=== PATIENT | male | born 1955 | race Caucasian/White ===

== ENCOUNTER 2024-03-21 18:15 | Inpatient (IN) | payer MEDICARE, OTHER, SELFPAY ==
[2024-03-20 17:02] VITALS: BP 118/82
[2024-03-20 17:03] VITALS: BMI 24.3
[2024-03-20 17:27] LABS: % Basophils 0.7 % (0-2); % Eosinophils 4.5 % (0-6); % Immature Granulocytes 0.4 % (0-0.5); % Lymphocytes 16.7 % (20.5-51.1); % Monocytes 7.1 % (1.7-9.3); % Neutrophils 70.6 % (42.2-75.2); Absolute Basophils 0.1 10^3/uL (0-0.2); Absolute Eosinophils 0.4 10^3/uL (0-0.7); Absolute Lymphocytes 1.5 10^3/uL (1.2-3.4); Absolute Monocytes 0.6 10^3/uL (0.1-0.6); Absolute Neutrophils 6.3 10^3/uL (1.4-6.5); Hematocrit 41.5 % (39.0-52.0); Mean Corp Hgb Conc. 33.7 g/dL (33.0-37.0); Mean Corpuscular Hgb 31.9 pg (27.0-31.0); Mean Corpuscular Volume 94.5 fL (80.0-94.0); Nucleated Red Blood Cells % 0 % (-); Platelet Count 365 10^3/uL (130-400); Red Blood Cell Count 4.39 10^6/uL (4.70-6.10); Red Cell Dist. Width 14.1 % (11.5-14.5); White Blood Cell Count 8.9 10^3/uL (4.8-10.8)
[2024-03-20 17:38] LABS: ALT (SGPT) 66 U/L (0-50); AST (SGOT) 73 U/L (17-59); Albumin 4.7 g/dl (3.5-5.0); Alkaline Phosphatase 320 U/L (38-126); Blood Urea Nitrogen 19 mg/dl (9-20); Calcium 10.1 mg/dl (8.4-10.2); Carbon Dioxide 28 mmol/L (22-30); Chloride 98 mmol/L (98-107); Estimated Creatinine Clearance 84 ml/min; Glucose 128 mg/dl (70-99); Potassium 4.3 mmol/L (3.5-5.1); Sodium 139 mmol/L (135-145); Total Bilirubin 0.5 mg/dl (0.2-1.3); Total Protein 9.3 g/dl (6.3-8.2); eGFR > 60.00
[2024-03-20 17:48] LABS: Troponin I < 0.012 ng/ml
[2024-03-20 17:57] LABS: Dilantin 54.1 ug/ml (10-20)
[2024-03-20 18:13] VITALS: BP 126/81
--- NOTE | 2024-03-20 19:15 | ED.GENMED ---
History of Present Illness
General
Chief Complaint: Abnormal Lab Value
Source: patient and records
Exam Limitations: clinical condition
Time Seen by Provider: 03/20/24 17:18
History of Present Illness
History of Present Illness:
68-year-old male with a history of intellectual disability, seizures who presents with abnormal labs that were drawn as an outpatient. Reportedly patient was little more lethargic than usual and was found to have an elevated Dilantin level. The
patient is unable to contribute to his own history. No reported vomiting or fevers.
Past History
Past History
ED Past Medical History: Seizures and Other (Intellectual disability)
Phy Exam
Physical Exam
Physical Exam:
CONSTITUTIONAL Patient alert . Well-appearing. Vital signs reviewed.
EYES eyelids normal to inspection, Extraocular muscles intact, Conjunctiva normal, Sclera normal.
NECK normal range of motion, Trachea midline, no jugular venous distention.
RESPIRATORY CHEST No respiratory distress noted, Chest expansion equal, Bilateral breath sounds clear.
CARDIOVASCULAR regular rate and rhythm, Heart sounds normal.
ABDOMEN abdomen nontender, Bowel sounds normal. No distention.
UPPER EXTREMITY no cyanosis, no edema.
LOWER EXTREMITY no cyanosis, no edema.
NEURO unable to understand speech. Awake.
SKIN skin warm, dry, and normal in color.
Course
Orders/Labs/Results
Orders:
Orders
03/20/24 Dinner
Regular
At Your Request: Non-Participating
Does patient need a safe tray?: No
03/20/24 17:03
Electrocardiogram (*1) Urgent
Reason for Study: Other
Other Reason for Exam: abnormal lab
EKG- Treatment ONCE
03/20/24 17:13
Complete Blood Count/With Diff Urgent
Comprehensive Metabolic Panel Urgent
Dilantin Urgent
Phenobarbital [S] Urgent
Comment: ADD ON
Troponin I Urgent
03/20/24 17:38
Add On- LAB Urgent
Tests Added?: Phenobarbital level
03/20/24 20:10
Admit/Transfer Patient As Directed
Co-Sign Provider:
Level of Care: Observation services
Assign to:: Telemetry
Physician / Group: maninder
Diagnosis: phenytoin toxicity
Reason for Telemetry: Arrhythmia
Date to Stop Telemetry: 03/23/24
Time to Stop Telemetry: 11:00
Code Status As Directed
Resuscitation Status: Full Code
03/20/24 20:12
Keppra (Levetiracetam) [S] Urgent
03/20/24 21:48
Acetaminophen [Tylenol] 650 mg PO Q6HPRN PRN
Bisacodyl [Dulcolax] 10 mg RECTAL DAILY PRN
Magnesium Hydroxide [Milk of Magnesia] 30 ml PO HS PRN
Phosphate Enema [Fleet Phosphate Enema-Adult] 118 ml RECTAL DAILY PRN
diazepam [Diastat AcuDial] See Dose Instructions RECTAL Q8H PRN
03/20/24 21:48
Activity As Directed
Activity Level: As Tolerated
Vital Signs As Directed
Frequency: Per unit guidelines
DX Deep Vein Thrombosis Video Routine
03/20/24 22:40
Urinalysis Reflex To Culture Urgent
Date Specimen was Collected: 03/20/24
Time Specimen was Collected: 22:38
03/21/24 06:00
Complete Blood Count/With Diff IN AM
Comprehensive Metabolic Panel IN AM
03/21/24 08:00
Heparin 5,000 units SC Q12
Levetiracetam [Keppra] 500 mg PO BID
Phenobarbital [Luminal] 16.2 mg PO BID
03/23/24 11:00
DC Protocol for Telemetry ONCE
03/24/24 08:00
Ergocalciferol [Drisdol (Vitamin D2)] 50,000 units PO MO
Abnormal Lab Results
03/20/24
17:13
RBC 4.39 L 10^6/uL
(4.70-6.10)
MCV 94.5 H fL
(80.0-94.0)
MCH 31.9 H pg
(27.0-31.0)
Lymphocytes % 16.7 L %
(20.5-51.1)
Glucose 128 H mg/dl
(70-99)
AST 73 H U/L
(17-59)
ALT 66 H U/L
(0-50)
Alkaline Phosphatase 320 H U/L
(38-126)
Total Protein 9.3 H g/dl
(6.3-8.2)
Phenytoin 54.1 H* ug/ml
(10-20)
03/20/24 17:13
03/20/24 17:13
Vital Signs
Initial and Last Documented VS:
Initial Vital Signs
Temp Pulse Resp BP Pulse Ox
97.7 F 64 18 118/82 98
03/20/24 17:02 03/20/24 17:02 03/20/24 17:02 03/20/24 17:02 03/20/24 17:02
Last Documented Vital Signs
Temp Pulse Resp BP Pulse Ox
97.9 F 67 14 146/86 98
03/20/24 21:58 03/20/24 21:58 03/20/24 21:58 03/20/24 21:58 03/20/24 21:58
MDM/Problems Addressed
MDM/Problems Addressed:
Supratherapeutic Dilantin
*Pulse Oximetry
Patient hypoxic: no
*EKG
Interpreted by ED Provider?: Yes
Interpretation: normal
Rate: normal
Rhythm: sinus
[place]: normal axis
Interval: normal interval
QRS Pattern: normal QRS
Ischemia: no ischemia
*Quoter Interpretation
Rate: normal
Interpretation: normal
Rhythm: sinus
*Critical Care Note
Total Time (30-74mins, 75-104mins- exclusive of procedures): Not Applicable
Data Reviewed
Source: records
Patient Management
Discussion with other providers: Hospitalist
Escalation/DeEscalation of care consider admission/obs:
Six 8-year-old male with a supratherapeutic Dilantin level. Admit for close monitoring. Obviously hold Dilantin and check phenobarbital level
ED Attending Note
-
Portions of this chart may have been created with voice recognition software.� Occasional wrong word or��sound alike� substitutions may have occurred due to the inherent limitations of voice recognition software.
Discharge Plan
Departure
Patient Disposition: Admit
Date of Disposition: 03/20/24
Time of Disposition: 19:15
Admit to: Telemetry
Presentation/result/management discussed w/ accepting MD/DO: Hospitalist
Discharge Problem:
SUPRATHERAPEUTIC Dilantin
Interventions
Interventions:
*Risk Screen - Suicide Last Done: 03/20/24 17:10
*General Assessment Last Done: 03/20/24 17:10
*Neglect/Abuse Screening Last Done: 03/20/24 17:10
ED- Fall Risk Assessment Last Done: 03/20/24 17:12
*ED COVID-19 Vaccine History Last Done: 03/20/24 17:10
*Nursing Disposition Last Done: 03/20/24 21:38
Discharge Date and Time
Discharge Date/Time: 03/20/24 21:39
[2024-03-20 20:00] VITALS: BP 111/81
--- NOTE | 2024-03-20 20:13 | HPS.HSE ---
Addendum entered and electronically signed by Coleman Cardenas MD 03/20/24 20:16:
Check urinalysis.
Original Note:
Family Physician
-
Family Physician: Dipesh Moser
Chief Complaint
-
lethargy
History of Present Illness
68-year-old male past medical history of intellectual disability, seizures, hyperlipidemia sent in from [facility] due to lethargy. Phenytoin level was checked and was found to be elevated at 54 and patient was sent to the emergency room.
Patient denies any symptoms but he is a poor historian. Does not know where he is. No further history can be obtained.
Medical History
Past Medical History
Past Medical History: Reports Other ( intellectual disability, seizures, hyperlipidemia)
Past Surgical History: Reports None
Social History
Tobacco: Non-smoker
Alcohol: None
Drug: None
Family History
Family History: Not pertinent
Allergies / Home Medications
Allergies reflects when Allergies were last updated in [facility].
Home Medications with original date entered in [facility]
Allergy/Medication List:
Allergies
Allergy/AdvReac Type Severity Reaction Status Date / Time
No Known Allergies Allergy Unverified 03/20/24 17:10
Home Medications
acetaminophen 325 mg tablet 650 mg PO Q6H PRN mild pain 03/20/24
atorvastatin 10 mg tablet 10 mg PO DAILY 03/20/24
bisacodyl 10 mg rectal suppository (Dulcolax (bisacodyl)) 10 mg GA DAILY PRN if no results from MOM 03/20/24
diazepam 5 mg-7.5 mg-10 mg rectal kit (Diastat AcuDial) 10 mg GA Q8H PRN seizures 03/20/24
ergocalciferol (vitamin D2) 1,250 mcg (50,000 unit) capsule 1,250 mcg PO MO 03/20/24
levetiracetam 500 mg tablet (Keppra) 500 mg PO BID 03/20/24
magnesium hydroxide 400 mg/5 mL oral suspension (Milk of Magnesia) 30 ml PO HS PRN if no bm x 3 days 03/20/24
phenobarbital 16.2 mg tablet 16.2 mg PO BID 03/20/24
phenytoin 50 mg chewable tablet 250 mg PO BID 03/20/24
sodium phosphates 19 gram-7 gram/118 mL enema (Fleet Enema) 118 ml GA DAILY PRN if no results from dulcolax 03/20/24
Review of Systems
-
History Source: Patient
A 12 point ROS was completed and negative except as noted: Yes
Constitutional: Reports No Symptoms
EENT: Reports No Symptoms
Respiratory: Reports No Symptoms
Cardiac: Reports No Symptoms
Abdomen/GI: Reports No Symptoms
: Reports No Symptoms
Musculoskeletal: Reports No Symptoms
Skin: Reports No Symptoms
Neurological: Reports See HPI
Endocrine: Reports No Symptoms
Hematologic/Lymphatic: Reports No Symptoms
Psych: Reports No Symptoms
Physical Exam
Vital Signs
Vital Signs
Temp Pulse Resp BP Pulse Ox
97.7 F 64 20 126/81 98
03/20/24 17:02 03/20/24 18:15 03/20/24 18:15 03/20/24 18:13 03/20/24 18:15
Physical Exam
General: Well Developed, Well Nourished and No Apparent Distress
HEENT: NormoCephalic, Moist mucous membranes and Atraumatic
Respiratory: Clear
Cardiac: S1/S2 and Regular Rhythm; No Murmur or Rub
GI: Soft, Non Tender, Non Distended and Normal Bowel Sounds; No Organomegaly
Rectal: Deferred by Provider
Musculoskeletal: No Clubbing, No Cyanosis and No Edema
Skin: No Rash
Neuro: Nonfocal/grossly intact
Laboratory Results
-
03/20/24 17:13
03/20/24 17:13
Laboratory Results
Total Bilirubin 0.5 mg/dl (0.2-1.3) 03/20/24 17:13
AST 73 U/L (17-59) H 03/20/24 17:13
ALT 66 U/L (0-50) H 03/20/24 17:13
Alkaline Phosphatase 320 U/L (38-126) H 03/20/24 17:13
Troponin I < 0.012 ng/ml 03/20/24 17:13
Data Reviewed
-
Lab Data: Labs Reviewed by me
Old Records: Reviewed
Impression/Plan
-
IMPRESSION:
PLAN:
# Metabolic encephalopathy secondary to phenytoin toxicity
# History of seizures
-Unclear baseline mental status
-Hold phenytoin
-Phenobarbital level pending
-Check Keppra level
-Continue phenobarbital, Keppra
-Continue as needed diazepam
-Neurology consulted
# Transaminitis secondary to phenytoin toxicity
-Continue to monitor
History of intellectual disability
Hyperlipidemia
-Hold statin
Full code
DVT prophylaxis�heparin
Regular diet
[2024-03-20 21:00] VITALS: BP 122/78
[2024-03-20 21:58] VITALS: BP 146/86
--- NOTE | 2024-03-20 22:00 | PTCARENOTE ---
Pt arrived to unit from ED and was a pullover assist from stretcher to bed. Pt is AAOx1 to self only. BP on admission 146/86, HR 67 in left upper arm. Pt oriented to room with call nichols in reach but he is forgetful. Bed alarm and seizure pads in
place under pt. Pt is ordered a urinalysis and he is incontinent; MEDICAL GENETICIST Chiqui Garcia notified and order placed for straight cath one time now. Urine sample sent to lab by this RN.
[2024-03-20 22:36] VITALS: BMI 28.8
[2024-03-20 22:48] LABS: Urine Albumin Trace (Neg - Trace); Urine Bilirubin 1+ (Negative); Urine Character Clear (Clear); Urine Color Yellow; Urine Glucose Negative (Negative); Urine Ketone Trace (Negative); Urine Leukocyte Trace (Negative); Urine Nitrite Negative (Negative); Urine Occult Blood Negative (Negative); Urine Specific Gravity 1.025 (<1.030); Urine Urobilinogen Negative (Neg - 1+)
[2024-03-20 23:01] LABS: Urine Calcium Oxalate Crystals Present; Urine Squamous Cell 0-2 /LPF (Few)
[2024-03-20 23:02] LABS: Urine Bacteria Few (Negative); Urine Red Blood Cell 0-2 /HPF (0-2)
[2024-03-20 23:10] VITALS: BP 112/72
[2024-03-21 03:05] VITALS: BP 125/77
[2024-03-21 05:07] LABS: % Basophils 0.6 % (0-2); % Eosinophils 6.3 % (0-6); % Immature Granulocytes 0.4 % (0-0.5); % Lymphocytes 16.4 % (20.5-51.1); % Monocytes 12.6 % (1.7-9.3); % Neutrophils 63.7 % (42.2-75.2); Absolute Basophils 0.1 10^3/uL (0-0.2); Absolute Eosinophils 0.6 10^3/uL (0-0.7); Absolute Lymphocytes 1.6 10^3/uL (1.2-3.4); Absolute Monocytes 1.2 10^3/uL (0.1-0.6); Absolute Neutrophils 6.1 10^3/uL (1.4-6.5); Hematocrit 39.5 % (39.0-52.0); Mean Corp Hgb Conc. 35.4 g/dL (33.0-37.0); Mean Corpuscular Hgb 31.6 pg (27.0-31.0); Mean Corpuscular Volume 89.2 fL (80.0-94.0); Nucleated Red Blood Cells % 0 % (-); Platelet Count 241 10^3/uL (130-400); Red Blood Cell Count 4.43 10^6/uL (4.70-6.10); Red Cell Dist. Width 13.9 % (11.5-14.5); White Blood Cell Count 9.5 10^3/uL (4.8-10.8)
[2024-03-21 06:16] LABS: ALT (SGPT) 58 U/L (0-50); AST (SGOT) 60 U/L (17-59); Albumin 4.2 g/dl (3.5-5.0); Alkaline Phosphatase 296 U/L (38-126); Blood Urea Nitrogen 17 mg/dl (9-20); Calcium 9.5 mg/dl (8.4-10.2); Carbon Dioxide 24 mmol/L (22-30); Chloride 102 mmol/L (98-107); Estimated Creatinine Clearance 82 ml/min; Glucose 82 mg/dl (70-99); Potassium 4.1 mmol/L (3.5-5.1); Sodium 139 mmol/L (135-145); Total Bilirubin 0.6 mg/dl (0.2-1.3); Total Protein 8.4 g/dl (6.3-8.2); eGFR > 60.00
[2024-03-21 07:00] VITALS: BP 114/72
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
[2024-03-21] MEDS: LUMINAL 16.1999999999999993 MG PO ×2 (08:54→20:01)
[2024-03-21] MEDS: HEPARIN 5000 UNITS SC ×2 (08:54→19:53)
[2024-03-21] MEDS: KEPPRA 500 MG PO ×2 (08:54→19:54)
[2024-03-21 09:57] LABS: Dilantin 36.7 ug/ml (10-20)
[2024-03-21 11:00] VITALS: BP 109/73
--- NOTE | 2024-03-21 13:51 | EEG.RPT ---
Electroencephalogram Report
Recording
Date of EE03/21/24
Type of EEG: Routine
Length of EEG recordin mins
Done with Video Recording: Yes
Patient Status: Inpatient
Recording Conditions: Awake
Hyperventilation Performed: No
Photic Stimulation Performed: Yes
Report
METHODS
A 21 channel digitized electroencephalogram was performed at [facility]. The 10/20 international system of electrode placement was used. In addition to EEG, the patient was monitored for EKG. The duration of the recording was 28 minutes.
BACKGROUND
During the awake state, with the eyes closed, the background was diffusely slow, 6-7Hz on average; slightly higher amplitude was seen over the right frontal region throughout the recording.
HYPERVENTILATION
Hyperventilation was not performed.
PHOTIC STIMULATION
Photic stimulation using a step-hernandez increase in photic frequency varying from 1-31 Hertz resulted in no driving responses but no appearance of abnormal activity.
CLINICAL EVENTS
None
INTERPRETATION AND CLINICAL CORRELATION
This EEG is abnormal due to the presence of diffuse slowing, 6-7Hz on average; slightly higher amplitude was seen over the right frontal region throughout the recording which can be seen at times due to focal structural abnormality. The study was
otherwise consistent with mild diffuse cerebral dysfunction, nonspecific in etiology. No clear seizure activity was noted.
--- NOTE | 2024-03-21 14:29 | W.PN.HOSP.TC ---
Today's Communication/Plan
-
Monitor liver enzyme
Assessment / Plan
Assessment / Plan
IMPRESSION:
68-year-old male past medical history of intellectual disability, seizures, hyperlipidemia sent in from [place] [facility] due to lethargy. Phenytoin level was checked and was found to be elevated at 54 and patient was sent to the emergency room.
PLAN:
Acute Metabolic encephalopathy secondary to phenytoin toxicity
History of seizures
-Unclear baseline mental status
-Holding phenytoin
-Phenobarbital level pending
-Check Keppra level
-Continue phenobarbital, Keppra
-Continue as needed diazepam
-Neurology consulted--> recommends to discontinue Dilantin
Transaminitis secondary to phenytoin toxicity
-Liver enzymes are still elevated.
- Continue to monitor
History of intellectual disability
Hyperlipidemia
-Hold statin
Full code
DVT prophylaxis�heparin
Regular diet
Anticipated Discharge: 24 - 48 hours
Subjective/Interval History
-
Date of Service: March 21, 2024
Patient seen and examined at bedside, limited history, patient is a poor historian, repeat Dilantin level today came at 36.7
Discussed with neurology recommends to discontinue Dilantin
Objective Data
-
Labs:
Laboratory Results
03/21/24
04:49
WBC 9.5
Hgb 14.0
Hct 39.5
Plt Count 241 D
Sodium 139
Potassium 4.1
Chloride 102
Carbon Dioxide 24
BUN 17
Creatinine 0.7
Glucose 82
Calcium 9.5
Total Bilirubin 0.6
AST 60 H
ALT 58 H
Alkaline Phosphatase 296 H
Vital Signs:
Vital Signs
Temp Pulse Resp BP Pulse Ox
98.7 F 67 18 109/73 98
03/21/24 11:00 03/21/24 11:00 03/21/24 11:00 03/21/24 11:00 03/21/24 11:00
I&O
03/20/24 03/21/24 03/22/24
06:59 06:59 06:59
Intake Total 120 / 120
Output Total 50 / 50
Balance 70 / 70
Physical Exam
-
General: Comfortable and Appears Chronically Ill
HEENT: Normocephalic, Atraumatic and Moist Mucous Membranes
Respiratory: Clear to Auscultation
Cardiac: Regular Rhythm and S1/S2; Negative Murmur, Rub or Gallop
GI: Soft, Nontender, Nondistended and Normal Bowel Sounds; Negative Organomegaly
Rectal: Deferred by Provider
Musculoskeletal: No Clubbing, No Cyanosis and No Edema
Skin: Negative Rash
Neuro: Nonfocal/Grossly Intact
Psych: Confused
[2024-03-21 15:00] VITALS: BP 112/68
--- NOTE | 2024-03-21 16:16 | CM ---
care manager reviewed patient's chart and met with patient and patient was admitted under OBS, REED letter explained to patient's POAGucci. Patient lives at [facility] where patient has lived for about 3 months, per POA patient is
nonambulatory. case advocate left a message for admissions to [facility] to check on any ambulation.
Plan; Patient to return to [facility] when stable.
[2024-03-21 19:35] VITALS: BP 132/83
[2024-03-21 23:15] VITALS: BP 136/85
[2024-03-22 03:22] VITALS: BP 123/76
[2024-03-22 07:00] VITALS: BP 112/73
[2024-03-22 07:08] LABS: ALT (SGPT) 45 U/L (0-50); AST (SGOT) 45 U/L (17-59); Albumin 3.8 g/dl (3.5-5.0); Alkaline Phosphatase 275 U/L (38-126); Direct Bilirubin 0.3 mg/dl (0.0-0.4); Total Bilirubin 0.4 mg/dl (0.2-1.3); Total Protein 7.7 g/dl (6.3-8.2)
--- NOTE | 2024-03-22 08:22 | W.PN.NEURO.1 ---
Today's Communication / Plan
-
-Moving forward will remain off phenytoin for the long-term as I do not see that he would need to have 3 seizure medications in total given it does not seem that he has had seizures in at least years
-We will consider a small increase in levetiracetam as his phenytoin levels come down
-Continue the home dose of phenobarbital
-Check phenytoin level tomorrow morning
-Will need neurology follow-up and following for the future discussed this with the patient's family friend
Neuro Assessment/Plan
Assessment
68-year-old man with a past medical history of intellectual disability and epilepsy presented to hospital due to lethargy and balance problems was found to have significantly elevated phenytoin levels in the 50s on outpatient lab testing.
Further history from patient's family friend who had known the patient's mother and the patient for most of his life related that he had been seen by [place]'s neurologist but had not seen them in some time and had been maintained on antiseizure
medications apparently without any seizures for at least the past several years to the best of his friend's knowledge.
Phenytoin toxicity can lead to balance difficulty drowsiness and nystagmus.
Levels are reassuringly decreasing.
EEG did not show any overt seizure activity and clinically has not had seizures
Subjective/Objective
Subjective Data
Date of Service: March 22, 2024
No acute events, no seizures seen, patient speaks a little bit
Objective Data
Vital Signs
Temp Pulse Resp BP Pulse Ox
97.9 F 70 12 112/73 96
03/22/24 07:00 03/22/24 07:00 03/22/24 07:00 03/22/24 07:00 03/22/24 07:00
Lab Results
03/21/24 04:49
03/21/24 04:49
Sodium 139 mmol/L (135-145) 03/21/24 04:49
Potassium 4.1 mmol/L (3.5-5.1) 03/21/24 04:49
BUN 17 mg/dl (9-20) 03/21/24 04:49
Glucose 82 mg/dl (70-99) 03/21/24 04:49
Calcium 9.5 mg/dl (8.4-10.2) 03/21/24 04:49
Patient Allergies
No Known Allergies Allergy (Unverified 03/20/24 17:10)
Review of Systems
-
Unable to obtain full review of systems at this time due to: Patient Non-verbal
Physical Exam
-
General: No Apparent Distress and Appears Chronically Ill
HEENT: Atraumatic
Respiratory: No Dyspnea
Cardiac: No Murmur
Extremities: No Cyanosis and No Edema
Psych: Confused; Negative Agitated or Intact Judgement/Insight
Extended Neurological Exam
Attention Span & Concentration: Other (Awake, interacts, says a few simple words, obeys simple commands)
Memory: Unable to Assess
Speech: Dysarthric
Cranial Nerve II: Left Eye: Pupillary Reactivity Unremarkable and Pupillary Size Unremarkable
Cranial Nerve II: Right Eye: Pupillary Reactivity Unremarkable and Pupillary Size Unremarkable
Cranial Nerves III, IV, : Extraocular Movement: Extraocular Movement Full in all Directions
[2024-03-22] MEDS: KEPPRA 500 MG PO ×2 (09:17→20:34)
[2024-03-22] MEDS: LUMINAL 16.1999999999999993 MG PO ×2 (09:17→20:34)
[2024-03-22] MEDS: HEPARIN 5000 UNITS SC ×2 (09:17→20:35)
--- NOTE | 2024-03-22 09:26 | W.PN.HOSP.TC ---
Today's Communication/Plan
-
Recheck Dilantin level tomorrow
Assessment / Plan
Assessment / Plan
Physical exam:
General: Well Developed, Well Nourished and No Apparent Distress
HEENT: Normocephalic, Atraumatic and Moist Mucous Membranes
Respiratory: Clear to Auscultation; Negative Wheezes, Rales or Rhonchi
Cardiac: Regular Rhythm and S1/S2
GI: Soft, Nontender and Nondistended
Musculoskeletal: No Clubbing, No Cyanosis and No Edema
Neuro: Awake, Alert, says a few words, obeys commands, no gross neurological deficit
Psych: Calm
A/P:
PLAN:
Acute Metabolic encephalopathy secondary to phenytoin toxicity
History of seizures
-Unclear baseline mental status but suspected approaching baseline
-Holding phenytoin level 54---> 36.7. Will repeat levels tomorrow
-Phenobarbital
-Check Keppra level
-Continue phenobarbital, Keppra
-Continue as needed diazepam
-Neurology consulted--> recommends to discontinue Dilantin
Transaminitis secondary to phenytoin toxicity
-Liver enzymes are still elevated.
- Continue to monitor
History of intellectual disability
Hyperlipidemia
-Hold statin
Full code
DVT prophylaxis�heparin
Regular diet
Anticipated Discharge: 24 - 48 hours
Subjective/Interval History
-
Date of Service: March 22, 2024
Patient seen and examined.
Objective Data
-
Labs:
Laboratory Results
03/22/24
05:54
Total Bilirubin 0.4
AST 45
ALT 45
Alkaline Phosphatase 275 H
Vital Signs:
Vital Signs
Temp Pulse Resp BP Pulse Ox
97.9 F 70 12 112/73 96
03/22/24 07:00 03/22/24 07:00 03/22/24 07:00 03/22/24 07:00 03/22/24 07:00
I&O
03/21/24 03/22/24 03/23/24
06:59 06:59 06:59
Intake Total 120 / 120 840 / 840
Output Total 50 / 50
Balance 70 / 70 840 / 840
[2024-03-22 11:00] VITALS: BP 118/71
[2024-03-22 15:00] VITALS: BP 113/70
[2024-03-22 16:24] LABS: Keppra (Levetiracetam) 9 ug/mL (10-40)
[2024-03-22 19:43] VITALS: BP 119/75
[2024-03-22] MEDS: TYLENOL 650 MG PO (20:42)
[2024-03-22 23:08] VITALS: BP 106/75
[2024-03-23] VITALS (7 sets, daily range): BP systolic 105–127; BP diastolic 65–78; PULSE 72; O2SAT 94
[2024-03-23 07:40] LABS: % Basophils 0.4 % (0-2); % Eosinophils 6.2 % (0-6); % Immature Granulocytes 0.4 % (0-0.5); % Lymphocytes 21.6 % (20.5-51.1); % Monocytes 9.3 % (1.7-9.3); % Neutrophils 62.1 % (42.2-75.2); Absolute Eosinophils 0.6 10^3/uL (0-0.7); Absolute Lymphocytes 1.9 10^3/uL (1.2-3.4); Absolute Monocytes 0.8 10^3/uL (0.1-0.6); Absolute Neutrophils 5.6 10^3/uL (1.4-6.5); Hematocrit 35.2 % (39.0-52.0); Hemoglobin 12.3 g/dL (13.0-18.0); Mean Corp Hgb Conc. 34.9 g/dL (33.0-37.0); Mean Corpuscular Hgb 31.7 pg (27.0-31.0); Mean Corpuscular Volume 90.7 fL (80.0-94.0); Mean Platelet Volume 9.9 fL (7.4-10.4); Nucleated Red Blood Cells % 0 % (-); Platelet Count 302 10^3/uL (130-400); Red Blood Cell Count 3.88 10^6/uL (4.70-6.10); Red Cell Dist. Width 14.4 % (11.5-14.5)
[2024-03-23 07:48] LABS: Dilantin 28.2 ug/ml (10-20)
[2024-03-23 08:12] LABS: ALT (SGPT) 38 U/L (0-50); AST (SGOT) 41 U/L (17-59); Albumin 3.8 g/dl (3.5-5.0); Alkaline Phosphatase 258 U/L (38-126); Blood Urea Nitrogen 23 mg/dl (9-20); Calcium 9.2 mg/dl (8.4-10.2); Carbon Dioxide 25 mmol/L (22-30); Chloride 103 mmol/L (98-107); Estimated Creatinine Clearance 64 ml/min; Glucose 88 mg/dl (70-99); Sodium 140 mmol/L (135-145); Total Bilirubin 0.4 mg/dl (0.2-1.3); Total Protein 7.7 g/dl (6.3-8.2); eGFR > 60.00
--- NOTE | 2024-03-23 08:34 | W.PN.HOSP.TC ---
Today's Communication/Plan
-
Recheck Dilantin level tomorrow.
Assessment / Plan
Assessment / Plan
Physical exam:
General: Acute on chronically ill
HEENT: Normocephalic, Atraumatic and Moist Mucous Membranes
Respiratory: Clear to Auscultation; Negative Wheezes, Rales or Rhonchi
Cardiac: Regular Rhythm and S1/S2
GI: Soft, Nontender and Nondistended
Musculoskeletal: No Clubbing, No Cyanosis and No Edema
Neuro: Awake, Alert, says a few words, obeys commands, no gross neurological deficit
Psych: Calm
A/P:
PLAN:
Acute Metabolic encephalopathy secondary to phenytoin toxicity
History of seizures
-Unclear baseline mental status but suspected approaching baseline
-Holding phenytoin level 54---> 36.7-->28.2. Will repeat levels tomorrow
-Phenobarbital
-Check Keppra level
-Continue phenobarbital, Keppra
-Continue as needed diazepam
-Neurology consulted--> recommends to discontinue Dilantin.
-PT OT
-Discharge planning once cleared by neurology.
Transaminitis secondary to phenytoin toxicity
-Liver enzymes are still elevated.
- Continue to monitor
History of intellectual disability
Hyperlipidemia
-Hold statin
Full code
DVT prophylaxis�heparin
Anticipated Discharge: 24 - 48 hours
Subjective/Interval History
-
Date of Service: March 23, 2024
Patient does not voice any new complaints. Afebrile
Objective Data
-
Labs:
Laboratory Results
03/23/24
05:44
WBC 9.0
Hgb 12.3 L
Hct 35.2 L
Plt Count 302 D
Sodium 140
Potassium 4.0
Chloride 103
Carbon Dioxide 25
BUN 23 H
Creatinine 0.9
Glucose 88
Calcium 9.2
Total Bilirubin 0.4
AST 41
ALT 38
Alkaline Phosphatase 258 H
Vital Signs:
Vital Signs
Temp Pulse Resp BP Pulse Ox
98.3 F 70 17 112/70 95
03/23/24 07:23 03/23/24 07:23 03/23/24 07:23 03/23/24 07:23 03/23/24 07:23
I&O
03/22/24 03/23/24 03/24/24
06:59 06:59 06:59
Intake Total 840 / 840 480 / 480
Balance 840 / 840 480 / 480
[2024-03-23] MEDS: LUMINAL 16.1999999999999993 MG PO ×2 (09:03→19:41)
[2024-03-23] MEDS: KEPPRA 500 MG PO ×2 (09:05→19:41)
[2024-03-23] MEDS: HEPARIN 5000 UNITS SC ×2 (09:05→19:41)
[2024-03-23] MEDS: KEPPRA PO (09:15)
--- NOTE | 2024-03-23 13:50 | W.PN.NEURO.1 ---
Today's Communication / Plan
-
-Remain off phenytoin indefinitely
-Continue his home dose of phenobarbital
-Small increase in levetiracetam to 750 mg twice daily
-Will need outpatient neurology follow-up
-Phenytoin levels moving downwards, not seeing reasons to check further unless there are clinical changes
Will follow as needed call with questions and concerns
Neuro Assessment/Plan
Assessment
68-year-old man with a past medical history of intellectual disability and epilepsy presented to hospital due to lethargy and balance problems was found to have significantly elevated phenytoin levels in the 50s on outpatient lab testing.
Further history from patient's family friend who had known the patient's mother and the patient for most of his life related that he had been seen by [facility] neurologist but had not seen them in some time and had been maintained on antiseizure
medications apparently without any seizures for at least the past several years to the best of his friend's knowledge.
Phenytoin toxicity can lead to balance difficulty drowsiness and nystagmus.
Levels are reassuringly decreasing.
EEG did not show any overt seizure activity and clinically has not had seizures
Subjective/Objective
Subjective Data
Date of Service: March 23, 2024
No acute events, no seizures seen, patient awakens, answers simple questions
Objective Data
Vital Signs
Temp Pulse Resp BP Pulse Ox
98.0 F 73 17 108/65 97
03/23/24 11:34 03/23/24 11:34 03/23/24 11:34 03/23/24 11:34 03/23/24 11:34
Lab Results
03/23/24 05:44
03/23/24 05:44
Sodium 140 mmol/L (135-145) 03/23/24 05:44
Potassium 4.0 mmol/L (3.5-5.1) 03/23/24 05:44
BUN 23 mg/dl (9-20) H 03/23/24 05:44
Glucose 88 mg/dl (70-99) 03/23/24 05:44
Calcium 9.2 mg/dl (8.4-10.2) 03/23/24 05:44
Patient Allergies
No Known Allergies Allergy (Unverified 03/20/24 17:10)
Review of Systems
-
Unable to obtain full review of systems at this time due to: Other (Intellectual disability)
Physical Exam
-
General: Comfortable and Appears Chronically Ill
Respiratory: No Dyspnea
Cardiac: No Murmur
GI: Soft and Non-tender
Skin: Warm, Dry and Rash
Psych: Negative Agitated or Intact Judgement/Insight
Extended Neurological Exam
Attention Span & Concentration: Other (Awakens, interacts, obey simple commands answers simple yes no questions)
Memory: Unable to Assess
Tremor: Hand Tremor Absent
Involuntary Movement: None
Speech: Dysarthric; Negative Receptive Aphasia
Cranial Nerve II: Left Eye: Pupillary Reactivity Unremarkable and Pupillary Size Unremarkable
Cranial Nerve II: Right Eye: Pupillary Reactivity Unremarkable and Pupillary Size Unremarkable
Cranial Nerves III, IV, : Extraocular Movement: Extraocular Movement Full in all Directions
Cranial Nerve VII: Facial Symmetry: Normal Facial Symmetry
[2024-03-23] MEDS: TYLENOL 650 MG PO (19:41)
[2024-03-23] MEDS: KEPPRA 250 MG PO (19:45)
[2024-03-24 03:16] VITALS: BP 122/88
[2024-03-24 07:17] LABS: Dilantin 28.2 ug/ml (10-20)
[2024-03-24 07:25] VITALS: BP 126/84
[2024-03-24 07:40] LABS: ALT (SGPT) 44 U/L (0-50); AST (SGOT) 49 U/L (17-59); Albumin 3.7 g/dl (3.5-5.0); Alkaline Phosphatase 254 U/L (38-126); Blood Urea Nitrogen 20 mg/dl (9-20); Calcium 9.3 mg/dl (8.4-10.2); Carbon Dioxide 26 mmol/L (22-30); Chloride 104 mmol/L (98-107); Estimated Creatinine Clearance 82 ml/min; Glucose 90 mg/dl (70-99); Potassium 3.9 mmol/L (3.5-5.1); Sodium 140 mmol/L (135-145); Total Bilirubin 0.6 mg/dl (0.2-1.3); Total Protein 7.6 g/dl (6.3-8.2); eGFR > 60.00
[2024-03-24] MEDS: DRISDOL (VITAMIN D2) 50000 UNITS PO (09:27)
[2024-03-24] MEDS: LUMINAL 16.1999999999999993 MG PO ×2 (09:27→19:29)
[2024-03-24] MEDS: KEPPRA 500 MG PO ×2 (09:27→19:29)
[2024-03-24] MEDS: KEPPRA 250 MG PO ×2 (09:27→19:29)
[2024-03-24] MEDS: HEPARIN 5000 UNITS SC ×2 (09:27→19:29)
--- NOTE | 2024-03-24 10:31 | W.PN.HOSP.TC ---
Today's Communication/Plan
-
dc planning
Assessment / Plan
Assessment / Plan
Physical exam:
General: Not in respiratory distress, chronically ill
HEENT: Normocephalic, Atraumatic and Moist Mucous Membranes
Respiratory: Clear to Auscultation; Negative Wheezes, Rales or Rhonchi
Cardiac: Regular Rhythm and S1/S2
GI: Soft, Nontender and Nondistended
Musculoskeletal: No Clubbing, No Cyanosis and No Edema
Neuro: Awake, Alert, says a few words, obeys commands, no gross neurological deficit
Psych: Calm
A/P:
PLAN:
#Acute Metabolic encephalopathy secondary to phenytoin toxicity
History of seizures
-Unclear baseline mental status but suspected approaching baseline
-Holding phenytoin level 54---> 36.7-->28.2. No need to trend since we are stopping it.
-Continue phenobarbital, Keppra ( increased now)
-Continue as needed diazepam
-Neurology consulted--> recommends to discontinue Dilantin.
-PT OT
# Mild dilutional anemia
#Transaminitis secondary to phenytoin toxicity
-Liver enzymes are coming down
Pt denies pain or nausea
#History of intellectual disability
#Hyperlipidemia
-Hold statin, resume upon discharge
Full code
DVT prophylaxis�heparin
Total time spent to see the patient on the floor, examine the patient, review data and lab results, discuss treatment plan with patient, nursing staff around 55 minutes
Anticipated Discharge: Within 24 hours
Subjective/Interval History
-
Date of Service: March 24, 2024
No chest pain
No abd pain
Objective Data
-
Labs:
Laboratory Results
03/24/24
06:43
Sodium 140
Potassium 3.9
Chloride 104
Carbon Dioxide 26
BUN 20
Creatinine 0.7
Glucose 90
Calcium 9.3
Total Bilirubin 0.6
AST 49
ALT 44
Alkaline Phosphatase 254 H
Vital Signs:
Vital Signs
Temp Pulse Resp BP Pulse Ox
97.6 F 72 18 126/84 97
03/24/24 07:25 03/24/24 07:25 03/24/24 07:25 03/24/24 07:25 03/24/24 07:25
I&O
03/23/24 03/24/24 03/25/24
06:59 06:59 06:59
Intake Total 480 / 480 360 / 360
Balance 480 / 480 360 / 360
[2024-03-24 10:45] VITALS: BP 120/81
--- NOTE | 2024-03-24 12:08 | CM ---
CM reviewed pt with Dr Blackewll- MILAN tomorrow
Update to [facility] admissions
Noted pt in process of applying for LTC transfer to [facility]
Discussion with Dorothea-[facility] closed to admissions currently but did confirm eventual plan for LTC transfer
Update provided to TANYA/Gucci over the phone
Pt is now inpatient status- IMM verbally reveiwed
He declined copy- Requetsing IMM to be reviewed with pt
Bedside update to pt- IMM verbally reviewed
Copy provided
Not please he is not being dc today
Medical necessity and transport on chart
Return SNF referral sent to [facility]
Discharge Disposition- return [facility] via BLS
[2024-03-24 15:00] VITALS: BP 119/82
[2024-03-24 19:00] VITALS: BP 124/80
[2024-03-24 23:00] VITALS: BP 155/85
[2024-03-25 03:00] VITALS: BP 151/76
[2024-03-25 07:05] VITALS: BP 115/80
[2024-03-25] MEDS: LUMINAL 16.1999999999999993 MG PO (08:28)
[2024-03-25] MEDS: HEPARIN 5000 UNITS SC (08:28)
[2024-03-25] MEDS: KEPPRA 250 MG PO (08:28)
[2024-03-25] MEDS: KEPPRA 500 MG PO (08:28)
--- NOTE | 2024-03-25 09:02 | W.DCSUMMARY ---
Discharge Summary
Discharge Data
Date of Admission: 03/21/24
Date of Discharge: 03/25/24
-
Pending Results: No
Hospital Course
68 years old male was sent from [facility] due to lethargy. Patient did not have fever or hypotension. Patient was evaluated by neurologist. Phenytoin level was found to be elevated. Neurologist recommended to stop phenytoin. Neurologist
recommended to consider small increase in Keppra dose and to maintain same dose of phenobarbital. Phenytoin level started to decrease. Electroencephalogram did not show any overt seizure activity. Patient did not have signs of active infection.
Mentation improved. Patient was noted to have elevated liver enzymes but they started to come down. He did not have abdominal pain or nausea. He tolerated diet well. Neurologist recommended outpatient follow-up. Patient remained hemodynamic
stable and was discharged back to [facility] in a stable condition.
Physical exam:
General: Not in respiratory distress, chronically ill looking.
HEENT: Normocephalic, Atraumatic and Moist Mucous Membranes
Respiratory: Clear to Auscultation; Negative Wheezes, Rales or Rhonchi
Cardiac: Regular Rhythm and S1/S2
GI: Soft, Nontender and Nondistended
Musculoskeletal: No Clubbing, No Cyanosis and No Edema
Neuro: Awake, Alert, slow to answer at times. Followed commands.
Psych: Calm
Total discharge time spent to see the patient on the floor, examine the patient, review data and lab results, discuss discharge plan with patient, nursing staff around 65 minutes
Discharge Plan
-
Patient Disposition: [facility]SNF
Discharge Diagnosis/Procedures: Phenytoin induced toxic encephalopathy.
You were evaluated by neurologist. We stopped phenytoin. We increased dose of Keppra. Continue same dose of phenobarbital.
You will need follow-up with neurology doctor in 1 month.
Diet: As tolerated
Referrals:
Dipesh Moser MD [Family Provider] -
Ting Lala, [Active] - in one month
Prescriptions:
New
levetiracetam 500 mg Tablet
500 mg PO BID Qty: 60 0RF
levetiracetam 250 mg Tablet
250 mg PO BID Qty: 60 0RF
Continued
phenobarbital 16.2 mg Tablet
16.2 mg PO BID
acetaminophen 325 mg Tablet
650 mg PO Q6H PRN (Reason: mild pain)
atorvastatin 10 mg Tablet
10 mg PO DAILY
magnesium hydroxide [Milk of Magnesia] 400 mg/5 mL Suspension
30 ml PO HS PRN (Reason: if no bm x 3 days)
bisacodyl [Dulcolax (bisacodyl)] 10 mg Suppository
10 mg AK DAILY PRN (Reason: if no results from [facility]OM)
Fleet Enema 19-7 gram/118 mL Enema
118 ml AK DAILY PRN (Reason: if no results from dulcolax)
ergocalciferol (vitamin D2) 1,250 mcg (50,000 unit) Capsule
1,250 mcg PO MO
diazepam [Diastat AcuDial] 5-7.5-10 mg Kit
10 mg AK Q8H PRN (Reason: seizures)
Discontinued
levetiracetam [Keppra] 500 mg Tablet
500 mg PO BID
phenytoin 50 mg Tablet,Chewable
250 mg PO BID
Discharge Orders:
Discharge Patient (As Directed); Ordered 03/25/24
Ordered By: Damir Blackwell
Discharge Date and Time
Print Language: KISWAHILI
--- NOTE | 2024-03-25 10:38 | CM ---
grain operations manager reviewed patient's chart and patient is to return to [facility] today. Patient has a 2pm case picker by ambulance. grain operations manager reached out to patient's Gucci MARTÍNEZ and he is aware of discharge time.
Plan; Patient to return to [facility] today 2pm.
Report [phone]
[2024-03-25 11:10] VITALS: BP 119/77
== END 2024-03-25 14:20 | DRG 72 ==
LOC: 4 WEST ACU 18:15
PROVIDERS: General Practice; Hospitalist; ADMITTING PHYSICIAN Hospitalist; ATTENDING PHYSICIAN Internal Medicine; CONSULT PHYSICIAN Psychiatry & Neurology Neurology; EMERGENCY PHYSICIAN Emergency Medicine; FAMILY PHYSICIAN Internal Medicine; OTHER PHYSICIAN Student in an Organized Health Care Education/Training Program
DX: G93.41 Metabolic encephalopathy (principal); E78.5 Hyperlipidemia, unspecified; T42.0X1A Poisoning by hydantoin derivatives, accidental (unintentional), initial encounter
CPT/HCPCS: 80053; 80076; 80177; 80184; 80185; 81003; 81015; 84484; 85025; 87070; 93005; 95816; 97163; 99285

== ENCOUNTER 2024-04-01 13:59 | Emergency (ER) | payer MEDICARE, OTHER, SELFPAY ==
[2024-04-01] VITALS (7 sets, daily range): BP systolic 116–128; BP diastolic 83–96
--- NOTE | 2024-04-01 14:24 | ED.GENMED ---
History of Present Illness
<Obinna Martinez MD - Last Filed: 04/02/24 13:22>
General
Chief Complaint: Seizure
Source: patient
Exam Limitations: none
Time Seen by Provider: 04/01/24 14:17
Nursing documentation reviewed up to this point in time: agreed with
History of Present Illness
History of Present Illness:
Patient with history of seizure disorder on Keppra and phenobarbital, presents to ED from snf secondary to multiple episodes seizure today, as well as last night. Patient was given rectal Valium transferred to ED. Upon arrival, patient is
alert and awake, and is without any complaints. Denies headache. Denies nausea sensation. Patient has no recollection of any seizure activities. However, patient does have history of 'intellectual disability', along with extremity weakness. In
addition, patient was admitted to the hospital and discharged 1 week ago, when he was admitted for lethargy, attributed to Dilantin toxicity. Since then Dilantin has been discontinued with increasing phenobarbital and Keppra.
Past History
<Obinna Martinez MD - Last Filed: 04/02/24 13:22>
Past History
ED Past Medical History: Seizures and Other (Intellectual disability)
Review of Systems
<Obinna Martinez MD - Last Filed: 04/02/24 13:22>
Review of Systems
Allergies reviewed?: Yes
All Other Systems: ROS reviewed and negative except as documented in HPI and ROS
Constitutional: Reports no symptoms
EENT: Reports no symptoms
Respiratory: Reports no symptoms
Cardiac: Reports no symptoms
ABD/GI: Reports no symptoms
Musculoskeletal: Reports no symptoms
Skin: Reports no symptoms
Neurological: Reports other (seizure)
Phy Exam
<Obinna Martinez MD - Last Filed: 04/02/24 13:22>
Physical Exam
Physical Exam:
Physical Exam
General: no apparent distress, not acutely ill. afebrile
Head: nc/at. eomi
Neck: supple. no meningeal signs.
Heart: s1/s2 regular rate and rhythm, no murmur. equal radial pulses.
Lungs: no acute respiratory distress. clear bilaterally
Abdomen: normal bowel sounds. not tender.
Neuro: alert and awake. UE/LE weakness, appears to be chronic
Skin: no rash
Psychiatric: well kept. interactive and cooperative
Extremities: LE b/l edema. no calf tenderness.
Course
<Obinna Martinez MD - Last Filed: 04/02/24 13:22>
Orders/Labs/Results
Orders:
Orders
04/01/24 14:16
Complete Blood Count/With Diff Urgent
04/01/24 14:27
Levetiracetam Injectable [Keppra] 1,000 mg IV NOW STA
04/01/24 15:03
Comprehensive Metabolic Panel Urgent
Keppra (Levetiracetam) [S] Urgent
Phenobarbital [S] Urgent
Abnormal Lab Results
04/01/24 04/01/24
14:16 15:03
WBC 14.0 H 10^3/uL
(4.8-10.8)
RBC 4.39 L 10^6/uL
(4.70-6.10)
MCV 94.5 H fL
(80.0-94.0)
MCH 31.9 H pg
(27.0-31.0)
Plt Count 407 H 10^3/uL
(130-400)
Abs Immat Gran (auto) 0.1 H 10^3/uL
(0-0.05)
Absolute Neuts (auto) 11.3 H 10^3/uL
(1.4-6.5)
Absolute Monos (auto) 1.0 H 10^3/uL
(0.1-0.6)
Neutrophils % 80.6 H %
(42.2-75.2)
Lymphocytes % 8.2 L %
(20.5-51.1)
BUN 21 H mg/dl
(9-20)
AST 71 H U/L
(17-59)
ALT 64 H U/L
(0-50)
Alkaline Phosphatase 291 H U/L
(38-126)
04/01/24 14:16
04/01/24 15:03
Vital Signs
Initial and Last Documented VS:
Initial Vital Signs
Pulse Resp BP Pulse Ox
106 39 128/95 100
04/01/24 14:05 04/01/24 14:05 04/01/24 14:05 04/01/24 14:05
Last Documented Vital Signs
Temp Pulse Resp BP Pulse Ox
98.3 F 86 17 128/83 98
04/01/24 14:08 04/01/24 19:00 04/01/24 19:00 04/01/24 19:00 04/01/24 19:00
<Timothy Garza MD - Last Filed: 04/01/24 22:13>
Orders/Labs/Results
Orders:
Orders
04/01/24 14:16
Complete Blood Count/With Diff Urgent
04/01/24 14:27
Levetiracetam Injectable [Keppra] 1,000 mg IV NOW STA
04/01/24 15:03
Comprehensive Metabolic Panel Urgent
Keppra (Levetiracetam) [S] Urgent
Phenobarbital [S] Urgent
Abnormal Lab Results
04/01/24 04/01/24
14:16 15:03
WBC 14.0 H 10^3/uL
(4.8-10.8)
RBC 4.39 L 10^6/uL
(4.70-6.10)
MCV 94.5 H fL
(80.0-94.0)
MCH 31.9 H pg
(27.0-31.0)
Plt Count 407 H 10^3/uL
(130-400)
Abs Immat Gran (auto) 0.1 H 10^3/uL
(0-0.05)
Absolute Neuts (auto) 11.3 H 10^3/uL
(1.4-6.5)
Absolute Monos (auto) 1.0 H 10^3/uL
(0.1-0.6)
Neutrophils % 80.6 H %
(42.2-75.2)
Lymphocytes % 8.2 L %
(20.5-51.1)
BUN 21 H mg/dl
(9-20)
AST 71 H U/L
(17-59)
ALT 64 H U/L
(0-50)
Alkaline Phosphatase 291 H U/L
(38-126)
04/01/24 14:16
04/01/24 15:03
Vital Signs
Initial and Last Documented VS:
Initial Vital Signs
Pulse Resp BP Pulse Ox
106 39 128/95 100
04/01/24 14:05 04/01/24 14:05 04/01/24 14:05 04/01/24 14:05
Last Documented Vital Signs
Temp Pulse Resp BP Pulse Ox
98.3 F 86 17 128/83 98
04/01/24 14:08 04/01/24 19:00 04/01/24 19:00 04/01/24 19:00 04/01/24 19:00
<Obinna Martinez MD - Last Filed: 04/02/24 13:22>
MDM/Problems Addressed
MDM/Problems Addressed:
Discussd with (neurology) - recommends increasing Keppra to 1500 mg BID. If remains seizure free, patient will be able to be discharged back to [facility].
<Timothy Garza MD - Last Filed: 04/01/24 22:13>
*Critical Care Note
Total Time (30-74mins, 75-104mins- exclusive of procedures): Not Applicable
ED Attending Note
<Obinna Martinez MD - Last Filed: 04/02/24 13:22>
ED Attending Note
ED Attending Note:
Patient signed out to me from Dr. Martinez. Patient with recurrent seizures in the setting of recent medication adjustment. Seizures have lasted for seconds. He has had no seizures since being in the emergency department. Previous doctor has
discussed this case with on-call neurologist Dr. Munroe. He recommended increasing Keppra from 750 mg twice daily to 1500 mg twice daily as he may be underdosed. Plan is to monitor patient in the emergency department to rule out any further seizure
activity. patient was loaded with Keppra IV.
-
Portions of this chart may have been created with voice recognition software.� Occasional wrong word or��sound alike� substitutions may have occurred due to the inherent limitations of voice recognition software.
<Timothy Garza MD - Last Filed: 04/01/24 22:13>
ED Attending Note
ED Attending Note:
Patient signed out to me from Dr. Duran. Patient with recurrent seizures in the setting of recent medication adjustment. Seizures have lasted for seconds. He has had no seizures since being in the emergency department. Previous doctor has discussed
this case with on-call neurologist Dr. Anton. He recommended increasing Keppra from 750 mg twice daily to 1500 mg twice daily as he may be underdosed. Plan is to monitor patient in the emergency department to rule out any further seizure activity.
patient was loaded with Keppra IV.
Discharge Plan
Departure
Patient Disposition: Home (Routine Discharge)
Date of Disposition: 04/01/24
Time of Disposition: 17:26
Patient with high blood pressure during this ER visit?: No
Discharge Problem:
Seizure
Instructions: Epilepsy in adults
Prescriptions:
No Action
phenobarbital 16.2 mg Tablet
16.2 mg PO BID
acetaminophen 325 mg Tablet
650 mg PO Q6HPRN MDD 3000 mg PRN (Reason: mild pain)
atorvastatin 10 mg Tablet
10 mg PO DAILY
magnesium hydroxide [Milk of Magnesia] 400 mg/5 mL Suspension
30 ml PO HSPRN PRN (Reason: if no BM x 3 days)
bisacodyl [Dulcolax (bisacodyl)] 10 mg Suppository
10 mg WA DAILY PRN (Reason: if no results from [facility])
Fleet Enema 19-7 gram/118 mL Enema
118 ml WA DAILY PRN (Reason: if no results from Dulcolax supp on 4th day)
ergocalciferol (vitamin D2) 1,250 mcg (50,000 unit) Capsule
1,250 mcg PO MO
Patient Comments:
04/02/2024, start date 12/31/2023 x 8 weeks and then start 4,000 units of D po daily per [facility] paperwork.
diazepam [Diastat AcuDial] 5-7.5-10 mg Kit
10 mg WA Q8HPRN PRN (Reason: seizures)
levetiracetam 1,000 mg Tablet
1,500 mg PO BID
lacosamide 50 mg tablet
50 mg PO BID Qty: 60 0RF
Referrals:
Dipesh Moser MD [Family Provider] -
Activity Restrictions/Additional Instructions:
PLEASE INCREASE KEPPRA (LEVATIRACETAM) FROM 750MG TWICE DAILY TO 1500MG TWICE DAILY
FOLLOW UP WITH YOUR NEUROLOGIST IN THE NEXT 1-2 WEEKS
RETURN TO ER WITH WORSENING SYMPTOMS
Interventions
Interventions:
*Risk Screen - Suicide Last Done: 04/01/24 14:11
*General Assessment Last Done: 04/01/24 14:11
*Neglect/Abuse Screening Last Done: 04/01/24 14:11
ED- Fall Risk Assessment Last Done: 04/01/24 19:57
*ED COVID-19 Vaccine History Last Done: 04/01/24 14:11
*Nursing Disposition Last Done: 04/01/24 19:57
ED- Cardiac Assessment Last Done: 04/01/24 19:56
ED- Neurological Assessment Last Done: 04/01/24 14:12
ED- Pulmonary Assessment Last Done: 04/01/24 19:56
Discharge Date and Time
Discharge Date/Time: 04/01/24 19:59
Print Language: URDU
[2024-04-01 14:32] LABS: % Basophils 0.4 % (0-2); % Eosinophils 2.9 % (0-6); % Immature Granulocytes 0.5 % (0-0.5); % Lymphocytes 8.2 % (20.5-51.1); % Monocytes 7.4 % (1.7-9.3); % Neutrophils 80.6 % (42.2-75.2); Absolute Basophils 0.1 10^3/uL (0-0.2); Absolute Eosinophils 0.4 10^3/uL (0-0.7); Absolute Immature Granulocytes 0.1 10^3/uL (0-0.05); Absolute Lymphocytes 1.2 10^3/uL (1.2-3.4); Absolute Neutrophils 11.3 10^3/uL (1.4-6.5); Hematocrit 41.5 % (39.0-52.0); Mean Corp Hgb Conc. 33.7 g/dL (33.0-37.0); Mean Corpuscular Hgb 31.9 pg (27.0-31.0); Mean Corpuscular Volume 94.5 fL (80.0-94.0); Mean Platelet Volume 8.9 fL (7.4-10.4); Nucleated Red Blood Cells % 0 % (-); Platelet Count 407 10^3/uL (130-400); Red Blood Cell Count 4.39 10^6/uL (4.70-6.10); Red Cell Dist. Width 14.3 % (11.5-14.5)
[2024-04-01] MEDS: KEPPRA 1000 MG IV (14:43)
--- NOTE | 2024-04-01 14:47 | EDRN ---
call placed to pt's family member and updated her
[2024-04-01 15:53] LABS: ALT (SGPT) 64 U/L (0-50); AST (SGOT) 71 U/L (17-59); Albumin 4.2 g/dl (3.5-5.0); Alkaline Phosphatase 291 U/L (38-126); Blood Urea Nitrogen 21 mg/dl (9-20); Calcium 9.9 mg/dl (8.4-10.2); Carbon Dioxide 24 mmol/L (22-30); Chloride 99 mmol/L (98-107); Glucose 90 mg/dl (70-99); Potassium 3.8 mmol/L (3.5-5.1); Sodium 136 mmol/L (135-145); Total Bilirubin 0.6 mg/dl (0.2-1.3); Total Protein 8.2 g/dl (6.3-8.2); eGFR > 60.00
[2024-04-04 06:48] LABS: Keppra (Levetiracetam) 54 ug/mL (10-40)
== END 2024-04-01 19:59 | disposition home or self-care (01) ==
LOC: EMR 13:59
PROVIDERS: Emergency Medicine; EMERGENCY PHYSICIAN Emergency Medicine; FAMILY PHYSICIAN Internal Medicine
DX: G40.909 Epilepsy, unspecified, not intractable, without status epilepticus (principal); R53.1 Weakness; F79 Unspecified intellectual disabilities; G81.91 Hemiplegia, unspecified affecting right dominant side; J84.10 Pulmonary fibrosis, unspecified; E55.9 Vitamin D deficiency, unspecified; R13.10 Dysphagia, unspecified; R47.02 Dysphasia; Z79.899 Other long term (current) drug therapy
CPT/HCPCS: 99284; 96374; 80053; 80177; 80184; 85025

== ENCOUNTER 2024-04-02 07:57 | Emergency (ER) | payer MEDICARE, OTHER, SELFPAY ==
[2024-04-02 08:01] VITALS: BP 129/97
[2024-04-02 08:07] VITALS: BMI 24.9
--- NOTE | 2024-04-02 08:49 | ED.GENMED ---
History of Present Illness
General
Chief Complaint: Seizure
Source: records, ambulance crew and alf
Time Seen by Provider: 04/02/24 08:12
History of Present Illness
History of Present Illness:
68-year-old male with past medical history of intellectual disability, seizure disorder presenting back to the emergency department for evaluation after he had 2 reported seizures earlier this morning at [facility]. Patient was seen
in the emergency department yesterday for same and had his Keppra increased to 1500 mg twice daily. Patient had also been admitted a week or so prior with what appeared to be Dilantin toxicity so has been undergoing seizure medication changes in
relation to this. Patient states he feels fine and his usual state of health presently. EMS reports there were no reported fevers or infectious symptoms. Patient is denying any headaches, focal weakness or numbness or any other concerns.
Past History
Past History
ED Past Medical History: Seizures and Other (Intellectual disability)
ED Past Surgical History: None
Social History
Tobacco: Non-smoker
Alcohol: None
Drug: None
Personal: Single
Living: alf
Employment: Disabled
Review of Systems
Review of Systems
All Other Systems: ROS reviewed and negative except as documented in HPI and ROS
Phy Exam
Physical Exam
Physical Exam:
GENERAL: Alert , in no apparent distress
EYE: conjunctiva clear
NECK: Supple
ENT: o/p clr, mmm.
CARDIAC: Regular rate and rhythm
LUNGS: Clear breath sounds bilaterally, no acute respiratory distress, no wheezes/rales/rhonchi
NEUROLOGICAL: Alert and oriented
SKIN: Warm and dry, skin intact.
MUSCULOSKELETAL: well perfused.
PSYCH: Normal and appropriate interaction.
Scores
Heart Failure Risk
Heart Failure Risk Score: Not Applicable
Heart Score for Chest Pain Patients
STEMI patient?: Not applicable
Withdrawal Assessment of Alcohol
Withdrawal Assessment Completed?: Not applicable
Course
Orders/Labs/Results
Orders:
04/02/24 08:12
04/02/24 08:12
Vital Signs
Initial and Last Documented VS:
Initial Vital Signs
Temp Pulse Resp BP Pulse Ox
98.1 F 82 16 129/97 96
04/02/24 08:01 04/02/24 08:01 04/02/24 08:01 04/02/24 08:01 04/02/24 08:01
Last Documented Vital Signs
Temp Pulse Resp BP Pulse Ox
98.1 F 87 22 125/82 96
04/02/24 08:01 04/02/24 11:30 04/02/24 11:30 04/02/24 11:00 04/02/24 08:01
MDM/Problems Addressed
Differential Diagnosis Includes:
Breakthrough seizure, medication interaction, I do not have concern for electrolyte abnormality given normal labs yesterday
MDM/Problems Addressed:
68-year-old male present emergency department for evaluation after he had 2 reported breakthrough seizures again this morning. Patient does not appear postictal and is otherwise in his usual state of health. Patient had his Keppra increased to
1500 mg twice daily yesterday. Appears well at this time. Will discuss with neurology to help determine disposition planning.
*Pulse Oximetry
Patient hypoxic: no
*Personal Care Assistant Interpretation
Rate: normal
Rhythm: sinus
*Critical Care Note
Total Time (30-74mins, 75-104mins- exclusive of procedures): Not Applicable
Data Reviewed
Review of Other/Old Records Reveals: Labs and Records
Source: records and alf
Patient Management
Discussion with other providers: [employer] Deputy Sheriff and [facility] staff
Escalation/DeEscalation of care consider admission/obs:
I spoke to patient's nurse, Cordelia, at [facility] who states that patient had 2 seizures last night and then 2 more this morning which is why they sent the patient back to the ER. They note that patient's usual seizure starts with some right-sided
tremors which gradually to the left side and that patient just stares into space for about 40 to 60 seconds. Patient is not responsive during this time. They did not note a postictal state this morning and note that there was no incontinence or
tongue biting.
Case was discussed with neurologist, Dr. Munroe, who recommends adding lacosamide 50 mg p.o. twice daily to patient's regimen and that patient does not emitted for further evaluation. [place] notified and patient will be going back to nursing
home.
ED Attending Note
-
Portions of this chart may have been created with voice recognition software.� Occasional wrong word or��sound alike� substitutions may have occurred due to the inherent limitations of voice recognition software.
Discharge Plan
Departure
Patient Disposition: Usp/SNF
Date of Disposition: 04/02/24
Time of Disposition: 08:49
Patient with high blood pressure during this ER visit?: Yes
Discharge Problem:
Seizure
Instructions: Seizures, Adult (DC)
Prescriptions:
New
lacosamide 50 mg tablet
50 mg PO BID Qty: 60 0RF
No Action
phenobarbital 16.2 mg Tablet
16.2 mg PO BID
acetaminophen 325 mg Tablet
650 mg PO Q6HPRN MDD 3000 mg PRN (Reason: mild pain)
atorvastatin 10 mg Tablet
10 mg PO DAILY
magnesium hydroxide [Milk of Magnesia] 400 mg/5 mL Suspension
30 ml PO HSPRN PRN (Reason: if no BM x 3 days)
bisacodyl [Dulcolax (bisacodyl)] 10 mg Suppository
10 mg TX DAILY PRN (Reason: if no results from MOM)
Fleet Enema 19-7 gram/118 mL Enema
118 ml TX DAILY PRN (Reason: if no results from Dulcolax supp on 4th day)
ergocalciferol (vitamin D2) 1,250 mcg (50,000 unit) Capsule
1,250 mcg PO MO
Patient Comments:
04/02/2024, start date 12/31/2023 x 8 weeks and then start 4,000 units of D po daily per NH paperwork.
diazepam [Diastat AcuDial] 5-7.5-10 mg Kit
10 mg TX Q8HPRN PRN (Reason: seizures)
levetiracetam 1,000 mg Tablet
1,500 mg PO BID
Referrals:
Dipesh Moser MD [Family Provider] -
Interventions
Interventions:
*Risk Screen - Suicide Last Done: 04/02/24 08:10
*General Assessment Last Done: 04/02/24 08:10
*Neglect/Abuse Screening Last Done: 04/02/24 08:10
ED- Fall Risk Assessment Last Done: 04/02/24 11:46
*ED COVID-19 Vaccine History Last Done: 04/02/24 08:10
*Nursing Disposition Last Done: 04/02/24 11:46
ED- Cardiac Assessment Last Done: 04/02/24 08:10
ED- Neurological Assessment Last Done: 04/02/24 08:10
ED- Pulmonary Assessment Last Done: 04/02/24 08:10
Discharge Date and Time
Discharge Date/Time: 04/02/24 11:47
Print Language: FAROESE
[2024-04-02 09:00] VITALS: BP 126/84
[2024-04-02 10:08] VITALS: BP 122/84
[2024-04-02 11:00] VITALS: BP 125/82
== END 2024-04-02 11:47 ==
LOC: EMR 07:57
PROVIDERS: EMERGENCY PHYSICIAN Emergency Medicine; FAMILY PHYSICIAN Internal Medicine
DX: G40.909 Epilepsy, unspecified, not intractable, without status epilepticus (principal); F79 Unspecified intellectual disabilities; Z79.899 Other long term (current) drug therapy
CPT/HCPCS: 99282

== ENCOUNTER 2024-06-18 11:13 | Inpatient (IN) | payer MEDICARE, OTHER, SELFPAY ==
[2024-06-18] VITALS (51 sets, daily range): BP systolic 68–127; BP diastolic 51–104; BMI 22.9
--- NOTE | 2024-06-18 08:02 | ED.GENMED ---
History of Present Illness
General
Chief Complaint: Change in Mental Status
Time Seen by Provider: 06/18/24 08:02
History of Present Illness
History of Present Illness:
HPI: I spoke to EMS upon arrival. He comes in from [facility] as he was found earlier this morning in an unresponsive state. The patient cannot provide any meaningful history. EMS also states that he is 'DNR'. I spoke to family friend, Gucci
Luann, , (identifies himself as legal POA and has no other family other than mother with advanced dementia), who indicates that, at baseline, he is 'with it enough to have a normal conversation'.
EXAM:
GENERAL: The patient appears critically ill and is unresponsive
HEAD: Palpable VITAMIN MANAGER shunt should tubing on the left side
HEENT: Extremely dry oral mucosa
CARDIOVASCULAR: Regular rhythm but slightly tachycardic, scant inspiratory wheeze, meningitis
PULMONARY: Minimal respiratory distress, slightly increased work of breathing, slightly coarse breath sounds
ABDOMEN: Soft and nontender with no peritoneal signs, large rectal fecal impaction which I have manually disimpacted.
NEUROLOGIC: Eyes are open but he is nonverbal, he does not have any response to sternal rub however he does seem to attempt to respond to voice
EXTREMITIES: The patient has some movement to the left upper and left lower extremities however the right side is flaccid
PYSCHIATRIC: Nonverbal
TIME OF INITIAL ENCOUNTER: 8 AM
NUMBER AND COMPLEXITY OF PROBLEMS ADDRESSED AT THE ENCOUNTER
� Chronic conditions affecting care: Seizure disorder, 'unspecified intellectual disabilities', leukocytosis, right-sided hemiplegia, hypomagnesemia, has had aspiration pneumonitis, pulmonary fibrosis
� Acute Exacerbation and/or Progression of Chronic Illness: This is an acute problem
� Differential Diagnosis includes: Sepsis, bacteremia, aspiration, CVA, seizure, medication toxicity, UTI
AMOUNT AND/OR COMPLEXITY OF DATA TO BE REVIEWED AND ANALYZED
� I performed an independent evaluation of and my interpretation is:
EKG:
CT: CT head shows no acute abnormality, CT abdomen pelvis does suggest the possibility of stercoral colitis
X-rays: I personally reviewed chest x-ray which appears to show minimal interstitial edema
Laboratory Studies: White count 19.9, hemoglobin 12.8, platelets 551, VBG shows a pH of 7.46 and bicarb of 35, lactic 1.7, phenytoin 7.1, phenobarbital pending
Other:
� Review of other/old records: I reviewed records, the patient was here in March with seizure but apparently was verbal at that time
� Clinical information was obtained by an independent historian: As summarized above
� Prescriptions/Medications Considered but not given:
� Further testing considered but not performed:
RISK OF COMPLICATIONS AND/OR MORBIDITY OR MORTALITY OF PATIENT MANAGEMENT
� Social determinants of health affecting care: Resides at [facility]
� Discussion with other providers: Hospitalist, Dr. Valadez for admission
� Escalation of care including admission/observation vs risk of discharge considered: The patient arrived critically ill. He is found to be febrile. He was given rectal Tylenol and IV fluids have been ordered and we are
currently awaiting for IV team to place IV. He is slightly hypotensive. Currently considering intubation as of 8:20 AM to protect his airway. Although patient is confirmed to be DNR if he were to code, his POA agrees with intubation if he has a
potential for meaningful recovery. LP was performed without difficulty as there is reported major change in mental status and he was febrile without other clear etiology of fever. CT head shows no acute abnormality, CT of the abdomen pelvis was
performed because he did have microscopic hematuria and could not provide a meaningful history�no evidence of ureteral stones. Based on CT of the abdomen pelvis, I did personally manually disimpact the patient at 11:15 AM.
Past History
Past History
ED Past Medical History: Seizures and Other (Intellectual disability)
ED Past Surgical History: None
Social History
Tobacco: Non-smoker
Alcohol: None
Drug: None
Personal: Single
Living: residential
Employment: Disabled
Phy Exam
Physical Exam
Physical Exam:
See HPI
Course
Orders/Labs/Results
Orders:
Orders
06/18/24 08:04
Straight cath- Treatment ONCE
0.9% Sodium Chloride 1000 ml [Nss] 1,000 ml IV BOLUS
CR Chest Portable - 1 View Urgent
Comment:
Reason For Exam: alt ms
Reason Study Needs to be Portable: Patient Unstable
06/18/24 08:11
Complete Blood Count/With Diff Urgent
Lactic Acid Q4H
Comment: CANCEL 2nd LACTIC ACID IF 1st LACTIC ACID IS LESS THAN 2
Blood Culture Routine
PEPE Source: Blood/Venous
Specimen Description:
Blood Culture Urgent
PEPE Source: Blood/Venous
Specimen Description:
Influenza A+B Rapid Molecular Urgent
PEPE Source: Nasal Swab
Specimen Description:
06/18/24 08:14
Dilantin Urgent
Phenobarbital [S] Urgent
06/18/24 08:18
Acetaminophen [Tylenol/Feverall] 650 mg .ROUTE .STK-MED ONE
06/18/24 08:19
Acetaminophen [Tylenol/Feverall] 650 mg RECTAL NOW STA
06/18/24 08:22
Venous Blood Gas Urgent
%Oxygen/Room Air: 2lpm
06/18/24 08:44
Comprehensive Metabolic Panel Urgent
Magnesium Urgent
Urinalysis Reflex To Culture Urgent
Date Specimen was Collected: 06/18/24
Time Specimen was Collected: 08:42
Urine Microscopic Reflex Cult Urgent
Urine Culture Urgent
PEPE Source: U
Specimen Description:
Date Specimen was Collected: 06/18/24
Time Specimen was Collected: 08:42
06/18/24 08:57
CT Head W/o Iv Contrast Urgent
Comment:
Reason For Exam: alt ms
06/18/24 08:58
0.9% Sodium Chloride 1000 ml [Nss] 1,000 ml IV BOLUS
06/18/24 09:01
CT Abd/pel Without Iv Or Oral Urgent
Comment:
Reason For Exam: sepsis, microscopic hematuria
06/18/24 09:45
Cefepime HCl [Maxipime] 1,000 mg IV NOW STA
06/18/24 09:54
Etomidate [Amidate 20 mg] 20 mg IV NOW STA
Succinylcholine Chloride [Anectine] 100 mg IV NOW STA
06/18/24 09:55
Fentanyl Citrate/Pf [Sublimaze] 50 mcg IV [id number] PRN
Fentanyl Citrate/Pf [Sublimaze] 50 mcg IV [id number] PRN
Fentanyl Citrate/Pf [Sublimaze] 65 mcg IV NOW STA
06/18/24 10:00
0.45% Sodium Chloride 1000 ml [0.45%NaCl] 1,000 ml IV 250 mls/hr
FentaNYL 1,000 MCG/100 ML [Sublimaze] 1,000 mcg in 100 ml IV PER PROTOCOL
Indication:: Deep Sedation
Begin Infusion:: Now
Goal:: RASS </= -3, BIS 40-60, ventilator synchrony
Maximum dose in mcg/hr:: 300
Continue currently infusing dose and titrate:: Yes
Titration Instructions:: Titrate Q30 min until ventilator synchrony, RASS or BIS goal is met.
Titration Instructions:: If RASS >/= -2 or BIS > 60 or ventilator dyssynchrony:
Titration Instructions:: administer bolus dose and increase infusion by 25 mcg/hr.
Titration Instructions:: Administer analgesia bolus dose(s) & titrate analgesia prior to
Titration Instructions:: adjusting sedation.
Over-sedation Instructions:: if BIS < 40 and pt is synchronous with ventilator, decrease infusion by
Over-sedation Instructions:: 25 mcg/hr every 2 hours until BIS = 40-60.
Over-sedation Instructions:: Do not wean infusion to off if patient is receiving a continuous NMBA or
Over-sedation Instructions:: has received a bolus dose of NMBA within the past 3 hours.
Notify provider:: immediately if pt exhibits signs/symptoms of chest wall rigidity,
Notify provider:: hemodynamic instability, or agitation/pain despite maximum dosing.
Additional Instructions:: Patient MUST be mechanically ventilated.
FentaNYL 1,000 MCG/100 ML [Sublimaze] 1,000 mcg in 100 ml IV PER PROTOCOL
Indication:: Deep Sedation
Begin Infusion:: Now
Goal:: RASS </= -3, BIS 40-60, ventilator synchrony
Maximum dose in mcg/hr:: 300
Continue currently infusing dose and titrate:: Yes
Titration Instructions:: Titrate Q30 min until ventilator synchrony, RASS or BIS goal is met.
Titration Instructions:: If RASS >/= -2 or BIS > 60 or ventilator dyssynchrony:
Titration Instructions:: administer bolus dose and increase infusion by 25 mcg/hr.
Titration Instructions:: Administer analgesia bolus dose(s) & titrate analgesia prior to
Titration Instructions:: adjusting sedation.
Over-sedation Instructions:: if BIS < 40 and pt is synchronous with ventilator, decrease infusion by
Over-sedation Instructions:: 25 mcg/hr every 2 hours until BIS = 40-60.
Over-sedation Instructions:: Do not wean infusion to off if patient is receiving a continuous NMBA or
Over-sedation Instructions:: has received a bolus dose of NMBA within the past 3 hours.
Notify provider:: immediately if pt exhibits signs/symptoms of chest wall rigidity,
Notify provider:: hemodynamic instability, or agitation/pain despite maximum dosing.
Additional Instructions:: Patient MUST be mechanically ventilated.
Propofol 1,000,000 Mcg/100 ml [Diprivan] 1,000,000 mcg in 100 ml IV PER PROTOCOL
Indication:: Deep Sedation
Begin Infusion:: Now
Goal:: RASS -3 to -5 or BIS < 60 or ventilator synchrony
Maximum dose in mcg/kg/min:: 50
Continue currently infusion dose and titrate:: Yes
Titration Instructions:: Titrate by 5-10 mcg/kg/min every 5 minutes until RASS -3 to -5 or
Titration Instructions:: BIS < 60 or ventilator synchrony is met.
Titration Instructions:: Administer analgesia bolus dose(s) & titrate analgesia prior to
Titration Instructions:: adjusting sedation.
Taper Instructions:: If RASS is at or below goal for 4 consecutive hours decrease infusion by
Taper Instructions:: 5-10 mcg/kg/min every 2 hours. Do not wean infusion to off if patient is
Taper Instructions:: receiving a continuous NMBA or has received bolus NMBA with the past 3 hrs
Over-sedation Instructions:: If BIS < 40 and synchronous with ventilator decrease infusion by
Over-sedation Instructions:: 5-10 mcg/kg/min every 2 hour until BIS = 40-60.
Notify provider:: immediately if patient exhibits signs/symptoms of propofol-related
Notify provider:: infusion syndrome.
Additional Instructions:: Patient MUST be mechanically ventilated and MUST receive analgesia.
VANCOMYCIN Pharmacy to Dose [VANCOCIN Pharmacy to Dose] 1 each Pharmacy To Prepare [Call Pharmacy To Prepare] 0 ml IV PER PROTOCOL
06/18/24 10:05
CSF Cell Count Urgent
Date Specimen was Collected: 06/18/24
Time Specimen was Collected: 10:03
CSF Tube Number: 1
Comment: Tube #1
CSF VDRL Reflex To Titer [S] Urgent
Date Specimen was Collected: 06/18/24
Time Specimen was Collected: 10:03
Cryptococcal Antigen, CSF [S] Urgent
Date Specimen was Collected: 06/18/24
Time Specimen was Collected: 10:03
Spinal Fluid Glucose Urgent
Date Specimen was Collected: 06/18/24
Time Specimen was Collected: 10:03
Spinal Fluid Protein Urgent
Date Specimen was Collected: 06/18/24
Time Specimen was Collected: 10:04
Triglycerides Routine
Comment: baseline levels with propofol infusion
CSF Culture with Gram Stain Urgent
PEPE Source: Csf
Specimen Description:
Date Specimen was Collected: 06/18/24
Time Specimen was Collected: 10:03
06/18/24 10:14
Chest X-ray Portable [CR Chest Portable - 1 View] Stat
Comment:
Reason For Exam: Post intubation
Reason Study Needs to be Portable: Patient Unstable
06/18/24 10:52
Admit/Transfer Patient As Directed
Co-Sign Provider:
Level of Care: Inpatient admission
Assign to:: ICU
Physician / Group: Mirsky/Hospitalist
Diagnosis: Hypernatremia
Reason for Hospitalization: Hypernatremia
VDRF
Expected length of stay greater than two midnights?: Yes
ELOS- Estimated Length of Stay in days: 6
I certify the patient meets the requirements for IP care: Yes
06/18/24 10:53
PRN Pain Medication Management As Directed
May give lesser potent ordered pain med per pt: Yes
preference::
Protocol:: Medication orders for pain may be administered in a
manner that supports deferring to patient preference
when the pt is:
- Requesting an ordered lesser potent pain medication.
Least to most potent pain medications are defined
as: acetaminophen < NSAID < tramadol < opioids
(morphine, oxycodone, hydromorphone).
- Requesting a lesser dose of the same medication IF
ORDERED.
- Requesting a less intrusive route of administration
if both routes are prescribed by the provider (PO <
IV).
06/18/24 10:57
Code Status As Directed
Resuscitation Status: Full Code
06/18/24 12:15
Lactic Acid Q4H
Comment: CANCEL 2nd LACTIC ACID IF 1st LACTIC ACID IS LESS THAN 2
06/19/24 08:00
Polyethylene Glycol Powder [Miralax] 17 grams TUBE DAILY
06/21/24 06:00
Triglycerides Q3D
Comment: every 72 hours while patient is on propofol
06/24/24 06:00
Triglycerides Q3D
Comment: every 72 hours while patient is on propofol
06/27/24 06:00
Triglycerides Q3D
Comment: every 72 hours while patient is on propofol
Abnormal Lab Results
06/18/24 06/18/24 06/18/24
08:11 08:14 08:22
WBC 19.9 H 10^3/uL
(4.8-10.8)
RBC 4.16 L 10^6/uL
(4.70-6.10)
Hgb 12.8 L g/dL
(13.0-18.0)
MCV 95.9 H fL
(80.0-94.0)
MCHC 32.1 L g/dL
(33.0-37.0)
RDW 14.6 H %
(11.5-14.5)
Plt Count 551 H 10^3/uL
(130-400)
MPV 10.8 H fL
(7.4-10.4)
Abs Immat Gran (auto) 0.1 H 10^3/uL
(0-0.05)
Absolute Neuts (auto) 16.0 H 10^3/uL
(1.4-6.5)
Absolute Monos (auto) 1.0 H 10^3/uL
(0.1-0.6)
Immature Gran % 0.7 H %
(0-0.5)
Neutrophils % 80.1 H %
(42.2-75.2)
Lymphocytes % 12.1 L %
(20.5-51.1)
VBG pH 7.46 H
(7.32-7.43)
VBG pO2 138 H mmHg
(30-50)
Sodium
Chloride
BUN
Creatinine
Glucose
Alkaline Phosphatase
Albumin
Ur Occult Blood Reflex
Urine Bilirubin
Urine Urobilinogen
Leukocyte Esterase Rfl
Urine RBC
Urine WBC (Reflex)
Urine Bacteria (Reflex)
Urine Albumin (Reflex)
Phenytoin 7.1 L ug/ml
(10-20)
06/18/24
08:44
WBC
RBC
Hgb
MCV
MCHC
RDW
Plt Count
MPV
Abs Immat Gran (auto)
Absolute Neuts (auto)
Absolute Monos (auto)
Immature Gran %
Neutrophils %
Lymphocytes %
VBG pH
VBG pO2
Sodium 171 H* mmol/L
(135-145)
Chloride 131 H mmol/L
(98-107)
BUN 50 H mg/dl
(9-20)
Creatinine 1.7 H mg/dL
(0.7-1.3)
Glucose 136 H mg/dl
(70-99)
Alkaline Phosphatase 286 H U/L
(38-126)
Albumin 3.4 L g/dl
(3.5-5.0)
Ur Occult Blood Reflex 4+ A
(Negative)
Urine Bilirubin 1+ A
(Negative)
Urine Urobilinogen 2+ A
(Neg - 1+)
Leukocyte Esterase Rfl 1+ A
(Negative)
Urine RBC 50-60 A /HPF
(0-2)
Urine WBC (Reflex) 11-15 A /HPF
(0-5)
Urine Bacteria (Reflex) Few A
(Negative)
Urine Albumin (Reflex) 1+ A
(Neg - Trace)
Phenytoin
06/18/24 08:11
06/18/24 08:44
Vital Signs
Initial and Last Documented VS:
Initial Vital Signs
BP
99/75
06/18/24 08:04
Last Documented Vital Signs
Temp Pulse Resp BP Pulse Ox
100.8 F H 81 13 104/81 100
06/18/24 09:55 06/18/24 11:01 06/18/24 11:01 06/18/24 10:00 06/18/24 11:01
Procedures
Moderate Sedation
ASA Risk Score: Class III
Chart and allergies reviewed: Yes
Consent for anesthesia obtained: Yes
Time out completed (validating right patient & procedure): Yes
History of difficult intubation: Not applicable
Airway free of obstruction: Yes
Patient has a gag reflex: Yes
Patient is able to open mouth: Yes
Patient has no dentures: Yes
Patient has no loose teeth: Yes
Medication administered by Provider during Moderate Sedation: Other (Etomidate 20 mg, succinylcholine at 100 mg)
Comment: See nurses notes for times
Lumbar Puncture
Consent form signed: No
If no, reason: Emergency procedure (Verbal consent obtained by legal POA over the phone)
Anesthesia/sedation: 1% Lidocaine
Preparation: cleaned with Hibiclens
Position: decubitis
Needle Size: 22 gauge
Needle Type: Lumbar Needle
Number of attempts: 2
Dressing applied to puncture site: bandaid
Complications: none
Intubations
Procedure completed by: , Dr. Johnson
Method of Intubation: glidescope
Tube size (cm): 8.0
Placement confirmed by: auscutation, CXR and capnography
Breath sounds after intubation: equal
Intubation complications: no complications
*Critical Care Note
Total Time (30-74mins, 75-104mins- exclusive of procedures): 70min
comment:
The patient was seen immediately upon arrival. He is critically ill in appearance. His GCS was markedly decreased upon arrival. There has been some improvement regarding his neurologic/mental status however he still required intubation
(documented separately). He was given aggressive fluids and was given broad-spectrum antibiotics for the possibility of sepsis/bacteremia. LP was also performed.
ED Attending Note
-
Portions of this chart may have been created with voice recognition software.� Occasional wrong word or��sound alike� substitutions may have occurred due to the inherent limitations of voice recognition software.
Discharge Plan
Departure
Patient Disposition: Admit
Date of Disposition: 06/18/24
Time of Disposition: 09:50
Presentation/result/management discussed w/ accepting MD/DO: Hospitalist
Discharge Problem:
Acute hypernatremia
Interventions
Interventions:
*Risk Screen - Suicide Last Done: 06/18/24 08:30
*General Assessment Last Done: 06/18/24 08:28
*Neglect/Abuse Screening Last Done: 06/18/24 08:28
*ED COVID-19 Vaccine History Last Done: 06/18/24 08:28
ED- Neurological Assessment Last Done: 06/18/24 10:59
ED Swallowing Screen Last Done: 06/18/24 10:59
[2024-06-18 08:24] LABS: % Basophils 0.3 % (0-2); % Eosinophils 1.7 % (0-6); % Immature Granulocytes 0.7 % (0-0.5); % Lymphocytes 12.1 % (20.5-51.1); % Monocytes 5.1 % (1.7-9.3); % Neutrophils 80.1 % (42.2-75.2); Absolute Basophils 0.1 10^3/uL (0-0.2); Absolute Eosinophils 0.3 10^3/uL (0-0.7); Absolute Immature Granulocytes 0.1 10^3/uL (0-0.05); Absolute Lymphocytes 2.4 10^3/uL (1.2-3.4); Hematocrit 39.9 % (39.0-52.0); Hemoglobin 12.8 g/dL (13.0-18.0); Mean Corp Hgb Conc. 32.1 g/dL (33.0-37.0); Mean Corpuscular Hgb 30.8 pg (27.0-31.0); Mean Corpuscular Volume 95.9 fL (80.0-94.0); Mean Platelet Volume 10.8 fL (7.4-10.4); Nucleated Red Blood Cells % 0 % (-); Platelet Count 551 10^3/uL (130-400); Red Blood Cell Count 4.16 10^6/uL (4.70-6.10); Red Cell Dist. Width 14.6 % (11.5-14.5); White Blood Cell Count 19.9 10^3/uL (4.8-10.8)
[2024-06-18] MEDS: TYLENOL/FEVERALL 650 MG RECTAL (08:24)
[2024-06-18] MEDS: NSS 1000 IV ×2 (08:27→09:25)
[2024-06-18 08:35] LABS: Venous Blood Gas B.E. 1.4 mmol/L (-4 to +4); Venous Blood Gas HCO3 24.9 mmol/L (22-27); Venous Blood Gas pCO2 35 mmHg (35-48); Venous Blood Gas pH 7.46 (7.32-7.43); Venous Blood Gas pO2 138 mmHg (30-50)
[2024-06-18 08:36] LABS: Lactic Acid 1.7 mmol/L (0.7-2.0)
[2024-06-18 08:52] LABS: Dilantin 7.1 ug/ml (10-20)
[2024-06-18 08:58] LABS: Urine Albumin 1+ (Neg - Trace); Urine Bilirubin 1+ (Negative); Urine Character Very Cloudy (Clear); Urine Color Yellow; Urine Glucose Negative (Negative); Urine Ketone Negative (Negative); Urine Leukocyte 1+ (Negative); Urine Nitrite Negative (Negative); Urine Occult Blood 4+ (Negative); Urine Urobilinogen 2+ (Neg - 1+)
[2024-06-18 09:05] LABS: Urine Squamous Cell 0-2 /LPF (Few)
[2024-06-18 09:06] LABS: Urine Bacteria Few (Negative)
[2024-06-18 09:07] LABS: Urine Red Blood Cell 50-60 /HPF (0-2)
[2024-06-18 09:28] LABS: ALT (SGPT) 47 U/L (0-50); AST (SGOT) 54 U/L (17-59); Albumin 3.4 g/dl (3.5-5.0); Alkaline Phosphatase 286 U/L (38-126); Blood Urea Nitrogen 50 mg/dl (9-20); Calcium 9.5 mg/dl (8.4-10.2); Carbon Dioxide 23 mmol/L (22-30); Chloride 131 mmol/L (98-107); Glucose 136 mg/dl (70-99); Magnesium 2.3 mg/dl (1.6-2.3); Potassium 4.5 mmol/L (3.5-5.1); Sodium 171 mmol/L (135-145); Total Bilirubin 0.7 mg/dl (0.2-1.3); Total Protein 7.4 g/dl (6.3-8.2); eGFR 43.64
[2024-06-18] MEDS: MAXIPIME 1000 MG IV ×3 (09:54→23:13)
[2024-06-18] MEDS: AMIDATE 20 MG IV (10:10)
[2024-06-18] MEDS: ANECTINE 100 MG IV (10:10)
--- NOTE | 2024-06-18 10:18 | PTCARENOTE ---
1009am IV team, respiratory, ER provider, charge nurse and unit nurse at bedside preparing for intubation. second IV started, NR oxygen on, code cart present.
1010am 20mg of Amidate and 100mg of Anectine administered
1013 Intubation tube placed at 8024 at lip, vent settings AC 14/500/peep 5
1014 Propofol 10mcq, Fentanyl 50mcq started
1015 Portable x-ray at bedside for tube placement verification
[2024-06-18] MEDS: DIPRIVAN 100 IV (10:28)
[2024-06-18] MEDS: SUBLIMAZE 100 IV (10:28)
[2024-06-18] MEDS: SUBLIMAZE 50 MCG IV ×4 (10:29→19:45)
[2024-06-18] MEDS: 0.45%NACL 1000 IV ×3 (10:34→22:30)
[2024-06-18 10:46] LABS: CSF Clarity Clear; CSF Color Colorless; CSF Tube # 1
[2024-06-18 10:47] LABS: Red Cell Count/CSF 74 mm^3; White Cell Count/CSF 2 mm^3 (0-5)
[2024-06-18] MEDS: 0.45%NACL IV (11:00)
[2024-06-18] MEDS: SUBLIMAZE 65 MCG IV (11:10)
--- NOTE | 2024-06-18 11:36 | CON.NEURO4 ---
Consultation - Neurology 4
-
CONSULTING PHYSICIAN: Justin James MD
REFERRING PHYSICIAN: Hospitalist
DICTATED BY: Justin James MD
DATE/TIME OF REQUEST: June 18, 2024
DATE/TIME OF CONSULTATION: June 18, 2024
Reason for Consultation: Altered mental status
History of Present Illness:
This is a 68 year old right handed (male who was admitted to the hospital with (chief complaint) of unresponsiveness. There is an unfortunate patient with history of intellectual disability, epilepsy, hyperlipidemia who presents from [place]
[facility] unresponsive and hypotensive. He was intubated. He was transferred to ICU-typewriter repairer consulted for ventilator/critical care management 06/18/2024.
As per previous medical records he was independent and lived in an apartment till his mother's . He then moved into a assisted living facility and was able to manage his own medications. He was seen previously by neurology for Dilantin
toxicity earlier this year in March2024. And Dilantin dose was decreased
He had a subsequent ER visit in March 2024 with breakthrough seizure and Keppra dose was increased from 750mg twice a day to 1500 mg twice a day and was prescribed Vimpat 50 mg twice a day
This morning he was found unresponsive and difficult to arouse and febrile by staff. No witnessed seizures.
He had been constipated and a large amount of fecal material was disimpacted
He underwent a spinal tap. CSF revealed 2 WBCs 74 RBCs with a glucose of 78 and a protein of 128
Past Medical History: As above
Surgical History: Noncontributory
Family History: Noncontributory
Social History: Lives alone at assisted living facility
Allergies: None
Home Medications: See addendum
Review of Symptoms:
Per the HPI. I am unable to obtain a complete review of systems�because of patient's inability to provide history.'
Vital Signs:
The patient has a Temp 38.2 C H Pulse80 Resp 15 BP 104/81 Pulse Ox 99
Physical Exam:
The patient is FEBRILE , heart sounds S1 and S2 are (regular , and chest is clear to auscultation bilaterally.
Neurologic Examination:
The patient is comatose sedated intubated on ventilator support . (He is unable to follow commands. Speech cannot be tested.
On cranial nerve assessment, pupils are 3 mm bilateral, round and reactive to light and accommodation. Visual goodrich are full. Extraocular movements are intact. Facial sensations are intact and bilaterally symmetrical, there is no facial asymmetry.
Hearing is intact bilaterally to normal conversation volume. Tongue palate and uvula are midline. Sternocleidomastoid strengths are full bilaterally.
Motor withdraws to painful stimuli in all 4 extremities Deep tendon reflexes are + bilateral upper and lower extremities and Babinski is absent bilaterally.
Sensations of pain, touch, are intact and withdraws bilaterally.
Lab Results: Addendum
Neuro Imaging: Atrophy small vessel disease mild ventricular expansion
Impression:
(Mr. SHAI HUITRON is a 68 year old M who has presented to the hospital with (symptoms/chief complaint) of unresponsiveness
Differentials for the patient's presentation include:
1. Status epilepticus
2. Sepsis
3. Toxic encephalopathy
4. Hypernatremia
Recommendations:
1. IV propofol
2. IV Keppra 1250 twice daily
3. IV phenobarb is currently held till doses are verified
4. IV Dilantin fosphenytoin 200 twice daily
5. IV Vimpat 150 twice daily
6. IV antibiotics
7. Correct sodium gradually
8. EEG
9. Serial CT head
Overall prognosis is guarded.
Discussed patient care with: Hospitalist and intensive care
Allergies
-
Allergies
Allergy/AdvReac Type Severity Reaction Status Date / Time
No Known Allergies Allergy Unverified 04/02/24 08:06
Vital Signs and Labs
-
Vital Signs and Labs:
Vital Signs
Temp Pulse Resp BP Pulse Ox
38.2 C H 80 15 104/81 99
06/18/24 09:55 06/18/24 11:15 06/18/24 11:15 06/18/24 10:00 06/18/24 11:15
Lab Results
06/18/24 08:11
06/18/24 08:44
Sodium 171 mmol/L (135-145) H* 06/18/24 08:44
Potassium 4.5 mmol/L (3.5-5.1) 06/18/24 08:44
BUN 50 mg/dl (9-20) H 06/18/24 08:44
Glucose 136 mg/dl (70-99) H 06/18/24 08:44
Calcium 9.5 mg/dl (8.4-10.2) 06/18/24 08:44
Medications
-
Active Medications
Generic Name Dose Route Start Last Admin
Trade Name Freq PRN Reason Stop Dose Admin
Fentanyl Citrate 50 mcg 06/18/24 09:55
Fentanyl (50 Mcg/Ml) 100 Mcg/2 Ml Ampul IV 07/02/24 09:54
[id number] PRN
see protocol
Protocol
Fentanyl Citrate 50 mcg 06/18/24 09:55 06/18/24 10:29
Fentanyl (50 Mcg/Ml) 100 Mcg/2 Ml Ampul IV 07/02/24 09:54 50 mcg
[id number] PRN Administration
see protocol
Protocol
Sodium Chloride 1,000 mls @ 250 mls/hr 06/18/24 10:00 06/18/24 10:34
0.45%Nacl IV 1,000 mls
.Q4H HARVEY Administration
Vancomycin HCl 1 each/ Device 0 mls @ 0 mls/hr 06/18/24 10:00
IV
PER PROTOCOL HARVEY
As Directed
Fentanyl Citrate 1,000 mcg in 100 mls @ 0 mls/hr 06/18/24 10:00 06/18/24 10:28
Sublimaze IV 100 mls
PER PROTOCOL HARVEY Administration
Protocol
Per Protocol
Fentanyl Citrate 1,000 mcg in 100 mls @ 0 mls/hr 06/18/24 10:00
Sublimaze IV
PER PROTOCOL HARVEY
Protocol
Per Protocol
Propofol 1,000,000 mcg in 100 mls @ 0 mls/hr 06/18/24 10:00 06/18/24 10:28
Diprivan IV 100 mls
PER PROTOCOL HARVEY Administration
Protocol
Per Protocol
Polyethylene Glycol 17 grams 06/19/24 08:00
Polyethylene Glycol Powder 17 Grams Packet TUBE 07/17/24 07:59
DAILY HARVEY
Home Medications
�Medication �Instructions �Recorded
acetaminophen 325 mg tablet 650 mg PO Q6HPRN PRN mild pain 03/20/24
atorvastatin 10 mg tablet 10 mg PO HS High Cholesterol 03/20/24
phenobarbital 16.2 mg tablet 64.8 mg PO BID Seizures 03/20/24
levetiracetam 1,000 mg tablet 1,250 mg PO BID 04/02/24
Diazepam Rectal Gel 10 mg [place] DAILYPRN PRN seizure 06/18/24
cholecalciferol (vitamin D3) 1,250 1,250 mcg PO MO 06/18/24
mcg (50,000 unit) tablet
cyanocobalamin (vitamin B-12) 1,000 mcg PO DAILY 06/18/24
1,000 mcg tablet
folic acid 1 mg tablet 1 mg PO DAILY 06/18/24
lacosamide 10 mg/mL oral solution 150 mg PO BID 06/18/24
(Vimpat)
phenytoin 50 mg chewable tablet 150 mg PO HS 06/18/24
(Dilantin Infatabs)
phenytoin 50 mg chewable tablet 200 mg PO DAILY 06/18/24
(Dilantin Infatabs)
[2024-06-18 11:40] LABS: Spinal Fluid Glucose 78 mg/dl (40-70); Spinal Fluid Protein 128 mg/dl (12-60)
[2024-06-18 11:43] LABS: Triglycerides 140 mg/dl (10-149)
--- NOTE | 2024-06-18 12:48 | CON.INTV ---
Consultation
Consultation Request
Date/Time Consultation Requested: 06/18/2024-12 45 PM
Date/Time Consultation Performed: 06/18/2024 PM
Requesting Provider: Hospitalist
Performing Provider: Dr. Sol
Reason for Consultation: Respiratory failure/ventilator/critical care management
Medical History
-
Chief Complaint: Mental status changes, shortness of breath
History of Present Illness:
68-year-old male with a history of significant intellectual disability, epilepsy, hyperlipidemia who presents from [place] [facility] unresponsive and dommhrvddrt-arsrmxrfn-tekvovtzooe consulted for ventilator/critical care management 06/18/2024. Patient
is intubated and lethargic review of systems was unobtainable.
Past Medical History
Past Medical History: None (Intellectual disability. Hyperlipidemia. Epilepsy.)
Social History
Tobacco: Non-smoker
Alcohol: None
Drug: None
Personal: Single
Living: Longterm
Occupational Exposures: Unknown tuberculosis exposure
Environmental Exposures: Unknown asbestos exposure
Family History
Family History: Other (Mother with dementia)
Allergies / Home Medications
Allergies
Allergy/AdvReac Type Severity Reaction Status Date / Time
No Known Allergies Allergy Unverified 04/02/24 08:06
Home Medications
�Medication �Instructions �Recorded �Confirmed �Last Taken �Type
acetaminophen 325 mg tablet 650 mg PO Q6HPRN PRN mild pain 03/20/24 06/18/24 Unknown History
atorvastatin 10 mg tablet 10 mg PO HS High Cholesterol 03/20/24 06/18/24 Unknown History
phenobarbital 16.2 mg tablet 64.8 mg PO BID Seizures 03/20/24 06/18/24 Unknown History
levetiracetam 1,000 mg tablet 1,250 mg PO BID 04/02/24 06/18/24 Unknown History
Diazepam Rectal Gel 10 mg [place] DAILYPRN PRN seizure 06/18/24 06/18/24 Unknown History
cholecalciferol (vitamin D3) 1,250 1,250 mcg PO MO 06/18/24 06/18/24 Unknown History
mcg (50,000 unit) tablet
cyanocobalamin (vitamin B-12) 1,000 mcg PO DAILY 06/18/24 06/18/24 Unknown History
1,000 mcg tablet
folic acid 1 mg tablet 1 mg PO DAILY 06/18/24 06/18/24 Unknown History
lacosamide 10 mg/mL oral solution 150 mg PO BID 06/18/24 06/18/24 Unknown History
(Vimpat)
phenytoin 50 mg chewable tablet 150 mg PO HS 06/18/24 06/18/24 Unknown History
(Dilantin Infatabs)
phenytoin 50 mg chewable tablet 200 mg PO DAILY 06/18/24 06/18/24 Unknown History
(Dilantin Infatabs)
Review of Systems
-
Unable to Obtain full review of systems at this time due to: Patient Intubation
Vitals / Labs / Diagnostic Testing
Vital Signs
Temp Pulse Resp BP Pulse Ox
100.8 F H 84 16 79/63 98
06/18/24 09:55 06/18/24 12:15 06/18/24 12:15 06/18/24 12:00 06/18/24 12:15
Lab Data
06/18/24 08:11
Microbiology
06/18/24 10:05 Csf Gram Stain - Preliminary
06/18/24 08:11 Nasal Swab Influenza Types A & B (FLAVIO) - Final
Negative for Influenza A & B, NAAT
Negative results must be combined with clinical observations
and patient history.
Nucleic Acid Amplification test (NAAT)performed on the
[employer] platform.
Diagnostic Testing:
Physical Exam
-
Exam:
Well-nourished and well-developed in no apparent distress
HEENT-atraumatic, normocephalic, oral tracheal intubation
Neck-supple, no JVD, no bruit
Heart-regular rate and rhythm-no murmurs, rubs or gallops
Chest-clear to auscultation, no wheezes, crackles
Abdomen-soft, nontender, nondistended, no hepatosplenomegaly
Extremities-no cyanosis, clubbing, edema and good peripheral pulses
Integument-intact, no rashes, lesions or ecchymosis
Neurologically not alert, not oriented not moving extremities
Assessment
-
68-year-old male with a history of significant intellectual disability, epilepsy, hyperlipidemia who presents from [place] [facility] unresponsive and paswsnckjsj-datqeponk-fpgocxifkkj consulted for ventilator/critical care management 06/18/2024.
Unresponsive
Severe hypernatremia-serum sodium 171
MILY
Respiratory failure
Intubated 06/18/2024
Extubated
Sepsis with shock unresponsive to fluids requiring pressors
Leukocytosis
Mjgokw-ppgfyfknjy-prvzqzkhng 12.8
Hyperglycemia
Conditions present prior to admission:
Intellectual disability.
Hyperlipidemia.
Epilepsy.
DNR in the past
Plan
Patient admitted to medical intensive care unit
Patient intubated mechanically ventilated
Ventilator settings reviewed
Monitor airway pressures
Wean FiO2
Follow ABG
Adjust ventilator accordingly
VAP prevention protocol
Nebulizers if needed-currently not bronchospastic
Check cultures
Influenza negative
Blood cultures pending
MRSA screen 03/21/2024-negative
Urine culture pending
CSF culture-pending
CSF fluid 06/18/2024-clear, colorless, WBC-2, glucose 78, total protein 128
Follow lactate
Pressors as needed-norepinephrine first and then vasopressin
Hypotonic fluid
Consider nephrology evaluation
Follow serum sodium levels closely
Goal correction 8 mEq/L in the first 24 hours
Monitor neurologic status closely-rapid correction can rarely lead to osmotic demyelinating syndrome
Monitor hemoglobin
Transfuse as needed
Monitor blood sugar
Insulin supplementation as needed
DVT prophylaxis renal-Heparin with dysfunction
Nutrition when mental status improves-nasogastric feedings if not extubated in the first 24 hours
Bedside range of motion
Goals of care-DNR in the past
Critical care statement: A total of 55 minutes of critical care time was provided for this patient today. This includes management of unstable vital signs, evaluation of the patient at bedside, reviewing the patient's pertinent medical records
including radiographs, pressor and ventilator management, microbiology, laboratory evaluations, and discussion with primary team, consultants, pharmacy, nutrition, physical therapy, case management, charge nurse, critical care nursing, and
respiratory therapy.
Diagnostic data:
Chest x-ray 06/18/2024-NAD, ET tube 2.[address] abdomen and pelvis 06/18/2024-large amount of stool, chronic and incidental findings not acute
CT head 06/18/2024-no acute intracranial abnormalities
Data Reviewed
-
EKG: Report reviewed by me
Radiology: Report reviewed by me
CT Scan: Report reviewed by me
Medical Tests (Nuc Med, Echo etc): Report reviewed by me
Labs: Labs reviewed by me
Old Records: Reviewed
Critical Care Time (in minutes): 55
[2024-06-18] MEDS: LEVOPHED 250 IV (12:54)
[2024-06-18] MEDS: KEPPRA 1500 MG IV (13:10)
[2024-06-18] MEDS: PHENOBARBITAL 65 MG IV (13:13)
[2024-06-18] MEDS: VIMPAT 150 MG IV ×2 (13:28→23:13)
[2024-06-18] MEDS: CEREBYX 54 MG IV ×2 (13:32→20:19)
--- NOTE | 2024-06-18 13:57 | W.PN.HOSP.TC ---
Today's Communication/Plan
-
admit ICU
pressors
IVF
Assessment / Plan
Assessment / Plan
Unresponsive, intubated
Severe hypernatremia
with start hypotonic IVF and recheck in several hours
Constipated
post disimpaction by Dr. Johnson
VDRF
Septic Shock
IVF, started on pressors as per CCM
Hx of Seizures on multiple AED
neurology consult with Dr. James, situation reviewed with him
Pt was previously a DNR. On arrival Dr. Johnson contacted the POA, who apparently stated he wanted everything done to see if situation is reversible
see dictated note
Anticipated Discharge: > 48 hours
Subjective/Interval History
-
Date of Service: June 18, 2024
Unable to provide any history, pt intubated
Objective Data
-
Labs:
Laboratory Results
06/18/24 06/18/24 06/18/24
08:11 08:44 13:29
WBC 19.9 H
Hgb 12.8 L
Hct 39.9
Plt Count 551 H
HCO3 Pending
Sodium Cancelled 171 H*
Potassium Cancelled 4.5
Chloride Cancelled 131 H
Carbon Dioxide Cancelled 23
BUN Cancelled 50 H
Creatinine Cancelled 1.7 H
Glucose Cancelled 136 H
Calcium Cancelled 9.5
Total Bilirubin Cancelled 0.7
AST Cancelled 54
ALT Cancelled 47
Alkaline Phosphatase Cancelled 286 H
06/18/24
16:57
WBC
Hgb
Hct
Plt Count
HCO3
Sodium Pending
Potassium Pending
Chloride Pending
Carbon Dioxide Pending
BUN Pending
Creatinine Pending
Glucose Pending
Calcium Pending
Total Bilirubin
AST
ALT
Alkaline Phosphatase
Vital Signs:
Vital Signs
Temp Pulse Resp BP Pulse Ox
100.8 F H 66 11 82/66 100
06/18/24 09:55 06/18/24 13:30 06/18/24 13:30 06/18/24 13:30 06/18/24 13:00
Review of Systems
-
History Source: Physician (reviewed with ER, neuro and CCM)
Constitutional: Reports Fever (101.2)
Respiratory: Reports Trouble Breathing (VDRF)
Physical Exam
-
General: Well Developed, Well Nourished, Intubated and Appears Chronically Ill
Respiratory: Clear to Auscultation; Negative Wheezes, Rales or Rhonchi
Cardiac: Regular Rhythm and S1/S2
GI: Soft, Nontender and Nondistended
Musculoskeletal: No Clubbing, No Cyanosis and No Edema
Neuro: Negative Awake or Alert
--- NOTE | 2024-06-18 14:18 | PTCARENOTE ---
Pt admitted to ICU bed 3371 from ED at 1245. All sedation stopped d/t pt unresponsive to stimuli and hypotensive. Now +cough and bites down with mouth care.
Levophed gtt started for BP 77/51.
Vent settings A/C 14/500/40%/5. Rhonchi bilaterally with thick noble secretions. Will send sputum.
Abdomen soft. +BS. New order to place DHT.
No urine output since pt arrived on unit. Condom cath in place.
Respiratory at bedside at this time for ABG.
Vascular access team just arrived to place PICC.
POA updated via phone.
[2024-06-18 14:47] LABS: B.E. -3.2 mmol/L; HCO3 20.3 mmol/L (21-28); PCO2 32 mmHg (35-48); PO2 168 mmHg (83-108); pH 7.41 (7.35-7.45)
--- NOTE | 2024-06-18 15:05 | W.CON.NEPH ---
Consultation
-
Date/Time Consultation Requested: 06/18/24 1359
Date/Time Consultation Performed: 06/18/24 1530
Requesting Provider: Joaquin Vázquez
Performing Provider: Abbi Ferrari
Reason for Consultation: Hypernatremia
Medical History
-
Chief Complaint: AMS unresponsive
History of Present Illness:
68 year old M with history of intellectual disability, epilepsy on Keppra, phenobarbital, VImpat, Dilantin, hyperlipidemia on low dose statin who presents from [facility] unresponsive and hypotensive today and needed to be intubated. He had
admit for Dilantin toxicity earlier this year in March2024. And Dilantin dose was decreased, Vimpat added when he SZ in March ER visit. Reportedly this morning he was found unresponsive and difficult to arouse and febrile by staff at [facility]. No
witnessed seizures. Reportedly he had been constipated and a large amount of fecal material was disimpacted in ER. Labs noted cr 1.7, sodium 171 hence nephrology consulted. History is limited due pt MS, most of history obtained through chart and
nursing.
He underwent a spinal tap too shows high protein of 128. s/p 2lit NS bolus in ER and had 1lit of 1/2NS so far.
POA changed him to full code.
Past Medical History
Intellectual disability. Hyperlipidemia. Epilepsy
Past Surgical History: Other (left shoulder and left ankle surgery )
Social History
Tobacco: Non-Smoker
Alcohol: None
Drug: None
Personal: Single
Living: Fpc
Family History
Mother dementia
Family History: Not Pertinent
Allergies / Home Medications
Allergy/AdvReac Type Severity Reaction Status Date / Time
No Known Allergies Allergy Unverified 04/02/24 08:06
�Medication �Instructions �Recorded �Confirmed �Type
acetaminophen 325 mg tablet 650 mg PO Q6HPRN PRN mild pain 03/20/24 06/18/24 History
atorvastatin 10 mg tablet 10 mg PO HS High Cholesterol 03/20/24 06/18/24 History
phenobarbital 16.2 mg tablet 64.8 mg PO BID Seizures 03/20/24 06/18/24 History
levetiracetam 1,000 mg tablet 1,250 mg PO BID 04/02/24 06/18/24 History
Diazepam Rectal Gel 10 mg [place] DAILYPRN PRN seizure 06/18/24 06/18/24 History
cholecalciferol (vitamin D3) 1,250 1,250 mcg PO MO 06/18/24 06/18/24 History
mcg (50,000 unit) tablet
cyanocobalamin (vitamin B-12) 1,000 mcg PO DAILY 06/18/24 06/18/24 History
1,000 mcg tablet
folic acid 1 mg tablet 1 mg PO DAILY 06/18/24 06/18/24 History
lacosamide 10 mg/mL oral solution 150 mg PO BID 06/18/24 06/18/24 History
(Vimpat)
phenytoin 50 mg chewable tablet 150 mg PO HS 06/18/24 06/18/24 History
(Dilantin Infatabs)
phenytoin 50 mg chewable tablet 200 mg PO DAILY 06/18/24 06/18/24 History
(Dilantin Infatabs)
Review of Systems
-
unable to obtain
Unable to obtain full review of systems at this time due to: Patient Intubation
Physical Exam
Vital Signs
Vital Signs
Temp Pulse Resp BP Pulse Ox
100.8 F H 66 11 82/66 100
06/18/24 09:55 06/18/24 13:30 06/18/24 13:30 06/18/24 13:30 06/18/24 13:00
Lab Results
WBC 19.9 10^3/uL (4.8-10.8) H 06/18/24 08:11
RBC 4.16 10^6/uL (4.70-6.10) L 09/18/24 08:11
Hgb 12.8 g/dL (13.0-18.0) L 06/18/24 08:11
Hct 39.9 % (39.0-52.0) 06/18/24 08:11
Plt Count 551 10^3/uL (130-400) H 06/18/24 08:11
eGFR 43.64 06/18/24 08:44
Albumin 3.4 g/dl (3.5-5.0) L 06/18/24 08:44
Laboratory Results - last 24 hr
06/18/24 06/18/24 06/18/24
08:11 08:14 08:22
WBC 19.9 H
RBC 4.16 L
Hgb 12.8 L
Hct 39.9
MCV 95.9 H
MCH 30.8
MCHC 32.1 L
RDW 14.6 H
Plt Count 551 H
MPV 10.8 H
Abs Immat Gran (auto) 0.1 H
Absolute Neuts (auto) 16.0 H
Absolute Lymphs (auto) 2.4
Absolute Monos (auto) 1.0 H
Absolute Eos (auto) 0.3
Absolute Basos (auto) 0.1
Immature Gran % 0.7 H
Neutrophils % 80.1 H
Lymphocytes % 12.1 L
Monocytes % 5.1
Eosinophils % 1.7
Basophils % 0.3
Nucleated RBC % 0
pH
pCO2
pO2
HCO3
Base Excess
ABG O2 Sat (Measured)
VBG pH 7.46 H
VBG pCO2 35
VBG pO2 138 H
VBG HCO3 24.9
VBG O2 Sat (Alexander) 100.0
VBG Base Excess 1.4
VBG O2 Therapy
O2 Delivery Level
Sodium Cancelled
Potassium Cancelled
Chloride Cancelled
Carbon Dioxide Cancelled
BUN Cancelled
Creatinine Cancelled
Estimated Creat Clear Cancelled
eGFR Cancelled
Glucose Cancelled
Lactic Acid 1.7
Calcium Cancelled
Magnesium Cancelled
Total Bilirubin Cancelled
AST Cancelled
ALT Cancelled
Alkaline Phosphatase Cancelled
Total Protein Cancelled
Albumin Cancelled
Triglycerides
Urine Color
Urine Clarity
Urine pH
Ur Specific [place]
Urine Ketones
Ur Occult Blood Reflex
Urine Nitrite (Reflex)
Urine Bilirubin
Urine Urobilinogen
Leukocyte Esterase Rfl
Urine RBC
Urine WBC (Reflex)
Ur Squamous Epith Cells
Urine Bacteria (Reflex)
Urine Glucose
Urine Albumin (Reflex)
CSF Appearance
CSF Color
CSF WBC
CSF RBC
CSF Cell Count Tube #
CSF Glucose
CSF Total Protein
Phenytoin 7.1 L
06/18/24 06/18/24 06/18/24
08:44 10:05 14:30
WBC
RBC
Hgb
Hct
MCV
MCH
MCHC
RDW
Plt Count
MPV
Abs Immat Gran (auto)
Absolute Neuts (auto)
Absolute Lymphs (auto)
Absolute Monos (auto)
Absolute Eos (auto)
Absolute Basos (auto)
Immature Gran %
Neutrophils %
Lymphocytes %
Monocytes %
Eosinophils %
Basophils %
Nucleated RBC %
pH 7.41
pCO2 32 L
pO2 168 H
HCO3 20.3 L
Base Excess -3.2
ABG O2 Sat (Measured) 100.0 H
VBG pH
VBG pCO2
VBG pO2
VBG HCO3
VBG O2 Sat (Alexander)
VBG Base Excess
VBG O2 Therapy
O2 Delivery Level
Sodium 171 H*
Potassium 4.5
Chloride 131 H
Carbon Dioxide 23
BUN 50 H
Creatinine 1.7 H
Estimated Creat Clear
eGFR 43.64
Glucose 136 H
Lactic Acid
Calcium 9.5
Magnesium 2.3
Total Bilirubin 0.7
AST 54
ALT 47
Alkaline Phosphatase 286 H
Total Protein 7.4
Albumin 3.4 L
Triglycerides 140
Urine Color Yellow
Urine Clarity Very cloudy
Urine pH 5.0
Ur Specific [place] 1.020
Urine Ketones Negative
Ur Occult Blood Reflex 4+ A
Urine Nitrite (Reflex) Negative
Urine Bilirubin 1+ A
Urine Urobilinogen 2+ A
Leukocyte Esterase Rfl 1+ A
Urine RBC 50-60 A
Urine WBC (Reflex) 11-15 A
Ur Squamous Epith Cells 0-2
Urine Bacteria (Reflex) Few A
Urine Glucose Negative
Urine Albumin (Reflex) 1+ A
CSF Appearance Clear
CSF Color Colorless
CSF WBC 2
CSF RBC 74
CSF Cell Count Tube # 1
CSF Glucose 78 H
CSF Total Protein [address] abd/pelvis with out contrast:
FINDINGS:
LOWER CHEST: The heart is enlarged. No pericardial effusion. Bibasilar atelectasis.
Evaluation of the abdominopelvic viscera is limited secondary to the absence of intravenous contrast.
LIVER: Within normal limits.
GALLBLADDER: Within normal limits.
BILE DUCTS: Within normal limits.
PANCREAS: Within normal limits.
SPLEEN: Within normal limits.
ADRENALS: Within normal limits.
KIDNEYS/URETERS: No nephrolithiasis or hydronephrosis. Left renal cyst is noted with minimal rim calcification. Ureters are normal in caliber.
BOWEL: No obstruction or wall thickening. Large amount of stool in the rectum with rectal wall thickening and perirectal inflammation compatible with fecal impaction and stercoral colitis. Appendix is not visualized.
PERITONEUM: No ascites or free air. Shunt catheter is present in the anterior peritoneal cavity of the left upper quadrant. No focal fluid collection.
REPRODUCTIVE: Within normal limits.
BLADDER: Decompressed and suboptimally evaluated.
VESSELS: Atherosclerotic, nonaneurysmal aorta.
RETROPERITONEUM: No retroperitoneal or pelvic lymphadenopathy.
ABDOMINAL WALL: No hernia or focal fluid collection.
BONES: No suspicious lesions.
IMPRESSION:
Large amount of stool in the rectum with rectal wall thickening and perirectal inflammation compatible with fecal impaction and stercoral colitis.
Chronic/incidental findings as detailed in the body of the report.
CT head:
FINDINGS:
Left parietal approach ventricular shunt in place with tip in the left lateral ventricle anteriorly. There is mild dilatation of the left lateral ventricle and occipital horn relative to the right side which is likely within normal limits given the
asymmetric volume loss of the left cerebral cortex relative to the right. Periventricular and subcortical white matter hypoattenuation is present which is nonspecific, however likely related to cerebral small vessel disease. No focal regions of
hypoattenuation. There is no mass effect. There are no findings of acute transcortical infarction. No intra or extra-axial hemorrhage. There is global parenchymal volume loss commensurate with the patient's age.
Postsurgical changes from prior craniotomy. Bifrontal myriam holes are noted. The orbits are unremarkable. The paranasal sinuses and mastoid air cells are clear.
IMPRESSION:
No acute intracranial abnormality.
Chronic findings as above.
CXR:
IMPRESSION:
Status post intubation with endotracheal tube terminating approximately 2.4 cm above the toro.
No active pulmonary process.
Physical Exam
General: Other (intubated, not responsive, on minimal sedation )
HEENT: Dentition Intact and Neck Supple
Respiratory: Clear
Cardiac: S1/S2 and Regular Rate/Rhythm
Breast: Deferred by me
Abdomen: Soft, Nontender and Nondistended
Musculoskeletal: No Cyanosis and No Edema
Skin: No Rash
Neuro: Other (unable to asess)
Psych: Other (unable to asess)
Data Reviewed
-
Radiology: Report Reviewed by me
Labs: Labs Reviewed by me and Discussed with Nurse
Assessment/Plan
-
IMP:
Unresponsive
Severe hypernatremia
VDRF
Septic Shock
Constipated- post disimpaction in ER
Hx of Seizures on multiple AED
intellectual disability
hyperlipidemia
Plan:
A/w unresponsive from [facility]
severe hypernatremia-free water deficit is 8.2lit
will start D5w at 150cc/hr and follow sodium q6h
hypotensive suspect from sepsis, titrate pressors to keep MAP>65
MILY-likely prerenal, UA microhematuria and pyuria, pending cx
monitor UOP, no hydro noted on CT abd
check CK with concern of SZ
AED per neuro, adjust based on renal function
abx per primary , wait cxs
over all poor prognosis
d/w nursing
CC time spent 35min
[2024-06-18] MEDS: D5W 1000 IV (16:21)
[2024-06-18 16:53] LABS: Osmolality Urine 545 mOsm/kg (300-900)
[2024-06-18] MEDS: HEPARIN 5000 UNITS SC ×2 (16:54→23:11)
[2024-06-18] MEDS: STERILE WATER FOR INJECTION 10 ML IV ×2 (16:54→23:13)
--- NOTE | 2024-06-18 17:31 | EEG.RPT ---
Electroencephalogram Report
Recording
Date of EE06/18/24
Type of EEG: Routine
Length of EEG recordin minutes
Done with Video Recording: Yes
Patient Status: Inpatient
Recording Conditions: Other (intubated and sedated)
Hyperventilation Performed: No
Photic Stimulation Performed: Yes
Report
METHODS
A 21 channel digitized electroencephalogram was performed at [facility]. The 10/20 international system of electrode placement was used. In addition to EEG, the patient was monitored for EKG. The duration of the recording was 28 minutes.
BACKGROUND
During the awake state, with the eyes closed, the background was diffusely slow to 7-8Hz frequencies with occasional generalized epileptiform abnormalities, 1Hz in frequency, centered in the left frontal region.
PHOTIC STIMULATION
Photic stimulation using a step-hernandez increase in photic frequency varying from 1-31 Hertz resulted in no driving responses but no appearance of abnormal activity.
CLINICAL EVENTS
Multiple episodes of 'upper body tremor' were captured which were nonepileptic in etiology. The previously established background was seen throughout. The study was obscured at times by muscle artifact, particularly during these events, limiting
the extent of the study.
INTERPRETATION AND CLINICAL CORRELATION
Multiple episodes of 'upper body tremor' were captured which were nonepileptic in etiology. The previously established background was seen throughout. The study was obscured at times by muscle artifact, particularly during these events, limiting
the sensitivity of the study.
The study is consistent with mild diffuse cerebral dysfunction, nonspecific in etiology, with superimposed generalized cortical irritability centered in the left frontal region, increasing the patient's risk of seizure. However, no clear
electrographic seizures were captured.
[2024-06-18 18:06] LABS: Urine Sodium 103 mmol/L (30-90)
[2024-06-18 18:29] LABS: Blood Urea Nitrogen 47 mg/dl (9-20); Calcium 8.8 mg/dl (8.4-10.2); Carbon Dioxide 17 mmol/L (22-30); Chloride 129 mmol/L (98-107); Estimated Creatinine Clearance 37 ml/min; Glucose 118 mg/dl (70-99); Potassium 3.8 mmol/L (3.5-5.1); Sodium 166 mmol/L (135-145); eGFR 43.64
[2024-06-18 18:42] LABS: Creatine Phosphokinase 266 U/L (55-170)
--- NOTE | 2024-06-18 18:45 | PTCARENOTE ---
Pt on Fentanyl gtt at 50 mcg/hr. Titrated up for vent dyssynchrony d/t frequent coughing and biting ETT.
Pt opens eyes, no eye contact. Does not follow commands. No gag. Productive cough with thick yellow secretions. thick noble oral secretions.
EEG completed.
Sinus rhythm. Remains on Levophed gtt via right DL PICC placed by IV team.
Right DHT placed. Confirmed with xray.
UO 40ml over 3hr. Bladder scan 80mls. notified and michele placed.
Critical Na immediately reported to LEAD PERSON and IVF rate changed per order.
--- NOTE | 2024-06-18 19:56 | PTCARENOTE ---
Received care of pt. approx 1900.
Intubated settings as follows
AC: 14/500/5/30%.
Upon assessment pt. attempting to self extubate, biting tube, agitated. Orders for restraints and Diprivan added, Fentanyl bolus administered, bite block added and End tidal added to vent circuit.
Sedation as follows:
Diprivan: 10 mcg
Fentanyl: 50 mcg
Agitated/ awake but does not follow simple commands, Pupils are 2mm sluggish.
NSR w/o ectopy noted, Normotensive on 2 norepi, will attempt titrating off. Febrile temp 102.1 (source thermister michele).
decreased urine output, cont. to follow.
[2024-06-18] MEDS: TYLENOL ORAL SOLUTION 650 MG TUBE (20:59)
[2024-06-18] MEDS: SUBLIMAZE IV (21:00)
[2024-06-18 21:55] LABS: Lactic Acid 1.5 mmol/L (0.7-2.0)
[2024-06-18 22:08] LABS: Blood Urea Nitrogen 45 mg/dl (9-20); Calcium 8.6 mg/dl (8.4-10.2); Carbon Dioxide 17 mmol/L (22-30); Chloride 126 mmol/L (98-107); Estimated Creatinine Clearance 42 ml/min; Glucose 120 mg/dl (70-99); Potassium 3.5 mmol/L (3.5-5.1); Sodium 158 mmol/L (135-145); Triglycerides 167 mg/dl (10-149); eGFR 50.71
[2024-06-18] MEDS: KEPPRA 750 MG IV (22:31)
--- NOTE | 2024-06-18 22:56 | PTCARENOTE ---
Fluids changed to 0.45 100 ml/hr due to 2200 bmp.
MAPs continuing to trend lower, w/ low systolics of 70s and narrowing pulse pressure, Art line to be placed bedside.
[2024-06-18] MEDS: KCL 100 IV (23:10)
--- NOTE | 2024-06-18 23:38 | W.PN.UPDATE ---
Update Note
Progress Note Update
Procedure Note: Arterial Line�
� Left Wrist Arrow 20 (12/02)�
Diagnosis:��Sepsis shock
IV Line Comments: Uneventful Procedure�
Nima's test completed pre-procedure: Yes�
A-Line Comments: Sterile technique as per standard protocol, Ultrasound guided insertion�
Functioning A-line in situ: Yes�
A-line Insertion Start Time:��2300
A-line in at:��2320
[2024-06-19 00:03] LABS: B.E. -3.6 mmol/L; HCO3 19.2 mmol/L (21-28); Ionized Calcium 1.16 mMOL/L (1.15-1.33); PCO2 27 mmHg (35-48); PO2 142 mmHg (83-108); Potassium 3.7 mMOL/L (3.5-5.1); Sodium 152 mMOL/L (136-145); pH 7.46 (7.35-7.45)
--- NOTE | 2024-06-19 00:03 | PTCARENOTE ---
Increase in Vasopressor demands, monitoring off of Art line.
Switched Norepi to double concentrated due to higher amount of axillary fluids from gtts.
ABG sent.
--- NOTE | 2024-06-19 00:22 | PTCARENOTE ---
Maps cont. to trend down, Vasopressin added.
[2024-06-19 03:35] LABS: Hematocrit 30.6 % (39.0-52.0); Mean Corp Hgb Conc. 32.7 g/dL (33.0-37.0); Mean Corpuscular Hgb 30.8 pg (27.0-31.0); Mean Corpuscular Volume 94.2 fL (80.0-94.0); Mean Platelet Volume 10.5 fL (7.4-10.4); Platelet Count 419 10^3/uL (130-400); Red Blood Cell Count 3.25 10^6/uL (4.70-6.10); Red Cell Dist. Width 14.3 % (11.5-14.5); White Blood Cell Count 18.6 10^3/uL (4.8-10.8)
[2024-06-19] MEDS: TYLENOL ORAL SOLUTION 650 MG TUBE ×4 (03:54→23:18)
[2024-06-19 04:01] LABS: Blood Urea Nitrogen 41 mg/dl (9-20); Calcium 8.3 mg/dl (8.4-10.2); Carbon Dioxide 12 mmol/L (22-30); Chloride 127 mmol/L (98-107); Estimated Creatinine Clearance 48 ml/min; Glucose 181 mg/dl (70-99); Potassium 4.3 mmol/L (3.5-5.1); Sodium 157 mmol/L (135-145); eGFR > 60.00
[2024-06-19] MEDS: SODIUM BICARBONATE 50 MEQ IV ×2 (04:07→23:23)
--- NOTE | 2024-06-19 04:09 | PTCARENOTE ---
Pt. BMP results back, No change in IV fluids for hypernatremia management, HC03 low, 1 amp bicarb ordered.
[2024-06-19 06:00] VITALS: BMI 24.6
[2024-06-19] MEDS: SUBLIMAZE 100 IV (06:13)
[2024-06-19] MEDS: PITRESSIN 100 IV ×2 (06:14→20:11)
[2024-06-19] MEDS: DIPRIVAN 100 IV ×2 (06:15→17:29)
--- NOTE | 2024-06-19 07:36 | W.PN.INTV ---
Today's Communication / Plan
Recommendations
Antibiotics
Wean pressors
Hypotonic fluid
Monitor serum sodium closely
Monitor renal function
Spontaneous breathing trial once hemodynamically and neurologically improved
Prognosis guarded
Assessment
-
68-year-old male with a history of significant intellectual disability, epilepsy, hyperlipidemia who presents from [facility] unresponsive and oriqjiuythu-acweuxpsw-lkoppwhnpov consulted for ventilator/critical care management 06/18/2024.
Unresponsive
Severe hypernatremia-serum sodium 171-total body water deficit 8.1 L
MILY
Respiratory failure
Intubated 06/18/2024
Extubated
Sepsis with shock unresponsive to fluids requiring pressors
Leukocytosis
Crzlvg-lzekegnifo-jpswupqmle 12.8
Hyperglycemia
Conditions present prior to admission:
Intellectual disability.
Hyperlipidemia.
Epilepsy.
DNR in the past
Plan
Remains critically ill on a ventilator and pressors
Ventilator settings reviewed
Arterial blood gases reviewed
Monitor airway pressures-somewhat elevated due to mucous plugging
Mucolytic's added
Mucomyst 10% nebulizers added
Follow ABG
VAP prevention protocol
Nebulizers if needed-currently not bronchospastic
Follow chest x-ray
Spontaneous breathing trial once neurologically and hemodynamically improved
Cultures reviewed
MRSA screen-pending
Sputum culture 06/18/2024-many WBCs, many gram-negative rods
Influenza negative
Blood cultures / positive for gram-positive cocci in clusters-suspect contaminant
MRSA screen 03/21/2024-negative
Urine culture 06/18/20248011-luob-hcwlhwcx bacilli
CSF culture-negative
CSF fluid 06/18/2024-clear, colorless, WBC-2, glucose 78, total protein 128
Trend lactate
Pressors as needed-norepinephrine first and then vasopressin-reviewed with critical care nursing
Hypotonic fluid
Nephrology evaluation ongoing-correspondence reviewed
Water deficit estimated 8.2 L
Follow serum sodium levels closely
Goal correction 8 mEq/L in the first 24 hours
Monitor neurologic status closely-rapid correction can rarely lead to osmotic demyelinating syndrome
Monitor hemoglobin
Transfuse as needed
Monitor blood sugar
Insulin supplementation as needed
DVT prophylaxis renal-Heparin with dysfunction
Nutrition when mental status improves-nasogastric feedings if not extubated in the first 24 hours
Bedside range of motion
Goals of care-DNR in the past
Prognosis guarded
Critical care statement: A total of 55 minutes of critical care time was provided for this patient today. This includes management of unstable vital signs, evaluation of the patient at bedside, reviewing the patient's pertinent medical records
including radiographs, pressor and ventilator management, microbiology, laboratory evaluations, and discussion with primary team, consultants, pharmacy, nutrition, physical therapy, case management, charge nurse, critical care nursing, and
respiratory therapy.
Diagnostic data:
Chest x-ray 06/18/2024-NAD, ET tube 2.[address] abdomen and pelvis 06/18/2024-large amount of stool, chronic and incidental findings not acute
CT head 06/18/2024-no acute intracranial abnormalities
Subjective Dataa
Subjective Data
Date of Service:
Date of Service: June 19, 2024
Chief Complaint: Modeling Instructor Follow Up, Pulmonary Follow Up and Vent Management Follow Up
Subjective:
More alert, moving left side, review of systems unobtainable, moderate thick secretions and increased peak airway pressures, tolerating tube feeds
Review of Systems
General: Unobtainable - Pat Unresp
Objective Data
Data Reviewed
Vital Signs / I&O / Oxygen:
Vital Signs
Temp Pulse Resp BP Pulse Ox
100 F 50 14 83/59 100
06/19/24 05:30 06/19/24 05:30 06/19/24 05:30 06/18/24 23:30 06/19/24 04:00
Intake and Output
06/18/24 06/19/24 06/20/24
06:59 06:59 06:59
Intake Total 3856.5 / 3856.5
Output Total 885 / 885
Balance 2971.5 / 2971.5
SaO2 [A/C] 100
SaO2 100
Nasal Cannula flow liters per 4
minute
Physical Exam
General: Respiratory Distress (n) and Comfortable
HEENT: Normocephalic, Anicteric and Moist Mucous Membranes
Cardiovascular: Regular Rhythm
Respiratory: Wheeze (n), Crackles (Basilar), Rhonchi (Expiratory), Non-Labored Respirations, Accessory Resp Muscle Use (n) and Stridor (n)
GI: Soft, Non Distended and Non Tender
Neurology: Awake, Alert and No Motor Deficits
Skin: Warm, Good Color, Cyanosis (n), Jaundice (n) and Rash (n)
Labs/Micro/Reports
Lab Data
06/19/24 03:01
Laboratory Results
06/18/24 06/18/24 06/19/24
14:30 23:55 06:00
pH 7.41 7.46 H Cancelled
pCO2 32 L 27 L Cancelled
pO2 168 H 142 H Cancelled
HCO3 20.3 L 19.2 L Cancelled
O2 Delivery Level Cancelled
Microbiology
06/18/24 15:28 Tracheal Aspirate Gram Stain - Preliminary
06/18/24 10:05 Csf Gram Stain - Preliminary
06/18/24 08:11 Nasal Swab Influenza Types A & B (FLAVIO) - Final
Negative for Influenza A & B, NAAT
Negative results must be combined with clinical observations
and patient history.
Nucleic Acid Amplification test (NAAT)performed on the
[employer] platform.
--- NOTE | 2024-06-19 08:00 | PTCARENOTE ---
recd pt handoff in room, pumps, vent settings, alarm limits reviewed. pt eyes open, does not respond to name, does not follow commands. restraints maintained. Moves L arm > R arm, R wrist contracted. foot drop bilat. ETT to vent tolerating
current settings. pressors noted, art line positional but congruent with cuff. becomes hypotensive with care/turning. recovers. see titration. TANYA Duckworth updated. tolerating tube feeds. skin intact. urine with sediment.
[2024-06-19] MEDS: MIRALAX 17 GRAMS TUBE (08:27)
[2024-06-19] MEDS: HEPARIN 5000 UNITS SC (08:27)
[2024-06-19] MEDS: MAXIPIME 1000 MG IV ×3 (08:28→20:11)
[2024-06-19] MEDS: STERILE WATER FOR INJECTION 10 ML IV ×3 (08:28→20:11)
[2024-06-19] MEDS: 0.45%NACL 1000 IV (08:40)
[2024-06-19] MEDS: CEREBYX 54 MG IV ×2 (08:56→20:11)
[2024-06-19 09:26] VITALS: BP 87/48
[2024-06-19 09:26] LABS: INR 1.69
[2024-06-19] MEDS: VANCOCIN 540 MG IV (09:28)
[2024-06-19 09:31] LABS: Blood Urea Nitrogen 37 mg/dl (9-20); Calcium 8.1 mg/dl (8.4-10.2); Carbon Dioxide 15 mmol/L (22-30); Chloride 123 mmol/L (98-107); Estimated Creatinine Clearance 52 ml/min; Glucose 168 mg/dl (70-99); Potassium 4.2 mmol/L (3.5-5.1); Sodium 153 mmol/L (135-145); eGFR > 60.00
--- NOTE | 2024-06-19 09:42 | PHA.VAN.IN ---
Assessment
- Assessment
Renal Function: Appears elevated from baseline (SCR 1.2 vs ~0.7-0.9 but trending down from admission value of 1.7)
Plan
- Plan
Initial / Loading Dose: 2000mg - 06/19 09:28
Maintenance Regimen: dosing by level
Monitoring: random 06/20 0600
MRSA Screen: Ordered per protocol
Pharmacokinetics Vancomycin I
- -
Patient Age: 68
Patient Sex: Male
Vancomycin Day #: 1
Indication: Other
Requesting Provider: Dr. Valadez
Pertinent Antimicrobial Allergies:
NKDA
Height / Weight:
Height 5 ft 5 in
Actual Weight 67 kg
- Vital Signs / Lab Results
Temp Pulse Resp BP Pulse Ox
101.1 F H 50 14 83/59 99
06/19/24 08:00 06/19/24 05:30 06/19/24 05:30 06/18/24 23:30 06/19/24 08:00
Lab Results - Hematology
06/18/24 06/19/24
08:11 03:01
WBC 19.9 H 18.6 H
Lab Results - Chemistry
06/18/24 06/18/24 06/18/24
08:11 08:44 16:01
BUN Cancelled 50 H Cancelled
Creatinine Cancelled 1.7 H Cancelled
Estimated Creat Clear Cancelled Cancelled
Albumin Cancelled 3.4 L
06/18/24 06/18/24 06/19/24
16:06 21:32 03:01
BUN 47 H 45 H 41 H
Creatinine 1.7 H 1.5 H 1.3
Estimated Creat Clear 37 42 48
Albumin
06/19/24
09:02
BUN 37 H
Creatinine 1.2
Estimated Creat Clear 52
Albumin
06/18/24 06/18/24 06/18/24
08:11 16:06 21:33
Lactic Acid 1.7 3.0 H 1.5
Lab Results - Urine
06/18/24
08:44
Urine Nitrite (Reflex) Negative
Leukocyte Esterase Rfl 1+ A
Urine WBC (Reflex) 11-15 A
Ur Squamous Epith Cells 0-2
Urine Bacteria (Reflex) Few A
Microbiology Results
06/18/24 08:11 Blood Culture - Preliminary
Blood/Venous Positive culture in progress
Gram Stain - Preliminary
06/18/24 08:11 Blood Culture - Preliminary
Blood/Venous No Growth in 24 hours- Final report to follow
06/18/24 15:28 Gram Stain - Preliminary
Tracheal Aspirate
06/18/24 10:05 Gram Stain - Preliminary
Csf
06/18/24 08:11 Influenza Types A & B (FLAVIO) - Final
Nasal Swab Negative for Influenza A & B, NAAT
Negative results must be combined with clinical observations
and patient history.
Nucleic Acid Amplification test (NAAT)performed on the
[employer] platform.
[2024-06-19 09:53] VITALS: BMI 24.6
[2024-06-19] MEDS: LEVOPHED 258 MG IV ×3 (10:05→22:22)
--- NOTE | 2024-06-19 10:43 | W.PN.HOSP.TC ---
Today's Communication/Plan
-
continue pressor support, VDRF, IV abx, IV AED
Assessment / Plan
Assessment / Plan
Unresponsive, intubated, febrile
remains on Levophed
Dobhoff feeds started at 20 cc/hr with 25 cc H20, to be increased to 30 cc/hr tube feed and increase H2O fluid to 35 cc/hr
Hx of mental and physical disability onset in childhood
limited movement on Rt side
Severe hypernatremia
Nephro consulted
Na 171-->166-->158-->157-->153
Dehydration better
BUN/Creat 50/1.7-->47/1.7-->45/1.5-->41/1.3-->37/1.2
Constipated
post disimpaction by Dr. Johnson
CT abd demonstrated perirectal inflammation consistent with stercoral colitis
VDRF
Septic Shock
IVF, started and remains on pressors as per CCM
Ur cx Gm neg bacilli. Blood Cx Pos, identification pending
consider ID consult
WBC 19.9-->18.6
Hx of Seizures on multiple AED
neurology consult with Dr. James, situation reviewed with him. AED changed to IV
Dilantin level 7.1
Keppra 54 (10-40)
Phenobarb 15 (15-40)
Pt was previously a DNR. On arrival Dr. Johnson contacted the POA, who apparently stated he wanted everything done to see if situation is reversible
Discussed with POA, Gucci Kong, who confirmed pt is a Full Code. Confirmed pt's mother is in a memory care facility with advanced dementia
Total Critical Care Time 55 minutes. I was immediately available to the patient and staff. I personally examined, reviewed labs, diagnostic images/reports, interpretations, treatment plans, discussed patient care with other providers and family
or caregivers (if patient is unable to make decisions), entered orders as appropriate and documented the medical record.
Anticipated Discharge: > 48 hours
Subjective/Interval History
-
Date of Service: June 19, 2024
Remains unresponsive
Objective Data
-
Labs:
Laboratory Results
06/18/24 06/19/24 06/19/24
23:55 03:01 06:00
WBC 18.6 H
Hgb 10.0 L D
Hct 30.6 L
Plt Count 419 H D
PT
INR
APTT
HCO3 19.2 L Cancelled
Sodium 157 H
Potassium 4.3
Chloride 127 H
Carbon Dioxide 12 L*
BUN 41 H
Creatinine 1.3
Glucose 181 H
Calcium 8.3 L
06/19/24 06/19/24
09:02 18:00
WBC
Hgb
Hct
Plt Count
PT 20.0 H
INR 1.69
APTT 39.0 H
HCO3
Sodium 153 H Pending
Potassium 4.2 Pending
Chloride 123 H Pending
Carbon Dioxide 15 L Pending
BUN 37 H Pending
Creatinine 1.2 Pending
Glucose 168 H Pending
Calcium 8.1 L Pending
Vital Signs:
Vital Signs
Temp Pulse Resp BP Pulse Ox
101.1 F H 82 14 87/48 99
06/19/24 08:00 06/19/24 10:00 06/19/24 10:00 06/19/24 09:26 06/19/24 08:00
I&O
06/18/24 06/19/24 06/20/24
06:59 06:59 06:59
Intake Total 3856.5 / 4048.5 626.0 / 626.0
Output Total 885 / 985 400 / 400
Balance 2971.5 / 3063.5 226.0 / 226.0
Review of Systems
-
Unable to obtain full review of systems at this time due to: Dementia and Patient Intubation
History Source: Coordinated Provider
Constitutional: Reports Fever (101.1)
Respiratory: Reports Other (intubated)
Abdomen/GI: Reports Other (Dobhoff in place)
Genitourinary: Reports Other (michele in place)
Physical Exam
-
General: Well Developed, Well Nourished and Intubated
HEENT: Normocephalic, Atraumatic and Moist Mucous Membranes
Respiratory: Rhonchi (scattered upper airway rhonchi); Negative Wheezes or Rales
Cardiac: Regular Rhythm and S1/S2
GI: Soft, Nontender, Nondistended and Normal Bowel Sounds
Genito-urinary: Michele
Musculoskeletal: No Clubbing, No Cyanosis and No Edema
Neuro: Negative Awake or Alert
[2024-06-19] MEDS: PROTONIX IV 40 MG IV (11:02)
[2024-06-19] MEDS: KEPPRA IV ×2 (11:04→11:11)
[2024-06-19] MEDS: NSS (PRESERVATIVE FREE) 10 ML IV (11:04)
--- NOTE | 2024-06-19 11:11 | CM ---
Initial assessment completed via phone with primary contact/Power of Help Desk Coordinator, Gucci Kong # [phone]
Pharmacy Verified; chart updated: [facility]
Primary contact reported that patient resides at [facility] for last 6 moths; patient is bedridden and requires total care
Patient will require transport via Ambulance
Primary Contact reported that patient was alert and oriented last time he saw him a couple of weeks ago; and per a friend who was visiting was alert on Sunday
Plan: patient will return to [facility] when medically stable via ambulance
Report # [phone]
[2024-06-19] MEDS: KEPPRA 1250 MG IV ×2 (11:13→20:12)
--- NOTE | 2024-06-19 11:44 | W.PN.NEPH.PH ---
Today's Communication / Plan
-
d/c IVF
increase FWF 50cc/hr
Assessment/Plan
-
IMP:
Unresponsive
Severe hypernatremia
VDRF
Septic Shock
UTI
GN bacteremia
Constipated- post disimpaction in ER
Hx of Seizures on multiple AED
intellectual disability
hyperlipidemia
Plan:
A/w unresponsive from [facility] 06/18
severe hypernatremia-improving
will increase FWF 50cc/hr in TF and d/c IVF
check labs later today
MILY-improving cr 1.2, non oliguric with michele
Primary resp alkalosis on ABG, vent adjustment per primary
hyperchloremic met acidosis
monitor serum bicarb-could add po bicarb if needed
titrate pressors to keep MAP>65
abx per primary ofr UTI and bacteremia
AED per neuro, adjust based on renal function
over all poor prognosis
d/w nursing
CC time spent 31min
-
-
Date of Service: June 19, 2024
CC / HPI / ROS
-
Chief Complaint:
MILY, hypernatremia
History of Present Illness:
cr better at 1.2, non oliguric with michele
febrile
remains intubated
sodium better at 153 on 10/02 NS , D5W stopped last night
Ph 7.46, Pco2 27, serum bicarb 15
wbc improving 18.6
hb low 10
Review of Systems:
intubated
Labs
-
Labs:
WBC 18.6 10^3/uL (4.8-10.8) H 06/19/24 03:01
RBC 3.25 10^6/uL (4.70-6.10) L 06/19/24 03:01
Hgb 10.0 g/dL (13.0-18.0) L D 06/19/24 03:01
Hct 30.6 % (39.0-52.0) L 06/19/24 03:01
Plt Count 419 10^3/uL (130-400) H D 06/19/24 03:01
eGFR > 60.00 06/19/24 09:02
Albumin 3.4 g/dl (3.5-5.0) L 06/18/24 08:44
Physical Exam
-
Vital Signs:
Vital Signs
Temp Pulse Resp BP Pulse Ox
101.1 F H 82 14 87/48 99
06/19/24 08:00 06/19/24 10:00 06/19/24 10:00 06/19/24 09:26 06/19/24 08:00
Cardiovascular:: Regular rate and rhythm
Respiratory:: Bilateral: CTA
Lung Excursion:: Abnormal
Abdomen:: Nontender and Soft
Extremity Edema:: None: Bilateral:
Michele Catheter: Yes
[2024-06-19 11:48] VITALS: BMI 24.6
--- NOTE | 2024-06-19 11:58 | W.PN.NEURO.1 ---
Today's Communication / Plan
-
Patient will remain on ventilator support with IV propofol sedation continue to receive multiple antiepileptic medications achieved seizure freedom.
Check Dilantin and phenobarb levels
Neuro Assessment/Plan
Assessment
68-year-old male with history of cerebral palsy refractory epilepsy who was found unresponsive secondary to sepsis, stool impaction and possible pneumonia with hypernatremia
Plan
Continue IV fluids as per nephrology
IV antibiotics
IV Keppra 1250 bid
IV Dilantin 200 q12
IV phenobarb 32 daily
IV Vimpat 150 q12
Subjective/Objective
Subjective Data
Date of Service: June 19, 2024
Patient remains intubated and sedated on propofol. He is receiving half-normal saline. He is on multiple antiepileptic medications intravenously
Objective Data
Vital Signs
Temp Pulse Resp BP Pulse Ox
38.0 C H 82 14 87/48 97
06/19/24 11:54 06/19/24 10:00 06/19/24 10:00 06/19/24 09:26 06/19/24 11:44
Lab Results
06/19/24 03:01
PT 20.0 Sec (11.4-14.6) H 06/19/24 09:02
INR 1.69 06/19/24 09:02
APTT 39.0 Sec (23.4-35.0) H 06/19/24 09:02
Sodium 153 mmol/L (135-145) H 06/19/24 09:02
Potassium 4.2 mmol/L (3.5-5.1) 06/19/24 09:02
BUN 37 mg/dl (9-20) H 06/19/24 09:02
Glucose 168 mg/dl (70-99) H 06/19/24 09:02
Calcium 8.1 mg/dl (8.4-10.2) L 06/19/24 09:02
Patient Allergies
No Known Allergies Allergy (Unverified 04/02/24 08:06)
Physical Exam
-
General: Appears Chronically Ill
Eyes: Able to visualize OU
HEENT: Normocephalic
Extended Neurological Exam
Mood & Affect: Unable to Assess
Attention Span & Concentration: Other (Sedated)
Memory: Unable to Assess
Tremor: Hand Tremor Absent and Head Tremor Absent
Involuntary Movement: None
Speech: Other (Intubated on ventilator)
Cranial Nerve II: Left Eye: Unable to Assess Visual Lux and Other (Pupils 3 to 4 mm sluggish reactivity)
Cranial Nerve II: Right Eye: Other (Pupils are 3 to 4 mm sluggish reactivity)
Cranial Nerves III, IV, : Extraocular Movement: Other (Extraocular movements impaired secondary to sedation)
Cranial Nerve V: Facial Sensation: Unable to Assess
Cranial Nerve VII: Facial Symmetry: Unable to Assess
Cranial Nerve VIII: Hearing: Unable to Assess
Cranial Nerves IX, X: Palate Movement: Unable to Assess
Cranial Nerve XI: Shoulder Shrug: Unable to Assess
Cranial Nerve XII: Tongue Protusion: Unable to Assess
Muscle Strength, Overall: Other (Moves left side preferentially when sedation is decreased)
Muscle Bulk & Tone: Other (Increased tone on the right with spasticity)
Pronator Drift: Unable to Assess
Deep Tendon Reflexes: Trace Throughout
Cold Sensation: Unable to Assess
Vibration Sensation: Unable to Assess
Touch Sensation: Withdrawal to Pain
Coordination: Unable to Assess
Babinski Sign: Present on Right
Gait & Station: Unable to Assess
[2024-06-19 11:59] LABS: Glucose - Point of Care 147 mg/dl (70-99)
--- NOTE | 2024-06-19 12:00 | PTCARENOTE ---
periods hypotension. vasopressin dcd per order Dr. Sol, titrating levophed as noted, occas with positional art line, difficult to transduce accurate or verifiable BP. arm board placed, better readings. placed on continuous lateral rotation
mattress, tolerated, percussion in use. rotation settings noted. Dr. Pastor in, orders noted, IV fluids capped, TF free water flush increased. 0900 labs resulted. seen also by Dr. Anderson, Dr. Valadez. vent change by resp therapy. tylenol with
good effect.
[2024-06-19] MEDS: NOVOLOG FLEXPEN-LOW RESISTANCE SC (12:13)
[2024-06-19] MEDS: ROBITUSSIN 200 MG TUBE ×3 (12:20→22:15)
[2024-06-19] MEDS: VIMPAT 150 MG IV ×2 (12:20→23:06)
[2024-06-19] MEDS: PHENOBARBITAL 32.5 MG IV (12:21)
[2024-06-19 12:28] VITALS: BP 72/52
[2024-06-19] MEDS: REFRESH CELLUVISC GEL 1 DROPS OPHTH ×3 (13:24→22:15)
[2024-06-19] MEDS: MUCOMYST 10% 2 ML INH ×2 (13:27→19:55)
[2024-06-19] MEDS: DUONEB 3 ML INH ×2 (13:27→19:55)
[2024-06-19 13:45] VITALS: BP_SYST 57
[2024-06-19 14:00] VITALS: BP_SYST 56
[2024-06-19 14:14] LABS: B.E. -4.3 mmol/L; PCO2 33 mmHg (35-48); PO2 109 mmHg (83-108); pH 7.39 (7.35-7.45)
--- NOTE | 2024-06-19 15:05 | PTCARENOTE ---
vaso restarted, new order obtained, art line with armboard now non-positional, no other change. ABG results to Dr. Sol, no new orders required. lateral rotation mattress in use. TF continue.
[2024-06-19] MEDS: LOVENOX 40 MG SC (17:29)
[2024-06-19 17:37] LABS: Glucose - Point of Care 151 mg/dl (70-99)
[2024-06-19] MEDS: NOVOLOG FLEXPEN-LOW RESISTANCE 1 UNITS SC ×2 (18:02→23:40)
[2024-06-19 18:12] LABS: Blood Urea Nitrogen 30 mg/dl (9-20); Calcium 7.9 mg/dl (8.4-10.2); Carbon Dioxide 15 mmol/L (22-30); Chloride 118 mmol/L (98-107); Estimated Creatinine Clearance 62 ml/min; Glucose 168 mg/dl (70-99); Potassium 3.5 mmol/L (3.5-5.1); Sodium 150 mmol/L (135-145); eGFR > 60.00
--- NOTE | 2024-06-19 18:26 | PTCARENOTE ---
[address] Pastor, med with tylenol for elevated temp. positioned for comfort. remains on vaso plus levophed as documented. I/O collected.
[2024-06-19 20:01] VITALS: BP 116/47
--- NOTE | 2024-06-19 21:14 | PTCARENOTE ---
report received, assessments per work list. patient with open eyes, not following commands or making eye contact. sedation management per work list. monitor nsr, periods of hypotension, lacking visible p waves. self limited. ekg completed.
wine blender line fixer at bedside. no new orders. adjustment Levophed to keep MAP >65ett to vent, copious ett secretions suctioned. percussion and rotation per orders. Dobbhoff in place, tube feeds per orders. when patient turned for assessments, he was
incontinent of very large soft light brown orange formed stool. Villareal draining cloudy urine. right picc with good blood returns. left radial arterial line in place, good waveform. blood return. remains febrile. pressors and adjustments per work list
[2024-06-19 21:26] VITALS: BP 108/61
[2024-06-19] MEDS: NSS 1000 IV (21:30)
[2024-06-19 22:18] LABS: Hematocrit 27.6 % (39.0-52.0); Hemoglobin 9.2 g/dL (13.0-18.0)
[2024-06-19] MEDS: SUBLIMAZE 50 MCG IV (22:33)
[2024-06-19 22:40] LABS: Blood Urea Nitrogen 14 mg/dl (9-20); Calcium 3.7 mg/dl (8.4-10.2); Carbon Dioxide < 5 mmol/L (22-30); Chloride 131 mmol/L (98-107); Estimated Creatinine Clearance 104 ml/min; Glucose 101 mg/dl (70-99); Potassium 1.7 mmol/L (3.5-5.1); Sodium 147 mmol/L (135-145); eGFR > 60.00
--- NOTE | 2024-06-19 22:51 | PTCARENOTE ---
critical labs reviewed with oncology social worker SHOT HOLE DRILLER. labs repeated as stat per SHOT HOLE DRILLER. results pending
[2024-06-19 23:20] LABS: Blood Urea Nitrogen 26 mg/dl (9-20); Calcium 7.6 mg/dl (8.4-10.2); Carbon Dioxide 14 mmol/L (22-30); Chloride 118 mmol/L (98-107); Estimated Creatinine Clearance 62 ml/min; Glucose 186 mg/dl (70-99); Magnesium 1.5 mg/dl (1.6-2.3); Potassium 3.1 mmol/L (3.5-5.1); Sodium 147 mmol/L (135-145); eGFR > 60.00
[2024-06-19] MEDS: SODIUM BICARBONATE 1150 MEQ IV (23:23)
[2024-06-19] MEDS: KCL ELIXIR 40 MEQ TUBE (23:23)
[2024-06-19] MEDS: KCL 270 MEQ IV (23:24)
[2024-06-19] MEDS: CALCIUM GLUCONATE 130 MG IV (23:37)
[2024-06-19] MEDS: MAGNESIUM SULFATE 50 IV (23:45)
--- NOTE | 2024-06-19 23:51 | W.PN.UPDATE ---
Update Note
Progress Note Update
2129 Dr. Pastor, dinkey operator slag called for update on patient. Patient was acutely hypotensive, adjustments made on vasopressors, increased levophed gtt. EKG obtained, ?dropped P waves on monitor, but noted p waves on EKG sinus rhythm.
Recommendations from Dr. Pastor: give 1 L NSS bolus, repeat labs at 2200, if bicarb low consider initiating bicarb gtt and replace electrolytes. Note very abnormal 2210 labs, labs were redrawn, questionable error in labs. Replacement ordered
based on repeat labs from 2248 for hypokalemia K 3.1, hypomagnesia 1.5, bicarb gtt for CO2 on 14.
--- NOTE | 2024-06-20 00:16 | PTCARENOTE ---
labs resulted, electrolyte replacment per orders. patient reassessed. diuresing clear yellow urine post fluid bolus. prn fentnayl administered for comfort. will make eye contact, but not following commands. wrist retraints maintained for patient
safety.
[2024-06-20] MEDS: MUCOMYST 10% 2 ML INH ×4 (01:05→19:56)
[2024-06-20] MEDS: DUONEB 3 ML INH ×4 (01:05→19:57)
[2024-06-20] MEDS: SUBLIMAZE 50 MCG IV ×5 (01:26→12:11)
[2024-06-20] MEDS: STERILE WATER FOR INJECTION 10 ML IV ×4 (01:56→21:59)
[2024-06-20] MEDS: MAXIPIME 1000 MG IV ×2 (01:56→07:43)
[2024-06-20] MEDS: SUBLIMAZE 100 IV ×2 (02:08→21:25)
--- NOTE | 2024-06-20 02:26 | PTCARENOTE ---
prn bolus fentanyl effective, patient continues to have short periods of heart rate 70-80's with dropped p waves and resultant hypotension. self limited. real estate associate tube coverer updated. complete care given.
--- NOTE | 2024-06-20 04:16 | PTCARENOTE ---
reassessed, no changes. continues to have very short self limited periods of heart rate 70-90 with dropped p waves with resultant hypotension. monitor otherwise sinus bradycardia
[2024-06-20 04:44] LABS: B.E. -0.9 mmol/L; HCO3 23.5 mmol/L (21-28); O2 Saturation % 99.5 % (94-98); PCO2 37 mmHg (35-48); PO2 128 mmHg (83-108); pH 7.41 (7.35-7.45)
[2024-06-20 05:04] VITALS: BMI 24.7
[2024-06-20 05:15] LABS: Hematocrit 29.6 % (39.0-52.0); Hemoglobin 9.8 g/dL (13.0-18.0); Mean Corp Hgb Conc. 33.1 g/dL (33.0-37.0); Mean Corpuscular Hgb 31.8 pg (27.0-31.0); Mean Corpuscular Volume 96.1 fL (80.0-94.0); Platelet Count 324 10^3/uL (130-400); Red Blood Cell Count 3.08 10^6/uL (4.70-6.10); Red Cell Dist. Width 14.1 % (11.5-14.5); White Blood Cell Count 22.5 10^3/uL (4.8-10.8)
[2024-06-20 05:20] LABS: Blood Urea Nitrogen 21 mg/dl (9-20); Calcium 8.3 mg/dl (8.4-10.2); Carbon Dioxide 20 mmol/L (22-30); Chloride 111 mmol/L (98-107); Estimated Creatinine Clearance 69 ml/min; Glucose 228 mg/dl (70-99); Magnesium 2.1 mg/dl (1.6-2.3); Potassium 3.6 mmol/L (3.5-5.1); Sodium 146 mmol/L (135-145); eGFR > 60.00
[2024-06-20 05:22] LABS: Glucose - Point of Care 207 mg/dl (70-99)
[2024-06-20] MEDS: NOVOLOG FLEXPEN-LOW RESISTANCE 2 UNITS SC (05:41)
[2024-06-20] MEDS: KCL ELIXIR 20 MEQ TUBE (06:03)
[2024-06-20] MEDS: PITRESSIN 100 IV ×2 (06:39→14:22)
--- NOTE | 2024-06-20 07:39 | W.PN.INTV ---
Today's Communication / Plan
Recommendations
Adjust ventilator
Pressors as needed
Follow cultures
Broad-spectrum antibiotics-adjust according to cultures
Antiepileptics
Neurochecks
Replace electrolytes
Correcting hyponatremia
Assessment
-
68-year-old male with a history of significant intellectual disability, epilepsy, hyperlipidemia who presents from [facility] unresponsive and ueyubfxyvpk-egzfvhvgf-[id number] consulted for ventilator/critical care management 06/18/2024.
Unresponsive
Severe hypernatremia-serum sodium 171-total body water deficit 8.1 L
MILY
Respiratory failure
Intubated 06/18/2024
Extubated
Sepsis with shock unresponsive to fluids requiring pressors
Leukocytosis
Heaxkp-lyxwirniqm-aeqtdaglie 12.8
Hyperglycemia
Conditions present prior to admission:
Intellectual disability.
Hyperlipidemia.
Epilepsy.
DNR in the past
Plan
Continues to be critically ill l on a ventilator and pressors
Ventilator settings reviewed
Arterial blood gases reviewed
Adjust ventilator
Monitor airway pressures-somewhat elevated due to mucous plugging
Mucolytic's added
Mucomyst 10% nebulizers added as well
Follow ABG
VAP prevention protocol
Nebulizers if needed-currently not bronchospastic
Chest x-ray 06/20/2024-ET tube in good position, no increased infiltrates, left basilar airspace disease noted
Spontaneous breathing trial once neurologically and hemodynamically improved
Cultures reviewed
MRSA screen-negative
Sputum culture 06/18/2024-many WBCs, many gram-negative rods
Influenza negative
Blood cultures 10/04 positive for gram-positive cocci in clusters-suspect contaminant
MRSA screen 03/21/2024-negative
Urine culture 06/18/[id number] bacilli-Klebsiella
CSF culture-negative
CSF fluid 06/18/2024-clear, colorless, WBC-2, glucose 78, total protein 128
Trend lactate
Pressors as needed-norepinephrine first and then vasopressin-reviewed with critical care nursing
Monitor leukocytosis-still elevated at 22.5
Continue hypotonic fluid
Bicarb also added
Nephrology evaluation ongoing-correspondence reviewed
Replacing electrolytes including potassium and magnesium
Note: Water deficit estimated 8.2 L
Follow serum sodium levels closely-currently 146
Goal correction 8 mEq/L in the first 24 hours
Monitor neurologic status closely-rapid correction can rarely lead to osmotic demyelinating syndrome
Monitor hemoglobin-currently 9.8
Transfuse as needed
Monitor blood sugar
Insulin supplementation as needed
DVT prophylaxis--Heparin with renal dysfunction
GI prophylaxis while hypotensive on the ventilator-on PPI
Nasogastric feeding
Bedside range of motion
Goals of care-DNR in the past
Prognosis guarded
Critical care statement: A total of 40 minutes of critical care time was provided for this patient today. This includes management of unstable vital signs, evaluation of the patient at bedside, reviewing the patient's pertinent medical records
including radiographs, pressor and ventilator management, microbiology, laboratory evaluations, and discussion with primary team, consultants, pharmacy, nutrition, physical therapy, case management, charge nurse, critical care nursing, and
respiratory therapy.
Diagnostic data:
Chest x-ray 06/18/2024-NAD, ET tube 2.[address] abdomen and pelvis 06/18/2024-large amount of stool, chronic and incidental findings not acute
CT head 06/18/2024-no acute intracranial abnormalities
Subjective Dataa
Subjective Data
Date of Service:
Date of Service: June 20, 2024
Chief Complaint: Automotive Internet Sales Manager Follow Up, Pulmonary Follow Up and Vent Management Follow Up
Subjective:
Still on pressors, serum sodium improving, mental status still significantly declined but improving, review systems unobtainable
Review of Systems
General: Unobtainable - Sedation
Objective Data
Data Reviewed
Vital Signs / I&O / Oxygen:
Vital Signs
Temp Pulse Resp BP Pulse Ox
98.5 F 62 14 108/61 99
06/20/24 05:54 06/20/24 07:33 06/20/24 07:33 06/19/24 21:26 06/20/24 07:33
Intake and Output
06/19/24 06/20/24 06/21/24
06:59 06:59 06:59
Intake Total 3856.5 / 4048.5 6672.7 / 6672.7
Output Total 885 / 985 3795 / 3795
Balance 2971.5 / 3063.5 2877.7 / 2877.7
SaO2 [A/C] 99
SaO2 99
Nasal Cannula flow liters per 4
minute
Physical Exam
General: Respiratory Distress (n) and Comfortable
HEENT: Normocephalic, Anicteric and Moist Mucous Membranes
Cardiovascular: Regular Rhythm
Respiratory: Wheeze (n), Crackles (Basilar), Rhonchi (Expiratory), Non-Labored Respirations, Accessory Resp Muscle Use (n) and Stridor (n)
GI: Soft, Non Distended and Non Tender
Neurology: Awake, Alert and No Motor Deficits
Skin: Warm, Good Color, Cyanosis (n), Jaundice (n) and Rash (n)
Labs/Micro/Reports
Lab Data
06/20/24 04:29
06/20/24 04:29
Laboratory Results
06/19/24 06/19/24 06/20/24
09:02 13:59 04:29
PT 20.0 H
INR 1.69
APTT 39.0 H
pH 7.39 7.41
pCO2 33 L 37
pO2 109 H 128 H
HCO3 20.0 L 23.5
O2 Delivery Level
Microbiology
06/18/24 08:11 Blood/Venous Blood Culture - Preliminary
Positive culture in progress
06/18/24 08:11 Blood/Venous Gram Stain - Final
06/18/24 15:28 Tracheal Aspirate Respiratory Culture - Preliminary
06/18/24 15:28 Tracheal Aspirate Gram Stain - Preliminary
06/19/24 09:02 Nose Nasal Screen MRSA (PCR) - Final
MRSA not detected - performed by PCR methodology.
06/18/24 10:05 Csf CSF Culture - Preliminary
No Growth After 18-24 Hours
06/18/24 10:05 Csf Gram Stain - Preliminary
06/18/24 08:44 Urine Urine Culture - Preliminary
Gram negative bacilli
06/18/24 08:11 Blood/Venous Blood Culture - Preliminary
No Growth in 24 hours- Final report to follow
06/18/24 08:11 Nasal Swab Influenza Types A & B (FLAVIO) - Final
Negative for Influenza A & B, NAAT
Negative results must be combined with clinical observations
and patient history.
Nucleic Acid Amplification test (NAAT)performed on the
[employer] platform.
[2024-06-20] MEDS: LEVOPHED 258 MG IV ×2 (07:42→17:38)
[2024-06-20] MEDS: REFRESH CELLUVISC GEL 1 DROPS OPHTH ×4 (07:42→22:00)
[2024-06-20] MEDS: ROBITUSSIN 200 MG TUBE ×4 (07:43→21:58)
[2024-06-20] MEDS: PROTONIX IV 40 MG IV (07:43)
[2024-06-20] MEDS: KEPPRA 1250 MG IV ×2 (07:43→20:03)
[2024-06-20] MEDS: NSS (PRESERVATIVE FREE) 10 ML IV (07:43)
[2024-06-20] MEDS: PHENOBARBITAL 32.5 MG IV (07:47)
[2024-06-20] MEDS: MIRALAX TUBE (07:52)
[2024-06-20] MEDS: CEREBYX 54 MG IV ×2 (08:31→20:05)
--- NOTE | 2024-06-20 08:59 | W.PN.NEPH.PH ---
Today's Communication / Plan
-
continue IVF
Assessment/Plan
-
IMP:
Unresponsive
Severe hypernatremia
VDRF
Septic Shock probable
UTI GNR
Constipated- post disimpaction in ER
Hx of Seizures on multiple AED
intellectual disability
hyperlipidemia
Plan:
presumed sepsis, source unknown. no definitive Bcx (likely contaminant 06/18)
continue broad spectrum abx
continue FWF at 50
continue IVF with bicarb today
I would not be aggressive with weaning pressors today to allow for a longer stretch of stability
follow BMP
critical care time 31 minutes
-
-
Date of Service: June 20, 2024
CC / HPI / ROS
-
Chief Complaint:
MILY, hypernatremia
History of Present Illness:
cr better at 0.9, non oliguric with michele
afebrile today
remains intubated sedated
critically ill in ICU
on pressors for hypotension
sodium better at 146 on FWF50
on bicarb gtt for acidosis, improving
Review of Systems:
intubated sedated
Labs
-
Labs:
WBC 22.5 10^3/uL (4.8-10.8) H 06/20/24 04:29
RBC 3.08 10^6/uL (4.70-6.10) L 06/20/24 04:29
Hgb 9.8 g/dL (13.0-18.0) L 06/20/24 04:29
Hct 29.6 % (39.0-52.0) L 06/20/24 04:29
Plt Count 324 10^3/uL (130-400) D 06/20/24 04:29
Sodium 146 mmol/L (135-145) H 06/20/24 04:29
Potassium 3.6 mmol/L (3.5-5.1) 06/20/24 04:29
Chloride 111 mmol/L (98-107) H 06/20/24 04:29
Carbon Dioxide 20 mmol/L (22-30) L 06/20/24 04:29
BUN 21 mg/dl (9-20) H 06/20/24 04:29
Creatinine 0.9 mg/dL (0.7-1.3) 06/20/24 04:29
eGFR > 60.00 06/20/24 04:29
Glucose 228 mg/dl (70-99) H 06/20/24 04:29
Calcium 8.3 mg/dl (8.4-10.2) L 06/20/24 04:29
Albumin 3.4 g/dl (3.5-5.0) L 06/18/24 08:44
Physical Exam
-
Vital Signs:
Vital Signs
Temp Pulse Resp BP Pulse Ox
98.9 F 66 14 108/61 99
06/20/24 07:58 06/20/24 08:30 06/20/24 08:30 06/19/24 21:26 06/20/24 08:30
Cardiovascular:: Regular rate and rhythm
Respiratory:: Bilateral: Coarse
Lung Excursion:: Normal
Abdomen:: Nontender and Soft
Bowel Sounds:: Normal
Extremity Edema:: None: Bilateral:
--- NOTE | 2024-06-20 09:00 | PTCARENOTE ---
Rec'd care of patient at 0700. Patient intubated. Propofol turned off overnight. Fentanyl gtt weaned to 50 mcgs. Patient alert but not following commands. Does not track or make eye contact. Pupils equal and reactive. +Corneal and gag reflexes. SB
with prolonged QT on tele monitor. Trace anasarca. #8 ett @ 24 cm. A/C 12/500/5/30%. Pulse ox 99%. Lung sounds coarse/rhonchi throughout. Thick, noble secretions suctioned from ett. +BS (hypo). Right nare DHT in place with TFs at goal rate. Loose
stools overnight. Miralax held. Villareal in place for critical I/O. Fent/Levo/Vaso/Bicarb drips infusing through dual lumen PICC. Titrating Levophed for MAP >65. Left radial lyn in place. Leveled and zeroed. See worklist for full assessment and care.
--- NOTE | 2024-06-20 09:53 | CM ---
CM reviewed medical records. Patient remains acutely ill at this time. Plan to return to [facility].
[2024-06-20] MEDS: ATIVAN 1 MG IV (10:55)
--- NOTE | 2024-06-20 10:57 | W.PN.NEURO.1 ---
Today's Communication / Plan
-
Obtain serum Dilantin and phenobarb levels
Ativan 1 mg as needed
EEG
Neuro Assessment/Plan
Assessment
68-year-old male with history of cerebral palsy refractory epilepsy who was found unresponsive secondary to sepsis, stool impaction and possible pneumonia with hypernatremia
Plan
Continue IV fluids as per nephrology
IV antibiotics
IV Keppra 1250 bid
IV Dilantin 200 q12
IV phenobarb 32 daily
IV Vimpat 150 q12
Subjective/Objective
Subjective Data
Date of Service: June 20, 2024
Pat off propofol. Opens eyes with head/eye deviation, with Left arm posturing.
Objective Data
Vital Signs
Temp Pulse Resp BP Pulse Ox
37.2 C 64 14 108/61 98
06/20/24 07:58 06/20/24 10:15 06/20/24 10:15 06/19/24 21:26 06/20/24 10:15
Lab Results
06/20/24 04:29
06/20/24 04:29
PT 20.0 Sec (11.4-14.6) H 06/19/24 09:02
INR 1.69 06/19/24 09:02
APTT 39.0 Sec (23.4-35.0) H 06/19/24 09:02
Sodium 146 mmol/L (135-145) H 06/20/24 04:29
Potassium 3.6 mmol/L (3.5-5.1) 06/20/24 04:29
BUN 21 mg/dl (9-20) H 06/20/24 04:29
Glucose 228 mg/dl (70-99) H 06/20/24 04:29
Calcium 8.3 mg/dl (8.4-10.2) L 06/20/24 04:29
Patient Allergies
No Known Allergies Allergy (Unverified 04/02/24 08:06)
Physical Exam
Extended Neurological Exam
Mood & Affect: Unable to Assess
Babinski Sign: Unable to Test
Gait & Station: Unable to Assess
[2024-06-20] MEDS: SODIUM BICARBONATE IV (11:01)
--- NOTE | 2024-06-20 11:15 | PTCARENOTE ---
Neurologist at bedside. Notified RN that patient is having a seizure. Eyes deviated up. Pupils +2mm. 1mg Ativan ordered and administered. Vitals unchanged. S/p Ativan eyes no longer deviated up. Patient continuing to stare off into space. Not
following commands or tracking with eyes. Moving b/l UE. B/L LE withdrawing to painful stimuli. NSR on tele monitor. No other changes in assessment.
[2024-06-20] MEDS: SODIUM BICARBONATE 1150 MEQ IV ×2 (11:16→22:30)
[2024-06-20] MEDS: TYLENOL ORAL SOLUTION 650 MG TUBE ×2 (11:16→17:57)
--- NOTE | 2024-06-20 11:37 | W.PN.HOSP.TC ---
Today's Communication/Plan
-
consult Inf Disease
cautious increase in Tube feed Rate
Assessment / Plan
Assessment / Plan
Unresponsive, intubated, febrile
remains on Levophed
Dobhoff feeds started at 20 cc/hr with 25 cc H20, was increased to 30 cc/hr tube feed, as he is tolerating, will cautiously increase to 40 cc/hr, continuously and increased H2O fluid to 50 cc/hr
Hx of mental and physical disability onset in childhood
limited movement on Rt side
Severe hypernatremia
Nephro consulted
Na 171-->166-->158-->157-->153-->146
Dehydration better
BUN/Creat 50/1.7-->47/1.7-->45/1.5-->41/1.3-->37/1.2-->21/0.9
Constipated
post disimpaction by Dr. Johnson
CT abd demonstrated perirectal inflammation consistent with stercoral colitis
VDRF
Septic Shock
IVF, started and remains on pressors as per CCM
Ur cx Gm neg bacilli. Blood Cx most likely
consider ID consult
WBC 19.9-->18.6-->22.5
Persistent fever, Leukocytosis - will consult ID
Hx of Seizures on multiple AED
neurology consult with Dr. James, situation reviewed with him. AED changed to IV
Dilantin level 7.1
Keppra 54 (10-40)
Phenobarb 15 (15-40)
Pt was previously a DNR. On arrival Dr. Johnson contacted the POA, who apparently stated he wanted everything done to see if situation is reversible
Discussed with POA, Gucci Kong, who confirmed pt is a Full Code. Extensive review of clinical course. Confirmed pt's mother is in a memory care facility with advanced dementia.
Total Critical Care Time 55 minutes. I was immediately available to the patient and staff. I personally examined, reviewed labs, diagnostic images/reports, interpretations, treatment plans, discussed patient care with other providers and family
or caregivers (if patient is unable to make decisions), entered orders as appropriate and documented the medical record.
Anticipated Discharge: > 48 hours
Subjective/Interval History
-
Date of Service: June 20, 2024
Neuro requesting ID input
Objective Data
-
Labs:
Laboratory Results
06/20/24
04:29
WBC 22.5 H
Hgb 9.8 L
Hct 29.6 L
Plt Count 324 D
HCO3 23.5
Sodium 146 H
Potassium 3.6
Chloride 111 H
Carbon Dioxide 20 L
BUN 21 H
Creatinine 0.9
Glucose 228 H
Calcium 8.3 L
Vital Signs:
Vital Signs
Temp Pulse Resp BP Pulse Ox
100.5 F H 65 17 108/61 100
06/20/24 11:24 06/20/24 11:00 06/20/24 11:00 06/19/24 21:26 06/20/24 11:00
I&O
06/19/24 06/20/24 06/21/24
06:59 06:59 06:59
Intake Total 3856.5 / 4048.5 6672.7 / 6815.5 760.5 / 760.5
Output Total 885 / 985 3795 / 3925 735 / 735
Balance 2971.5 / 3063.5 2877.7 / 2890.5 25.5 / 25.5
Review of Systems
-
Unable to obtain full review of systems at this time due to: Dementia and Patient Intubation
History Source: Coordinated Provider
Constitutional: Reports Fever (101.1-->100.5)
Respiratory: Reports Other (intubated)
Abdomen/GI: Reports Other (Dobhoff in place, as per nursing, he is tolerating)
Genitourinary: Reports Other (michele in place)
Physical Exam
-
General: Well Developed, Well Nourished and Intubated
HEENT: Normocephalic, Atraumatic, Moist Mucous Membranes and Other (pupils are pinpoint, but symmetrical)
Respiratory: Rhonchi (scattered upper airway rhonchi); Negative Wheezes or Rales
Cardiac: Regular Rhythm and S1/S2
GI: Soft, Nontender, Nondistended and Normal Bowel Sounds
Genito-urinary: Michele
Musculoskeletal: No Clubbing, No Cyanosis and No Edema
Neuro: Negative Awake or Alert
[2024-06-20 11:41] LABS: Glucose - Point of Care 190 mg/dl (70-99)
[2024-06-20] MEDS: NOVOLOG FLEXPEN-MODERATE RESISTANCE 1 UNITS SC (11:54)
[2024-06-20] MEDS: VIMPAT 150 MG IV (12:11)
[2024-06-20 12:45] LABS: Dilantin 6.5 ug/ml (10-20)
--- NOTE | 2024-06-20 12:57 | PTCARENOTE ---
EEG in progress.
[2024-06-20 13:00] LABS: C.neoformans Antigen Negative (Negative)
--- NOTE | 2024-06-20 13:28 | CON.ID ---
Consultation
-
Date/Time Consultation Requested: June 20, 2024 1205
Date/Time Consultation Performed: June 20, 2024 1330
Requesting Provider: Dr. Froilan Valadez
Performing Provider: Dr. Candice Jose
Reason for Consultation: septic shock
Chief Complaint / Past History
Chief Complaint
Unresponsiveness
History of Present Illness
68 year old male with intellectual disability, SAW OFFBEARER shunt, seizure disorder on multiple anti-seizure meds who presented to ED 06/18 from [facility] with fever and unresponsiveness. He was T=101.2, white count 20, severely hypernatremic 171,
MILY. He was hypotensive not responding to IV fluids requiring pressors. Chest x-ray negative. Head CT no acute pathology. CT abd/pelvis showed severe constipation and he was disimpacted in the ED. Urine culture grew Klebsiella. CSF with 2 white
blood cells. He was started on cefepime in the ED. He received 1 dose of vancomycin yesterday. EEG no seizure. Admission sputum culture positive for Staph aureus with negative chest x-ray. Repeat chest x-ray today shows worsening bilateral
parenchymal opacities.
Past History
Additional Past Medical History:
Intellectual disability
Epilepsy on phenytoin, Keppra, Vimpat
Dyslipidemia
SAW OFFBEARER shunt
Additional Past Surgical History:
Left shoulder surgery
Left ankle surgery
Allergy History:
No Known Allergies Allergy (Unverified 04/02/24 08:06)
Medications Reviewed: Yes
Current Antibiotics:
Cefepime d3
Social History
Tobacco: Non-Smoker
Alcohol: None
Drug: None
Living: Intermediate ([facility])
Family History
Family History: Not Pertinent
Review of Systems
Review of Systems
Unable to obtain
Vital Signs
Temp Pulse Resp BP Pulse Ox
100.5 F H 56 12 108/61 99
06/20/24 11:24 06/20/24 13:00 06/20/24 13:00 06/19/24 21:26 06/20/24 13:00
Selected Entries
06/19/24
21:00
Temp max 102.3 F H
Physical Exam
Physical Exam
Constitutional: Acutely Ill
Eyes: Sclera Anicteric
Cardiovascular: Regular Rate and S1/S2
Pulmonary: Coarse (bases)
Gastrointestinal: Soft, Non Tender and Non Distended
Genito-Urinary: Villareal and Clear Urine
Extremities: Negative Edema
Neurological: Other (sedated)
Lines: PICC
Lab / Diagnostic Study Results
06/20/24 04:29
06/20/24 04:29
Abs Immat Gran (auto) 0.1 10^3/uL (0-0.05) H 06/18/24 08:11
Absolute Neuts (auto) 16.0 10^3/uL (1.4-6.5) H 06/18/24 08:11
Absolute Lymphs (auto) 2.4 10^3/uL (1.2-3.4) 06/18/24 08:11
Absolute Monos (auto) 1.0 10^3/uL (0.1-0.6) H 06/18/24 08:11
Absolute Basos (auto) 0.1 10^3/uL (0-0.2) 06/18/24 08:11
Immature Gran % 0.7 % (0-0.5) H 06/18/24 08:11
Neutrophils % 80.1 % (42.2-75.2) H 06/18/24 08:11
Lymphocytes % 12.1 % (20.5-51.1) L 06/18/24 08:11
Monocytes % 5.1 % (1.7-9.3) 06/18/24 08:11
Eosinophils % 1.7 % (0-6) 06/18/24 08:11
Basophils % 0.3 % (0-2) 06/18/24 08:11
PT 20.0 Sec (11.4-14.6) H 06/19/24 09:02
INR 1.69 06/19/24 09:02
Lactic Acid 1.5 mmol/L (0.7-2.0) 06/18/24 21:33
Ur Squamous Epith Cells 0-2 /LPF (Few) 06/18/24 08:44
Microbiology Results
Micro:
06/18/24 10:05 CSF Culture - Preliminary
Csf No Growth After 48 Hours
Gram Stain - Preliminary
06/18/24 15:28 Respiratory Culture - Preliminary
Tracheal Aspirate Staphylococcus aureus
Keisha albicans
Gram Stain - Preliminary
06/18/24 08:11 Blood Culture - Preliminary
Blood/Venous Coagulase neg. staphylococcus
Gram Stain - Final
06/18/24 08:44 Urine Culture - Final
Urine Klebsiella pneumoniae
06/18/24 08:11 Blood Culture - Preliminary
Blood/Venous No Growth in 48 hours- Final report to follow
06/19/24 09:02 Nasal Screen MRSA (PCR) - Final
Nose MRSA not detected - performed by PCR methodology.
06/18/24 08:11 Influenza Types A & B (FLAVIO) - Final
Nasal Swab Negative for Influenza A & B, NAAT
Negative results must be combined with clinical observations
and patient history.
Nucleic Acid Amplification test (NAAT)performed on the
[employer] platform.
06/18/24 CT a/p: Large amount of stool in the rectum with rectal wall thickening and perirectal inflammation compatible with fecal impaction and stercoral colitis.
06/20/24 CXR: Bilateral parenchymal opacities, increasing, most likely pneumonia. No evidence for associated pleural effusion.
Assessment / Plan
# Fever, leukocytosis (worse), shock - present on admission, unclear source.
-Lactic acid normal on admission.
-Unlikely from Klebsiella UTI without bacteremia.
- Vent support, pressor support
- Trend vitals, wbc.
# Pneumonia
-Admission cxr neg; now with bilateral opacities.
- Check sputum cx from ET.
- Broaden abx to meropenem.
-DC cefepime (d3)
# Klebsiella UTI
- on day 3 abx
# CoNS bacteremia (1 of 2 sets)= contaminant
# Unresponsiveness
# Seizure disorder on phenytoin, Keppra, Vimpat
- EEG: no seizure
- Meropenem may lower seizure threshold. Monitor closely.
# Severe hypernatremia
- Nephrology managing
# Conditions prior to admission
Intellectual disability
Epilepsy on phenytoin, Keppra, Vimpat
Dyslipidemia
SAW OFFBEARER shunt
[facility] resident (Meaghan De La Paz)
--- NOTE | 2024-06-20 13:42 | EEG.RPT ---
Electroencephalogram Report
Recording
Date of EE06/20/24
Type of EEG: Routine
Length of EEG recordin minutes
Done with Video Recording: Yes
Patient Status: Inpatient
Recording Conditions: Awake and Drowsy
Hyperventilation Performed: No
Photic Stimulation Performed: Yes
Report
LESS THAN 1 HOUR REPORT
LESS THAN 1 HOUR EEG INTERPRETATION:
Mildly abnormal EEG for age due to mild diffuse bihemispheric slowing
CLINICAL CORRELATION:
This study was suggestive of mild diffuse cortical dysfunction without focal abnormality. No seizures were recorded.
Clinical correlation is advised.
METHODS:
A 21 channel digitized electroencephalogram (EEG) was performed at the bedside in the ED. The 10/20 international system of electrode placement was used with ECG and lateral/vertical eye movements recorded. Persyst quantitative EEG review was
performed.
QUALITY OF STUDY:
Good
ELECTROENCEPHALOGRAPHER IMPRESSION(S):
Background
Medium amplitude poorly organized anterior-posterior voltage gradient of theta activity, non-variable, bursts of generalized non-rhythmic delta activity noted
There were no significant asymmetries of background activity noted.
Sleep
Not delineated
Photic Stimulation
Failed to activate the record
ECG
Normal sinus rhythm
Abnormal EEG Activity
None
[2024-06-20] MEDS: MAXIPIME IV (14:13)
[2024-06-20] MEDS: STERILE WATER FOR INJECTION IV (14:13)
--- NOTE | 2024-06-20 14:51 | PTCARENOTE ---
Patient's core temp 101. Tylenol administered at 1115 through DHT for core temp of 100.5. Temperature not responsive to Tylenol. Ice packs applied. Infectious disease Dr. Jose notified. Order for blood cultures obtained in addition to sputum
culture. IV ABX changed to Merrem.
--- NOTE | 2024-06-20 15:12 | WOUNDNOTE ---
WON RN NOTE: L Upper lip with documented DTI from ETT. Nurse Jennifer assisted in assessment, appears to be a stage 3 PI. Applied water soluble gel to area, tube is now placed on R side. Nurse confirmed there are no other skin issues, heels and
sacrum intact.
[2024-06-20] MEDS: MERREM 500 MG IV ×2 (15:34→21:59)
--- NOTE | 2024-06-20 17:00 | PTCARENOTE ---
Assessment unchanged. Patient incontinent of a large loose BM. Jyotsna care performed and repositioned for comfort.
--- NOTE | 2024-06-20 17:31 | PTCARENOTE ---
BP labile throughout the day. Levophed gtt titrated accordingly for MAP>65 (see worklist). Vasopressin infusing at set rate. Left radial arterial line leveled and zeroed.
[2024-06-20] MEDS: NOVOLOG FLEXPEN-MODERATE RESISTANCE SC (17:34)
[2024-06-20 17:47] LABS: Glucose - Point of Care 129 mg/dl (70-99)
[2024-06-20] MEDS: LOVENOX 40 MG SC (17:54)
[2024-06-20 19:08] LABS: CSF VDRL (T. pallidum) Non Reactive (Non Reactive)
--- NOTE | 2024-06-20 22:17 | PTCARENOTE ---
Handoff report received from off going RN. Dual RN gtt reconciliation completed. Pt received on mechanical ventilation on double concentrated Levophed at 13 mcg/min (24.4 m/hr), Vasopressin at 0.03 units/min (9ml/hr), Fentanyl gtt at 50 mcg/hr (5
ml/hr), and Bicarb in sterile water at 100 ml/hr. Patient assessed. Blinks spontaneously. Pupils are +2 and reactive. Pt does not follow commands nor track. + gag. Pt's sinus rhythm on the monitor. Temp 101. Room temp decreased from 70 to 55
degrees. New ice packs placed. Left radial arterial line leveled and zeroed. Coarse/rhonchi breath sounds throughout. SpO2 at 100% on mech. ventilation settings AC 12/5/500/30%. #8 ETT and 24 at center of lips. Patient suctioned for small amount of
thick & noble sputum. Hypoactive BS. Rt nare dobhoff tube assessed via auscultation. Jevity 1.5 at 40 ml/hr with 50 ml water flush. Pt's tolerating well. The pt's incontinent for large amount of loose and pasty stool. Temp sensing michele catheter is
draining yellow urine. Mouth and michele care completed. Patient cleansed and Calazime lotion applied. Linens changed. NETWORK ARCHITECT made aware of the patient's temperature. Cooling blanket ordered. Full assessment as noted on the worklist.
[2024-06-21] VITALS (15 sets, daily range): BP systolic 84–123; BP diastolic 59–70; BMI 24.8
[2024-06-21] MEDS: NOVOLOG FLEXPEN-MODERATE RESISTANCE SC ×3 (00:12→17:19)
[2024-06-21 00:22] LABS: Glucose - Point of Care 148 mg/dl (70-99)
--- NOTE | 2024-06-21 00:43 | PTCARENOTE ---
Patient reassessed. Remains unable to track or follow commands. Temp 100.7. LEvophed titrated per protocol. UOP adequate via michele catheter. Mouth care provided. PT suctioned for moderate amount of thick/noble sputum. Q2 hrs turns and repositioning
continued.
[2024-06-21] MEDS: DUONEB 3 ML INH ×4 (01:03→20:36)
[2024-06-21] MEDS: MUCOMYST 10% 2 ML INH ×4 (01:03→20:36)
[2024-06-21] MEDS: PITRESSIN 100 IV ×3 (01:19→18:14)
[2024-06-21 03:34] LABS: Hematocrit 26.5 % (39.0-52.0); Hemoglobin 9.1 g/dL (13.0-18.0); Mean Corp Hgb Conc. 34.3 g/dL (33.0-37.0); Mean Corpuscular Hgb 30.7 pg (27.0-31.0); Mean Corpuscular Volume 89.5 fL (80.0-94.0); Mean Platelet Volume 10.9 fL (7.4-10.4); Platelet Count 289 10^3/uL (130-400); Red Blood Cell Count 2.96 10^6/uL (4.70-6.10); Red Cell Dist. Width 13.9 % (11.5-14.5); White Blood Cell Count 27.5 10^3/uL (4.8-10.8)
[2024-06-21] MEDS: TYLENOL ORAL SOLUTION 650 MG TUBE ×3 (03:57→20:24)
[2024-06-21] MEDS: MERREM 500 MG IV ×4 (04:05→21:55)
[2024-06-21] MEDS: STERILE WATER FOR INJECTION 10 ML IV ×4 (04:06→21:55)
[2024-06-21 04:07] LABS: Blood Urea Nitrogen 15 mg/dl (9-20); Calcium 7.2 mg/dl (8.4-10.2); Carbon Dioxide 30 mmol/L (22-30); Chloride 94 mmol/L (98-107); Estimated Creatinine Clearance 104 ml/min; Glucose 175 mg/dl (70-99); Potassium 3.4 mmol/L (3.5-5.1); Sodium 134 mmol/L (135-145); Triglycerides 129 mg/dl (10-149); eGFR > 60.00
[2024-06-21] MEDS: SUBLIMAZE 50 MCG IV ×2 (04:30→13:23)
--- NOTE | 2024-06-21 04:37 | PTCARENOTE ---
Patient reassessed. sinus rhythm on the monitor. Pt's biting on ETT. Coughing. Patient suctioned for moderate amount of noble sputum. temp back to 101.3. Tylenol administer. Fentanyl administered. Pt's labs resulted. ART CONSERVATOR made aware. Calcium gluconate
2 grams, KCL elixir 40 meq, and normal saline at 100 ml/hr ordered.
[2024-06-21] MEDS: LEVOPHED 258 MG IV ×2 (04:52→16:22)
[2024-06-21] MEDS: KCL ELIXIR 40 MEQ TUBE ×2 (05:00→12:16)
[2024-06-21] MEDS: CALCIUM GLUCONATE 100 IV (05:06)
[2024-06-21] MEDS: NSS 1000 IV (05:08)
[2024-06-21 05:56] LABS: Glucose - Point of Care 123 mg/dl (70-99)
--- NOTE | 2024-06-21 07:02 | W.PN.INTV ---
Today's Communication / Plan
Recommendations
Antibiotics
Wean pressors
Decrease IV fluids
Not a weaning candidate from the ventilator at this point
Assessment
-
68-year-old male with a history of significant intellectual disability, epilepsy, hyperlipidemia who presents from [place] [facility] unresponsive and [id number] consulted for ventilator/critical care management 06/18/2024.
Unresponsive
Severe hypernatremia-serum sodium 171-total body water deficit 8.1 L
MILY
Respiratory failure
Intubated 06/18/2024
Extubated
Sepsis with shock unresponsive to fluids requiring pressors
Leukocytosis
Ejgjsa-qbvpewmptq-zktaumosxv 12.8
Hyperglycemia
Conditions present prior to admission:
Intellectual disability.
CANE PUSHER shunt
Hyperlipidemia.
Epilepsy.
DNR in the past
Plan
He remains critically ill l on a ventilator and pressors
Ventilator settings reviewed
Arterial blood gases reviewed-adequate oxygenation and ventilation with normal pH
Ventilator adjusted
Monitor airway pressures-somewhat elevated due to mucous plugging
Mucolytic's added
Mucomyst 10% nebulizers continues
Follow ABG
VAP prevention protocol
Nebulizers if needed-currently not bronchospastic
Chest x-ray 06/20/2024-ET tube in good position, no increased infiltrates, left basilar airspace disease noted
Spontaneous breathing trial once neurologically and hemodynamically improved-not ready yet
Cultures reviewed
MRSA screen-negative
Sputum culture 06/18/2024-many WBCs, many gram-negative rods
Influenza negative
Blood cultures / positive for gram-positive cocci in clusters-suspect contaminant
MRSA screen 03/21/2024-negative
Urine culture 06/18/[id number] bacilli-Klebsiella
CSF culture-negative
CSF fluid 06/18/2024-clear, colorless, WBC-2, glucose 78, total protein 128
Trend lactate
Infectious disease consultation noted-correspondence reviewed-antibiotics broadened to meropenem with UTI pneumonia suspected
Pressors as needed-norepinephrine first and then vasopressin-reviewed with critical care nursing-weaning norepinephrine to 6 and then will trial off vasopressin
Monitor leukocytosis-still elevated at 22.5
Hypotonic fluid and bicarb per nephrology
Nephrology evaluation ongoing-correspondence reviewed
Mild fluid overload now-gentle diuresis
Replacing electrolytes including potassium and magnesium
Note: Water deficit estimated 8.2 L
Follow serum sodium levels closely-currently 134
Monitor neurologic status closely-rapid correction can rarely lead to osmotic demyelinating syndrome
Neurology following-correspondence reviewed
EEG 06/20/2024-mild diffuse cortical dysfunction without focal abnormalities, no seizures
Monitor hemoglobin-currently 9.1
Transfuse as needed
Follow blood sugar
Insulin supplementation as needed
DVT prophylaxis--Heparin with renal dysfunction
GI prophylaxis while hypotensive on the ventilator-on PPI
Nasogastric feeding
Bedside range of motion
Goals of care-DNR in the past
Prognosis guarded
Critical care statement: A total of 42 minutes of critical care time was provided for this patient today. This includes management of unstable vital signs, evaluation of the patient at bedside, reviewing the patient's pertinent medical records
including radiographs, pressor and ventilator management, microbiology, laboratory evaluations, and discussion with primary team, consultants, pharmacy, nutrition, physical therapy, case management, charge nurse, critical care nursing, and
respiratory therapy.
Diagnostic data:
Chest x-ray 06/18/2024-NAD, ET tube 2.[address] abdomen and pelvis 06/18/2024-large amount of stool, chronic and incidental findings not acute
CT head 06/18/2024-no acute intracranial abnormalities
Subjective Dataa
Subjective Data
Date of Service:
Date of Service: June 21, 2024
Chief Complaint: Clinical Program Director Follow Up, Pulmonary Follow Up and Vent Management Follow Up
Subjective:
Opens eyes, does not follow commands, no increase secretions, still on 2 pressors, spiked temperature, review of systems unobtainable
Review of Systems
General: Unobtainable - Pat Unresp
Objective Data
Data Reviewed
Vital Signs / I&O / Oxygen:
Vital Signs
Temp Pulse Resp BP Pulse Ox
98.9 F 80 16 108/61 100
06/21/24 06:00 06/21/24 01:00 06/21/24 01:00 06/19/24 21:26 06/21/24 04:00
Intake and Output
06/20/24 06/21/24 06/22/24
06:59 06:59 06:59
Intake Total 6672.7 / 6815.5 5251.9 / 5251.9
Output Total 3795 / 3925 2815 / 2815
Balance 2877.7 / 2890.5 2436.9 / 2436.9
SaO2 [A/C] 100
SaO2 98
Nasal Cannula flow liters per 4
minute
Physical Exam
General: Respiratory Distress (n) and Comfortable
HEENT: Normocephalic, Anicteric and Moist Mucous Membranes
Cardiovascular: Regular Rhythm
Respiratory: Wheeze (n), Crackles (Basilar), Rhonchi (Expiratory), Non-Labored Respirations, Accessory Resp Muscle Use (n) and Stridor (n)
GI: Soft, Non Distended and Non Tender
Neurology: Lethargic and Other (Opens eyes, does not follow commands, is not tracking, does blink for eye protection)
Skin: Warm, Good Color, Cyanosis (n), Jaundice (n) and Rash (n)
Labs/Micro/Reports
Lab Data
06/21/24 03:22
06/21/24 03:22
Microbiology
06/18/24 15:28 Tracheal Aspirate Respiratory Culture - Preliminary
Staphylococcus aureus
Keisha albicans
06/18/24 15:28 Tracheal Aspirate Gram Stain - Preliminary
06/20/24 16:18 Endotracheal Gram Stain - Preliminary
06/18/24 10:05 Csf CSF Culture - Preliminary
No Growth After 48 Hours
06/18/24 10:05 Csf Gram Stain - Preliminary
06/18/24 08:11 Blood/Venous Blood Culture - Preliminary
Coagulase neg. staphylococcus
06/18/24 08:11 Blood/Venous Gram Stain - Final
06/18/24 08:44 Urine Urine Culture - Final
Klebsiella pneumoniae
06/18/24 08:11 Blood/Venous Blood Culture - Preliminary
No Growth in 48 hours- Final report to follow
06/19/24 09:02 Nose Nasal Screen MRSA (PCR) - Final
MRSA not detected - performed by PCR methodology.
06/18/24 08:11 Nasal Swab Influenza Types A & B (FLAVIO) - Final
Negative for Influenza A & B, NAAT
Negative results must be combined with clinical observations
and patient history.
Nucleic Acid Amplification test (NAAT)performed on the
[employer] platform.
[2024-06-21] MEDS: MIRALAX TUBE (07:14)
--- NOTE | 2024-06-21 07:38 | W.PN.NEPH.PH ---
Today's Communication / Plan
-
lasix
Assessment/Plan
-
IMP:
Unresponsive
Severe hypernatremia
VDRF
Septic Shock probable
UTI GNR
Constipated- post disimpaction in ER
Hx of Seizures on multiple AED
intellectual disability
hyperlipidemia
Plan:
presumed sepsis, source unknown. no definitive Bcx (likely contaminant 06/18)
continue broad spectrum abx
reduce FWF to 25
cap IVF
weaning pressors as allowed
lasix 40mg IV today
follow BMP
critical care time 31 minutes
-
-
Date of Service: June 21, 2024
CC / HPI / ROS
-
Chief Complaint:
MILY, hypernatremia
History of Present Illness:
cr better at 0.6, non oliguric with michele
remains intubated sedated
critically ill in ICU
on pressors for hypotension
sodium low 134
K low 3.4
acidosis resolved
Review of Systems:
intubated sedated
Labs
-
Labs:
WBC 27.5 10^3/uL (4.8-10.8) H 06/21/24 03:22
RBC 2.96 10^6/uL (4.70-6.10) L 06/21/24 03:22
Hgb 9.1 g/dL (13.0-18.0) L 06/21/24 03:22
Hct 26.5 % (39.0-52.0) L 06/21/24 03:22
Plt Count 289 10^3/uL (130-400) 06/21/24 03:22
Sodium 134 mmol/L (135-145) L D 06/21/24 03:22
Potassium 3.4 mmol/L (3.5-5.1) L 06/21/24 03:22
Chloride 94 mmol/L (98-107) L 06/21/24 03:22
Carbon Dioxide 30 mmol/L (22-30) 06/21/24 03:22
BUN 15 mg/dl (9-20) 06/21/24 03:22
Creatinine 0.6 mg/dL (0.7-1.3) L 06/21/24 03:22
eGFR > 60.00 06/21/24 03:22
Glucose 175 mg/dl (70-99) H 06/21/24 03:22
Calcium 7.2 mg/dl (8.4-10.2) L 06/21/24 03:22
Albumin 3.4 g/dl (3.5-5.0) L 06/18/24 08:44
Physical Exam
-
Vital Signs:
Vital Signs
Temp Pulse Resp BP Pulse Ox
98.8 F 79 20 108/61 100
06/21/24 07:03 06/21/24 07:00 06/21/24 07:00 06/19/24 21:26 06/21/24 07:14
Cardiovascular:: Regular rate and rhythm
Respiratory:: Bilateral: Coarse and Bilateral: Rales
Lung Excursion:: Normal
Abdomen:: Nontender and Soft
Bowel Sounds:: Normal
Extremity Edema:: +3: Bilateral:
--- NOTE | 2024-06-21 07:39 | PTCARENOTE ---
Claim Trainee at bedside. Plan of care discussed. IVFs stopped. TF flush decreased to 25 cc/hr. +2 anasarca present. 1x dose of 40mg IV Lasix ordered.
[2024-06-21] MEDS: LASIX 40 MG IV (08:38)
[2024-06-21] MEDS: ROBITUSSIN 200 MG TUBE ×4 (08:39→21:55)
[2024-06-21] MEDS: PROTONIX IV 40 MG IV (08:39)
[2024-06-21] MEDS: REFRESH CELLUVISC GEL 1 DROPS OPHTH ×4 (08:39→21:55)
[2024-06-21] MEDS: PHENOBARBITAL 32.5 MG IV (08:39)
[2024-06-21] MEDS: NSS (PRESERVATIVE FREE) 10 ML IV (08:39)
[2024-06-21] MEDS: CEREBYX 54 MG IV ×2 (08:39→19:52)
[2024-06-21] MEDS: KEPPRA 1250 MG IV ×2 (08:41→19:49)
[2024-06-21] MEDS: SUBLIMAZE 100 IV ×2 (08:42→20:49)
[2024-06-21 10:01] LABS: Glycohemoglobin (HgbA1c) 5.5 % (4.0-5.6)
--- NOTE | 2024-06-21 11:08 | W.PN.ID1 ---
Date of Service
Date of Service: June 21, 2024
Today's Communication
Overall poor prognosis.
Assessment / Plan
# Fever, leukocytosis (worse), shock - present on admission, unclear source.
-Lactic acid normal on admission.
-Unlikely from Klebsiella UTI without bacteremia.
- Vent support, pressor support
- Fever persists
-Leukocytosis trending up. No diarrhea
- Blood cx, sputum cx pending.
-Continue empiric meropenem (d2)
- follow temps/wbc/vitals and clinically.
# Pneumonia
-Admission cxr neg; now with bilateral opacities.
- sputum cx from ET pending
- Continue empiric meropenem (d2) for now
# Klebsiella UTI
- on day 4 appropriate abx
# CoNS bacteremia (1 of 2 sets)= contaminant
# Unresponsiveness
# Seizure disorder on phenytoin, Keppra, Vimpat, phenobarbital
- EEG: no seizure
- Meropenem may lower seizure threshold. Monitor closely.
# s/p Severe hypernatremia
- Nephrology managing
Overall poor prognosis.
# Conditions prior to admission
Intellectual disability
Epilepsy on phenytoin, Keppra, Vimpat
Dyslipidemia
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
[facility] resident ([facility])
Chief Complaint
-: Fever and Leukocytosis
Subjective / Review of Systems
Eyes open. Does not follow commands.
Vital Signs / Physical Exam
Vital Signs
Vital Signs
Temp Pulse Resp BP Pulse Ox
98.8 F 69 12 121/52 99
06/21/24 07:03 06/21/24 11:00 06/21/24 11:00 06/21/24 08:38 06/21/24 11:00
Physical Exam
Constitutional: Acutely Ill
Eyes: No Conjunctival Hemorrhage and Sclera Anicteric
Cardiovascular: Regular Rate and S1/S2
Pulmonary: Coarse (bilaterally)
Gastrointestinal: Soft, Non Tender and Non Distended
Genito-Urinary: Villareal and Clear Urine
Extremities: Edema
Neurological: Other (unresponsive, not follow commands)
Objective Data
Lab Data
Lab Results
06/21/24 03:22
06/21/24 03:22
PT 20.0 Sec (11.4-14.6) H 06/19/24 09:02
INR 1.69 06/19/24 09:02
APTT 39.0 Sec (23.4-35.0) H 06/19/24 09:02
Estimated Creat Clear 104 ml/min 06/21/24 03:22
Lactic Acid 1.5 mmol/L (0.7-2.0) 06/18/24 21:33
Total Bilirubin 0.7 mg/dl (0.2-1.3) 06/18/24 08:44
AST 54 U/L (17-59) 06/18/24 08:44
ALT 47 U/L (0-50) 06/18/24 08:44
Alkaline Phosphatase 286 U/L (38-126) H 06/18/24 08:44
Most recent labs reviewed.
Micro Results:
06/18/24 08:11 Blood Culture - Preliminary
Blood/Venous Coagulase neg. staphylococcus
Gram Stain - Final
06/18/24 10:05 CSF Culture - Preliminary
Csf No Growth After 72 Hours
Gram Stain - Preliminary
06/18/24 08:11 Blood Culture - Preliminary
Blood/Venous No Growth in 72 hours- Final report to follow
06/18/24 15:28 Respiratory Culture - Preliminary
Tracheal Aspirate S aureus-Methicillin Sensitive
Keisha albicans
Gram Stain - Preliminary
06/20/24 16:18 Respiratory Culture - Pending
Endotracheal Gram Stain - Preliminary
06/20/24 16:18 Blood Culture - Pending
Blood/Venous
06/18/24 08:44 Urine Culture - Final
Urine Klebsiella pneumoniae
06/19/24 09:02 Nasal Screen MRSA (PCR) - Final
Nose MRSA not detected - performed by PCR methodology.
06/18/24 08:11 Influenza Types A & B (FLAVIO) - Final
Nasal Swab Negative for Influenza A & B, NAAT
Negative results must be combined with clinical observations
and patient history.
Nucleic Acid Amplification test (NAAT)performed on the
[employer] platform.
06/18/24 CT a/p: Large amount of stool in the rectum with rectal wall thickening and perirectal inflammation compatible with fecal impaction and stercoral colitis.
06/20/24 CXR: Bilateral parenchymal opacities, increasing, most likely pneumonia. No evidence for associated pleural effusion.
Care Review
Plan reviewed with: Nurse
[2024-06-21] MEDS: NOVOLOG FLEXPEN-MODERATE RESISTANCE 1 UNITS SC ×2 (12:08→23:47)
[2024-06-21] MEDS: VIMPAT 150 MG IV ×2 (12:16)
[2024-06-21 12:20] LABS: Glucose - Point of Care 150 mg/dl (70-99)
--- NOTE | 2024-06-21 13:05 | PTCARENOTE ---
Total urine output over past 4 hours 1305 cc's. Vitals stable. Levophed weaned to 9 mcg/min. No other changes.
--- NOTE | 2024-06-21 14:01 | PTCARENOTE ---
Core temp 100.7. Tylenol administered. Patient tense and pulling on restraints. Fentanyl bolus administered and Fentanyl gtt increased to 100.
--- NOTE | 2024-06-21 15:13 | PTCARENOTE ---
Patient placed on cooling blanket for core temp of 101.
--- NOTE | 2024-06-21 15:33 | W.PN.HOSP.TC ---
Today's Communication/Plan
-
continue NG feeds
wean off pressors as tolerates
continue ventilator support
Assessment / Plan
Assessment / Plan
Unresponsive, intubated, febrile
remains on Levophed, Vasopressin
Dobhoff feeds started at 20 cc/hr with 25 cc H20, was increased to 30 cc/hr tube feed, as he is tolerating, cautiously increased to 40 cc/hr
Hx of mental and physical disability onset in childhood
limited movement on Rt side
Severe hypernatremia
Nephro consulted
Na 171-->166-->158-->157-->153-->146-->134
resolved
Dehydration better
BUN/Creat 50/1.7-->47/1.7-->45/1.5-->41/1.3-->37/1.2-->21/0.9
Constipated
post disimpaction by Dr. Johnson
CT abd demonstrated perirectal inflammation consistent with stercoral colitis
VDRF
Septic Shock
IVF, started and remains on pressors as per CCM
Ur cx Gm neg bacilli. Blood Cx most likely
consider ID consult
WBC 19.9-->18.6-->22.5-->27.5
Persistent fever, Leukocytosis - appreciate consult ID
Klebsiella in urine, blood cx felt to be a contaminant
CSF neg Cx
Hx of Seizures on multiple AED
neurology consult with Dr. James, situation reviewed with him. AED changed to IV
Dilantin level 7.1
Keppra 54 (10-40)
Phenobarb 15 (15-40)
Pt was previously a DNR. On arrival Dr. Johnson contacted the POA, who apparently stated he wanted everything done to see if situation is reversible
Discussed with Gucci MARTÍNEZ, who confirmed pt is a Full Code. Extensive review of clinical course. Confirmed pt's mother is in a memory care facility with advanced dementia.
.
Anticipated Discharge: > 48 hours
Subjective/Interval History
-
Date of Service: June 21, 2024
Appears more awake
Objective Data
-
Labs:
Laboratory Results
06/21/24
03:22
WBC 27.5 H
Hgb 9.1 L
Hct 26.5 L
Plt Count 289
Sodium 134 L D
Potassium 3.4 L
Chloride 94 L
Carbon Dioxide 30
BUN 15
Creatinine 0.6 L
Glucose 175 H
Calcium 7.2 L
Vital Signs:
Vital Signs
Temp Pulse Resp BP Pulse Ox
101 F H 78 14 84/59 100
06/21/24 15:00 06/21/24 14:45 06/21/24 14:45 06/21/24 14:30 06/21/24 14:45
I&O
06/20/24 06/21/24 06/22/24
06:59 06:59 06:59
Intake Total 6672.7 / 6815.5 5431.9 / 5662.8 1001.7 / 1001.7
Output Total 3795 / 3925 2815 / 2915 1700 / 1700
Balance 2877.7 / 2890.5 2616.9 / 2747.8 -698.3 / -698.3
Review of Systems
-
Unable to obtain full review of systems at this time due to: Dementia and Patient Intubation
History Source: Coordinated Provider
Constitutional: Reports Fever (101.1-->100.5-->101)
Respiratory: Reports Other (intubated)
Abdomen/GI: Reports Other (Dobhoff in place, as per nursing, he is tolerating)
Genitourinary: Reports Other (michele in place)
Physical Exam
-
General: Well Developed, Well Nourished and Intubated
HEENT: Normocephalic, Atraumatic, Moist Mucous Membranes and Other (pupils are pinpoint, but symmetrical)
Respiratory: Rhonchi (scattered upper airway rhonchi); Negative Wheezes or Rales
Cardiac: Regular Rhythm and S1/S2
GI: Soft, Nontender, Nondistended, Normal Bowel Sounds and Other (tolerating NG feeds)
Genito-urinary: Michele
Musculoskeletal: No Clubbing, No Cyanosis and No Edema
Neuro: Negative Awake or Alert
--- NOTE | 2024-06-21 16:58 | PTCARENOTE ---
Assessment unchanged. Vitals stable. Levophed weaned to 8 mcg/min. NSR on tele monitor. Core temp 101.5. Cooling blanket maintained.
[2024-06-21] MEDS: LOVENOX 40 MG SC (17:15)
[2024-06-21 17:35] LABS: Glucose - Point of Care 96 mg/dl (70-99)
--- NOTE | 2024-06-21 20:26 | PTCARENOTE ---
Handoff report received from off going RN. Dual RN gtt reconciliation completed. Patient received on double concentrated Levophed at 6 mcg/hr (11.3 ml/hr), Vaso at 0.03 units/min (9 ml), and Fentanyl gtt at 100 mcg/hr (10ml). Patient is awake but
doesn't follow commands nor track movement. Blinks spontaneously. +2 pupils and reactive. Sinus rhythm on the monitor. MAP >65. Right dual lumen PIC is PIV. Temp 101 F and increasing. Tylenol administered. Cooling blanket restarted to keep temp
100.4 or less as per the order. +2 edema to bilateral hands and lower extremities. +1 generalized anasarca. Coarse breath sounds. Pt's on mech. ventilation with #8 ETT & 24 at the center of the lips. SpO2 at 100 % on vent setting A/C 12/5/500/30%.
Peak pressure 23. Patient suctioned for moderate amount of thick and noble sputum. weak gag. Hypoactive BS. Rt nare DHT assessed via auscultation. Jevity 1.5 at 40 ml/hr with 25 ml H2O flush. Rectal trumpet is intact and draining brown stool. Temp
sensing michele catheter is intact with yellow uop. Michele care completed. Mouth care provided. Full assessment as documented on the flowsheet.
[2024-06-21 23:57] LABS: Glucose - Point of Care 160 mg/dl (70-99)
[2024-06-22] VITALS (85 sets, daily range): BP systolic 72–160; BP diastolic 40–120; BMI 25.1
[2024-06-22] MEDS: VIMPAT 150 MG IV ×3 (00:09→23:46)
--- NOTE | 2024-06-22 00:20 | PTCARENOTE ---
Patient reassessed. No changes from previous assessment. Vasopressin weaned off. Levophed titrated to keep MAP >65. Sinus rhythm on the monitor. Temp. 98.6 F. Cooling blanket on standby. Rectal trumpet in place. Turns and repositioning continued.
[2024-06-22] MEDS: MUCOMYST 10% 2 ML INH ×4 (01:38→19:37)
[2024-06-22] MEDS: DUONEB 3 ML INH ×4 (01:38→19:37)
--- NOTE | 2024-06-22 03:16 | PTCARENOTE ---
Patient's Levophed is at 26 mcg/hr (48.8 mL). BANK EXAMINER, made aware. Okay to restart Vasopressin.
[2024-06-22 03:50] LABS: Hematocrit 25.5 % (39.0-52.0); Hemoglobin 8.8 g/dL (13.0-18.0); Mean Corp Hgb Conc. 34.5 g/dL (33.0-37.0); Mean Corpuscular Hgb 30.9 pg (27.0-31.0); Mean Corpuscular Volume 89.5 fL (80.0-94.0); Mean Platelet Volume 10.8 fL (7.4-10.4); Platelet Count 279 10^3/uL (130-400); Red Blood Cell Count 2.85 10^6/uL (4.70-6.10); Red Cell Dist. Width 13.7 % (11.5-14.5); White Blood Cell Count 23.8 10^3/uL (4.8-10.8)
[2024-06-22 04:00] LABS: Blood Urea Nitrogen 15 mg/dl (9-20); Calcium 7.4 mg/dl (8.4-10.2); Carbon Dioxide 27 mmol/L (22-30); Chloride 97 mmol/L (98-107); Estimated Creatinine Clearance 89 ml/min; Glucose 159 mg/dl (70-99); Potassium 3.7 mmol/L (3.5-5.1); Sodium 132 mmol/L (135-145); eGFR > 60.00
[2024-06-22 04:12] LABS: Absolute Neutrophils -Man Diff 22.1 10^3/uL (1.4-6.5); Band Neutrophils 10 % (0-3); Eosinophils 3 % (0-6); Lymphocytes 1 % (20-51); Monocytes 3 % (2-9); Segmented Neutrophils 83 % (42-75)
[2024-06-22 04:14] LABS: Platelets Checked Yes
[2024-06-22 04:15] LABS: Hypochromasia 1+; Normal RBC Morphology No; Total Cells Counted 100; Toxic Granulation Occassional
[2024-06-22] MEDS: MERREM 500 MG IV (04:16)
[2024-06-22] MEDS: STERILE WATER FOR INJECTION 10 ML IV (04:16)
--- NOTE | 2024-06-22 04:53 | PTCARENOTE ---
Patient reassessed. Assessment unchanged from the previous. Levophed titrated as per the protocol. Levo at 20 mcg (37.5 ml). Patient cleansed and linens changed. Villareal in place. Pt's labs resulted. Sodium 123 and Calcium 7.4. JUNIOR BRAND MANAGER made aware.
[2024-06-22] MEDS: SUBLIMAZE 50 MCG IV ×2 (05:17→15:51)
[2024-06-22] MEDS: LEVOPHED 258 MG IV ×3 (05:21→22:27)
[2024-06-22 06:09] LABS: Glucose - Point of Care 112 mg/dl (70-99)
[2024-06-22] MEDS: TYLENOL ORAL SOLUTION 650 MG TUBE ×2 (06:30→16:15)
[2024-06-22] MEDS: NOVOLOG FLEXPEN-MODERATE RESISTANCE SC ×2 (06:37→17:11)
[2024-06-22] MEDS: CEREBYX 54 MG IV ×2 (07:09→19:43)
[2024-06-22] MEDS: ROBITUSSIN 200 MG TUBE ×4 (07:10→22:18)
[2024-06-22] MEDS: REFRESH CELLUVISC GEL 1 DROPS OPHTH ×4 (07:10→22:18)
[2024-06-22] MEDS: NSS (PRESERVATIVE FREE) 10 ML IV (07:11)
[2024-06-22] MEDS: PROTONIX IV 40 MG IV (07:11)
[2024-06-22] MEDS: KEPPRA 1250 MG IV ×2 (07:11→19:36)
[2024-06-22] MEDS: MIRALAX TUBE (07:12)
[2024-06-22] MEDS: PHENOBARBITAL 32.5 MG IV (07:12)
--- NOTE | 2024-06-22 07:16 | W.PN.INTV ---
Today's Communication / Plan
Recommendations
De-escalate antibiotics
Gentle diuresis
Not a spontaneous breathing trial candidate yet
Attempt to wean pressors
Follow-up chest x-ray
Assessment
-
68-year-old male with a history of significant intellectual disability, epilepsy, hyperlipidemia who presents from [facility] unresponsive and vmccesiassy-qfhsvmgce-xtbrgbemvzm consulted for ventilator/critical care management 06/18/2024.
Unresponsive
Severe hypernatremia-serum sodium 171-total body water deficit 8.1 L
MILY
Respiratory failure
Intubated 06/18/2024
Extubated
Sepsis with shock unresponsive to fluids requiring pressors
Leukocytosis
Leqvxb-zaluibkdzm-aktnfrdbri 12.8
Hyperglycemia
Conditions present prior to admission:
Intellectual disability.
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
Hyperlipidemia.
Epilepsy.
DNR in the past
Plan
He remains critically ill l on a ventilator and pressors with ongoing temperatures
Ventilator settings reviewed
Arterial blood gases reviewed-adequate oxygenation and ventilation with normal pH
Ventilator has been adjusted
Not ready for spontaneous breathing trial-ongoing sepsis, 2 pressors, and mental status decline
Monitor airway pressures-somewhat elevated due to mucous plugging
Mucolytic's continue
Mucomyst 10% nebulizers continues
Follow A occasional ABG
VAP prevention protocol
Nebulizers if needed-currently not bronchospastic
Chest x-ray 06/20/2024-ET tube in good position, no increased infiltrates, left basilar airspace disease noted
Follow-up chest x-ray 06/23/2024
Spontaneous breathing trial once neurologically and hemodynamically improved-not ready yet
Cultures reviewed
MRSA screen-negative
Sputum culture 06/18/2024-many WBCs, moderate staff aureus methicillin sensitive and Keisha
Influenza negative
Blood cultures 1/4 positive for gram-positive cocci in clusters-suspect contaminant
Repeat blood culture 06/20/2024-no growth
Repeat sputum culture 06/20/2024-usual respiratory carina
C. difficile 06/22/2024-negative
MRSA screen 03/21/2024-negative
Urine culture 06/18/20242030-yjpn-fibjngxh bacilli-Klebsiella
CSF culture-negative
CSF fluid 06/18/2024-clear, colorless, WBC-2, glucose 78, total protein 128
Trend lactate
Infectious disease consultation noted-correspondence reviewed-antibiotics broadened to meropenem with UTI pneumonia suspected-recommend de-escalation of antibiotics to cefazolin on 06/22/2024 and check C. difficile
Pressors as needed-norepinephrine first and then vasopressin-reviewed with critical care nursing-weaning norepinephrine to 6 and then will trial off vasopressin-appears to be extremely vasopressin sensitive
Monitor leukocytosis-still elevated at 23.8
Source for ongoing temperatures and septic picture with ongoing pressor dependent hypotension unclear-differential includes pocket of infection/abscess, medications, etc.-consider repeat CT head/neck/chest/abdomen and pelvis, WBC scan,
etc.-infectious disease following
Hypotonic fluid and bicarb per nephrology
Nephrology evaluation ongoing-correspondence reviewed
Mild fluid overload now-gentle diuresis
Replacing electrolytes including potassium and magnesium
Note: Water deficit estimated 8.2 L
Follow serum sodium levels closely-currently 134
Monitor neurologic status closely-rapid correction can rarely lead to osmotic demyelinating syndrome
Neurology following-correspondence reviewed
EEG 06/20/2024-mild diffuse cortical dysfunction without focal abnormalities, no seizures
Monitor hemoglobin-currently 8.8
Transfuse as needed
Follow blood sugar
Insulin supplementation as needed
DVT prophylaxis--Heparin initially with renal dysfunction-now renal function normalized
GI prophylaxis while hypotensive on the ventilator-on PPI
Nasogastric feeding continue
Bedside range of motion
Goals of care-DNR in the past
Prognosis guarded
Critical care statement: A total of 44 minutes of critical care time was provided for this patient today. This includes management of unstable vital signs, evaluation of the patient at bedside, reviewing the patient's pertinent medical records
including radiographs, pressor and ventilator management, microbiology, laboratory evaluations, and discussion with primary team, consultants, pharmacy, nutrition, physical therapy, case management, charge nurse, critical care nursing, and
respiratory therapy.
Diagnostic data:
Chest x-ray 06/18/2024-NAD, ET tube 2.[address] abdomen and pelvis 06/18/2024-large amount of stool, chronic and incidental findings not acute
CT head 06/18/2024-no acute intracranial abnormalities
Subjective Dataa
Subjective Data
Date of Service:
Date of Service: June 22, 2024
Chief Complaint: Straightening Roll Operator Follow Up, Pulmonary Follow Up and Vent Management Follow Up
Subjective:
Opens eyes, neurologically otherwise not changed, moving extremities, not purposeful and noncommunicative, secretions overall improved, still moderate amount, tolerating tube feeds
Review of Systems
General: Other (Per HPI)
Objective Data
Data Reviewed
Vital Signs / I&O / Oxygen:
Vital Signs
Temp Pulse Resp BP Pulse Ox
101.5 F H 89 26 104/61 99
06/22/24 06:00 06/22/24 06:45 06/22/24 06:45 06/22/24 06:45 06/22/24 06:45
Intake and Output
06/21/24 06/22/24 06/23/24
06:59 06:59 06:59
Intake Total 5431.9 / 5662.8 2634.7 / 2634.7
Output Total 2815 / 2915 3205 / 3205
Balance 2616.9 / 2747.8 -570.3 / -570.3
SaO2 [A/C] 99
SaO2 99
Nasal Cannula flow liters per 4
minute
Physical Exam
General: Respiratory Distress (n) and Comfortable
HEENT: Normocephalic, Anicteric and Moist Mucous Membranes
Cardiovascular: Regular Rhythm
Respiratory: Wheeze (n), Crackles (Basilar), Rhonchi (Expiratory), Non-Labored Respirations, Accessory Resp Muscle Use (n), Stridor (n) and ET Tube
GI: Soft, Non Distended and Non Tender
Neurology: Lethargic and Other (Opens eyes, does not follow commands, is not tracking, does blink for eye protection)
Skin: Warm, Good Color, Cyanosis (n), Jaundice (n) and Rash (n)
Labs/Micro/Reports
Lab Data
06/22/24 03:29
06/22/24 03:29
Microbiology
06/20/24 16:18 Blood/Venous Blood Culture - Preliminary
No Growth in 24 hours- Final report to follow
06/18/24 15:28 Tracheal Aspirate Respiratory Culture - Final
S aureus-Methicillin Sensitive
Keisha albicans
06/18/24 15:28 Tracheal Aspirate Gram Stain - Final
06/20/24 16:18 Endotracheal Respiratory Culture - Preliminary
Usual Respiratory Carina
06/20/24 16:18 Endotracheal Gram Stain - Preliminary
06/18/24 08:11 Blood/Venous Blood Culture - Preliminary
Coagulase neg. staphylococcus
06/18/24 08:11 Blood/Venous Gram Stain - Final
06/18/24 10:05 Csf CSF Culture - Preliminary
No Growth After 72 Hours
06/18/24 10:05 Csf Gram Stain - Preliminary
06/18/24 08:11 Blood/Venous Blood Culture - Preliminary
No Growth in 72 hours- Final report to follow
06/18/24 08:44 Urine Urine Culture - Final
Klebsiella pneumoniae
06/19/24 09:02 Nose Nasal Screen MRSA (PCR) - Final
MRSA not detected - performed by PCR methodology.
--- NOTE | 2024-06-22 07:19 | W.PN.NEPH.PH ---
Today's Communication / Plan
-
lasix
Assessment/Plan
-
IMP:
Unresponsive
Severe hypernatremia
VDRF
Septic Shock probable
UTI GNR
Constipated- post disimpaction in ER
Hx of Seizures on multiple AED
intellectual disability
hyperlipidemia
Plan:
presumed sepsis, source unknown. no definitive Bcx (likely contaminant 06/18)
continue broad spectrum abx
stop FWF
weaning pressors as allowed
lasix 40mg IV am, 20mg IV pm today
follow BMP
critical care time 31 minutes
-
-
Date of Service: June 22, 2024
CC / HPI / ROS
-
Chief Complaint:
MILY, hypernatremia
History of Present Illness:
cr normal, non oliguric with michele
remains intubated sedated
critically ill in ICU
on pressors for hypotension
sodium low 132
on TF
acidosis resolved
responded to lasix yestserday
Review of Systems:
intubated sedated
Labs
-
Labs:
WBC 23.8 10^3/uL (4.8-10.8) H 06/22/24 03:29
RBC 2.85 10^6/uL (4.70-6.10) L 06/22/24 03:29
Hgb 8.8 g/dL (13.0-18.0) L 06/22/24 03:29
Hct 25.5 % (39.0-52.0) L 06/22/24 03:29
Plt Count 279 10^3/uL (130-400) 06/22/24 03:29
Sodium 132 mmol/L (135-145) L 06/22/24 03:29
Potassium 3.7 mmol/L (3.5-5.1) 06/22/24 03:29
Chloride 97 mmol/L (98-107) L 06/22/24 03:29
Carbon Dioxide 27 mmol/L (22-30) 06/22/24 03:29
BUN 15 mg/dl (9-20) 06/22/24 03:29
Creatinine 0.7 mg/dL (0.7-1.3) 06/22/24 03:29
eGFR > 60.00 06/22/24 03:29
Glucose 159 mg/dl (70-99) H 06/22/24 03:29
Calcium 7.4 mg/dl (8.4-10.2) L 06/22/24 03:29
Albumin 3.4 g/dl (3.5-5.0) L 06/18/24 08:44
Physical Exam
-
Vital Signs:
Vital Signs
Temp Pulse Resp BP Pulse Ox
101.5 F H 89 26 104/61 99
06/22/24 07:00 06/22/24 06:45 06/22/24 06:45 06/22/24 06:45 06/22/24 06:45
Cardiovascular:: Regular rate and rhythm
Respiratory:: Bilateral: Coarse
Lung Excursion:: Normal
Abdomen:: Nontender and Soft
Bowel Sounds:: Normal
Extremity Edema:: +3: Bilateral:
[2024-06-22] MEDS: LASIX 40 MG IV (08:05)
[2024-06-22] MEDS: SUBLIMAZE 100 IV ×2 (08:52→23:48)
--- NOTE | 2024-06-22 09:22 | W.PN.ID1 ---
Date of Service
Date of Service: June 22, 2024
Today's Communication
Deescalate abx to cefazolin.
Check stool for C. diff.
Assessment / Plan
# Fever, leukocytosis , shock - present on admission, unclear source.
-Lactic acid normal on admission.
-Unlikely from Klebsiella UTI without bacteremia.
- On Vent support, pressor support
- Fever persists - consider central fever
-Leukocytosis persists
- Repeat Blood cx negative, sputum cx usual resp carina
- Loose stools most-likely due to tube feeds. However will rule-out C. diff.
-Discontinue empiric meropenem (d3)
- follow temps/wbc/vitals and clinically.
# Pneumonia
-Admission cxr neg; now with bilateral opacities.
- sputum cx from ET pending; Usual respiratory carina
- Admission sputum MSSA
- Deescalate meropenem to cefazolin (d4 abx)
# Klebsiella UTI
- on day 5 appropriate abx
# CoNS bacteremia (1 of 2 sets)= contaminant
# Unresponsiveness - persist
# Seizure disorder on phenytoin, Keppra, Vimpat, phenobarbital
# s/p Severe hypernatremia
- Nephrology managing
Overall poor prognosis.
# Conditions prior to admission
Intellectual disability
Epilepsy on phenytoin, Keppra, Vimpat
Dyslipidemia
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
[facility] resident ([facility])
Chief Complaint
-: Fever and Leukocytosis
Subjective / Review of Systems
Unresponsive.
Vital Signs / Physical Exam
Vital Signs
Vital Signs
Temp Pulse Resp BP Pulse Ox
100.4 F H 75 15 91/64 97
06/22/24 08:00 06/22/24 08:07 06/22/24 08:07 06/22/24 08:05 06/22/24 08:11
Selected Entries
06/22/24
07:00
Temp 101.5 F H
Physical Exam
Constitutional: Acutely Ill
Eyes: No Conjunctival Hemorrhage and Sclera Anicteric
Cardiovascular: Regular Rate and S1/S2
Pulmonary: Clear (anteriorly)
Gastrointestinal: Soft, Non Tender, Non Distended, Normal Bowel Sounds and Other (FMS)
Genito-Urinary: Villareal and Clear Urine
Extremities: Edema (pedal edema)
Neurological: Other (Does not follow commands)
Objective Data
Lab Data
Lab Results
06/22/24 03:29
06/22/24 03:29
PT 20.0 Sec (11.4-14.6) H 06/19/24 09:02
INR 1.69 06/19/24 09:02
APTT 39.0 Sec (23.4-35.0) H 06/19/24 09:02
Estimated Creat Clear 89 ml/min 06/22/24 03:29
Lactic Acid 1.5 mmol/L (0.7-2.0) 06/18/24 21:33
Total Bilirubin 0.7 mg/dl (0.2-1.3) 06/18/24 08:44
AST 54 U/L (17-59) 06/18/24 08:44
ALT 47 U/L (0-50) 06/18/24 08:44
Alkaline Phosphatase 286 U/L (38-126) H 06/18/24 08:44
Most recent labs reviewed.
Micro Results:
06/18/24 08:11 Blood Culture - Preliminary
Blood/Venous No Growth in 4 days- Final report to follow
06/20/24 16:18 Blood Culture - Preliminary
Blood/Venous No Growth in 24 hours- Final report to follow
06/18/24 15:28 Respiratory Culture - Final
Tracheal Aspirate S aureus-Methicillin Sensitive
Keisha albicans
Gram Stain - Final
06/20/24 16:18 Respiratory Culture - Preliminary
Endotracheal Usual Respiratory Carina
Gram Stain - Preliminary
06/18/24 08:11 Blood Culture - Preliminary
Blood/Venous Coagulase neg. staphylococcus
Gram Stain - Final
06/18/24 10:05 CSF Culture - Preliminary
Csf No Growth After 72 Hours
Gram Stain - Preliminary
06/18/24 08:44 Urine Culture - Final
Urine Klebsiella pneumoniae
06/19/24 09:02 Nasal Screen MRSA (PCR) - Final
Nose MRSA not detected - performed by PCR methodology.
06/18/24 08:11 Influenza Types A & B (FLAVIO) - Final
Nasal Swab Negative for Influenza A & B, NAAT
Negative results must be combined with clinical observations
and patient history.
Nucleic Acid Amplification test (NAAT)performed on the
[employer] platform.
06/18/24 CT a/p: Large amount of stool in the rectum with rectal wall thickening and perirectal inflammation compatible with fecal impaction and stercoral colitis.
06/20/24 CXR: Bilateral parenchymal opacities, increasing, most likely pneumonia. No evidence for associated pleural effusion.
Care Review
Plan reviewed with: Nurse
--- NOTE | 2024-06-22 09:32 | PTCARENOTE ---
Addendum entered by Jennifer Phelps RN 06/22/24 09:47:
ABX changed to IV Ancef.
Original Note:
Rec'd care of patient at 0700. Patient continues to stare off into space. Absent eye contact/tracking. Does not follow commands. Pupils equal and reactive. +2mm, sluggish. Weak gag reflex. Fentanyl drip weaned for spontaneous awakening trial. NSR on
tele monitor. +3 anasarca. Intubated with #8 ett @ 24cm. A/C 12/500/5/30%. Lung sounds coarse/rhonchi throughout. Thick, noble secretions suctioned orally and endotracheally. Percussion Q4hr on sport bed. +BS (hypo). Incontinent of loose stools.
Rectal trumpet in place. TFs at goal through right nare DHT. Flush dc'd by senior treasury analyst. 40mg IV lasix ordered for now, in addition to 20mg IV at 1600. Villareal in place for critical I/O. Urine output clear/yellow. Output around 150 cc's an hour.
Vitals stable. Levophed infusing for MAP>65 through right dual lumen PICC. Weaning as tolerated. Patient continuing with fevers. Cooling blanket and Tylenol as needed. Infectious disease at bedside. IV ABX dc'd. Order for stool cx placed.
--- NOTE | 2024-06-22 11:00 | PTCARENOTE ---
Stool sample sent. Negative for cdiff.
[2024-06-22 11:45] LABS: Glucose - Point of Care 169 mg/dl (70-99)
[2024-06-22] MEDS: NOVOLOG FLEXPEN-MODERATE RESISTANCE 1 UNITS SC ×2 (11:48→23:57)
--- NOTE | 2024-06-22 12:08 | PTCARENOTE ---
No changes in assessment. Weaning Levophed gtt as tolerated. Vitals stable.
[2024-06-22] MEDS: ANCEF 10 IV ×2 (14:34→22:17)
--- NOTE | 2024-06-22 15:17 | PTCARENOTE ---
Total urine output following 0800 dose of 40mg IV Lasix- 2485 cc's. Vitals stable. Levophed currently weaned to 12 mcg/min.
[2024-06-22] MEDS: LASIX 20 MG IV (15:48)
--- NOTE | 2024-06-22 16:05 | PTCARENOTE ---
Patient dyssynchronous with ventilator. Tachycardic with rate in the 110's and tachypneic with rate in the 30's. Fentanyl bolus administered and drip increased to 75 mcg/hr. No other changes. In response to treatment, patient resting comfortably and
synchronous with ventilator. HR in the 90s NSR. RR 20. 20mg IV Lasix administered as ordered.
--- NOTE | 2024-06-22 16:18 | W.PN.HOSP.TC ---
Today's Communication/Plan
-
continue current abx, ventilator and pressor support
Assessment / Plan
Assessment / Plan
Unresponsive, intubated, febrile
Only Fentanyl, no longer on Propofol
was on Levophed, Vasopressin previously, now on Levophed 12 mcg/min alone
Dobhoff feeds started at 20 cc/hr with 25 cc H20, was increased to 30 cc/hr tube feed, as he is tolerating, cautiously increased to 40 cc/hr
Hx of mental and physical disability onset in childhood
limited movement on Rt side
Moving bowels regularly, neg C. Diff
Severe hypernatremia
resolved
Nephro consulted
Na 171-->166-->158-->157-->153-->146-->134-->132
resolved
Dehydration better
BUN/Creat 50/1.7-->47/1.7-->45/1.5-->41/1.3-->37/1.2-->21/0.9-->15/0.7
Constipated
post disimpaction by Dr. Johnson
CT abd demonstrated perirectal inflammation consistent with stercoral colitis
VDRF
Septic Shock
remains on pressors as per CCM
Ur cx Gm Klebsiella. Blood Cx most likely contaminant
appreciate ID consult
WBC 19.9-->18.6-->22.5-->27.5-->23.8
Persistent fever, Leukocytosis
Klebsiella in urine, blood cx felt to be a contaminant
CSF neg Cx
Hx of Seizures on multiple AED
neurology consult with Dr. James, situation reviewed with him. AED changed to IV
Dilantin level 7.1-->6.5
Keppra 54 (10-40)
Phenobarb 15-->42.4 (15-40)
Pt was previously a DNR. On arrival Dr. Johnson contacted the POA, who apparently stated he wanted everything done to see if situation is reversible
Discussed with POA, Gucci Kong, 06/22, who confirmed pt is a Full Code. Extensive review of clinical course. Confirmed pt's mother is in a memory care facility with advanced dementia. Full review
.
Anticipated Discharge: > 48 hours
Subjective/Interval History
-
Date of Service: June 22, 2024
Mentation same
Objective Data
-
Vital Signs:
Vital Signs
Temp Pulse Resp BP Pulse Ox
100.6 F H 94 17 96/54 99
06/22/24 16:15 06/22/24 16:00 06/22/24 16:00 06/22/24 16:00 06/22/24 16:00
I&O
06/21/24 06/22/24 06/23/24
06:59 06:59 06:59
Intake Total 5431.9 / 5662.8 2634.7 / 2805.0 861.7 / 861.7
Output Total 2815 / 2915 3205 / 3355 2905 / 2905
Balance 2616.9 / 2747.8 -570.3 / -550.0 -2043.3 / -2043.3
Review of Systems
-
Unable to obtain full review of systems at this time due to: Dementia and Patient Intubation
History Source: Coordinated Provider
Constitutional: Reports Fever (101.1-->100.5-->101-->100.6)
Respiratory: Reports Other (intubated)
Abdomen/GI: Reports Other (Dobhoff in place, as per nursing, he is tolerating)
Genitourinary: Reports Other (michele in place)
Physical Exam
-
General: Well Developed, Well Nourished and Intubated
HEENT: Normocephalic, Atraumatic, Moist Mucous Membranes and Other (pupils are pinpoint, but symmetrical)
Respiratory: Clear to Auscultation; Negative Wheezes, Rales or Rhonchi (scattered upper airway rhonchi, have resolved, lungs are clear)
Cardiac: Regular Rhythm and S1/S2
GI: Soft, Nontender, Nondistended, Normal Bowel Sounds and Other (tolerating NG feeds)
Genito-urinary: Michele
Musculoskeletal: No Clubbing, No Cyanosis and No Edema
Neuro: Negative Awake or Alert
--- NOTE | 2024-06-22 16:44 | PTCARENOTE ---
Core temp up to 101.6. Tylenol administered at 1615. HR up to 120's as temp continues to rise. Cooling blanket placed back on. Roofer Helper notified.
[2024-06-22] MEDS: LOVENOX 40 MG SC (17:01)
[2024-06-22 17:22] LABS: Glucose - Point of Care 115 mg/dl (70-99)
[2024-06-22] MEDS: FLUSH (NSS) 2 FLUSH IV ×2 (19:38→22:17)
--- NOTE | 2024-06-22 21:00 | PTCARENOTE ---
Report received from previous shift RN [id number]. Pt in bed, intubated on vent with b/l wrist restraints in use for pt safety. Pt has eyes open, does not track or follow commands, + response to threat, + corneals, pupils equal and reactive. #8 ETT
secured to lip at 24cm, vent settings AC 12/500/30%/+5, ox 97-100%, lung sounds coarse w rhonchi throughout, suctioning via ETT for noble secretions and orally for thick clear/white secretions. Telemetry rhythm reveals SR-ST, HR 90-110's, +2-3
generalized anasarca noted, doppler dp/pt noted, weakly palpable radial pulses b/l. HypoBS, abdomen soft round distended. R nare DHT with Jevity 1.5 40ml/hr, no hourly water flush. Rectal trumpet in place draining liquid brown stool. Thermistor
Villareal catheter in place draining clear yellow urine. R wrist and hand contracted, b/l foot drop noted. R DL PICC with Fentanyl infusion received at 75 mcg/hr and double concentrated Levophed to maintain MAP >65mmHg, received at 12 mcg/min. Pt on
continuous lateral rotation bed with percussion ordered for 10 mins Q4H. Pt has wound noted on L upper lip; repositioning ETT from R side of mouth to center lip to avoid wounded area. Safe environment maintained. Will monitor closely.
[2024-06-22] MEDS: FLUSH (NSS) 1 FLUSH IV (23:46)
[2024-06-22 23:57] LABS: Glucose - Point of Care 163 mg/dl (70-99)
[2024-06-23] VITALS (52 sets, daily range): BP systolic 60–127; BP diastolic 44–84; BMI 23.9
--- NOTE | 2024-06-23 00:45 | PTCARENOTE ---
Pt remains nonverbal on vent, not following commands or tracking. Attempting to taper Levophed per protocol as able, MAP did not tolerate taper at this time. Repositioning Q2H, continuous lateral rotation bed in use, percussion Q4H per order.
Suctioning via ETT for mod to large amt thin noble sputum and orally for thick white/noble secretions. Will monitor.
[2024-06-23] MEDS: DUONEB 3 ML INH ×2 (00:58→07:40)
[2024-06-23] MEDS: MUCOMYST 10% 2 ML INH ×2 (00:58→07:40)
[2024-06-23] MEDS: TYLENOL ORAL SOLUTION 650 MG TUBE (03:50)
[2024-06-23 03:53] LABS: % Basophils 0.2 % (0-2); % Eosinophils 2.4 % (0-6); % Immature Granulocytes 0.9 % (0-0.5); % Lymphocytes 5.3 % (20.5-51.1); % Monocytes 5.2 % (1.7-9.3); Absolute Basophils 0.1 10^3/uL (0-0.2); Absolute Eosinophils 0.5 10^3/uL (0-0.7); Absolute Immature Granulocytes 0.2 10^3/uL (0-0.05); Absolute Lymphocytes 1.1 10^3/uL (1.2-3.4); Absolute Monocytes 1.1 10^3/uL (0.1-0.6); Absolute Neutrophils 17.6 10^3/uL (1.4-6.5); Hematocrit 27.3 % (39.0-52.0); Hemoglobin 9.4 g/dL (13.0-18.0); Mean Corp Hgb Conc. 34.4 g/dL (33.0-37.0); Mean Corpuscular Volume 92.9 fL (80.0-94.0); Mean Platelet Volume 10.7 fL (7.4-10.4); Nucleated Red Blood Cells % 0 % (-); Platelet Count 262 10^3/uL (130-400); Red Blood Cell Count 2.94 10^6/uL (4.70-6.10); White Blood Cell Count 20.4 10^3/uL (4.8-10.8)
[2024-06-23] MEDS: SUBLIMAZE 50 MCG IV ×3 (03:59→21:43)
[2024-06-23 04:20] LABS: Blood Urea Nitrogen 18 mg/dl (9-20); Calcium 8.1 mg/dl (8.4-10.2); Carbon Dioxide 31 mmol/L (22-30); Chloride 101 mmol/L (98-107); Estimated Creatinine Clearance 78 ml/min; Glucose 109 mg/dl (70-99); Potassium 3.9 mmol/L (3.5-5.1); Sodium 142 mmol/L (135-145); eGFR > 60.00
[2024-06-23 04:36] LABS: Magnesium 1.7 mg/dl (1.6-2.3)
[2024-06-23] MEDS: NSS (PRESERVATIVE FREE) 1 ML IV (04:40)
[2024-06-23] MEDS: ATIVAN 2 MG IV (04:40)
[2024-06-23] MEDS: FLUSH (NSS) 2 FLUSH IV ×2 (04:40→06:06)
[2024-06-23 04:52] LABS: Troponin I < 0.012 ng/ml
--- NOTE | 2024-06-23 04:53 | PTCARENOTE ---
0350 Pt's core temp 100.8, HR low 100's. PRN Tylenol administered per order. Pt with frequent persistent coughing, suctioned for mod amt noble sputum via ETT. Pt moving upper extremities, pulling against b/l wrist restraints, desynchronous w vent. PRN
bolus of Fentanyl administered followed by infusion increase per protocol. Pt's temp increased to 101.6F within 30min timeframe, apparent rigors noted. Pt's HR increased to 130's bpm with apparent rhythm change. I-ROOM SERVICE FOOD SERVER at bedside, EKG performed.
Additional labs drawn and sent, awaiting results. Repositioned pt, suctioned again. HR slowly lowering to 110's. ROOM SERVICE FOOD SERVER ordered 1x dose IV Ativan 2mg. Administered per order. 0455 HR 105, temp 102.7F. ROOM SERVICE FOOD SERVER ordered dose Caldolor x1. Awaiting med from
pharmacy. Will continue to monitor closely.
[2024-06-23] MEDS: NOVOLOG FLEXPEN-MODERATE RESISTANCE SC ×2 (05:00→17:25)
[2024-06-23] MEDS: CALDOLOR 156 MG IV (05:03)
[2024-06-23] MEDS: ANCEF 10 IV ×3 (06:05→21:49)
[2024-06-23] MEDS: CEREBYX 54 MG IV ×2 (07:32→19:14)
[2024-06-23] MEDS: KEPPRA 1250 MG IV ×2 (07:33→20:02)
[2024-06-23] MEDS: PHENOBARBITAL 32.5 MG IV (07:34)
[2024-06-23] MEDS: NSS (PRESERVATIVE FREE) 10 ML IV (07:34)
[2024-06-23] MEDS: ROBITUSSIN 200 MG TUBE ×4 (07:34→21:43)
[2024-06-23] MEDS: REFRESH CELLUVISC GEL 1 DROPS OPHTH ×4 (07:34→21:43)
[2024-06-23] MEDS: PROTONIX IV 40 MG IV (07:36)
[2024-06-23] MEDS: MIRALAX 17 GRAMS TUBE (07:36)
--- NOTE | 2024-06-23 08:02 | W.PN.INTV ---
Today's Communication / Plan
Recommendations
ABx per ID; check & trend procal
AEDs per neuro
Re-check CT Head and EEG
Chekc TSH, B12 and RPR
Daily SAT/SBT and wean for as long as tolerated
Tube feeds
Start vasopressin, wean down levo;; keep MAP>65
Monitor fevers and Tx with cooling blanket and Tylenol as needed; prn Toradol but monitor sCr
Trend blood gas
Guarded prognosis
Assessment
-
68-year-old male with a history of significant intellectual disability, epilepsy, hyperlipidemia who presents from [facility] unresponsive and ngvoczbiqjf-erepqlpxj-mywwsopgqkp consulted for ventilator/critical care management 06/18/2024.
Impression:
Unresponsive
Severe hypernatremia-serum sodium 171-total body water deficit 8.1 L
MILY
Ventilator dependent respiratory failure with acute hypoxia
Intubated in ED on: 06/18/2024
Aspiration pneumonia/CAP due to MSSA
Septic shock due to PNA and UTI
UTI with UCX growing Klebsiella pneumonia
Leukocytosis
Zruixy-yxzoelvcud-zpmmbwxlqw 12.8
Hyperglycemia
Conditions present prior to admission:
Intellectual disability.
HEAVY FORGER shunt
Hyperlipidemia.
Epilepsy.
DNR in the past
Plan
He remains critically ill on the ventilator and pressors with recurrent spiking fevers
Ventilator settings reviewed
Arterial blood gases reviewed-adequate oxygenation and ventilation with normal pH
Ventilator has been adjusted
Daily SAT/SBT if clinically appropriate --> tolerating PST today on 05/05 --> continue as long as pt can tolerate and flip back to AC/VC at 1800 unless he fails prior
Monitor airway pressures with goal PIP <30�35
Mucolytics continue with mucinex
Follow occasional ABG
VAP prevention protocol
Nebulizers if needed-currently not bronchospastic
Chest x-ray 06/20/2024-ET tube in good position, no increased infiltrates, left basilar airspace disease noted
Follow-up chest x-ray 06/23/2024
Spontaneous breathing trial once neurologically and hemodynamically improved-not ready yet
Cultures reviewed
MRSA screen-negative
Sputum culture 06/18/2024-many WBCs, moderate MSSA and Keisha albicans (likely contaminant)
Influenza negative
Blood cultures 10/04 positive for coagulase-negative Staphylococcus - likely a contaminant
Repeat blood culture 06/20/2024-NGTD
Repeat sputum culture 06/20/2024-usual respiratory carina
C. difficile 06/22/2024-negative
Urine culture 06/18/20241681-iizc-zckjpqlg bacilli-Klebsiella (resistant to ampicillin + intermediate to nitrofurantoin)
CSF culture (06/18/2024 - performed by ED physician, Dr. Johnson) - NGTD
CSF fluid 06/18/2024-clear, colorless, WBC-2, glucose 78, total protein 128
Lactate normal since 06/18/2024 � no longer need to trend
Infectious disease consultation noted-correspondence reviewed-central fever also suspected; continue with cefazolin with plans for 7 days.
Maintain MAP>65; wean down vasopressors as tolerated, and add vasopressin; check random cortisol level and start stress dose steroids if <10
Monitor leukocytosis-still elevated at 23.8
Source for ongoing temperatures and septic picture with ongoing pressor dependent hypotension unclear-differential includes pocket of infection/abscess, medications, etc.-consider repeat CT head/neck/chest/abdomen and pelvis, WBC scan,
etc.-infectious disease following
Central fever also possibility
Check procal given fevers as if it is low (<2) then fevers unlikely infectious related
Patient sodium as of today (06/23/2024) is 142
Although patient was rapidly corrected, according to nephrology there is more liberal correction methods for hypernatremia compared to hyponatremia
Nephrology involved and recommendations appreciated
Continue to maintain normal sodium level between 135�145
Replete K>4, Mg>2
Check TTE to assess valvular function and assure no cardiac etiology of his hypotension
Neurology following-correspondence reviewed
Continue with antiepileptics � currently on Vimpat 150 mg IV q12hr, fosphenytoin 200 mg IV BID + Keppra 1,250 mg IV q12hr
EEG 06/20/2024-mild diffuse cortical dysfunction without focal abnormalities, no seizures recorded
Given that patient continues to be minimally responsive, check CT head and re-check EEG
TSH level with reflex to free T4 also being checked in addition to repeat Dilantin level (last level was low at 6.5 on 06/20/2024, which was drawn a few hours after his morning dose that day)
Check vitamin B12 and RPR
Monitor hemoglobin
Transfuse as needed to keep Hb>7g/dL, plt>20k
Follow blood sugar with goal BG 140-180mg/dL
Insulin supplementation as needed
DVT prophylaxis- LMWH
GI prophylaxis -PPI due to septic shock
Continue tube feeds via NGT
Bedside range of motion
Goals of care-DNR in the past - now full code --> will discuss goals of care with Gucci MARTÍNEZ, today
Guarded prognosis
Critical care statement: A total of 41 minutes of critical care time was provided for this patient today. This includes management of unstable vital signs, evaluation of the patient at bedside, reviewing the patient's pertinent medical records
including radiographs, pressor and ventilator management, microbiology, laboratory evaluations, and discussion with primary team, consultants, pharmacy, nutrition, physical therapy, case management, charge nurse, critical care nursing, and
respiratory therapy.
Diagnostic data:
Chest x-ray 06/18/2024-NAD, ET tube 2.5 cm above toro
CXR 06/23/2024: No active cardiopulmonary disease
CT abdomen and pelvis 06/18/2024-large amount of stool, chronic and incidental findings not acute
CT head 06/18/2024-no acute intracranial abnormalities
Subjective Dataa
Subjective Data
Date of Service:
Date of Service: June 23, 2024
Chief Complaint: Industrial Technician Follow Up, Pulmonary Follow Up and Vent Management Follow Up
Subjective:
Patient seen and evaluated this morning. Minimally awakening - sometimes opening eyes. Still intubated on AC/VC 12/500/20%/5 with peak pressure 24, VTe 498mL and breathing at 12 breaths/min. Has thin, noble secretions from ETT. Spiked fever
overnight to 102.6�F. Currently on Levophed gtt at 16mcg/min with BP 91/60, heart rate 61 and saturating 98%. Currently on tube feeds at 40 cc/hr.
Review of Systems
General: Unobtainable - Pat Unresp
Objective Data
Data Reviewed
Vital Signs / I&O / Oxygen:
Vital Signs
Temp Pulse Resp BP Pulse Ox
97 F 68 11 67/47 97
06/23/24 07:00 06/23/24 08:31 06/23/24 08:31 06/23/24 08:31 06/23/24 08:56
Intake and Output
06/22/24 06/23/24 06/24/24
06:59 06:59 06:59
Intake Total 2634.7 / 2805.0 2186.1 / 2262.4 152.6 / 152.6
Output Total 3205 / 3355 4475 / 4525 100 / 100
Balance -570.3 / -550.0 -2288.9 / -2262.6 52.6 / 52.6
SaO2 [A/C] 97
SaO2 97
Nasal Cannula flow liters per 4
minute
Physical Exam
General: Respiratory Distress (n) and Comfortable
HEENT: Normocephalic, Anicteric and Other (ETT in place)
Cardiovascular: S1-S2, Peripheral Edema (+1 lower extremity pitting edema) and Other (Distant cardiac sounds)
Respiratory: Wheeze (n), Crackles (negative), Rhonchi (negative), Non-Labored Respirations, Accessory Resp Muscle Use (n), Stridor (n), ET Tube (Mechanical breath sounds heard bilaterally) and Other (Reduced breath sounds heard bilaterally)
GI: Soft, Non Distended and Non Tender
Neurology: Lethargic and Other (Not following commands, not opening eyes, minimally responsive)
Skin: Warm, Dry, Cyanosis (n), Jaundice (n) and Rash (n)
Labs/Micro/Reports
Lab Data
06/23/24 03:45
06/23/24 03:45
Microbiology
06/18/24 08:11 Blood/Venous Blood Culture - Final
No Growth - Final Report
06/20/24 16:18 Blood/Venous Blood Culture - Preliminary
No Growth in 48 hours- Final report to follow
06/22/24 09:57 Feces/Stool C. difficile GDH Antigen & Toxins - Final
Negative for toxigenic C.difficile
06/20/24 16:18 Endotracheal Respiratory Culture - Final
Usual Respiratory Carina
06/20/24 16:18 Endotracheal Gram Stain - Final
06/18/24 10:05 Csf CSF Culture - Preliminary
No Growth After 4 Days
06/18/24 10:05 Csf Gram Stain - Preliminary
06/18/24 15:28 Tracheal Aspirate Respiratory Culture - Final
S aureus-Methicillin Sensitive
Keisha albicans
06/18/24 15:28 Tracheal Aspirate Gram Stain - Final
06/18/24 08:11 Blood/Venous Blood Culture - Preliminary
Coagulase neg. staphylococcus
06/18/24 08:11 Blood/Venous Gram Stain - Final
06/18/24 08:44 Urine Urine Culture - Final
Klebsiella pneumoniae
[2024-06-23] MEDS: LEVOPHED 258 MG IV ×2 (09:22→20:03)
--- NOTE | 2024-06-23 11:11 | W.PN.NEPH.PH ---
Today's Communication / Plan
-
add FWF, check cortisol
Assessment/Plan
-
IMP:
Unresponsive
Severe hypernatremia
VDRF
Septic Shock probable
UTI GNR
Constipated- post disimpaction in ER
Hx of Seizures on multiple AED
intellectual disability
hyperlipidemia
Plan:
stable renal function
hypernatremia-sodium increasing trend
will add back FWF at 25cc/hr today
no lasix as wt down and increased pressor requirement
persistent hypotension likely from sepsis, fever improving?
check cortisol, echo
presumed sepsis, source unknown
continue broad spectrum abx per ID
follow BMP
critical care time 31 minutes
d/w nursing
-
-
Date of Service: June 23, 2024
CC / HPI / ROS
-
Chief Complaint:
MILY, hypernatremia
History of Present Illness:
cr normal, non oliguric with michele
remains intubated sedated
critically ill in ICU
on pressors for hypotension
sodium up at 142
on TF
acidosis resolved
responded to lasix yesterday
leucocytosis persists 20k
Review of Systems:
intubated sedated
afebrile today
Labs
-
Labs:
WBC 20.4 10^3/uL (4.8-10.8) H 06/23/24 03:45
RBC 2.94 10^6/uL (4.70-6.10) L 06/23/24 03:45
Hgb 9.4 g/dL (13.0-18.0) L 06/23/24 03:45
Hct 27.3 % (39.0-52.0) L 06/23/24 03:45
Plt Count 262 10^3/uL (130-400) 06/23/24 03:45
Sodium 142 mmol/L (135-145) D 06/23/24 03:45
Potassium 3.9 mmol/L (3.5-5.1) 06/23/24 03:45
Chloride 101 mmol/L (98-107) 06/23/24 03:45
Carbon Dioxide 31 mmol/L (22-30) H 06/23/24 03:45
BUN 18 mg/dl (9-20) 06/23/24 03:45
Creatinine 0.8 mg/dL (0.7-1.3) 06/23/24 03:45
eGFR > 60.00 06/23/24 03:45
Glucose 109 mg/dl (70-99) H 06/23/24 03:45
Calcium 8.1 mg/dl (8.4-10.2) L 06/23/24 03:45
Albumin 3.4 g/dl (3.5-5.0) L 06/18/24 08:44
Physical Exam
-
Vital Signs:
Vital Signs
Temp Pulse Resp BP Pulse Ox
97 F 68 11 67/47 99
06/23/24 07:30 06/23/24 08:31 06/23/24 08:31 06/23/24 08:31 06/23/24 10:02
Cardiovascular:: Regular rate and rhythm
Respiratory:: Bilateral: CTA (decreased)
Lung Excursion:: Abnormal
Abdomen:: Nontender and Soft
Extremity Edema:: +1: Bilateral: (gen edema)
Michele Catheter: Yes
[2024-06-23] MEDS: NOVOLOG FLEXPEN-MODERATE RESISTANCE 1 UNITS SC ×2 (11:16→23:49)
[2024-06-23] MEDS: VIMPAT 150 MG IV (11:16)
[2024-06-23 11:21] LABS: Glucose - Point of Care 182 mg/dl (70-99)
[2024-06-23] MEDS: PITRESSIN 100 IV ×2 (11:33→21:43)
--- NOTE | 2024-06-23 11:52 | PTCARENOTE ---
systems reviewed, pt has not opened eyes for me, withdraws to pain, vent changed to CPAP/PSV CPAP 5 pressure 8, percussion per order, pt tolerating the weaning, drips titrated per worklist, urine output 20hr clear and yellow, TF advanced to goal of
50ml FWF started @ 25ml per order, Vasopressin started per order, otherwise refer to documentation
--- NOTE | 2024-06-23 12:22 | W.PN.ID1 ---
Date of Service
Date of Service: June 23, 2024
Today's Communication
Overall poor prognosis.
Assessment / Plan
# Persistent fever, leukocytosis , shock - present on admission, unclear source.
- On Vent support, pressor support
- consider central fever
-Leukocytosis trending down
- Repeat Blood cx negative, sputum cx usual resp carina
- C. diff neg
- follow temps/wbc/vitals and clinically.
# Pneumonia - resolving
- Admission sputum MSSA
- 06/23 Repeat CXR - no active parenchymal opacities
-Continue cefazolin (d6 of 7 abx)
# Klebsiella UTI
- Continue cefazolin (d6)
# CoNS bacteremia (1 of 2 sets)= contaminant
- Repeat bcx neg
# Unresponsiveness - persist
# Seizure disorder on phenytoin, Keppra, Vimpat, phenobarbital
# s/p Severe hypernatremia
- Nephrology managing
Overall poor prognosis.
# Conditions prior to admission
Intellectual disability
Epilepsy on phenytoin, Keppra, Vimpat
Dyslipidemia
TAX PROFESSIONAL shunt
[facility] resident ([facility])
Chief Complaint
-: Fever and Leukocytosis
Subjective / Review of Systems
Remains on vent.
Vital Signs / Physical Exam
Vital Signs
Vital Signs
Temp Pulse Resp BP Pulse Ox
96.7 F L 76 19 98/66 99
06/23/24 11:46 06/23/24 11:30 06/23/24 11:30 06/23/24 11:30 06/23/24 11:49
Selected Entries
06/23/24
04:44
Temp 102.6 F H
Physical Exam
Constitutional: Acutely Ill
Cardiovascular: Regular Rate and S1/S2
Pulmonary: Clear
Gastrointestinal: Soft, Non Tender and Non Distended
Genito-Urinary: Villareal and Clear Urine
Neurological: Other (unresponsive)
Objective Data
Lab Data
Lab Results
06/23/24 03:45
06/23/24 03:45
PT 20.0 Sec (11.4-14.6) H 06/19/24 09:02
INR 1.69 06/19/24 09:02
APTT 39.0 Sec (23.4-35.0) H 06/19/24 09:02
Estimated Creat Clear 78 ml/min 06/23/24 03:45
Lactic Acid 1.5 mmol/L (0.7-2.0) 06/18/24 21:33
Total Bilirubin 0.7 mg/dl (0.2-1.3) 06/18/24 08:44
AST 54 U/L (17-59) 06/18/24 08:44
ALT 47 U/L (0-50) 06/18/24 08:44
Alkaline Phosphatase 286 U/L (38-126) H 06/18/24 08:44
Most recent labs reviewed.
Micro Results:
06/18/24 10:05 CSF Culture - Final
Csf No Growth After 5 Days - Final Report
Gram Stain - Final
06/18/24 08:11 Blood Culture - Final
Blood/Venous No Growth - Final Report
06/20/24 16:18 Blood Culture - Preliminary
Blood/Venous No Growth in 48 hours- Final report to follow
06/22/24 09:57 C. difficile GDH Antigen & Toxins - Final
Feces/Stool Negative for toxigenic C.difficile
06/20/24 16:18 Respiratory Culture - Final
Endotracheal Usual Respiratory Carina
Gram Stain - Final
06/18/24 15:28 Respiratory Culture - Final
Tracheal Aspirate S aureus-Methicillin Sensitive
Keisha albicans
Gram Stain - Final
06/18/24 08:11 Blood Culture - Preliminary
Blood/Venous Coagulase neg. staphylococcus
Gram Stain - Final
06/18/24 08:44 Urine Culture - Final
Urine Klebsiella pneumoniae
06/19/24 09:02 Nasal Screen MRSA (PCR) - Final
Nose MRSA not detected - performed by PCR methodology.
06/18/24 08:11 Influenza Types A & B (FLAVIO) - Final
Nasal Swab Negative for Influenza A & B, NAAT
Negative results must be combined with clinical observations
and patient history.
Nucleic Acid Amplification test (NAAT)performed on the
idiag platform.
06/18/24 CT a/p: Large amount of stool in the rectum with rectal wall thickening and perirectal inflammation compatible with fecal impaction and stercoral colitis.
06/20/24 CXR: Bilateral parenchymal opacities, increasing, most likely pneumonia. No evidence for associated pleural effusion.
--- NOTE | 2024-06-23 14:30 | PTCARENOTE ---
CT ordered, pt tolerated CT w RN and RT present during scan, complete bed bath and linen change, ETT pino caused a stage 2 pressure injury, dressings applied to upper lip and ETT pino changed, 2x2 gauze added underneath ETT so upper lip isn't
pinched, drips titrated per worklist, echo done @ bedside, otherwise refer to documentation.
--- NOTE | 2024-06-23 14:48 | CON.NEURO ---
Neuro Assessment/Plan
Assessment
68-year-old male with history of cerebral palsy refractory epilepsy who was found unresponsive secondary to sepsis, stool impaction and possible pneumonia with hypernatremia
Plan
Continue IV fluids as per nephrology
IV antibiotics
IV Keppra 1250 bid
IV Dilantin 200 q12
IV phenobarb 32 daily
IV Vimpat 150 q12
Consultation
Order
Date of Consultation: 06/23/24
Requesting Provider: Froilan Valadez MD
Reason for Consult: Encephalopathy, epilepsy
Neurology follow-up note
CC: none
HPI: This is an 68-year-old man who presented to [facility] on June 18, 2024 with fever, hypernatremia of 171 and encephalopathy.
Review of vital signs was notable for BP 67/47 and 60/44 06/23/2024 and fever 39.2C in AM
According to patient's cousin Ms. Reynolds underwent left craniotomy and [employer] C[employer] shunt at the age of 5. He was left with right hemiparesis and developmental impairment. She does not recall him having seizures when they grow up. The patient was able
to ambulate until his hospitalization in March 2024. 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 He developed falls and 'seizures 'of the 'COVID-vaccine '
PDMP:Phenobarbital 64.8 Mg 60 tabs filled in on 06/16/2024, 04/20/2024, Lacosamide 10 Mg/ml 900 ml filled in on 04/20/2024.
Lacosamide 50 Mg 60 tabs filled in on 04/02/2024
Labs: WBCs�22.4, hemoglobin�9.4, normal sodium, creatinine, glucose�182.
CT head(06/23/2024) diffuse cortical atrophy, shunt catheter in place through left temporal parietal access, left craniotomy
Routine EEG(06/20/2024)Medium amplitude poorly organized anterior-posterior voltage gradient of theta activity, non-variable, bursts of generalized non-rhythmic delta activity noted
There were no significant asymmetries of background activity noted.
MAR: Lorazepam 2 mg given at 4:40 AM on 06/23/2024
PMH: chronic encephalopathy/ambulatory dysfunction, epilepsy, DLP, vit D deficiency, dysphagia
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
SH: resident at [facility]
FH: mother-dementia
All:NKDA
ROS:unable due to encephalopathy
General: Intubated, off sedation
Cardio: Regular rate and rhythm . Extremities 1+ edema.
Neuro:
Mental Status: stuporous. Grimaces with sternal rub.
Cranial Nerves: Orthophoric primary gaze. Pupils 3 mm, min reactive, positive corneals, gag.
Motor: Increased motor tone right greater than left. Triple flexion in the right leg
Reflexes: Limited exam due to positioning and edema. No clonus at the ankle
Sensory: Does not localize to noxious stim
Coordination: Intermittent generalized clonic movements every 5-6 seconds
Gait: Unable
Assessment and Plan:
I. Multifactorial encephalopathy (vascular, toxic, infectious, epileptic)
II. History of probable obstructive hydrocephalus
III. Septic shock, Klebsiella UTI
IV. Hypernatremia. resolved
V. Refractory epilepsy
. Generalized myoclonus (epileptic versus metabolic)
-Avoid cerebral hypoperfusion and neurotoxic medication (meropenem)
-Repeat Dilantin and phenobarbital levels, obtain ammonia, CK
-Continue phenytoin, Vimpat, Keppra and phenobarbital at the current dose
-Brain MRI without gadolinium
-Routine EEG
-Neurosurgery consult
-ID consult. Consider CSF based on clinical course
-Palliative care consult
I personally reviewed all radiology and labs along with past medical records pertinent to current medical problems. Total time spent in patient care is 60 minutes.
Thank you for allowing us to participate in the care of this patient. We will continue to follow. Please do not hesitate to contact us with any questions or concerns.
Subjective/Objective
Subjective Data
Date of Service: June 23, 2024
Objective Data
Vital Signs
Temp Pulse Resp BP Pulse Ox
36.0 C L 66 18 123/73 100
06/23/24 14:42 06/23/24 14:30 06/23/24 14:30 06/23/24 14:30 06/23/24 14:30
Lab Results
06/23/24 03:45
06/23/24 03:45
PT 20.0 Sec (11.4-14.6) H 06/19/24 09:02
INR 1.69 06/19/24 09:02
APTT 39.0 Sec (23.4-35.0) H 06/19/24 09:02
Sodium 142 mmol/L (135-145) D 06/23/24 03:45
Potassium 3.9 mmol/L (3.5-5.1) 06/23/24 03:45
BUN 18 mg/dl (9-20) 06/23/24 03:45
Glucose 109 mg/dl (70-99) H 06/23/24 03:45
Calcium 8.1 mg/dl (8.4-10.2) L 06/23/24 03:45
Patient Allergies
No Known Allergies Allergy (Unverified 04/02/24 08:06)
Medications
-
Active Medications
Generic Name Dose Route Start Last Admin
Trade Name Freq PRN Reason Stop Dose Admin
Acetaminophen 650 mg 06/18/24 21:01 06/23/24 03:50
Acetaminophen (Oral Solution) 650 Mg/20.3 Ml Cup TUBE 07/16/24 20:26 650 mg
Q6HPRN PRN Administration
mild pain and temp>100.4
Bisacodyl 10 mg 06/18/24 12:39
Bisacodyl 10 Mg Rectal Suppository RECTAL 07/16/24 12:38
[id number] PRN
constipation
Carboxymethylcellulose Sodium 1 drops 06/19/24 13:00 06/23/24 13:16
Carboxymethylcellulose Ophth Gel (Celluvisc) Droperette OPHTH 06/30/24 12:59 1 drops
QID HARVEY Administration
Dextrose 12.5 grams 06/20/24 10:07
Dextrose 50% (0.5 Grams/Ml) 50 Ml Syringe IV 07/18/24 10:06
[id number] PRN
hypoglycemia
Protocol
Enoxaparin Sodium 40 mg 06/19/24 18:00 06/22/24 17:01
Enoxaparin Sodium 40 Mg/0.4 Ml Syringe SC 07/17/24 17:59 40 mg
QPM HARVEY Administration
Fentanyl Citrate 50 mcg 06/18/24 15:00 06/23/24 03:59
Fentanyl (50 Mcg/Ml) 100 Mcg/2 Ml Ampul IV 07/02/24 14:59 50 mcg
[id number] PRN Administration
see protocol
Protocol
Glucagon 1 mg 06/20/24 10:07
Glucagon 1 Mg Vial IM 07/18/24 10:06
PRN PRN
hypoglycemia
Protocol
Guaifenesin 200 mg 06/19/24 13:00 06/23/24 13:16
Guaifenesin Oral Solution (200 Mg/10 Ml) Cup TUBE 07/17/24 12:59 200 mg
QID HARVEY Administration
Fosphenytoin Sodium 200 mg/ 54 mls @ 108 mls/hr 06/18/24 13:00 06/23/24 07:32
Sodium Chloride IV 07/16/24 12:59 54 mls
BID HARVEY Administration
Fentanyl Citrate 1,000 mcg in 100 mls @ 0 mls/hr 06/18/24 16:00 06/22/24 23:48
Sublimaze IV 100 mls
PER PROTOCOL HARVEY Administration
Protocol
Per Protocol
Norepinephrine Bitartrate 8 mg 258 mls @ 0 mls/hr 06/19/24 10:45 06/23/24 09:22
/ Sodium Chloride IV 258 mls
PER PROTOCOL HARVEY Administration
Protocol
Per Protocol
Vasopressin 20 units in 100 mls @ 0 mls/hr 06/21/24 01:00 06/23/24 11:33
Pitressin IV 100 mls
PER PROTOCOL HARVEY Administration
Protocol
Per Protocol
Cefazolin Sodium 2 grams in 10 mls @ 120 mls/hr 06/22/24 14:00 06/23/24 13:16
Ancef IV 10 mls
Q8H HARVEY Administration
Insulin Aspart 0 units 06/20/24 12:00 06/23/24 11:16
Insulin Aspart Moderate Resistance 300 Units/3 Ml Pen.Injctr SC 07/18/24 11:59 1 units
Q6 HARVEY Administration
Protocol
Lacosamide 150 mg 06/18/24 12:00 06/23/24 11:16
Lacosamide (10 Mg/Ml) 200 Mg/20 Ml Vial IV 07/02/24 11:59 150 mg
Q12H HARVEY Administration
Levetiracetam 1,250 mg 06/19/24 12:00 06/23/24 07:33
Levetiracetam (100 Mg/Ml) 500 Mg/5 Ml Vial IV 07/17/24 11:59 1,250 mg
Q12 HARVEY Administration
Lorazepam 1 mg 06/20/24 10:54 06/20/24 10:55
Lorazepam 2 Mg/Ml Vial IV 07/18/24 10:59 1 mg
Q1H PRN Administration
Seizure
Pantoprazole Sodium 40 mg 06/19/24 11:00 06/23/24 07:36
Pantoprazole Sodium 40 Mg/10 Ml Vial IV 07/17/24 10:59 40 mg
DAILY HARVEY Administration
Phenobarbital Sodium 32.5 mg 06/19/24 13:00 06/23/24 07:34
Phenobarbital (65 Mg/Ml) 1 Ml Vial IV 06/24/24 08:01 32.5 mg
DAILY HARVEY Administration
Polyethylene Glycol 17 grams 06/19/24 08:00 06/23/24 07:36
Polyethylene Glycol Powder 17 Grams Packet TUBE 07/17/24 07:59 17 grams
DAILY HARVEY Administration
Polyethylene Glycol 17 grams 06/18/24 12:39
Polyethylene Glycol Powder 17 Grams Packet PO 07/16/24 12:38
DAILYPRN PRN
constipation
Senna/Docusate Sodium 1 tablet 06/18/24 12:39
Docusate W/Senna (Jyotsna-Colace) Tablet PO 07/16/24 12:38
BIDPRN PRN
constipation
Sodium Chloride 0 flush 06/18/24 13:00 06/23/24 06:06
Sodium Chloride 0.9% (Flush) Syringe IV 07/16/24 12:59 2 flush
PER PROTOCOL HARVEY Administration
Sodium Chloride 10 ml 06/19/24 11:00 06/23/24 07:34
Sodium Chloride 0.9% (Preservative Free) 10 Ml Vial IV 07/17/24 10:59 10 ml
DAILY HARVEY Administration
Home Medications
�Medication �Instructions �Recorded
acetaminophen 325 mg tablet 650 mg PO Q6HPRN PRN mild pain 03/20/24
atorvastatin 10 mg tablet 10 mg PO HS High Cholesterol 03/20/24
phenobarbital 16.2 mg tablet 64.8 mg PO BID Seizures 03/20/24
levetiracetam 1,000 mg tablet 1,250 mg PO BID Seizures 04/02/24
Diazepam Rectal Gel 10 mg [place] DAILYPRN PRN seizure 06/18/24
cholecalciferol (vitamin D3) 1,250 1,250 mcg PO MO Supplement 06/18/24
mcg (50,000 unit) tablet
cyanocobalamin (vitamin B-12) 1,000 mcg PO DAILY Supplement 06/18/24
1,000 mcg tablet
folic acid 1 mg tablet 1 mg PO DAILY Supplement 06/18/24
lacosamide 10 mg/mL oral solution 150 mg PO BID Seizures 06/18/24
(Vimpat)
phenytoin 50 mg chewable tablet 150 mg PO HS Seizures 06/18/24
(Dilantin Infatabs)
phenytoin 50 mg chewable tablet 200 mg PO DAILY Seizures 06/18/24
(Dilantin Infatabs)
--- NOTE | 2024-06-23 15:18 | W.PN.HOSP.TC ---
Today's Communication/Plan
-
wean pressors
monitor mentation
MRI per Neurology
Assessment / Plan
Assessment / Plan
Assessment:
Septic shock
- ID following
- continue Ancef for UTI (Klebsiella in urine) and Pneumonia (MSSA in sputum)
- follow cultures
- wean pressors as able, currently on Levophed and Vasopressin
Unresponsive state and VDRF
Hx of seizures with multiple AEDs (Epilepsy)
- wean sedation
- monitor mental status
- Neurology consulted as concern for possible seizure with subtherapeutic levels; EEG 06/20/2024-mild diffuse cortical dysfunction without focal abnormalities, no seizures
- continue Vimpat, phenobarbital, Keppra
- MRI ordered
- ICU managing vent settings; follow ABGs and for vent weaning
Severe hypernatremia
Dehydration
- Nephrology following
- continue IVF
Constipation
- s/p disimpaction in ER
- CT abd demonstrated perirectal inflammation consistent with stercoral colitis
Hx of mental and physical disability onset in childhood
Anemia-macrocytic
Hx of [employer] Shunt
DVT ppx: Lovenox
Code: Full
Total Critical Care Time 41 minutes. I was immediately available to the patient and staff. I personally examined, reviewed labs, diagnostic images/reports, interpretations, treatment plans, discussed patient care with other providers and family
or caregivers (if patient is unable to make decisions), entered orders as appropriate and documented the medical record.
Anticipated Discharge: > 48 hours
Subjective/Interval History
-
Date of Service: June 23, 2024
remains intubated, unresponsive
Objective Data
-
Labs:
Laboratory Results
06/23/24
03:45
WBC 20.4 H
Hgb 9.4 L
Hct 27.3 L
Plt Count 262
Sodium 142 D
Potassium 3.9
Chloride 101
Carbon Dioxide 31 H
BUN 18
Creatinine 0.8
Glucose 109 H
Calcium 8.1 L
Vital Signs:
Vital Signs
Temp Pulse Resp BP Pulse Ox
96.8 F L 66 18 123/73 100
06/23/24 14:42 06/23/24 14:30 06/23/24 14:30 06/23/24 14:30 06/23/24 14:30
I&O
06/22/24 06/23/24 06/24/24
06:59 06:59 06:59
Intake Total 2634.7 / 2805.0 2186.1 / 2262.4 978.6 / 978.6
Output Total 3205 / 3355 4475 / 4525 272 / 272
Balance -570.3 / -550.0 -2288.9 / -2262.6 706.6 / 706.6
Physical Exam
-
General: Well Developed, Well Nourished and Intubated
Respiratory: Clear to Auscultation
Cardiac: Regular Rhythm and S1/S2
Genito-urinary: No Costovertebral Tender
Neuro: Negative Awake
Psych: Calm
Data Reviewed
-
Critical Care Time (in minutes): 41
Labs: Labs Reviewed by me
[2024-06-23] MEDS: MAGONATE 86 MG TUBE (15:22)
--- NOTE | 2024-06-23 15:45 | CM ---
CM reviewed chart
Remains in ICU with vent weaning trial and tube feeds
Return SNF referral sent via [facility] as pt is LTC resident at [facility]
CM will continue to follow for dc planning
Discharge Disposition- return [facility] SNF for LTC
[2024-06-23] MEDS: LOVENOX 40 MG SC (17:13)
[2024-06-23 17:21] LABS: Glucose - Point of Care 110 mg/dl (70-99)
[2024-06-23 17:49] LABS: Ammonia < 9 umol/L (9-30)
[2024-06-23 17:51] LABS: Dilantin 8.7 ug/ml (10-20)
[2024-06-23 17:56] LABS: Creatine Phosphokinase 56 U/L (55-170)
[2024-06-23 18:21] LABS: TSH Reflex To Free T4 2.77 uIU/ml (0.47-4.68)
--- NOTE | 2024-06-23 19:20 | PTCARENOTE ---
Addendum entered by Jacob Amos RN 06/23/24 20:23:
Tube feeds running at goal via dobhoff. Rectal trumpet in place, draining without issue. Villareal catheter in place. Skin as documented. Discussed plan of care with patient's POA at bedside. Vital signs stable at this time.
Original Note:
Received patient at 1900. Pt. currently intubated and sedated. Appears to be resting comfortably in bed. No signs of pain/discomfort. Not following commands, but is moving extremities. Afebrile currently. Heart rhythm sinus. Levophed gtt and
Vasopressin gtt infusing to maintain blood pressure at goal. Ventilator settings verified. Lungs sound coarse. Small amount of secretions. e
[2024-06-23 23:58] LABS: Glucose - Point of Care 172 mg/dl (70-99)
[2024-06-24] VITALS (66 sets, daily range): BP systolic 70–123; BP diastolic 48–94; BMI 24.1
--- NOTE | 2024-06-24 00:05 | PTCARENOTE ---
Pt. still not following commands, but is moving extremities. Pt. appears to be opening eyes more as well. PRN IV fentanyl given for pain, see MAR. Vital signs stable at this time.
[2024-06-24] MEDS: VIMPAT 150 MG IV ×2 (00:27→11:16)
[2024-06-24] MEDS: SUBLIMAZE 50 MCG IV ×6 (02:24→13:48)
[2024-06-24 03:44] LABS: Venous Blood Gas B.E. 6.8 mmol/L (-4 to +4); Venous Blood Gas HCO3 31.9 mmol/L (22-27); Venous Blood Gas pCO2 48 mmHg (35-48); Venous Blood Gas pH 7.43 (7.32-7.43); Venous Blood Gas pO2 177 mmHg (30-50)
[2024-06-24 03:46] LABS: % Basophils 0.3 % (0-2); % Eosinophils 2.9 % (0-6); % Immature Granulocytes 0.8 % (0-0.5); % Lymphocytes 8.2 % (20.5-51.1); % Monocytes 6.6 % (1.7-9.3); % Neutrophils 81.2 % (42.2-75.2); Absolute Eosinophils 0.5 10^3/uL (0-0.7); Absolute Immature Granulocytes 0.1 10^3/uL (0-0.05); Absolute Lymphocytes 1.3 10^3/uL (1.2-3.4); Absolute Neutrophils 12.7 10^3/uL (1.4-6.5); Hematocrit 24.8 % (39.0-52.0); Hemoglobin 8.4 g/dL (13.0-18.0); Mean Corp Hgb Conc. 33.9 g/dL (33.0-37.0); Mean Corpuscular Hgb 31.8 pg (27.0-31.0); Mean Corpuscular Volume 93.9 fL (80.0-94.0); Mean Platelet Volume 10.6 fL (7.4-10.4); Nucleated Red Blood Cells % 0 % (-); Platelet Count 240 10^3/uL (130-400); Red Blood Cell Count 2.64 10^6/uL (4.70-6.10); Red Cell Dist. Width 14.4 % (11.5-14.5); White Blood Cell Count 15.6 10^3/uL (4.8-10.8)
--- NOTE | 2024-06-24 04:00 | PTCARENOTE ---
Patient assessment remains unchanged. AM labs drawn. Vital signs stable at this time.
[2024-06-24 04:09] LABS: Blood Urea Nitrogen 20 mg/dl (9-20); Calcium 7.8 mg/dl (8.4-10.2); Carbon Dioxide 28 mmol/L (22-30); Chloride 106 mmol/L (98-107); Estimated Creatinine Clearance 89 ml/min; Glucose 120 mg/dl (70-99); Magnesium 1.9 mg/dl (1.6-2.3); Phosphorus 3.1 mg/dl (2.5-4.5); Potassium 3.8 mmol/L (3.5-5.1); Sodium 143 mmol/L (135-145); eGFR > 60.00
[2024-06-24 04:12] LABS: Procalcitonin 0.76 ng/ml (0.0-0.25)
[2024-06-24 04:56] LABS: Vitamin B12 991 pg/ml (239-931)
[2024-06-24] MEDS: NOVOLOG FLEXPEN-MODERATE RESISTANCE SC ×3 (05:11→23:25)
[2024-06-24] MEDS: ANCEF 10 IV ×3 (05:21→23:09)
--- NOTE | 2024-06-24 07:44 | PTCARENOTE ---
Pt noted to be in Aflutter this am. Converted back to sinus tach at 0715 before EKG obtained.
--- NOTE | 2024-06-24 08:04 | W.PN.INTV ---
Today's Communication / Plan
Recommendations
ABx per ID
AEDs per neuro
Follow up RPR
Daily SAT/SBT and wean for as long as tolerated
Start diuresis and keep K>4, Mg>2
Tube feeds
keep MAP>65
Monitor fevers and Tx with cooling blanket and Tylenol as needed; prn Toradol but monitor sCr
Trend blood gas
Guarded prognosis
Assessment
-
68-year-old male with a history of significant intellectual disability, epilepsy, hyperlipidemia who presents from [place] [facility] unresponsive and [id number]-[id number] consulted for ventilator/critical care management 06/18/2024.
Impression:
Unresponsive
Severe hypernatremia-serum sodium 171-total body water deficit 8.1 L - sodium now normalized
MILY - resolved
Ventilator dependent respiratory failure with acute hypoxia
Intubated in ED on: 06/18/2024
Aspiration pneumonia/CAP due to MSSA
Septic shock due to PNA and UTI
UTI with UCX growing Klebsiella pneumonia
Leukocytosis
Anemia
Hyperglycemia (HbA1C: 5.5 on 06/21/2024)
Conditions present prior to admission:
Intellectual disability.
R[employer]AT shunt
Hyperlipidemia.
Epilepsy.
DNR in the past
Plan
He remains critically ill on the ventilator and pressors with recurrent spiking fevers
Ventilator settings reviewed
Arterial blood gases reviewed-adequate oxygenation and ventilation with normal pH
Ventilator has been adjusted
Daily SAT/SBT if clinically appropriate --> on 06/23 he tolerted PST almost all day on 05/05 but was not following any commands and was minimally responsive; today he is less tolerant to PST and CXR looks more volume overloaded. Start lasix 40mg IV
BID x 2 days, keeping K>4, Mg>2; place back onto AC/VC for today and re-assess tomorrow with CXR
Monitor airway pressures with goal PIP <30�35
Mucolytics continue with mucinex
Follow occasional blood gas
VAP prevention protocol
Nebulizers if needed-currently not bronchospastic
Chest x-ray 06/20/2024-ET tube in good position, no increased infiltrates, left basilar airspace disease noted
Cultures reviewed
MRSA screen-negative
Sputum culture 06/18/2024-many WBCs, moderate MSSA and Keisha albicans (likely contaminant)
Influenza negative
Blood cultures 10/04 positive for coagulase-negative Staphylococcus - likely a contaminant
Repeat blood culture 06/20/2024-NGTD
Repeat sputum culture 06/20/2024-usual respiratory carina
C. difficile 06/22/2024-negative
Urine culture 06/18/20246413-hlwo-ogufcbra bacilli-Klebsiella (resistant to ampicillin + intermediate to nitrofurantoin)
CSF culture (06/18/2024 - performed by ED physician, Dr. Johnson) - NGTD
CSF fluid 06/18/2024-clear, colorless, WBC-2, glucose 78, total protein 128
Lactate normal since 06/18/2024 � no longer need to trend
Infectious disease consultation noted-correspondence reviewed-central fever also suspected; continue with cefazolin with plans for 7 days.
Maintain MAP>65; wean down vasopressors as tolerated, and add vasopressin; random cortisol checked on 06/23 and was 21 --> no evidence for CIRCI and no need fro stress dose steroids at this time
Monitor leukocytosis-still elevated at 23.8
Source for ongoing temperatures and septic picture with ongoing pressor dependent hypotension unclear-differential includes pocket of infection/abscess, medications, etc.-consider repeat CT head/neck/chest/abdomen and pelvis, WBC scan,
etc.-infectious disease following
Central fever is suspected, karin given procal is 0.7, making central fevers more likely
Keep MAP>65
Wean down levophed as tolerated
Patient sodium as of today (06/23/2024) is 143
Although patient was rapidly corrected, according to nephrology there is more liberal correction methods for hypernatremia compared to hyponatremia
Nephrology involved and recommendations appreciated
Continue to maintain normal sodium level between 135�145
Replete K>4, Mg>2
Check TTE (still pending) to assess valvular function and assure no cardiac etiology of his hypotension
Neurology following-correspondence reviewed
Continue with antiepileptics � currently on Vimpat 150 mg IV q12hr, fosphenytoin 200 mg IV BID + Keppra 1,250 mg IV q12hr
EEG 06/20/2024-mild diffuse cortical dysfunction without focal abnormalities, no seizures recorded
Given that patient continues to be minimally responsive, CT head checked on 06/23/2024 showed no acute intracranial abnormalities. EEG obtained this morning showing frontally predominant generalized spike + slow-wave discharges with generalized slow
background
TSH WNL at 2.77 (checked 06/23/2024); follow up repeat Dilantin level 8.7 from 06/23/2024 (drawn about 2 hours prior to dose being given - prior to that, her last level was low at 6.5 on 06/20/2024, which was drawn a few hours after his morning dose
that day)
- Defer AEDs to neurology
Vitamin B12 WNL; follow up RPR
Monitor hemoglobin
Transfuse as needed to keep Hb>7g/dL, plt>20k
Follow blood sugar with goal BG 140-180mg/dL
Insulin supplementation as needed
DVT prophylaxis- LMWH
GI prophylaxis -PPI due to septic shock
Continue tube feeds via NGT
Bedside range of motion
Goals of care-DNR in the past - now full code --> On 06/23/2024 I called the patient's POA, Gucci Kong, and explained the critically ill state that Rickie is in. No decisions on code status were made at that time and he wanted to continue with
full medical management. He understands the severity of the patient's illness and that he has a low likelihood of full recovery. I will call Gucci again today to discuss patient's goals of care/code status given the patient was DNR/DNI prior to
arrival.
Guarded prognosis
Critical care statement: A total of 38 minutes of critical care time was provided for this patient today. This includes management of unstable vital signs, evaluation of the patient at bedside, reviewing the patient's pertinent medical records
including radiographs, pressor and ventilator management, microbiology, laboratory evaluations, and discussion with primary team, consultants, pharmacy, nutrition, physical therapy, case management, charge nurse, critical care nursing, and
respiratory therapy.
Diagnostic data:
Chest x-ray 06/18/2024-NAD, ET tube 2.5 cm above toro
CXR 06/23/2024: No active cardiopulmonary disease
CXR 06/24/2024: Stable positioning of support lines and tubes; Left basilar opacities, similar to prior which may represent atelectasis, possible pneumonia.
CT abdomen and pelvis 06/18/2024-large amount of stool, chronic and incidental findings not acute
CT head 06/18/2024-no acute intracranial abnormalities
CT Head 06/23/2024: There are no acute intracranial abnormalities; stable postoperative changes; there is moderate diffuse cortical and cerebellar atrophy with mild nonspecific white matter changes
EEG (06/24/2024): Moderately abnormal study for age based on frontally predominant generalizing spike and slow-wave discharges with a generalized slow background.
Subjective Dataa
Subjective Data
Date of Service:
Date of Service: June 24, 2024
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
Subjective:
Patient was seen and evaluated today at bedside. BP this AM of 95/58, heart rate: 114, saturating 98% on pressure support 8/5, with FiO2 30%. PIP: 18 cmH2O, VTe 422 mL and breathing at 33 breaths/min. Levo currently at 6mcg/min, vasopressin now
off. Remains on TF at 50cc/hr. No purposeful movements, although he will look towards me upon command but not doing any other movements (i.e., give me a thumbs up, squeeze my hand, move your foot, close your eyes).
Review of Systems
General: Unobtainable - Pat Unresp
Objective Data
Data Reviewed
Vital Signs / I&O / Oxygen:
Vital Signs
Temp Pulse Resp BP Pulse Ox
100.1 F 122 28 111/68 99
06/24/24 09:03 06/24/24 09:00 06/24/24 09:00 06/24/24 09:00 06/24/24 09:31
Intake and Output
06/23/24 06/24/24 06/25/24
06:59 06:59 06:59
Intake Total 2186.1 / 2262.4 1739.6 / 1831.1 385.0 / 385.0
Output Total 4475 / 4525 1627 / 1682 165 / 165
Balance -2288.9 / -2262.6 112.6 / 149.1 220.0 / 220.0
SaO2 [CPAP/PSV] 97
SaO2 [A/C] 99
SaO2 99
Nasal Cannula flow liters per 4
minute
Physical Exam
General: Respiratory Distress (n) and Comfortable
HEENT: Normocephalic, Anicteric and Other (ETT in place)
Cardiovascular: S1-S2, Peripheral Edema (+1 lower extremity pitting edema) and Other (Distant cardiac sounds)
Respiratory: Wheeze (n), Crackles (negative), Rhonchi (Bourbon upon expiration bilaterally), Non-Labored Respirations, Accessory Resp Muscle Use (n), Stridor (n), ET Tube (Mechanical breath sounds heard bilaterally) and Other (Reduced breath sounds
heard bilaterally)
GI: Soft, Non Distended and Non Tender
Neurology: Awake, Tremors (negative), Lethargic and Other (Looks towards my voice, but not following any other commands)
Skin: Warm, Dry, Cyanosis (n), Jaundice (n) and Rash (n)
Labs/Micro/Reports
Lab Data
06/24/24 03:33
06/24/24 03:33
Microbiology
06/20/24 16:18 Blood/Venous Blood Culture - Preliminary
No Growth in 72 hours- Final report to follow
06/18/24 10:05 Csf CSF Culture - Final
No Growth After 5 Days - Final Report
06/18/24 10:05 Csf Gram Stain - Final
06/18/24 08:11 Blood/Venous Blood Culture - Final
No Growth - Final Report
06/22/24 09:57 Feces/Stool C. difficile GDH Antigen & Toxins - Final
Negative for toxigenic C.difficile
06/20/24 16:18 Endotracheal Respiratory Culture - Final
Usual Respiratory Carina
06/20/24 16:18 Endotracheal Gram Stain - Final
06/18/24 15:28 Tracheal Aspirate Respiratory Culture - Final
S aureus-Methicillin Sensitive
Keisha albicans
06/18/24 15:28 Tracheal Aspirate Gram Stain - Final
06/18/24 08:11 Blood/Venous Blood Culture - Preliminary
Coagulase neg. staphylococcus
06/18/24 08:11 Blood/Venous Gram Stain - Final
[2024-06-24] MEDS: PROTONIX IV 40 MG IV (08:32)
[2024-06-24] MEDS: KEPPRA 1250 MG IV (08:32)
[2024-06-24] MEDS: PHENOBARBITAL 32.5 MG IV (08:33)
[2024-06-24] MEDS: NSS (PRESERVATIVE FREE) 10 ML IV (08:33)
[2024-06-24] MEDS: ROBITUSSIN 200 MG TUBE ×4 (08:34→23:09)
[2024-06-24] MEDS: REFRESH CELLUVISC GEL 1 DROPS OPHTH ×4 (08:34→23:09)
[2024-06-24] MEDS: MIRALAX TUBE (08:34)
[2024-06-24] MEDS: CEREBYX 54 MG IV (08:40)
--- NOTE | 2024-06-24 09:03 | W.PN.ID1 ---
Date of Service
Date of Service: June 24, 2024
Today's Communication
Continue cefazolin.
Assessment / Plan
# Persistent fever, leukocytosis , shock - present on admission, unclear source.
- On Vent support, pressor support ->weaning
- consider central fever
-Fevers and leukocytosis trending down
- Repeat Blood cx negative, sputum cx usual resp carina
- C. diff neg
- follow temps/wbc/vitals and clinically.
# Pneumonia - resolving
- Admission sputum MSSA
- 06/23 Repeat CXR - no active parenchymal opacities
-Continue cefazolin (d7 of 7 abx)
# Klebsiella UTI
- Continue cefazolin (d7)
# CoNS bacteremia (1 of 2 sets)= contaminant
- Repeat bcx neg
# Change in mental status
# Seizure disorder on phenytoin, Keppra, Vimpat, phenobarbital
# s/p Severe hypernatremia
- Nephrology managing
Guarded prognosis
# Conditions prior to admission
Intellectual disability
Epilepsy on phenytoin, Keppra, Vimpat
Dyslipidemia
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
[facility] resident ([facility])
Chief Complaint
-: Fever and Leukocytosis
Subjective / Review of Systems
Remains intubated.
Vital Signs / Physical Exam
Vital Signs
Vital Signs
Temp Pulse Resp BP Pulse Ox
100.1 F 122 28 111/68 98
06/24/24 09:03 06/24/24 09:00 06/24/24 09:00 06/24/24 09:00 06/24/24 09:00
Selected Entries
06/24/24
07:39
Temp 100.8 F H
Physical Exam
Constitutional: Acutely Ill and Chronically Ill
Eyes: Sclera Anicteric
Cardiovascular: Regular Rate and S1/S2
Pulmonary: Rhonchi (anteriorly)
Gastrointestinal: Soft, Non Tender and Non Distended
Genito-Urinary: Villareal and Clear Urine
Extremities: Edema (trace)
Objective Data
Lab Data
Lab Results
06/24/24 03:33
06/24/24 03:33
PT 20.0 Sec (11.4-14.6) H 06/19/24 09:02
INR 1.69 06/19/24 09:02
APTT 39.0 Sec (23.4-35.0) H 06/19/24 09:02
Estimated Creat Clear 89 ml/min 06/24/24 03:33
Lactic Acid 1.5 mmol/L (0.7-2.0) 06/18/24 21:33
Total Bilirubin 0.7 mg/dl (0.2-1.3) 06/18/24 08:44
AST 54 U/L (17-59) 06/18/24 08:44
ALT 47 U/L (0-50) 06/18/24 08:44
Alkaline Phosphatase 286 U/L (38-126) H 06/18/24 08:44
Most recent labs reviewed.
Micro Results:
06/20/24 16:18 Blood Culture - Preliminary
Blood/Venous No Growth in 72 hours- Final report to follow
06/18/24 10:05 CSF Culture - Final
Csf No Growth After 5 Days - Final Report
Gram Stain - Final
06/18/24 08:11 Blood Culture - Final
Blood/Venous No Growth - Final Report
06/22/24 09:57 C. difficile GDH Antigen & Toxins - Final
Feces/Stool Negative for toxigenic C.difficile
06/20/24 16:18 Respiratory Culture - Final
Endotracheal Usual Respiratory Carina
Gram Stain - Final
06/18/24 15:28 Respiratory Culture - Final
Tracheal Aspirate S aureus-Methicillin Sensitive
Keisha albicans
Gram Stain - Final
06/18/24 08:11 Blood Culture - Preliminary
Blood/Venous Coagulase neg. staphylococcus
Gram Stain - Final
06/18/24 08:44 Urine Culture - Final
Urine Klebsiella pneumoniae
06/19/24 09:02 Nasal Screen MRSA (PCR) - Final
Nose MRSA not detected - performed by PCR methodology.
06/18/24 08:11 Influenza Types A & B (FALVIO) - Final
Nasal Swab Negative for Influenza A & B, NAAT
Negative results must be combined with clinical observations
and patient history.
Nucleic Acid Amplification test (NAAT)performed on the
[employer] platform.
06/18/24 CT a/p: Large amount of stool in the rectum with rectal wall thickening and perirectal inflammation compatible with fecal impaction and stercoral colitis.
06/20/24 CXR: Bilateral parenchymal opacities, increasing, most likely pneumonia. No evidence for associated pleural effusion.
--- NOTE | 2024-06-24 09:12 | EEG.RPT ---
Electroencephalogram Report
Recording
Date of EE06/24/24
Type of EEG: Routine
Length of EEG recordin minutes
Done with Video Recording: Yes
Patient Status: Inpatient
Recording Conditions: Awake and Drowsy
Hyperventilation Performed: No
Photic Stimulation Performed: Yes
Report
LESS THAN 1 HOUR REPORT
LESS THAN 1 HOUR EEG INTERPRETATION:
Moderately abnormal study for age based on frontally predominant generalizing spike and slow-wave discharges with a generalized slow background.
CLINICAL CORRELATION:
This study was suggestive of a frontally predominant epileptiform discharge and generalized cortical dysfunction.
Compared with the study performed on 06/20/2024, the presence of frontal discharges is new.
Clinical correlation is advised.
METHODS:
A 21 channel digitized electroencephalogram (EEG) was performed at the bedside in the ICU. The 10/20 international system of electrode placement was used with ECG and lateral/vertical eye movements recorded.
ELECTROENCEPHALOGRAPHER IMPRESSION(S):
Quality of study
Good
Background
Low- Medium amplitude
Fair anterior-posterior voltage gradient differentiation
Theta maximal background demonstrated, poorly preserved
Sleep
Drowsiness demonstrated
Photic Stimulation
Failed to activate the record
ECG
Regular rhythm
Abnormal Activity
Intermittent frontally predominant at times independent and at others 1 HZ rhythmic generalized spike and slow-wave which was medium-high amplitude lasting up to 0.5 seconds maximum, repeating for a maximum of 3 seconds
[2024-06-24] MEDS: LASIX 40 MG IV ×2 (10:49→17:09)
[2024-06-24] MEDS: MAGONATE 86 MG TUBE (10:49)
[2024-06-24] MEDS: KCL ELIXIR 20 MEQ TUBE (10:49)
--- NOTE | 2024-06-24 11:15 | W.PN.HOSP.TC ---
Today's Communication/Plan
-
await MRI
await Neuro recs on EEG
continue vent wean as able
continue IV abx
Assessment / Plan
Assessment / Plan
Assessment:
Septic shock
- ID following
- continue Ancef, day 7/7 for UTI (Klebsiella in urine) and Pneumonia (MSSA in sputum)
- follow cultures
- wean pressors as able, currently on Levophed and Vasopressin
Unresponsive state and VDRF
Hx of seizures with multiple AEDs (Epilepsy)
- now off sedation
- monitor mental status
- Neurology consulted as concern for possible seizure with subtherapeutic levels; EEG 06/20/2024-mild diffuse cortical dysfunction without focal abnormalities, no seizures
- continue Vimpat, phenobarbital, Keppra, phenytoin
- MRI ordered
- EEG repeat shows: 'Intermittent frontally predominant at times independent and at others 1 HZ rhythmic generalized spike and slow-wave which was medium-high amplitude lasting up to 0.5 seconds maximum, repeating for a maximum of 3 seconds'
- Await Neurology input on above
- ICU managing vent settings; follow ABGs and for vent weaning
Severe hypernatremia
Dehydration
- Nephrology following
- continue IVF
Constipation
- s/p disimpaction in ER
- CT abd demonstrated perirectal inflammation consistent with stercoral colitis
Hx of mental and physical disability onset in childhood
Anemia-macrocytic
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
DVT ppx: Lovenox
Code: Full
Total Critical Care Time 41 minutes. I was immediately available to the patient and staff. I personally examined, reviewed labs, diagnostic images/reports, interpretations, treatment plans, discussed patient care with other providers and family
or caregivers (if patient is unable to make decisions), entered orders as appropriate and documented the medical record.
Anticipated Discharge: > 48 hours
Subjective/Interval History
-
Date of Service: June 24, 2024
remains unreponsive on pressors
Objective Data
-
Labs:
Laboratory Results
06/24/24
03:33
WBC 15.6 H
Hgb 8.4 L
Hct 24.8 L
Plt Count 240
Sodium 143
Potassium 3.8
Chloride 106
Carbon Dioxide 28
BUN 20
Creatinine 0.7
Glucose 120 H
Calcium 7.8 L
Vital Signs:
Vital Signs
Temp Pulse Resp BP Pulse Ox
100.1 F 108 23 103/63 98
06/24/24 09:03 06/24/24 11:00 06/24/24 11:00 06/24/24 11:00 06/24/24 11:00
I&O
06/23/24 06/24/24 06/25/24
06:59 06:59 06:59
Intake Total 2186.1 / 2262.4 1739.6 / 1831.1 557.6 / 557.6
Output Total 4475 / 4525 1627 / 1682 200 / 200
Balance -2288.9 / -2262.6 112.6 / 149.1 357.6 / 357.6
Physical Exam
-
General: Well Developed, Well Nourished and Intubated
HEENT: Normocephalic
Respiratory: Clear to Auscultation
Cardiac: Regular Rhythm and S1/S2
Psych: Calm
Data Reviewed
-
Critical Care Time (in minutes): 41
Labs: Labs Reviewed by me
--- NOTE | 2024-06-24 11:33 | W.PN.NEPH.PH ---
Today's Communication / Plan
-
cont lasix, adjust FWF as needed
Assessment/Plan
-
IMP:
Unresponsive
Severe hypernatremia
VDRF
Septic Shock probable
UTI GNR
Constipated- post disimpaction in ER
Hx of Seizures on multiple AED
intellectual disability
hyperlipidemia
Plan:
stable renal function
hypernatremia-stable on FWF 25cc/hr-titrate as needed
agree with lasix
persistent hypotension, titrate pressors to keep MAP>65
cortisol was ok, echo pending
presumed sepsis, source unknown
continue broad spectrum abx per ID
follow BMP
AMS-neuro follows, MRI ordered , EEG noted frontal discharge
critical care time 31 minutes
d/w ICU and primary
will s/o, call with ?s
-
-
Date of Service: June 24, 2024
CC / HPI / ROS
-
Chief Complaint:
MILY, hypernatremia
History of Present Illness:
cr normal, non oliguric with michele
remains intubated sedated
critically ill in ICU
on pressors for hypotension
sodium no change 142
on TF
leucocytosis improving to 15k, intermittently febrile
VBG PH 7.43
Review of Systems:
intubated sedated
Labs
-
Labs:
WBC 15.6 10^3/uL (4.8-10.8) H 06/24/24 03:33
RBC 2.64 10^6/uL (4.70-6.10) L 06/24/24 03:33
Hgb 8.4 g/dL (13.0-18.0) L 06/24/24 03:33
Hct 24.8 % (39.0-52.0) L 06/24/24 03:33
Plt Count 240 10^3/uL (130-400) 06/24/24 03:33
Sodium 143 mmol/L (135-145) 06/24/24 03:33
Potassium 3.8 mmol/L (3.5-5.1) 06/24/24 03:33
Chloride 106 mmol/L (98-107) 06/24/24 03:33
Carbon Dioxide 28 mmol/L (22-30) 06/24/24 03:33
BUN 20 mg/dl (9-20) 06/24/24 03:33
Creatinine 0.7 mg/dL (0.7-1.3) 06/24/24 03:33
eGFR > 60.00 06/24/24 03:33
Glucose 120 mg/dl (70-99) H 06/24/24 03:33
Calcium 7.8 mg/dl (8.4-10.2) L 06/24/24 03:33
Phosphorus 3.1 mg/dl (2.5-4.5) 06/24/24 03:33
Albumin 3.4 g/dl (3.5-5.0) L 06/18/24 08:44
Physical Exam
-
Vital Signs:
Vital Signs
Temp Pulse Resp BP Pulse Ox
100.1 F 108 23 103/63 99
06/24/24 09:03 06/24/24 11:00 06/24/24 11:00 06/24/24 11:00 06/24/24 11:25
Cardiovascular:: Regular rate and rhythm
Respiratory:: Bilateral: CTA
Lung Excursion:: Abnormal
Abdomen:: Nontender and Soft
Extremity Edema:: +1: Bilateral:
Michele Catheter: Yes
[2024-06-24] MEDS: SUBLIMAZE 100 IV (11:41)
--- NOTE | 2024-06-24 12:09 | PTCARENOTE ---
Pt opens eyes. Does not follow commands.
Sinus tach. +3 generalized edema. Vasopressin d/c'd this am. Levophed now running at 8 mcg/min.
Frequent vent alarms with thick yellow secretions. Checked tube feed residual (220mls), tube feed held for 30min after meds given via tube.
Weaned 2hrs. Frequent coughing and nearly continuous vent alarms. MD notified. Pt placed back on assist control. Fentanyl bolus given and fentanyl gtt restarted.
Brown liquid stool via rectal trumpet. Miralax held.
Good urine output after Lasix 40 IV given (210ml in first hour)
CHG bath given. Turning q2h
All other assessments unchanged.
[2024-06-24] MEDS: NOVOLOG FLEXPEN-MODERATE RESISTANCE 1 UNITS SC (12:29)
[2024-06-24 12:40] LABS: Glucose - Point of Care 183 mg/dl (70-99)
--- NOTE | 2024-06-24 13:37 | PN.CDI ---
CDI
- -
CDI:
Physician Documentation Request
Admit Date: 06/18/24 11:13
Dear Doctor Sanjuana,
Please review the following and provide your response in the progress notes.
Clinical Indicators:
06/20/24 15:12 (created 06/20/24 15:19) - Wound Note
#L Upper lip with documented DTI from ETT.
#...appears to be a stage 3 PI.
#Applied water soluble gel to area, tube is now placed on R side.
Selected Entries
06/20/24
20:00
Pressure injury stage [Left Upper Lip] Stage 3
Physician documentation of the type and location of wounds is required for compliant documentation. Based on the above clinical findings and your assessment, please provide the following in your progress note:
Left upper lip Stage 3 pressure injury
Other (please specify)
1. Location of the ulcer/wound, including laterality.
2. Type (etiology) of ulcer/wound:
- Diabetic ulcer
- Arterial (ischemic) ulcer
- Traumatic wound
- Pressure (decubitus) ulcer
3. If a pressure ulcer, please also include the stage* of the ulcer:
- Stage 1 - Skin intact, non-blanchable redness
- Stage 2 - Partial thickness loss of dermis, includes intact or open blister
- Stage 3 - Full thickness tissue not including bone, tendon or muscle
- Stage 4 - Full thickness tissue loss, including exposed bone, tendon or muscle
- Unstageable - Full thickness loss in which the base of the ulcer is covered by slough (yellow, noble, aviles, green or brown) and/or eschar (noble, brown or black) in the wound bed.
Use of terms such as suspected, likely, concern for, or probable (associated with a specific diagnosis that is being evaluated, monitored, or treated as if it exists) are acceptable and can be coded in the inpatient setting, when documented at the
time of discharge.
Thank you,
Carley Bronson RN BSN CCDS
CDI Specialist
please contact via tiger text
Please use your independent medical judgment in providing your response.
*Source: National Pressure Ulcer Advisory Panel (NPUAP)
[2024-06-24] MEDS: TYLENOL ORAL SOLUTION 650 MG TUBE (13:44)
--- NOTE | 2024-06-24 13:59 | PTCARENOTE ---
frequent vent alarms. secretions now white and frothy. Fentanyl gtt increased per protocol. Fentanyl boluses x4 so far this shift.
Temp 102.8. PRN Tylenol given.
notified of changes. New order for one time dose ativan received
[2024-06-24] MEDS: ATIVAN 2 MG IV (14:29)
[2024-06-24] MEDS: NSS (PRESERVATIVE FREE) 0.5 ML IV (14:29)
--- NOTE | 2024-06-24 14:41 | W.PN.NEURO.1 ---
Today's Communication / Plan
-
.
Neuro Assessment/Plan
Assessment
68-year-old male with history of cerebral palsy refractory epilepsy who was found unresponsive secondary to sepsis, stool impaction and possible pneumonia with hypernatremia
Plan
Continue IV fluids as per nephrology
IV antibiotics
IV Keppra 1250 bid
IV Dilantin 200 q12
IV phenobarb 32 daily
IV Vimpat 150 q12
Subjective/Objective
Subjective Data
Date of Service: June 24, 2024
Neurology follow-up note
24h events: Continues to be febrile. No documented seizures. Continues to be on fentanyl and Levophed
Routine EEG(06/24/2024) Intermittent frontally predominant at times independent and at others 1 HZ rhythmic generalized spike and slow-wave which was medium-high amplitude lasting up to 0.5 seconds.
PMH: chronic encephalopathy/ambulatory dysfunction, epilepsy, DLP, vit D deficiency, dysphagia
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
SH: single; resident at [facility]
FH: mother-dementia
All:NKDA
ROS:unable due to encephalopathy
General: Intubated, restrained
Cardio: Tachycardic. Extremities 1+ edema.
Neuro:
Mental Status: Awake, does not attempt to follow requests
Cranial Nerves: Orthophoric primary gaze. Pupils 3 mm, min reactive, blink to threat intermittently bilaterally no clear facial weakness
Motor: Increased motor tone right greater than left. Triple flexion in the right leg
Reflexes: No clonus at the ankles
Sensory: Does not localize to noxious stim
Coordination: No tremors or myoclonic movements
Gait: Unable
Assessment and Plan:
I. Multifactorial encephalopathy (vascular, toxic, infectious, epileptic), clinically improved
II. History of probable obstructive hydrocephalus
III. Refractory epilepsy
-Avoid cerebral hypoperfusion and neurotoxic medication
-D/c Phenytoin given hyperpyrexia
-Increase Keppra to 1500 mg BID and Phenobarbital 64.8 Mg BID(home dose)
-Continue Vimpat 150 mg Q12h, Phenobarbital 64.8 Mg BID
-Brain MRI without gadolinium
-Neurosurgery consult
-Ativan 2 mg PRN for GTC lasting longer than 2 minutes.
-Palliative care consult
-Transfer to tertiary center if consistent with goals of care.
I personally reviewed all radiology and labs along with past medical records pertinent to current medical problems. Total time spent in patient care is 45 minutes.
Thank you for allowing us to participate in the care of this patient. We will continue to follow. Please do not hesitate to contact us with any questions or concerns.
Objective Data
Vital Signs
Temp Pulse Resp BP Pulse Ox
39.3 C H 123 13 123/74 99
06/24/24 14:32 06/24/24 13:40 06/24/24 13:40 06/24/24 13:40 06/24/24 13:40
Lab Results
06/24/24 03:33
06/24/24 03:33
PT 20.0 Sec (11.4-14.6) H 06/19/24 09:02
INR 1.69 06/19/24 09:02
APTT 39.0 Sec (23.4-35.0) H 06/19/24 09:02
Sodium 143 mmol/L (135-145) 06/24/24 03:33
Potassium 3.8 mmol/L (3.5-5.1) 06/24/24 03:33
BUN 20 mg/dl (9-20) 06/24/24 03:33
Glucose 120 mg/dl (70-99) H 06/24/24 03:33
Calcium 7.8 mg/dl (8.4-10.2) L 06/24/24 03:33
Phosphorus 3.1 mg/dl (2.5-4.5) 06/24/24 03:33
Vitamin B12 991 pg/ml (239-931) H 06/24/24 03:33
Patient Allergies
No Known Allergies Allergy (Unverified 04/02/24 08:06)
[2024-06-24] MEDS: LEVOPHED 258 MG IV (15:04)
[2024-06-24 15:22] LABS: Syphilis/T. pallidum Ab Reflex Negative (Negative)
--- NOTE | 2024-06-24 15:40 | CM ---
Patient seen at bedside. Patient remains on ventilator and nursing to update CM when patient POA visits. Physician planning to contact POA and provide update. CM will continue to follow for discharge planning needs.
Plan; return to [facility] [place]
[2024-06-24] MEDS: PITRESSIN 100 IV (17:06)
[2024-06-24] MEDS: LOVENOX 40 MG SC (17:09)
--- NOTE | 2024-06-24 18:23 | PTCARENOTE ---
Pt sedated. No longer alarming on vent and now scant secretions via ETT.
Restraints d/c'd as pt does not make any attempt to pull lines or tubes this shift.
Temp max 103.1 this shift. Now 100.6 with cooling blanket on.
Vasopressin restarted. Levo at 13 mcg/min.
Head to toe assessment unchanged at 1600.
[2024-06-24 18:24] LABS: Glucose - Point of Care 149 mg/dl (70-99)
--- NOTE | 2024-06-24 19:30 | PTCARENOTE ---
Resumed care of pt this evening. Received pt on fentanyl, levo, and vaso gtts via rt PICC. Pt is intubated and unresponsive. Pt is rigid, but pupils are reactive to light and has a weak gag reflex. Pt is NSR on tele monitor w/ PVCs, +3 GA, and pedal
pulses present w/ doppler. Pt tolerating vent settings satting at 100% pulse ox. On auscultation pt lungs sound coarse, rhonchorous, and diminished TO. Pt has tube feeds, jevity, running at goal rate and is tolerating. Pt BS is hypoactive. Rectal
trumpet is in place draining brown liquid stool. Villareal in place draining yellow colored urine. 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
[2024-06-24] MEDS: VIMPAT 150 MG TUBE (19:49)
[2024-06-24] MEDS: LUMINAL 64.8 MG TUBE (19:51)
[2024-06-24] MEDS: KEPPRA 1500 MG TUBE (19:51)
[2024-06-24 23:35] LABS: Glucose - Point of Care 135 mg/dl (70-99)
[2024-06-25] VITALS (78 sets, daily range): BP systolic 73–134; BP diastolic 51–90; BMI 25.6
--- NOTE | 2024-06-25 | PTCARENOTE ---
Cooling blanket turned off per protocol. Pt continues to tolerate vent settings satting at 99%.
[2024-06-25] MEDS: LEVOPHED 258 MG IV ×2 (01:10→11:36)
[2024-06-25] MEDS: SUBLIMAZE 100 IV (01:16)
[2024-06-25] MEDS: PITRESSIN 100 IV ×2 (01:42→12:26)
--- NOTE | 2024-06-25 04:00 | PTCARENOTE ---
Pt lightly sedated. No events to report at this time.
[2024-06-25 05:41] LABS: % Basophils 0.3 % (0-2); % Immature Granulocytes 0.8 % (0-0.5); % Lymphocytes 14.8 % (20.5-51.1); % Monocytes 7.2 % (1.7-9.3); % Neutrophils 72.9 % (42.2-75.2); Absolute Eosinophils 0.5 10^3/uL (0-0.7); Absolute Immature Granulocytes 0.1 10^3/uL (0-0.05); Absolute Lymphocytes 1.9 10^3/uL (1.2-3.4); Absolute Monocytes 0.9 10^3/uL (0.1-0.6); Absolute Neutrophils 9.2 10^3/uL (1.4-6.5); Hematocrit 24.4 % (39.0-52.0); Hemoglobin 8.1 g/dL (13.0-18.0); Mean Corp Hgb Conc. 33.2 g/dL (33.0-37.0); Mean Corpuscular Hgb 31.6 pg (27.0-31.0); Mean Corpuscular Volume 95.3 fL (80.0-94.0); Mean Platelet Volume 10.8 fL (7.4-10.4); Nucleated Red Blood Cells % 0 % (-); Platelet Count 264 10^3/uL (130-400); Red Blood Cell Count 2.56 10^6/uL (4.70-6.10); White Blood Cell Count 12.6 10^3/uL (4.8-10.8)
[2024-06-25] MEDS: ANCEF 10 IV (05:56)
[2024-06-25 06:07] LABS: Blood Urea Nitrogen 23 mg/dl (9-20); Calcium 7.8 mg/dl (8.4-10.2); Carbon Dioxide 34 mmol/L (22-30); Chloride 102 mmol/L (98-107); Estimated Creatinine Clearance 89 ml/min; Glucose 150 mg/dl (70-99); Potassium 3.4 mmol/L (3.5-5.1); Sodium 144 mmol/L (135-145); eGFR > 60.00
[2024-06-25] MEDS: KCL ELIXIR 40 MEQ TUBE ×2 (06:29→10:33)
[2024-06-25] MEDS: NOVOLOG FLEXPEN-MODERATE RESISTANCE 1 UNITS SC (06:29)
--- NOTE | 2024-06-25 08:00 | PTCARENOTE ---
Received pt via handoff. Pt slightly responsive, follows simple commands such as squeeze hand on the right. Left hand absent of movement. Slight cough and gag reflex, bilateral footdrop. NSR with PVC's, weak radials present with palpation and pedals
present with doppler. #8 ETT 24 @Center, AC 12/30%/500/5, diminished with coarse rhonchi, sputum noble small amounts. RN dobhoff tube feeding Jevity 1.5 @50 with 25mL flush. Rectal trumpet in place draining liquid mucoid stool. Thermistor Villareal in
place CDI, draining clear yellow urine. Heel foams on, small blanchable stage 1 sacral wound. Right DL PICC in place with gtts running see flowsheet.
--- NOTE | 2024-06-25 08:14 | W.PN.INTV ---
Today's Communication / Plan
Recommendations
ABx per ID
AEDs per neuro
Daily SAT/SBT and wean for as long as tolerated
Continue diuresis and keep K>4, Mg>2
Tube feeds
keep MAP>65
Monitor fevers and Tx with cooling blanket and Tylenol as needed; prn Toradol but monitor sCr
Trend blood gas
Neurosurgery consulted - recs pending
Guarded prognosis
Assessment
-
68-year-old male with a history of significant intellectual disability, epilepsy, hyperlipidemia who presents from [facility] unresponsive and shzoqurzqej-cexaolpkr-rtgygehckpo consulted for ventilator/critical care management 06/18/2024.
Impression:
Toxic-metabolic encephalopathy
Severe hypernatremia-serum sodium 171-total body water deficit 8.1 L - sodium now normalized
MILY - resolved
Ventilator dependent respiratory failure with acute hypoxia
Intubated in ED on: 06/18/2024
Aspiration pneumonia/CAP due to MSSA
Septic shock due to PNA and UTI
UTI with UCX growing Klebsiella pneumonia
Leukocytosis
Anemia
Hyperglycemia (HbA1C: 5.5 on 06/21/2024)
Conditions present prior to admission:
Intellectual disability.
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
Hyperlipidemia.
Epilepsy.
DNR in the past
Plan
He remains critically ill on the ventilator and pressors with recurrent spiking fevers
Ventilator settings reviewed
Arterial blood gases reviewed-adequate oxygenation and ventilation with normal pH
Ventilator has been adjusted
Daily SAT/SBT if clinically appropriate --> on 06/23 he tolerated PST almost all day on 05/05 but was not following any commands and was minimally responsive; Started on lasix on 06/24 and CXR this AM (06/25) looks much more improved with better
aeration and less haziness around left base and right costo-vertebral angle. Continue lasix 40mg IV BID x 2 days, keeping K>4, Mg>2
Monitor airway pressures with goal PIP <30�35
Mucolytics continue with mucinex
Follow occasional blood gas
VAP prevention protocol
Nebulizers if needed-currently not bronchospastic
Chest x-ray 06/20/2024-ET tube in good position, no increased infiltrates, left basilar airspace disease noted
Cultures reviewed
MRSA screen-negative
Sputum culture 06/18/2024-many WBCs, moderate MSSA and Keisha albicans (likely contaminant)
Influenza negative
Blood cultures 10/04 positive for coagulase-negative Staphylococcus - likely a contaminant
Repeat blood culture 06/20/2024-NGTD
Repeat sputum culture 06/20/2024-usual respiratory carina
C. difficile 06/22/2024-negative
Urine culture 06/18/20247812-sffi-xffhntal bacilli-Klebsiella (resistant to ampicillin + intermediate to nitrofurantoin)
CSF culture (06/18/2024 - performed by ED physician, Dr. Johnson) - NGTD
CSF fluid 06/18/2024-clear, colorless, WBC-2, glucose 78, total protein 128
Lactate normal since 06/18/2024 � no longer need to trend
Infectious disease consultation noted-correspondence reviewed-central fever also suspected; continue with cefazolin with plans for 7 days total ABx
Maintain MAP>65; wean down vasopressors as tolerated, and add vasopressin; random cortisol checked on 06/23 and was 21 --> no evidence for CIRCI and no need fro stress dose steroids at this time
Monitor leukocytosis-much improved, currently at 12.6
Source for ongoing temperatures and septic picture with ongoing pressor dependent hypotension unclear-differential includes pocket of infection/abscess, medications, etc.-consider repeat CT head/neck/chest/abdomen and pelvis, WBC scan,
etc.-infectious disease following
Central fever is suspected, karin given procal is 0.7, making central fevers more likely
Keep MAP>65
Wean down levophed as tolerated; continue vasopressin at least until levo is down to to 5mcg/min or less
Patient sodium as of today (06/25/2024) is 144
Although patient was rapidly corrected, according to nephrology there is more liberal correction methods for hypernatremia compared to hyponatremia
Nephrology involved and recommendations appreciated
Continue to maintain normal sodium level between 135�145
Replete K>4, Mg>2
Check TTE (completed - awaiting report) to assess valvular function and assure no cardiac etiology of his hypotension
Neurology following-correspondence reviewed
Continue with antiepileptics per neuro � currently on Vimpat 150 mg IV q12hr, phenobarbital 64.8mg BID + Keppra 1,500 mg PO q12hr
EEG 06/20/2024-mild diffuse cortical dysfunction without focal abnormalities, no seizures recorded
Given that patient continues to be minimally responsive, CT head checked on 06/23/2024 showed no acute intracranial abnormalities. EEG obtained on 06/24 showed frontally predominant generalized spike + slow-wave discharges with generalized slow
background
TSH WNL at 2.77 (checked 06/23/2024); follow up repeat Dilantin level 8.7 from 06/23/2024 (drawn about 2 hours prior to dose being given - prior to that, her last level was low at 6.5 on 06/20/2024, which was drawn a few hours after his morning dose
that day)
- Defer AEDs to neurology
Vitamin B12 WNL; RPR negative
Neurosurgery consulted - recs pending, given his Hx of TESTING SHAKING SHIPPING shunt and possible association to his fevers and continued encephalopathy
Monitor hemoglobin
Transfuse as needed to keep Hb>7g/dL, plt>20k
Follow blood sugar with goal BG 140-180mg/dL
Insulin supplementation as needed
DVT prophylaxis- LMWH
GI prophylaxis -PPI due to septic shock
Continue tube feeds via NGT
Bedside range of motion
Goals of care-DNR in the past - now full code --> On 06/23/2024 I called the patient's POA, Gucci Kong, and explained the critically ill state that Rickie is in. No decisions on code status were made at that time and he wanted to continue with
full medical management. He understands the severity of the patient's illness and that he has a low likelihood of full recovery. I will call Gucci again today to discuss patient's goals of care/code status given the patient was DNR/DNI prior to
arrival.
Guarded prognosis
Critical care statement: A total of 41 minutes of critical care time was provided for this patient today. This includes management of unstable vital signs, evaluation of the patient at bedside, reviewing the patient's pertinent medical records
including radiographs, pressor and ventilator management, microbiology, laboratory evaluations, and discussion with primary team, consultants, pharmacy, nutrition, physical therapy, case management, charge nurse, critical care nursing, and
respiratory therapy.
Diagnostic data:
Chest x-ray 06/18/2024-NAD, ET tube 2.5 cm above toro
CXR 06/23/2024: No active cardiopulmonary disease
CXR 06/24/2024: Stable positioning of support lines and tubes; Left basilar opacities, similar to prior which may represent atelectasis, possible pneumonia.
CXR 06/25/2024: No active pulmonary process; stable support devices
CT abdomen and pelvis 06/18/2024-large amount of stool, chronic and incidental findings not acute
CT head 06/18/2024-no acute intracranial abnormalities
CT Head 06/23/2024: There are no acute intracranial abnormalities; stable postoperative changes; there is moderate diffuse cortical and cerebellar atrophy with mild nonspecific white matter changes
EEG (06/24/2024): Moderately abnormal study for age based on frontally predominant generalizing spike and slow-wave discharges with a generalized slow background.
Subjective Dataa
Subjective Data
Date of Service:
Date of Service: June 25, 2024
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
Subjective:
Patient seen and evaluated this morning. Heart rate 75, BP 118/71 and saturating 99% on AC/VC 12/500/30%/5 with PIP 19, VTe 524mL and breathing at 18 breas/min. ETT secretions have improved. Febrile overnight to 100.7 �F. He is net negative 430
cc over the last 24 hours. Per the nursing staff, he is intermittently following commands this morning - he was not following commands for me though. Currently on Levophed at 12mcg/min and vasopressin at 0.03 units/min.
Review of Systems
General: Unobtainable - Pat Unresp
Objective Data
Data Reviewed
Vital Signs / I&O / Oxygen:
Vital Signs
Temp Pulse Resp BP Pulse Ox
97.8 F 64 12 113/69 99
06/25/24 07:16 06/25/24 06:40 06/25/24 06:40 06/25/24 06:40 06/25/24 07:17
Intake and Output
06/24/24 06/25/24 06/26/24
06:59 06:59 06:59
Intake Total 1739.6 / 1831.1 2647.2 / 2647.2
Output Total 1627 / 1682 3079 / 3079
Balance 112.6 / 149.1 -431.8 / -431.8
SaO2 [CPAP/PSV] 97
SaO2 [A/C] 98
SaO2 99
Nasal Cannula flow liters per 4
minute
Physical Exam
General: Respiratory Distress (n) and Comfortable
HEENT: Normocephalic, Anicteric and Other (ETT in place)
Cardiovascular: S1-S2, Peripheral Edema (+1 lower extremity pitting edema) and Other (Distant cardiac sounds)
Respiratory: Wheeze (n), Crackles (negative), Rhonchi ([place] upon expiration bilaterally), Non-Labored Respirations, Accessory Resp Muscle Use (n), Stridor (n), ET Tube (Mechanical breath sounds heard bilaterally) and Other (Reduced breath sounds
heard bilaterally)
GI: Soft, Non Distended and Non Tender
Neurology: Tremors (negative), Lethargic and Other (Eyes open, looks towards my voice, but not following any other commands)
Skin: Warm, Dry, Cyanosis (n), Jaundice (n) and Rash (n)
Labs/Micro/Reports
Lab Data
06/25/24 05:20
06/25/24 05:20
Microbiology
06/18/24 08:11 Blood/Venous Blood Culture - Final
Coagulase neg. staphylococcus
Additional testing on request
06/18/24 08:11 Blood/Venous Gram Stain - Final
06/20/24 16:18 Blood/Venous Blood Culture - Preliminary
No Growth in 4 days- Final report to follow
06/18/24 10:05 Csf CSF Culture - Final
No Growth After 5 Days - Final Report
06/18/24 10:05 Csf Gram Stain - Final
06/18/24 08:11 Blood/Venous Blood Culture - Final
No Growth - Final Report
06/22/24 09:57 Feces/Stool C. difficile GDH Antigen & Toxins - Final
Negative for toxigenic C.difficile
06/20/24 16:18 Endotracheal Respiratory Culture - Final
Usual Respiratory Carina
06/20/24 16:18 Endotracheal Gram Stain - Final
[2024-06-25] MEDS: PROTONIX IV 40 MG IV (08:23)
[2024-06-25] MEDS: NSS (PRESERVATIVE FREE) 10 ML IV (08:23)
[2024-06-25] MEDS: KEPPRA 1500 MG TUBE ×2 (08:23→21:34)
[2024-06-25] MEDS: MIRALAX 17 GRAMS TUBE (08:23)
[2024-06-25] MEDS: ROBITUSSIN 200 MG TUBE ×4 (08:24→21:35)
[2024-06-25] MEDS: LUMINAL 64.8 MG TUBE ×2 (08:24→21:34)
[2024-06-25] MEDS: LASIX 40 MG IV ×2 (08:24→16:17)
[2024-06-25] MEDS: VIMPAT 150 MG TUBE ×2 (08:25→21:34)
[2024-06-25] MEDS: REFRESH CELLUVISC GEL 1 DROPS OPHTH ×4 (08:25→21:35)
--- NOTE | 2024-06-25 09:49 | W.PN.NEURO.1 ---
Today's Communication / Plan
-
.
Subjective/Objective
Subjective Data
Date of Service: June 25, 2024
Neurology follow-up note
24h events: febrile overnight. No reports of seizures. Continues to be on fentanyl and Levophed.
Routine EEG(06/24/2024) Intermittent frontally predominant at times independent and at others 1 HZ rhythmic generalized spike and slow-wave which was medium-high amplitude lasting up to 0.5 seconds.
PMH: chronic encephalopathy/ambulatory dysfunction, epilepsy, DLP, vit D deficiency, dysphagia
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
SH: single; resident at [facility]
FH: mother-dementia
All:NKDA
ROS:unable due to encephalopathy
General: Intubated
Cardio: Tachycardic. Extremities 1+ edema.
Neuro:
Mental Status: Awake, does not attempt or follow requests
Cranial Nerves: Orthophoric primary gaze. Pupils 3 mm, min reactive, blink to threat intermittently. Resists pupillary exam. No clear facial weakness
Motor: Increased motor tone right greater than left. Triple flexion in the right leg
Reflexes: No clonus at the ankles
Sensory: Does not localize to noxious stim
Coordination: No tremors or myoclonic movements
Gait: Unable
Assessment and Plan:
I. Multifactorial encephalopathy (vascular, toxic, infectious, epileptic), clinically stable
II. History of probable obstructive hydrocephalus
III. 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
-Avoid cerebral hypoperfusion and neurotoxic medication
-Continue Keppra to 1500 mg BID, Vimpat 150 mg BID and Phenobarbital 64.8 Mg BID(home dose)
-Unable to have MRI due to a presence of metallic hardware?((based on extensive metallic artifacts present on CT head
-Ativan 2 mg PRN for GTC lasting longer than 2 minutes.
-ID follow up
-Palliative care consult
I personally reviewed all radiology and labs along with past medical records pertinent to current medical problems. Total time spent in patient care is 45 minutes.
Thank you for allowing us to participate in the care of this patient. We will continue to follow. Please do not hesitate to contact us with any questions or concerns.
Objective Data
Vital Signs
Temp Pulse Resp BP Pulse Ox
36.6 C 67 17 99/66 99
06/25/24 07:16 06/25/24 09:40 06/25/24 09:40 06/25/24 09:40 06/25/24 09:40
Lab Results
06/25/24 05:20
06/25/24 05:20
PT 20.0 Sec (11.4-14.6) H 06/19/24 09:02
INR 1.69 06/19/24 09:02
APTT 39.0 Sec (23.4-35.0) H 06/19/24 09:02
Sodium 144 mmol/L (135-145) 06/25/24 05:20
Potassium 3.4 mmol/L (3.5-5.1) L 06/25/24 05:20
BUN 23 mg/dl (9-20) H 06/25/24 05:20
Glucose 150 mg/dl (70-99) H 06/25/24 05:20
Calcium 7.8 mg/dl (8.4-10.2) L 06/25/24 05:20
Phosphorus 3.1 mg/dl (2.5-4.5) 06/24/24 03:33
Vitamin B12 991 pg/ml (239-931) H 06/24/24 03:33
Patient Allergies
No Known Allergies Allergy (Unverified 04/02/24 08:06)
--- NOTE | 2024-06-25 12:00 | PTCARENOTE ---
Pt underwent spontaneous trial for vent. Tolerated about an hour and 45 minutes and now back on original AC settings. Patient follows simple commands but inconsistently. Slowly weaning Levo off see flowsheet. Will continue to monitor.
--- NOTE | 2024-06-25 12:01 | CM ---
Reviewed the chart notes. CM spoke with Gucci Kong ([phone]) listed as primary contact. Per Gucci, he is in charge of the patient's care and is the POA. CM continues to be available to patient/family and is monitoring medical plan for
needs at discharge.
Plan: Discharge back to [facility] when medically stable.
[2024-06-25] MEDS: TYLENOL ORAL SOLUTION 650 MG TUBE (12:20)
[2024-06-25] MEDS: NOVOLOG FLEXPEN-MODERATE RESISTANCE SC ×3 (12:21→23:40)
[2024-06-25 12:28] LABS: Glucose - Point of Care 133 mg/dl (70-99)
--- NOTE | 2024-06-25 13:25 | W.PN.ID1 ---
Date of Service
Date of Service: June 25, 2024
Today's Communication
Completed cefazolin.
Assessment / Plan
# Persistent fever, leukocytosis , shock - present on admission, unclear source.
- Suspect central fever
- Leukocytosis trending down
- On Vent support, pressor support ->weaning
- CSF only 2wbc - no meningoencephalitis.
- CT a/p no infection
- Repeat Blood cx negative, sputum cx usual resp carina
- C. diff neg
# Pneumonia - resolved
- Admission sputum MSSA
- 06/23 Repeat CXR - no active parenchymal opacities
-Completed cefazolin (d8 of 7 abx)
- DC abx
# Klebsiella UTI
- Can DC cefazolin (d8)
# CoNS bacteremia (1 of 2 sets)= contaminant
- Repeat bcx neg
# Change in mental status- no improvement
# Seizure disorder on phenytoin, Keppra, Vimpat, phenobarbital
# s/p Severe hypernatremia
- Nephrology managing
Guarded prognosis
# Conditions prior to admission
Intellectual disability
Epilepsy on phenytoin, Keppra, Vimpat
Dyslipidemia
[employer] shunt
[facility] resident ([facility])
Chief Complaint
-: Fever and Leukocytosis
Vital Signs / Physical Exam
Vital Signs
Vital Signs
Temp Pulse Resp BP Pulse Ox
97.8 F 88 24 114/73 100
06/25/24 07:16 06/25/24 12:30 06/25/24 12:30 06/25/24 12:20 06/25/24 13:10
Physical Exam
Constitutional: Acutely Ill
Eyes: Sclera Anicteric
Pulmonary: Clear
Gastrointestinal: Soft, Non Tender, Non Distended, Normal Bowel Sounds and Other
Genito-Urinary: [place] and Clear Urine
Neurological: Other (does not follow commands)
Lines: PICC (no erythema)
Objective Data
Lab Data
Lab Results
06/25/24 05:20
06/25/24 05:20
PT 20.0 Sec (11.4-14.6) H 06/19/24 09:02
INR 1.69 06/19/24 09:02
APTT 39.0 Sec (23.4-35.0) H 06/19/24 09:02
Estimated Creat Clear 89 ml/min 06/25/24 05:20
Lactic Acid 1.5 mmol/L (0.7-2.0) 06/18/24 21:33
Total Bilirubin 0.7 mg/dl (0.2-1.3) 06/18/24 08:44
AST 54 U/L (17-59) 06/18/24 08:44
ALT 47 U/L (0-50) 06/18/24 08:44
Alkaline Phosphatase 286 U/L (38-126) H 06/18/24 08:44
Most recent labs reviewed.
Micro Results:
06/18/24 08:11 Blood Culture - Final
Blood/Venous Coagulase neg. staphylococcus
Additional testing on request
Gram Stain - Final
06/20/24 16:18 Blood Culture - Preliminary
Blood/Venous No Growth in 4 days- Final report to follow
06/18/24 10:05 CSF Culture - Final
Csf No Growth After 5 Days - Final Report
Gram Stain - Final
06/18/24 08:11 Blood Culture - Final
Blood/Venous No Growth - Final Report
06/22/24 09:57 C. difficile GDH Antigen & Toxins - Final
Feces/Stool Negative for toxigenic C.difficile
06/20/24 16:18 Respiratory Culture - Final
Endotracheal Usual Respiratory Carina
Gram Stain - Final
06/18/24 15:28 Respiratory Culture - Final
Tracheal Aspirate S aureus-Methicillin Sensitive
Keisha albicans
Gram Stain - Final
06/18/24 08:44 Urine Culture - Final
Urine Klebsiella pneumoniae
06/19/24 09:02 Nasal Screen MRSA (PCR) - Final
Nose MRSA not detected - performed by PCR methodology.
06/18/24 08:11 Influenza Types A & B (FLAVIO) - Final
Nasal Swab Negative for Influenza A & B, NAAT
Negative results must be combined with clinical observations
and patient history.
Nucleic Acid Amplification test (NAAT)performed on the
[employer] platform.
06/18/24 CT a/p: Large amount of stool in the rectum with rectal wall thickening and perirectal inflammation compatible with fecal impaction and stercoral colitis.
06/20/24 CXR: Bilateral parenchymal opacities, increasing, most likely pneumonia. No evidence for associated pleural effusion.
--- NOTE | 2024-06-25 13:38 | CON.NS ---
Chief Complaint
-
HVAC R TECH shunt
History of Present Illness
This is a 68 yo male admitted on 06/18 with fever and unresponsiveness requiring intubation. He has history of a HVAC R TECH shunt. it is unknown exactly when it was placed but it was in childhood.He has a hx of seizures. He is intubated and has been
unresponsive but today he is following simple commands. An LP was completed to rule out meningitis.
Review of Systems
-
unable to completed due to intubation
Medication and Allergies
Home Medications
Home Medications
�Medication �Instructions �Recorded
acetaminophen 325 mg tablet 650 mg PO Q6HPRN PRN mild pain 03/20/24
atorvastatin 10 mg tablet 10 mg PO HS High Cholesterol 03/20/24
phenobarbital 16.2 mg tablet 64.8 mg PO BID Seizures 03/20/24
levetiracetam 1,000 mg tablet 1,250 mg PO BID Seizures 04/02/24
Diazepam Rectal Gel 10 mg WA DAILYPRN PRN seizure 06/18/24
cholecalciferol (vitamin D3) 1,250 1,250 mcg PO MO Supplement 06/18/24
mcg (50,000 unit) tablet
cyanocobalamin (vitamin B-12) 1,000 mcg PO DAILY Supplement 06/18/24
1,000 mcg tablet
folic acid 1 mg tablet 1 mg PO DAILY Supplement 06/18/24
lacosamide 10 mg/mL oral solution 150 mg PO BID Seizures 06/18/24
(Vimpat)
phenytoin 50 mg chewable tablet 150 mg PO HS Seizures 06/18/24
(Dilantin Infatabs)
phenytoin 50 mg chewable tablet 200 mg PO DAILY Seizures 06/18/24
(Dilantin Infatabs)
Allergies
Allergies
Allergy/AdvReac Type Severity Reaction Status Date / Time
No Known Allergies Allergy Unverified 04/02/24 08:06
Physical Exam
-
Exam:
eyes open
squeezes hands
Shunt palpable, there is no tapping chamber
CT head with left sided shunt and areas of left fronto/temp encephalomalacia.
Problems
-
Problem Status Onset Code
Acute hypernatremia E87.0
Assessment / Plan
-
Fevers obtundation and hx of HVAC R TECH shunt
-doubt that his old HVAC R TECH shunt is the reason for his issues
-CSF not concerning for infection
-I do not see the need for any surgical intervention at this time
-neurosurgery to sign off
[2024-06-25] MEDS: SUBLIMAZE 50 MCG IV (14:11)
--- NOTE | 2024-06-25 14:12 | W.CON.PAL ---
Consultation
-
Date/Time Consultation Requested: 06/25/2024
Date/Time Consultation Performed: 06/25/2024
Requesting Provider: Dr. Nunes
Performing Provider: Dr. Leavitt
Reason for Consult: Goals of Care Discussion
Primary Diagnosis: Hypoxic Respiratory Failure
Consult Requested By: Patient's Physician
Reason for Admission
Illness Course/HPI
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 history obtained from patient's medical power insurance attorney, Gucci
Luann. Patient attended a specialized school in childhood, and lived semi-independently in an appartment near his mom for many years. 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 His mother was previously his medical decision maker but currently has dementia, resides in a memory care unit and on hospice herself. Many years prior to her illness that she and
rickie worked with an insurance attorney to complete his medical directives and medical poa - appointed Gucci as his medical poa.
Gucci (an insurance attorney out of [facility] ) is close family friends with Rickie (describes that their mothers were childhood best friends), and he has been involved in his care for many years. Rickie has no siblings, but does have a distant cousin not actively
involved in his care. Gucci has helped with his IADLs, Personal care needs, and in the past hand former helper/caregivers for Rickie. in the past three years rickie has grown weaker, had recurrent falls and due to increasing care needs was eventually placed in
[facility] about 6 months ago. At his current baseline, he is mostly bedbound, but is able to enjoy heated conversations about all of the [employer] sports teams, and feed self.
Rickie was hospitalized on 06/18 for change in mental status, intubated and transferred to ICU. today is day 7 on the vent, and although respiratory status - cxr and imaging are improving, still requires significant vent support and pressor support. He
remains critically ill at this time. Palliative care was consulted for goals of care, patient was DNR on care home records, changed to full code on arrival to hospital.
Functional Status
He is currently intubated, Able to follow a few commands.
Baseline: bedbound, able to converse, feed self.
Goals of Care Discussion
-
Patient able to participate in discussion at time of visit: No
Patient's Information Preferences: Defer to Family
Patient Goals
At this time goal is to improve respiratory status to allow for safe extubation.
Quality of life would be described as return to baseline - bedbound, but able to converse, interact, enjoy televsion, and enjoy meals
Patient has a living will and medical power of insurance attorney which Gucci will send to me for review.
Based on how quality of life was described, recommended no CPR and no trach/peg. Gucci not prepared to decide on cpr decision today, but agreees that trach/peg would not be consistent with wishes.
Will discuss further once living will copy obtained.
Pain & Symptom Assessment
Patient Symptoms
Patient Symptoms: Other (patient unable to provide)
-
patient unable to provide
Objective Data
-
Objective Data:
Vital Signs
Temp Pulse Resp BP Pulse Ox
97.8 F 85 19 99/62 97
06/25/24 07:16 06/25/24 13:40 06/25/24 13:40 06/25/24 13:40 06/25/24 13:30
Laboratory Results
06/25/24 05:20
06/25/24 05:20
PT 20.0 Sec (11.4-14.6) H 06/19/24 09:02
INR 1.69 06/19/24 09:02
APTT 39.0 Sec (23.4-35.0) H 06/19/24 09:02
Hemoglobin A1c 5.5 % (4.0-5.6) 06/21/24 03:22
Ammonia < 9 umol/L (9-30) L 06/23/24 17:23
Total Protein 7.4 g/dl (6.3-8.2) 06/18/24 08:44
Albumin 3.4 g/dl (3.5-5.0) L 06/18/24 08:44
Urine Color Yellow 06/18/24 08:44
Urine Clarity Very cloudy (Clear) 06/18/24 08:44
Urine pH 5.0 (5.0-9.0) 06/18/24 08:44
Ur Specific [place] 1.020 (<1.030) 06/18/24 08:44
Urine Ketones Negative (Negative) 06/18/24 08:44
Urine Bilirubin 1+ (Negative) A 06/18/24 08:44
Palliative Performance Scale
Palliative Performance Scale:
PPS Level Ambulation Activity & Evidence of Disease Self Care Intake Conscious Level
100% Full Normal Activity & Work; Full Intake Full
No Evidence of Disease
90% Full Normal Activity & Work; Full Normal Full
Some Evidence of Disease
80% Full Normal Activity with Effort Full Normal or Full
Some Evidence of Disease Reduced
70% Reduced Unable Normal Job/Work Full Normal or Full
Significant Disease Reduced
60% Reduced Unable Hobby/Housework Occasional Normal or Full or Confusion
Significant Disease Assistance Reduced
50% Mainly Sit/Lie Unable to do Any Work Considerable Normal or Full or Confusion
Extensive Disease Assistance Req'd Reduced
40% Mainly in Bed Unable to do Most Activity Mainly Assistance Normal or Full or Drowsy;
Extensive Disease Reduced +/- Confusion
30% Totally Bed Unable to do Any Activity Total Care Normal or Full or Drowsy;
Bound Extensive Disease Reduced +/- Confusion
20% Totally Bed Bound Unable to do Any Activity Total Care Minimal to Full or Drowsy;
Extensive Disease Sips +/- Confusion
10% Totally Bed Bound Unable to do Any Activity Total Care Mouth Care Drowsy or Coma;
Extensive Disease Only +/- Confusion
0%
PPS Score Level:
Palliative Performance Score Response
Palliative Performance Score Response: 20%
Physical Exam
-
General: Other (intubated, on pressor support. no acute distress. appears comfortable )
Assessment / Plan
-
Assessment/Plan:
Goals of care discussion today with Gucci.
Await copy of medical poa and living will
Care Reviewed
Data Reviewed
Reviewed with: Physician
--- NOTE | 2024-06-25 14:52 | W.PN.HOSP.TC ---
Today's Communication/Plan
-
continue current plan of care, ongoing GOC discussions
Assessment / Plan
Assessment / Plan
Assessment:
Septic shock
- ID following
- s/p 7 day course of Ancef for UTI (Klebsiella in urine) and Pneumonia (MSSA in sputum)
- follow cultures
- wean pressors as able, currently on Levophed and Vasopressin
Unresponsive state and VDRF
Hx of seizures with multiple AEDs (Epilepsy)
- now off sedation
- monitor mental status
- Neurology consulted as concern for possible seizure with subtherapeutic levels; EEG 06/20/2024-mild diffuse cortical dysfunction without focal abnormalities, no seizures
- continue Vimpat, phenobarbital, Keppra, phenytoin
- MRI ordered but unable to perform due to metallic cranial hardware
- EEG repeat shows: 'Intermittent frontally predominant at times independent and at others 1 HZ rhythmic generalized spike and slow-wave which was medium-high amplitude lasting up to 0.5 seconds maximum, repeating for a maximum of 3 seconds'
- Neurosurgery evaluated, no role for surgery/transfer
- ICU managing vent settings; follow ABGs and for vent weaning
Severe hypernatremia
Dehydration
- Nephrology signed off
- continue FWF
Constipation
- s/p disimpaction in ER
- CT abd demonstrated perirectal inflammation consistent with stercoral colitis
Hx of mental and physical disability onset in childhood
Anemia-macrocytic
Hx of TYPE INSPECTOR Shunt
DVT ppx: Lovenox
Code: Full for now. Palliative care service consulted
Total Critical Care Time 41 minutes. I was immediately available to the patient and staff. I personally examined, reviewed labs, diagnostic images/reports, interpretations, treatment plans, discussed patient care with other providers and family
or caregivers (if patient is unable to make decisions), entered orders as appropriate and documented the medical record.
Anticipated Discharge: > 48 hours
Subjective/Interval History
-
Date of Service: June 25, 2024
briefly intermittently following commands per nursing at times, not during this encounter
remains intubated, on pressors
Objective Data
-
Labs:
Laboratory Results
06/25/24
05:20
WBC 12.6 H
Hgb 8.1 L
Hct 24.4 L
Plt Count 264
Sodium 144
Potassium 3.4 L
Chloride 102
Carbon Dioxide 34 H
BUN 23 H
Creatinine 0.7
Glucose 150 H
Calcium 7.8 L
Vital Signs:
Vital Signs
Temp Pulse Resp BP Pulse Ox
97.8 F 85 19 99/62 97
06/25/24 07:16 06/25/24 13:40 06/25/24 13:40 06/25/24 13:40 06/25/24 13:30
I&O
06/24/24 06/25/24 06/26/24
06:59 06:59 06:59
Intake Total 1739.6 / 1831.1 2647.2 / 2763.1 1022.2 / 1022.2
Output Total 1627 / 1682 3079 / 3179 2200 / 2200
Balance 112.6 / 149.1 -431.8 / -415.9 -1177.8 / -1177.8
Physical Exam
-
General: No Apparent Distress and Intubated
HEENT: Normocephalic and Atraumatic
Respiratory: Negative Wheezes
Cardiac: Regular Rhythm and S1/S2
GI: Soft
Psych: Calm
Data Reviewed
-
Critical Care Time (in minutes): 41
Labs: Labs Reviewed by me
[2024-06-25] MEDS: LOVENOX 40 MG SC (17:14)
[2024-06-25 18:35] LABS: Glucose - Point of Care 114 mg/dl (70-99)
--- NOTE | 2024-06-25 20:00 | PTCARENOTE ---
Received patient intubated, intermittently following commands. Right hand contracted, b/l foot drop. Normal sinus/sinus tach, 90s-100s. On levo and vaso gtt, titrating levo to maintain MAP>65. Doppler pedals, weak radials b/l. +2 generalized
anasarca, SCDs on. 8.0 ETT, 24 at the lip, moved from center to right. AC 12/500/30%/5. Coarse, rhonchi throughout. Jevity 1.5 at goal through right nare DHT. Rectak trumpet in place, putting out brown, mucoid loose stool. Thermoster michele in place
draining yellow urine. Cut on lip ANATOLIY, heel foams in place. Moisturizer applied to back and sacrum. Continuous lateral repositioning ongoing, percussion Q4 per order. Right DL PICC patent, WNL. Hourly rounding ongoing.
--- NOTE | 2024-06-25 23:45 | PTCARENOTE ---
Took patient down to ED xray and back without any issues. Mouth care and michele care done, repositioned, new sheets placed underneath patient. ETT retaped and pino replaced with respiratory, 2x2 with duoderm on top of open lip wound. Vaso off since
2144, titrating levo down. Otherwise patient assessment unchanged from previous.
[2024-06-25 23:51] LABS: Glucose - Point of Care 103 mg/dl (70-99)
[2024-06-26] VITALS (74 sets, daily range): BP systolic 78–117; BP diastolic 50–84; BMI 24.7
--- NOTE | 2024-06-26 04:00 | PTCARENOTE ---
Addendum entered by Debbie Duncan RN 06/26/24 04:45:
Tylenol given for mild fever.
Original Note:
Patient assessment unchanged from previous, labs sent. Percussion and lateral rotation ongoing.
[2024-06-26] MEDS: TYLENOL ORAL SOLUTION 650 MG TUBE (04:39)
[2024-06-26 04:46] LABS: Venous Blood Gas B.E. 10.3 mmol/L (-4 to +4); Venous Blood Gas HCO3 34.3 mmol/L (22-27); Venous Blood Gas pCO2 43 mmHg (35-48); Venous Blood Gas pH 7.51 (7.32-7.43); Venous Blood Gas pO2 143 mmHg (30-50)
[2024-06-26 04:53] LABS: % Basophils 0.2 % (0-2); % Eosinophils 3.6 % (0-6); % Lymphocytes 12.6 % (20.5-51.1); % Monocytes 7.1 % (1.7-9.3); % Neutrophils 75.5 % (42.2-75.2); Absolute Eosinophils 0.5 10^3/uL (0-0.7); Absolute Immature Granulocytes 0.1 10^3/uL (0-0.05); Absolute Lymphocytes 1.7 10^3/uL (1.2-3.4); Absolute Neutrophils 10.2 10^3/uL (1.4-6.5); Hematocrit 25.6 % (39.0-52.0); Hemoglobin 8.5 g/dL (13.0-18.0); Mean Corp Hgb Conc. 33.2 g/dL (33.0-37.0); Mean Corpuscular Hgb 30.2 pg (27.0-31.0); Mean Corpuscular Volume 91.1 fL (80.0-94.0); Mean Platelet Volume 10.3 fL (7.4-10.4); Nucleated Red Blood Cells % 0 % (-); Platelet Count 306 10^3/uL (130-400); Red Blood Cell Count 2.81 10^6/uL (4.70-6.10); White Blood Cell Count 13.5 10^3/uL (4.8-10.8)
[2024-06-26 05:16] LABS: Blood Urea Nitrogen 31 mg/dl (9-20); Calcium 8.2 mg/dl (8.4-10.2); Carbon Dioxide 33 mmol/L (22-30); Chloride 100 mmol/L (98-107); Estimated Creatinine Clearance 78 ml/min; Glucose 122 mg/dl (70-99); Magnesium 1.9 mg/dl (1.6-2.3); Phosphorus 3.2 mg/dl (2.5-4.5); Sodium 142 mmol/L (135-145); eGFR > 60.00
[2024-06-26 05:27] LABS: NT-proBNP 1770 pg/ml
[2024-06-26] MEDS: NOVOLOG FLEXPEN-MODERATE RESISTANCE SC ×4 (05:33→23:35)
[2024-06-26] MEDS: LEVOPHED 258 MG IV (06:20)
--- NOTE | 2024-06-26 07:55 | PTCARENOTE ---
Pt with his left thumb on the DHT now @ 30cm, and his ETT @ 21cm secured to his lower lip.TF on hold, DHT removed. No breath sounds on the left. Dr. Nunes notified immediately via TT. Thorough mouth care performed and suctioned. Advanced ETT to
24cm & secured with RPT. DHT inserted as ordered. CXR/abd film pending. Pt tolerated it well. Upper lip with DTI, yellow eschar present and area swollen and firm.
--- NOTE | 2024-06-26 08:10 | W.PN.INTV ---
Today's Communication / Plan
Recommendations
ABx per ID
AEDs per neuro
Daily SAT/SBT and wean for as long as tolerated
Keep K>4, Mg>2
Tube feeds
keep MAP>65
Monitor fevers and Tx with cooling blanket and Tylenol as needed; prn Toradol but monitor sCr
Trend blood gas
Neurosurgery consulted - no indication for surgery and doubt his prior ELECTRICAL PARTS RECONDITIONER shunt is the reason for acute clinical status
Guarded prognosis
Assessment
-
68-year-old male with a history of significant intellectual disability, epilepsy, hyperlipidemia who presents from [place] [facility] unresponsive and [id number]-[id number] consulted for ventilator/critical care management 06/18/2024.
Impression:
Toxic-metabolic encephalopathy
Severe hypernatremia-serum sodium 171-total body water deficit 8.1 L - sodium now normalized
MILY - resolved
Ventilator dependent respiratory failure with acute hypoxia
Intubated in ED on: 06/18/2024
Aspiration pneumonia/CAP due to MSSA
Septic shock due to PNA and UTI
UTI with UCx (06/18/2024) growing Klebsiella pneumonia
Leukocytosis
Anemia
Hyperglycemia (HbA1C: 5.5 on 06/21/2024)
Conditions present prior to admission:
Intellectual disability.
ELECTRICAL PARTS RECONDITIONER shunt
Hyperlipidemia.
Epilepsy.
DNR in the past
Plan
He remains critically ill on the ventilator and pressors with recurrent spiking fevers, although his fever curve is improved
Ventilator settings reviewed
Arterial blood gases reviewed-adequate oxygenation with respiratory alkalosis today
Ventilator has been adjusted
Daily SAT/SBT if clinically appropriate
Monitor airway pressures with goal PIP <30�35
Mucolytics continue with mucinex
Follow occasional blood gas
VAP prevention protocol
Start DuoNebs for pulmonary toilet purposes given he does continue to have secretions, although no large airway plugging seen on CXR; start DuoNebs BID and prn for in between
Cultures reviewed
MRSA screen-negative
Sputum culture 06/18/2024-many WBCs, moderate MSSA and Keisha albicans (likely contaminant)
Influenza negative
Blood cultures 10/04 positive for coagulase-negative Staphylococcus - likely a contaminant
Repeat blood culture 06/20/2024-NGTD
Repeat sputum culture 06/20/2024-usual respiratory carina
C. difficile 06/22/2024-negative
Urine culture 06/18/20247666-lfjd-duidupre bacilli-Klebsiella (resistant to ampicillin + intermediate to nitrofurantoin)
CSF culture (06/18/2024 - performed by ED physician, Dr. Johnson) - NGTD
CSF fluid 06/18/2024-clear, colorless, WBC-2, glucose 78, total protein 128
Lactate normal since 06/18/2024 � no longer need to trend
Infectious disease consultation noted-correspondence reviewed-central fever also suspected; continue with cefazolin with plans for 7 days total ABx
Maintain MAP>65; wean down vasopressors as tolerated, random cortisol checked on 06/23 and was 21 --> no evidence for CIRCI and no need fro stress dose steroids at this time
Monitor leukocytosis-much improved, currently at 13.5
Source for ongoing temperatures and septic picture with ongoing pressor dependent hypotension unclear-differential includes pocket of infection/abscess, medications, etc.-consider repeat CT head/neck/chest/abdomen and pelvis, WBC scan,
etc.-infectious disease following
Central fever is suspected, karin given procal is 0.7, making central fevers more likely
Keep MAP>65
Wean down levophed as tolerated; ok to stop vasopressin given levophed is now <5mcg/min
Patient sodium as of today (06/26/2024) is 142
Although patient was rapidly corrected, according to nephrology there is more liberal correction methods for hypernatremia compared to hyponatremia
Nephrology involved and recommendations appreciated
Continue to maintain normal sodium level between 135�145
Replete K>4, Mg>2
TTE done on 06/23/2024 shows preserved LVEF at 55-60% with mild MR and trace AI/TR.
Neurology following-correspondence reviewed
Continue with antiepileptics per neuro � currently on Vimpat 150 mg PO q12hr, phenobarbital 64.8mg BID + Keppra 1,500 mg PO q12hr
EEG 06/20/2024-mild diffuse cortical dysfunction without focal abnormalities, no seizures recorded
Given that patient was minimally responsive, CT head checked on 06/23/2024 showed no acute intracranial abnormalities. EEG obtained on 06/24 showed frontally predominant generalized spike + slow-wave discharges with generalized slow background
TSH WNL at 2.77 (checked 06/23/2024); follow up repeat Dilantin level 8.7 from 06/23/2024 (drawn about 2 hours prior to dose being given - prior to that, her last level was low at 6.5 on 06/20/2024, which was drawn a few hours after his morning dose
that day)
- Defer AEDs to neurology
Vitamin B12 WNL; RPR negative
Neurosurgery consulted - recs pending, given his Hx of ELECTRICAL PARTS RECONDITIONER shunt and possible association to his fevers and continued encephalopathy
Monitor hemoglobin
Transfuse as needed to keep Hb>7g/dL, plt>20k
Follow blood sugar with goal BG 140-180mg/dL
Insulin supplementation as needed
DVT prophylaxis- LMWH
GI prophylaxis -PPI due to septic shock
Continue tube feeds via NGT
Bedside range of motion
Goals of care-DNR in the past - now full code --> On 06/23/2024 I called the patient's POA, Gucci Kong, and explained the critically ill state that Rickie is in. No decisions on code status were made at that time and he wanted to continue with
full medical management. He understands the severity of the patient's illness and that he has a low likelihood of full recovery. I will call Gucci again today to discuss patient's goals of care/code status given the patient was DNR/DNI prior to
arrival.
Update (06/26/2024): I spoke with Gucci and gave him an update on patient's clinical status. Gucci spoke with palliative care, Dr. Leavitt as well today. Advanced directive was reviewed. Gucci will come to visit again tonight. I explained that if
the pt is extubated and fails, that we can either re-intubate or proceed with comfort measures. Gucci was unable to answer how to handle him failing extubation, and we agreed that we will continue with full medical management as the pt is responding
to our commands today and seems to be his 'usual self,' at least how he is responding. I answered all of Gucci's questions.
Guarded prognosis
Critical care statement: A total of 38 minutes of critical care time was provided for this patient today. This includes management of unstable vital signs, evaluation of the patient at bedside, reviewing the patient's pertinent medical records
including radiographs, pressor and ventilator management, microbiology, laboratory evaluations, and discussion with primary team, consultants, pharmacy, nutrition, physical therapy, case management, charge nurse, critical care nursing, and
respiratory therapy.
Diagnostic data:
Chest x-ray 06/18/2024-NAD, ET tube 2.5 cm above toro
CXR 06/23/2024: No active cardiopulmonary disease
CXR 06/24/2024: Stable positioning of support lines and tubes; Left basilar opacities, similar to prior which may represent atelectasis, possible pneumonia.
CXR 06/25/2024: No active pulmonary process; stable support devices
CXR 06/26/2024: No active cardiopulmonary disease; The tip of the endotracheal tube is in satisfactory position 4.5 cm above the toro; Mild interstitial fibrosis.
CT abdomen and pelvis 06/18/2024-large amount of stool, chronic and incidental findings not acute
CT head 06/18/2024-no acute intracranial abnormalities
CT Head 06/23/2024: There are no acute intracranial abnormalities; stable postoperative changes; there is moderate diffuse cortical and cerebellar atrophy with mild nonspecific white matter changes
EEG (06/24/2024): Moderately abnormal study for age based on frontally predominant generalizing spike and slow-wave discharges with a generalized slow background.
Subjective Dataa
Subjective Data
Date of Service:
Date of Service: June 26, 2024
Chief Complaint: Hunting And Fishing Guide Follow Up, Pulmonary Follow Up and Vent Management Follow Up
Subjective:
Patient seen and evaluated this morning. Currently on a wean on 05/05 at 30% FiO2. PIP is [id number], VTe labile between 294�350mL and he is breathing at 16 breaths/minute. He saturating 99% with heart rate 99, BP 100/66. He has moderate amount of
thick sputum from ET tube. On levophed down to 4mcg/min. He occasionally follows commands however later in the morning hours he was following all commands, nodding his head that he does want the tube out of his throat, and was able to
communicate with me effectively.
Review of Systems
General: Other (Negative due to patient being intubated)
Objective Data
Data Reviewed
Vital Signs / I&O / Oxygen:
Vital Signs
Temp Pulse Resp BP Pulse Ox
99.3 F 80 28 99/66 97
06/26/24 07:49 06/26/24 08:16 06/26/24 08:16 06/26/24 06:00 06/26/24 08:16
Intake and Output
06/25/24 06/26/24 06/27/24
06:59 06:59 06:59
Intake Total 2647.2 / 2763.1 2478.9 / 2563.3 84.4 / 84.4
Output Total 3079 / 3179 4131 / 4147
Balance -431.8 / -415.9 -1652.1 / -1583.7 68.4 / 68.4
SaO2 [CPAP/PSV] 97
SaO2 [A/C] 97
SaO2 97
Nasal Cannula flow liters per 4
minute
Physical Exam
General: Respiratory Distress (n) and Comfortable
HEENT: Normocephalic, Anicteric and Other (ETT in place)
Cardiovascular: S1-S2, Peripheral Edema (trace lower extremity edema b/l) and Other (Distant cardiac sounds)
Respiratory: Wheeze (n), Crackles (negative), Rhonchi (Sunflower upon expiration bilaterally), Non-Labored Respirations, Accessory Resp Muscle Use (n), Stridor (n) and ET Tube (Mechanical breath sounds heard bilaterally)
GI: Soft, Non Distended and Non Tender
Neurology: Awake, Tremors (negative) and Other (Occasionally not following commands and lethargic, otherwise he is awake and following all commands and in no acute distress; strong cough reflex)
Skin: Warm, Dry, Cyanosis (n), Jaundice (n) and Rash (n)
Labs/Micro/Reports
Lab Data
06/26/24 04:36
06/26/24 04:36
Microbiology
06/20/24 16:18 Blood/Venous Blood Culture - Final
No Growth - Final Report
06/18/24 08:11 Blood/Venous Blood Culture - Final
Coagulase neg. staphylococcus
Additional testing on request
06/18/24 08:11 Blood/Venous Gram Stain - Final
06/18/24 10:05 Csf CSF Culture - Final
No Growth After 5 Days - Final Report
06/18/24 10:05 Csf Gram Stain - Final
06/18/24 08:11 Blood/Venous Blood Culture - Final
No Growth - Final Report
--- NOTE | 2024-06-26 08:30 | PTCARENOTE ---
Remains awake and alert. Assisted with xray. He was repositioned in the bed. Breath sounds with scattered rhonchi throughout. Right hand/wrist contracted. Rigid extremities. Following simple commands but inconsistent. He is unable to support his
head and manage his secretions. Requires oral suctioning, towel placed under his chin. #8ETT now secured 24cm lower right lip. Tolerating CPAP/PS wean t this time. He is aware of the plan of care regarding weaning and the hopes of removing his
breathing tube. Protective foams to his heels intact, elevated on pillows. SCD's intact. Safe environment maintained.
--- NOTE | 2024-06-26 09:15 | PTCARENOTE ---
TANYA Duckworth provided update over the phone. He is aware he is on a ventilator wean presently. He is aware that Rickie is unable to support his head and manage his secretions, his gag reflex is weak, and there is a concern for aspiration if extubated.
Supportive care provided.
--- NOTE | 2024-06-26 09:34 | W.PN.ID1 ---
Date of Service
Date of Service: June 26, 2024
Today's Communication
Observe off abx.
ID will sign off. Call prn.
Assessment / Plan
# Persistent fever, leukocytosis , shock - present on admission, unclear source.
- Remains on Vent support, pressor support
- No infectious etiology identified for the persistent fevers, hypotension
- Suspect central fever
- Reactive leukocytosis overall trending down
- Admission CSF only 2wbc - no infectious meningoencephalitis.
- CT a/p no infection
- Repeat Blood cx negative, sputum cx usual resp carina
- C. diff neg
# s/p Pneumonia - resolved
- Admission sputum MSSA
- 06/23 Repeat CXR - no active parenchymal opacities
-s/p 7d cefazolin, dc'd 06/25.
- Aspiration precaution
# s/p Klebsiella UTI
- s/p 8 days IV abx, dc'd 06/25.
# CoNS bacteremia (1 of 2 sets)= contaminant
- Repeat bcx neg
# Change in mental status- improved off sedation
# Seizure disorder on phenytoin, Keppra, Vimpat, phenobarbital
# s/p Severe hypernatremia
- Nephrology managing
# Guarded prognosis. Ongoing C discussion
ID will sign off.
# Conditions prior to admission
Intellectual disability
Epilepsy on phenytoin, Keppra, Vimpat
Dyslipidemia
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
[facility] resident ([facility])
Chief Complaint
-: Fever and Leukocytosis
Subjective / Review of Systems
On vent. Awake. Follows some commands.
Vital Signs / Physical Exam
Vital Signs
Vital Signs
Temp Pulse Resp BP Pulse Ox
99.3 F 80 28 99/66 97
06/26/24 07:49 06/26/24 08:16 06/26/24 08:16 06/26/24 06:00 06/26/24 08:16
Physical Exam
Constitutional: Acutely Ill
Cardiovascular: Regular Rate and S1/S2
Pulmonary: Clear (anteriorly)
Gastrointestinal: Soft, Non Tender, Non Distended and Normal Bowel Sounds
Genito-Urinary: Villareal and Turbid Urine; Negative CVA Tenderness
Objective Data
Lab Data
Lab Results
06/26/24 04:36
06/26/24 04:36
PT 20.0 Sec (11.4-14.6) H 06/19/24 09:02
INR 1.69 06/19/24 09:02
APTT 39.0 Sec (23.4-35.0) H 06/19/24 09:02
Estimated Creat Clear 78 ml/min 06/26/24 04:36
Lactic Acid 1.5 mmol/L (0.7-2.0) 06/18/24 21:33
Total Bilirubin 0.7 mg/dl (0.2-1.3) 06/18/24 08:44
AST 54 U/L (17-59) 06/18/24 08:44
ALT 47 U/L (0-50) 06/18/24 08:44
Alkaline Phosphatase 286 U/L (38-126) H 06/18/24 08:44
Most recent labs reviewed.
Micro Results:
06/20/24 16:18 Blood Culture - Final
Blood/Venous No Growth - Final Report
06/18/24 08:11 Blood Culture - Final
Blood/Venous Coagulase neg. staphylococcus
Additional testing on request
Gram Stain - Final
06/18/24 10:05 CSF Culture - Final
Csf No Growth After 5 Days - Final Report
Gram Stain - Final
06/18/24 08:11 Blood Culture - Final
Blood/Venous No Growth - Final Report
06/22/24 09:57 C. difficile GDH Antigen & Toxins - Final
Feces/Stool Negative for toxigenic C.difficile
06/20/24 16:18 Respiratory Culture - Final
Endotracheal Usual Respiratory Carina
Gram Stain - Final
06/18/24 15:28 Respiratory Culture - Final
Tracheal Aspirate S aureus-Methicillin Sensitive
Keisha albicans
Gram Stain - Final
06/18/24 08:44 Urine Culture - Final
Urine Klebsiella pneumoniae
06/19/24 09:02 Nasal Screen MRSA (PCR) - Final
Nose MRSA not detected - performed by PCR methodology.
06/18/24 08:11 Influenza Types A & B (FLAVIO) - Final
Nasal Swab Negative for Influenza A & B, NAAT
Negative results must be combined with clinical observations
and patient history.
Nucleic Acid Amplification test (NAAT)performed on the
[employer] platform.
06/18/24 CT a/p: Large amount of stool in the rectum with rectal wall thickening and perirectal inflammation compatible with fecal impaction and stercoral colitis.
06/20/24 CXR: Bilateral parenchymal opacities, increasing, most likely pneumonia. No evidence for associated pleural effusion.
--- NOTE | 2024-06-26 10:20 | PTCARENOTE ---
DHT again removed by the pt with his left thumb. Dr. Nunes notified immediately. Will reinsert another DHT and obtain x-ray for placement. Left wrist restraint applied as ordered. Pt was informed of the importance of NOT removing tubes because
his medications are now overdue and he has not gotten any tube feeds.
--- NOTE | 2024-06-26 11:27 | W.PN.PAL2 ---
Today's Communication
-
Interval Hx: Over last 24 hours mentation have improved, sedation has been decreased, however patient continues to require significant ventilatory support for breathing. has poor neck control and ability to manage secretions at this time. Patient is
not yet at a point where ready for extubation.
Received and reviewed Rickie's Living will, copy will be added to the chart. see goals of care conversation below for greater detail, however plan after discussion patient's power of deputy county attorney is the following:
At this time patient does not have an end stage medical condition, however if his respiratory status does not improve over the next 24-48 hours (by day 10 on the ventilator -sunday) to the point where extubation appears feasible, AND if at that
time his physicians agree that he now has an end stage medical condition that there is no realistic hope of significant recovery, then his living will would become active and treatment focus would focus on comfort, withdrawal of life-prolonging
measures, and no cpr/ventilation, no artificial food or hydration. His medical power of deputy county attorney is an agreement with this plan to reassess condition by sunday, and if not improving to initiate hospice/comfort care discussions at that time.
If respiratory status is improving, then goal is eventual extubation.
Assessment / Plan
-
Assessment/Plan:
Continue current treatment plan.
Goals of care clarified as above.
Copy of living will to be added to chart
Reason for Admission
Illness Course/HPI
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 history obtained from patient's medical power deputy county attorney, Gucci
Luann. Patient attended a specialized school in childhood, and lived semi-independently in an appartment near his mom for many years. 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 His mother was previously his medical decision maker but currently has dementia, resides in a memory care unit and on hospice herself. Many years prior to her illness that she and
rickie worked with an deputy county attorney to complete his medical directives and medical poa - appointed Gucci as his medical poa.
Gucci (an deputy county attorney out of [facility] ) is close family friends with Rickie (describes that their mothers were childhood best friends), and he has been involved in his care for many years. Rickie has no siblings, but does have a distant cousin not actively
involved in his care. Gucci has helped with his IADLs, Personal care needs, and in the past miner helper/caregivers for Rickie. in the past three years rickie has grown weaker, had recurrent falls and due to increasing care needs was eventually placed in
[facility] about 6 months ago. At his current baseline, he is mostly bedbound, but is able to enjoy heated conversations about all of the [employer] sports teams, and feed self.
Rickie was hospitalized on 06/18 for change in mental status, intubated and transferred to ICU. today is day 7 on the vent, and although respiratory status - cxr and imaging are improving, still requires significant vent support and pressor support. He
remains critically ill at this time. Palliative care was consulted for goals of care, patient was DNR on assisted records, changed to full code on arrival to hospital.
Functional Status
He is currently intubated, Able to follow a few commands.
Baseline: bedbound, able to converse, feed self.
Goals of Care Discussion
-
Individuals Present for Discussion & Relationship to Patient:
Discussion over the telephone with healthcare agent Gucci Kong
Patient able to participate in discussion at time of visit: No
Patient Goals
At this time patient does not have an end stage medical condition, and therefore current healthcare goals are treatment oriented and should continue efforts to wean the ventilator to extubation when safe.
However if his respiratory status does not improve over the next 48 hours (by day 10 on the ventilator -sunday) to the point where extubation appears feasible,
AND if at that time his physicians agree that he NOW has an end stage medical condition that there is no realistic hope of significant recovery,
then his living will would become active and treatment focus would focus on comfort, withdrawal of life-prolonging measures, and no cpr/ventilation, no artificial food or hydration.
His medical power of deputy county attorney is an agreement with this plan to reassess condition by sunday, and if not improving to initiate hospice/comfort care discussions at that time.
Pain & Symptom Assessment
Patient Symptoms
Patient Symptoms: Other (patient appeared comfortable on the ventilator)
Objective Data
-
Objective Data:
Vital Signs
Temp Pulse Resp BP Pulse Ox
99.3 F 89 15 100/66 98
06/26/24 07:49 06/26/24 10:40 06/26/24 10:40 06/26/24 10:40 06/26/24 10:30
Laboratory Results
06/26/24 04:36
06/26/24 04:36
PT 20.0 Sec (11.4-14.6) H 06/19/24 09:02
INR 1.69 06/19/24 09:02
APTT 39.0 Sec (23.4-35.0) H 06/19/24 09:02
Hemoglobin A1c 5.5 % (4.0-5.6) 06/21/24 03:22
Ammonia < 9 umol/L (9-30) L 06/23/24 17:23
Total Protein 7.4 g/dl (6.3-8.2) 06/18/24 08:44
Albumin 3.4 g/dl (3.5-5.0) L 06/18/24 08:44
Urine Color Yellow 06/18/24 08:44
Urine Clarity Very cloudy (Clear) 06/18/24 08:44
Urine pH 5.0 (5.0-9.0) 06/18/24 08:44
Ur Specific [place] 1.020 (<1.030) 06/18/24 08:44
Urine Ketones Negative (Negative) 06/18/24 08:44
Urine Bilirubin 1+ (Negative) A 06/18/24 08:44
Palliative Performance Scale
Palliative Performance Scale:
PPS Level Ambulation Activity & Evidence of Disease Self Care Intake Conscious Level
100% Full Normal Activity & Work; Full Intake Full
No Evidence of Disease
90% Full Normal Activity & Work; Full Normal Full
Some Evidence of Disease
80% Full Normal Activity with Effort Full Normal or Full
Some Evidence of Disease Reduced
70% Reduced Unable Normal Job/Work Full Normal or Full
Significant Disease Reduced
60% Reduced Unable Hobby/Housework Occasional Normal or Full or Confusion
Significant Disease Assistance Reduced
50% Mainly Sit/Lie Unable to do Any Work Considerable Normal or Full or Confusion
Extensive Disease Assistance Req'd Reduced
40% Mainly in Bed Unable to do Most Activity Mainly Assistance Normal or Full or Drowsy;
Extensive Disease Reduced +/- Confusion
30% Totally Bed Unable to do Any Activity Total Care Normal or Full or Drowsy;
Bound Extensive Disease Reduced +/- Confusion
20% Totally Bed Bound Unable to do Any Activity Total Care Minimal to Full or Drowsy;
Extensive Disease Sips +/- Confusion
10% Totally Bed Bound Unable to do Any Activity Total Care Mouth Care Drowsy or Coma;
Extensive Disease Only +/- Confusion
0%
PPS Score Level:
Palliative Performance Score Response
Palliative Performance Score Response: 30%
Physical Exam
-
General: Well Developed and Other (on ventilator)
HEENT: Endotracheal Tube in Place and Other
Neuro: Awake
nods head in response to a few questions.
--- NOTE | 2024-06-26 11:48 | W.PN.HOSP.TC ---
Today's Communication/Plan
-
continue to wean vent, pressors
if no progress in 2 days, per POA, will transition to comfort
Assessment / Plan
Assessment / Plan
Assessment:
Septic shock
- ID following
- s/p 7 day course of Ancef for UTI (Klebsiella in urine) and Pneumonia (MSSA in sputum)
- follow cultures
- wean pressors as able, currently on Levophed and Vasopressin
Unresponsive state and VDRF
Hx of seizures with multiple AEDs (Epilepsy)
- now off sedation
- monitor mental status
- Neurology consulted as concern for possible seizure with subtherapeutic levels; EEG 06/20/2024-mild diffuse cortical dysfunction without focal abnormalities, no seizures
- continue Vimpat, phenobarbital, Keppra, phenytoin
- MRI ordered but unable to perform due to metallic cranial hardware
- EEG repeat shows: 'Intermittent frontally predominant at times independent and at others 1 HZ rhythmic generalized spike and slow-wave which was medium-high amplitude lasting up to 0.5 seconds maximum, repeating for a maximum of 3 seconds'
- Neurosurgery evaluated, no role for surgery/transfer
- ICU managing vent settings; follow ABGs and for vent weaning
Severe hypernatremia
Dehydration
- Nephrology signed off
- continue FWF
Constipation
- s/p disimpaction in ER
- CT abd demonstrated perirectal inflammation consistent with stercoral colitis
Hx of mental and physical disability onset in childhood
Anemia-macrocytic
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
Left upper lip Stage 3 pressure injury
DVT ppx: Lovenox
Code: Full for now. Palliative care service consulted. per recent correspondence from [facility], per POA if no improvement in 2 days, then POA will consider comfort/hospice
Total Critical Care Time 40 minutes. I was immediately available to the patient and staff. I personally examined, reviewed labs, diagnostic images/reports, interpretations, treatment plans, discussed patient care with other providers and family
or caregivers (if patient is unable to make decisions), entered orders as appropriate and documented the medical record.
Anticipated Discharge: > 48 hours
Subjective/Interval History
-
Date of Service: June 26, 2024
mental status closer to baseline per POA
remains intubated, no success with weaning
Objective Data
-
Labs:
Laboratory Results
06/26/24
04:36
WBC 13.5 H
Hgb 8.5 L
Hct 25.6 L
Plt Count 306
Sodium 142
Potassium 4.0
Chloride 100
Carbon Dioxide 33 H
BUN 31 H
Creatinine 0.8
Glucose 122 H
Calcium 8.2 L
Vital Signs:
Vital Signs
Temp Pulse Resp BP Pulse Ox
99.3 F 89 15 100/66 98
06/26/24 07:49 06/26/24 10:40 06/26/24 10:40 06/26/24 10:40 06/26/24 10:30
I&O
06/25/24 06/26/24 06/27/24
06:59 06:59 06:59
Intake Total 2647.2 / 2763.1 2478.9 / 2563.3 112.6 / 112.6
Output Total 3079 / 3179 4131 / 4147 32 / 32
Balance -431.8 / -415.9 -1652.1 / -1583.7 80.6 / 80.6
Physical Exam
-
General: No Apparent Distress and Intubated
HEENT: Normocephalic
Respiratory: Negative Wheezes
GI: Soft
Neuro: Awake
Psych: Calm
Data Reviewed
-
Critical Care Time (in minutes): 40
Labs: Labs Reviewed by me
[2024-06-26 11:59] LABS: Glucose - Point of Care 98 mg/dl (70-99)
--- NOTE | 2024-06-26 12:56 | W.PN.NEURO.1 ---
Today's Communication / Plan
-
.
Neuro Assessment/Plan
Assessment
68-year-old male with history of cerebral palsy refractory epilepsy who was found unresponsive secondary to sepsis, stool impaction and possible pneumonia with hypernatremia
Plan
Continue IV fluids as per nephrology
IV antibiotics
IV Keppra 1250 bid
IV Dilantin 200 q12
IV phenobarb 32 daily
IV Vimpat 150 q12
Subjective/Objective
Subjective Data
Date of Service: June 26, 2024
Date of Service: June 25, 2024
Neurology follow-up note
24h events: T max: 38.1C(improving). Phenytoin , Continues to be intermittently hypotensive down to 82/61 requiring Levophed.
Seen by palliative care and ID.
Labs were reviewed.
Routine EEG(06/24/2024) intermittent frontally predominant at times independent and at others 1 HZ rhythmic generalized spike and slow-wave which was medium-high amplitude lasting up to 0.5 seconds.
PMH: chronic encephalopathy/ambulatory dysfunction, epilepsy, DLP, vit D deficiency, dysphagia
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
SH: single; resident at [facility]
FH: mother-dementia
All:NKDA
ROS:unable due to encephalopathy
General: Intubated
Cardio: Tachycardic. Extremities 1+ edema.
Neuro:
Mental Status: Lethargic. Opens eyes to sternal rub, does not attempt or follow requests
Cranial Nerves: Orthophoric primary gaze. Pupils 3 mm, min reactive, blink to threat intermittently. Resists pupillary exam. No clear facial weakness
Motor: Increased motor tone right greater than left. Triple flexion in the right leg
Reflexes: No clonus at the ankles
Sensory: Does not localize to noxious stim
Coordination: No tremors or myoclonic movements
Gait: Unable
Assessment and Plan:
I. Multifactorial encephalopathy (vascular, toxic, infectious, epileptic, hypoxic), clinically worse
II. History of probable obstructive hydrocephalus
III. 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
-Avoid cerebral hypoperfusion and neurotoxic medication
-Continue Keppra to 1500 mg BID, Vimpat 150 mg BID and Phenobarbital 64.8 Mg BID
-Unable to have MRI
-Ativan 2 mg PRN for GTC lasting longer than 2 minutes.
I personally reviewed all radiology and labs along with past medical records pertinent to current medical problems. Total time spent in patient care is 35 minutes.
Thank you for allowing us to participate in the care of this patient. We will continue to follow. Please do not hesitate to contact us with any questions or concerns.
Objective Data
Vital Signs
Temp Pulse Resp BP Pulse Ox
36.7 C 89 15 100/66 98
06/26/24 12:03 06/26/24 10:40 06/26/24 10:40 06/26/24 10:40 06/26/24 11:28
Lab Results
06/26/24 04:36
06/26/24 04:36
PT 20.0 Sec (11.4-14.6) H 06/19/24 09:02
INR 1.69 06/19/24 09:02
APTT 39.0 Sec (23.4-35.0) H 06/19/24 09:02
Sodium 142 mmol/L (135-145) 06/26/24 04:36
Potassium 4.0 mmol/L (3.5-5.1) 06/26/24 04:36
BUN 31 mg/dl (9-20) H 06/26/24 04:36
Glucose 122 mg/dl (70-99) H 06/26/24 04:36
Calcium 8.2 mg/dl (8.4-10.2) L 06/26/24 04:36
Phosphorus 3.2 mg/dl (2.5-4.5) 06/26/24 04:36
Apz-K-Ntcjqdnkjmb Pept 1770 pg/ml 06/26/24 04:36
Vitamin B12 991 pg/ml (239-931) H 06/24/24 03:33
Patient Allergies
No Known Allergies Allergy (Unverified 04/02/24 08:06)
Vital Signs and Labs
-
Vital Signs and Labs:
Vital Signs
Temp Pulse Resp BP Pulse Ox
36.7 C 89 15 100/66 98
06/26/24 12:03 06/26/24 10:40 06/26/24 10:40 06/26/24 10:40 06/26/24 11:28
Lab Results
06/26/24 04:36
06/26/24 04:36
PT 20.0 Sec (11.4-14.6) H 06/19/24 09:02
INR 1.69 06/19/24 09:02
APTT 39.0 Sec (23.4-35.0) H 06/19/24 09:02
Sodium 142 mmol/L (135-145) 06/26/24 04:36
Potassium 4.0 mmol/L (3.5-5.1) 06/26/24 04:36
BUN 31 mg/dl (9-20) H 06/26/24 04:36
Glucose 122 mg/dl (70-99) H 06/26/24 04:36
Calcium 8.2 mg/dl (8.4-10.2) L 06/26/24 04:36
Phosphorus 3.2 mg/dl (2.5-4.5) 06/26/24 04:36
Ttg-P-Gadqlzpjycu Pept 1770 pg/ml 06/26/24 04:36
Vitamin B12 991 pg/ml (239-931) H 06/24/24 03:33
Medications
-
Medications:
Generic Name Dose Route Start Last Admin
Trade Name Freq PRN Reason Stop Dose Admin
Acetaminophen 650 mg 06/18/24 21:01 06/26/24 04:39
Acetaminophen (Oral Solution) 650 Mg/20.3 Ml Cup TUBE 07/16/24 20:26 650 mg
Q6HPRN PRN Administration
mild pain and temp>100.4
Bisacodyl 10 mg 06/18/24 12:39
Bisacodyl 10 Mg Rectal Suppository RECTAL 07/16/24 12:38
[id number] PRN
constipation
Carboxymethylcellulose Sodium 1 drops 06/19/24 13:00 06/25/24 21:35
Carboxymethylcellulose Ophth Gel (Celluvisc) Droperette OPHTH 06/30/24 12:59 1 drops
QID HARVEY Administration
Dextrose 12.5 grams 06/20/24 10:07
Dextrose 50% (0.5 Grams/Ml) 50 Ml Syringe IV 07/18/24 10:06
[id number] PRN
hypoglycemia
Protocol
Enoxaparin Sodium 40 mg 06/19/24 18:00 06/25/24 17:14
Enoxaparin Sodium 40 Mg/0.4 Ml Syringe SC 07/17/24 17:59 40 mg
QPM HARVEY Administration
Fentanyl Citrate 50 mcg 06/18/24 15:00 06/25/24 14:11
Fentanyl (50 Mcg/Ml) 100 Mcg/2 Ml Ampul IV 07/02/24 14:59 50 mcg
[id number] PRN Administration
see protocol
Protocol
Glucagon 1 mg 06/20/24 10:07
Glucagon 1 Mg Vial IM 07/18/24 10:06
PRN PRN
hypoglycemia
Protocol
Guaifenesin 200 mg 06/19/24 13:00 06/25/24 21:35
Guaifenesin Oral Solution (200 Mg/10 Ml) Cup TUBE 07/17/24 12:59 200 mg
QID HARVEY Administration
Norepinephrine Bitartrate 8 mg 258 mls @ 0 mls/hr 06/19/24 10:45 06/26/24 06:20
/ Sodium Chloride IV 258 mls
PER PROTOCOL HARVEY Administration
Protocol
Per Protocol
Insulin Aspart 0 units 06/20/24 12:00 06/26/24 05:33
Insulin Aspart Moderate Resistance 300 Units/3 Ml Pen.Injctr SC 07/18/24 11:59 Not Given
Q6 HARVEY
Protocol
Lacosamide 150 mg 06/24/24 20:00 06/25/24 21:34
Lacosamide (Vimpat) Oral Solution 100 Mg/10 Ml Cup TUBE 07/22/24 19:59 150 mg
Q12 HARVEY Administration
Levetiracetam 1,500 mg 06/24/24 20:00 06/25/24 21:34
Levetiracetam Solution (500 Mg/5 Ml) Cup TUBE 07/22/24 19:59 1,500 mg
Q12 HARVEY Administration
Lorazepam 1 mg 06/20/24 10:54 06/20/24 10:55
Lorazepam 2 Mg/Ml Vial IV 07/18/24 10:59 1 mg
Q1H PRN Administration
Seizure
Pantoprazole Sodium 40 mg 06/19/24 11:00 06/25/24 08:23
Pantoprazole Sodium 40 Mg/10 Ml Vial IV 07/17/24 10:59 40 mg
DAILY HARVEY Administration
Phenobarbital Sodium 64.8 mg 06/24/24 20:00 06/25/24 21:34
Phenobarbital 32.4 Mg Tablet TUBE 07/22/24 19:59 64.8 mg
BID HARVEY Administration
Polyethylene Glycol 17 grams 06/19/24 08:00 06/25/24 08:23
Polyethylene Glycol Powder 17 Grams Packet TUBE 07/17/24 07:59 17 grams
DAILY HARVEY Administration
Polyethylene Glycol 17 grams 06/18/24 12:39
Polyethylene Glycol Powder 17 Grams Packet PO 07/16/24 12:38
DAILYPRN PRN
constipation
Senna/Docusate Sodium 1 tablet 06/18/24 12:39
Docusate W/Senna (Jyotsna-Colace) Tablet PO 07/16/24 12:38
BIDPRN PRN
constipation
Sodium Chloride 0 flush 06/18/24 13:00 06/23/24 06:06
Sodium Chloride 0.9% (Flush) Syringe IV 07/16/24 12:59 2 flush
PER PROTOCOL HARVEY Administration
Sodium Chloride 10 ml 06/19/24 11:00 06/25/24 08:23
Sodium Chloride 0.9% (Preservative Free) 10 Ml Vial IV 07/17/24 10:59 10 ml
DAILY HARVEY Administration
--- NOTE | 2024-06-26 13:20 | CM ---
Connie received POA paperwork from Dr. Leavitt. CONNIE forwarded POA to medical records to be scanned into chart.
[2024-06-26] MEDS: KEPPRA 1500 MG TUBE ×2 (13:30→20:06)
[2024-06-26] MEDS: LUMINAL 64.8 MG TUBE ×2 (13:30→20:06)
[2024-06-26] MEDS: ROBITUSSIN TUBE (13:31)
[2024-06-26] MEDS: PROTONIX IV 40 MG IV (13:31)
[2024-06-26] MEDS: REFRESH CELLUVISC GEL 1 DROPS OPHTH ×3 (13:31→22:26)
[2024-06-26] MEDS: REFRESH CELLUVISC GEL OPHTH (13:31)
[2024-06-26] MEDS: NSS (PRESERVATIVE FREE) 10 ML IV (13:31)
[2024-06-26] MEDS: ROBITUSSIN 200 MG TUBE ×3 (13:31→22:26)
[2024-06-26] MEDS: MIRALAX TUBE (13:31)
[2024-06-26] MEDS: VIMPAT 150 MG TUBE ×2 (13:32→20:06)
--- NOTE | 2024-06-26 14:40 | PTCARENOTE ---
Dr. Nunes at the bedside evaluating pt. He was just placed back on AC on ventilator several minutes prior to low tidal volumes 100's-mid 200's, with increased RR 32. He was suctioned via ETT for copious amounts of thick white secretions, and
oropharyngeally for copious amounts of thick white secretions. He placed him back on CPAP/PS wean 5/5 with 30% FiO2. Will obtain ABG @ 1420. Pt is aware of the plan of care. Safe environment maintained.
[2024-06-26] MEDS: DUONEB 3 ML INH ×2 (14:48→19:00)
[2024-06-26 14:52] LABS: B.E. 8.8 mmol/L; HCO3 32.8 mmol/L (21-28); PCO2 42 mmHg (35-48); PO2 112 mmHg (83-108)
--- NOTE | 2024-06-26 14:55 | PTCARENOTE ---
Dr. Nunes notified of ABG result. Will prepare to extubate as ordered.
--- NOTE | 2024-06-26 15:05 | PTCARENOTE ---
With Dr. Nunes and RPT present, pt was extubated to nasal cannula 6 liters after suctioning and oral care. He tolerated it well. Left wrist remains restrained so he does not remove DHT for the third time today.
--- NOTE | 2024-06-26 15:11 | W.PN.UPDATE ---
Update Note
Progress Note Update
Pt underwent pressure support trial in the afternoon after he was following commands and was awake, alert in no acute distress. Patient tolerated pressure support trial on 02/02 at 30% FiO2 for over 30 minutes with ABG showing metabolic alkalosis
with appropriate respiratory compensation. Patient extubated successfully to nasal cannula. Continue with aspiration precautions keeping HOB >30-45�, keep NPO with NGT for medications + nutrition.
Patient still remains high risk for re-intubation and if he were to decline and become hypoxic then he is to be re-intubated if needed. I told the patient's POA, Gucci, that if patient does end up back on a ventilator that he would be heading
towards tracheostomy. This is okay with Gucci as of today although he obviously hopes for the best for Rickie. All questions were answered and Gucci was updated after I extubated the patient.
--- NOTE | 2024-06-26 16:34 | WOUNDNOTE ---
WOC RN NOTE: Patient visited for wound from ET tube on upper lip. Patient last visited by WOC RN on 06/20. Patient has since been extubated. The upper lip is dark purple and the inside of the lip is hard and dry. Vaseline applied. Continue wound care
ordered on 06/20.
[2024-06-26] MEDS: LOVENOX 40 MG SC (17:24)
[2024-06-26 17:39] LABS: Glucose - Point of Care 111 mg/dl (70-99)
--- NOTE | 2024-06-26 20:00 | PTCARENOTE ---
Received patient in bed, intermittently responding/following commands. B/l foot drop, contracted right hand. Normal sinus/sinus tach, 90s-100s, titrating levo gtt to maintain MAP>65. Normothermic, +2 generalized anasarca. Doppler pedal pulses, weak
radial pulses bilaterally. SCDs on. On room air, saturating 94%, lung sounds diminished throughout, scattered rhonchi. Right nare DHT, jevity 1.5 at goal. Rectal trumpet in place draining mucoid loose stool, thermoster michele in place draining yellow
urine. Upper lip wound covered in ointment. Right DL PICC patent, WNL. Friends at bedside, updated.
[2024-06-26 23:33] LABS: Glucose - Point of Care 108 mg/dl (70-99)
[2024-06-27] VITALS (59 sets, daily range): BP systolic 73–128; BP diastolic 43–97; BMI 24.4
--- NOTE | 2024-06-27 | PTCARENOTE ---
Patient assessment unchanged from previous, hourly rounding and patient safety checks ongoing
[2024-06-27 05:03] LABS: Blood Urea Nitrogen 34 mg/dl (9-20); Carbon Dioxide 30 mmol/L (22-30); Chloride 101 mmol/L (98-107); Estimated Creatinine Clearance 78 ml/min; Glucose 106 mg/dl (70-99); Potassium 4.3 mmol/L (3.5-5.1); Sodium 143 mmol/L (135-145); eGFR > 60.00
[2024-06-27 05:17] LABS: % Basophils 0.3 % (0-2); % Eosinophils 3.8 % (0-6); % Immature Granulocytes 1.2 % (0-0.5); % Lymphocytes 13.1 % (20.5-51.1); % Monocytes 7.1 % (1.7-9.3); % Neutrophils 74.5 % (42.2-75.2); Absolute Eosinophils 0.5 10^3/uL (0-0.7); Absolute Immature Granulocytes 0.2 10^3/uL (0-0.05); Absolute Lymphocytes 1.7 10^3/uL (1.2-3.4); Absolute Monocytes 0.9 10^3/uL (0.1-0.6); Absolute Neutrophils 9.7 10^3/uL (1.4-6.5); Hematocrit 25.2 % (39.0-52.0); Hemoglobin 8.4 g/dL (13.0-18.0); Mean Corp Hgb Conc. 33.3 g/dL (33.0-37.0); Mean Corpuscular Hgb 30.8 pg (27.0-31.0); Mean Corpuscular Volume 92.3 fL (80.0-94.0); Mean Platelet Volume 10.4 fL (7.4-10.4); Nucleated Red Blood Cells % 0 % (-); Platelet Count 369 10^3/uL (130-400); Red Blood Cell Count 2.73 10^6/uL (4.70-6.10); Red Cell Dist. Width 15.7 % (11.5-14.5); White Blood Cell Count 13.1 10^3/uL (4.8-10.8)
--- NOTE | 2024-06-27 05:30 | PTCARENOTE ---
CHG bath done, new gown and sheets. Labs sent, repositioned. Otherwise patient assessment unchanged from previous.
[2024-06-27] MEDS: NOVOLOG FLEXPEN-MODERATE RESISTANCE SC ×4 (05:31→22:57)
[2024-06-27 05:40] LABS: Glucose - Point of Care 123 mg/dl (70-99)
--- NOTE | 2024-06-27 07:30 | PTCARENOTE ---
Received pt @ change of shift, drowsy/awakens to verbal stimuli. Weak voice quality, unable to discern orientation. Intermittently follows commands. B/L foot drop and R hand cx. L soft limb wrist/[address] to prevent pt from pulling @
lines/tubes- see flow sheet. SR on monitor. SpO2 97% on RA. Afebrile. +BS, abd soft/round. R nare dobhoff @ 65cm w Jevity 1.5 @ 50mL/hr w 25 H20 flush/hr. Rectal trumpet in place w brown/liq stool. Therm michele in place draining yellow urine. R
DL PICC w levo gtt infusing to keep MAP >65-see flow sheet. Complete hygiene provided; repositioned per protocol. Safe environment maintained.
[2024-06-27] MEDS: KEPPRA 1500 MG TUBE ×2 (07:45→19:49)
[2024-06-27] MEDS: PROTONIX IV 40 MG IV (07:45)
[2024-06-27] MEDS: NSS (PRESERVATIVE FREE) 10 ML IV (07:45)
[2024-06-27] MEDS: MIRALAX 17 GRAMS TUBE (07:46)
[2024-06-27] MEDS: ROBITUSSIN 200 MG TUBE ×4 (07:46→22:02)
[2024-06-27] MEDS: REFRESH CELLUVISC GEL 1 DROPS OPHTH ×4 (07:46→22:02)
[2024-06-27] MEDS: LUMINAL 64.8 MG TUBE ×2 (07:46→19:49)
[2024-06-27] MEDS: VIMPAT 150 MG TUBE ×2 (07:46→19:50)
--- NOTE | 2024-06-27 08:10 | W.PN.INTV ---
Today's Communication / Plan
Recommendations
AEDs per neuro
Keep K>4, Mg>2
Tube feeds and MANAGER MEDICARE eval
Start midodrine and keep MAP>65
Monitor fevers and Tx with cooling blanket and Tylenol as needed; prn Toradol but monitor sCr
Neurosurgery consulted - no indication for surgery and doubt his prior LITERACY COACH shunt is the reason for acute clinical status
Guarded prognosis
Patient stable for downgrade out of ICU to IMU. Pulmonary service will continue to briefly follow along.
Assessment
-
68-year-old male with a history of significant intellectual disability, epilepsy, hyperlipidemia who presents from [facility] unresponsive and aytipnwheea-kkgmjybhc-psahyenzavt consulted for ventilator/critical care management 06/18/2024.
Impression:
Toxic-metabolic encephalopathy - improved
Severe hypernatremia-serum sodium 171-total body water deficit 8.1 L - sodium now normalized
MILY - resolved
Ventilator dependent respiratory failure with acute hypoxia
Intubated in ED on: 06/18/2024
Extubated: 06/26/2024
Aspiration pneumonia/CAP due to MSSA
Septic shock due to PNA and UTI
UTI with UCx (06/18/2024) growing Klebsiella pneumonia
Leukocytosis
Anemia
Hyperglycemia (HbA1C: 5.5 on 06/21/2024) - resolved
Conditions present prior to admission:
Intellectual disability.
LITERACY COACH shunt
Hyperlipidemia.
Epilepsy.
DNR in the past
Plan
Patient was extubated yesterday to nasal cannula and he is now on room air breathing comfortably. He has markedly improved.
Mucolytics continue with mucinex
Aspiration precautions
Ok to stop DuoNebs as it is not appearing to help expectoration of his secretions.
Insert nasal trumpet and start frequent NT suctioning
prn duonebs - not currently bronchospastic
Cultures reviewed
MRSA screen-negative
Sputum culture 06/18/2024-many WBCs, moderate MSSA and Keisha albicans (likely contaminant)
Influenza negative
Blood cultures 10/04 positive for coagulase-negative Staphylococcus - likely a contaminant
Repeat blood culture 06/20/2024-NGTD
Repeat sputum culture 06/20/2024-usual respiratory carina
C. difficile 06/22/2024-negative
Urine culture 06/18/20245931-[id number]-[id number] bacilli-Klebsiella (resistant to ampicillin + intermediate to nitrofurantoin)
CSF culture (06/18/2024 - performed by ED physician, Dr. Johnson) - NGTD
CSF fluid 06/18/2024-clear, colorless, WBC-2, glucose 78, total protein 128
Lactate normal since 06/18/2024 � no longer need to trend
Infectious disease consultation noted-correspondence reviewed-central fever also suspected; s/p cefazolin with plans for 7 days total ABx - last day Abx on 06/25
Maintain MAP>65; wean down vasopressors as tolerated, random cortisol checked on 06/23 and was 21 --> no evidence for CIRCI and no need fro stress dose steroids at this time
Monitor leukocytosis-much improved, currently at 13.1
Source for ongoing temperatures and septic picture with ongoing pressor dependent hypotension unclear-differential includes pocket of infection/abscess, medications, etc.-consider repeat CT head/neck/chest/abdomen and pelvis, WBC scan,
etc.-infectious disease following
Central fever is suspected, karin given procal is 0.7, making central fevers more likely
Keep MAP>65
Wean down levophed as tolerated; stopped vasopressin given levophed is now <5mcg/min --> start midodrine --> patient was successfully weaned off of vasopressors later in the morning hours today
Patient sodium as of today (06/26/2024) is 143
Although patient was rapidly corrected, according to nephrology there is more liberal correction methods for hypernatremia compared to hyponatremia
Nephrology involved and recommendations appreciated
Continue to maintain normal sodium level between 135�145
Replete K>4, Mg>2
TTE done on 06/23/2024 shows preserved LVEF at 55-60% with mild MR and trace AI/TR.
Neurology following-correspondence reviewed
Continue with antiepileptics per neuro � currently on Vimpat 150 mg PO q12hr, phenobarbital 64.8mg BID + Keppra 1,500 mg PO q12hr
EEG 06/20/2024-mild diffuse cortical dysfunction without focal abnormalities, no seizures recorded
Given that patient was minimally responsive, CT head checked on 06/23/2024 showed no acute intracranial abnormalities. EEG obtained on 06/24 showed frontally predominant generalized spike + slow-wave discharges with generalized slow background
TSH WNL at 2.77 (checked 06/23/2024); follow up repeat Dilantin level 8.7 from 06/23/2024 (drawn about 2 hours prior to dose being given - prior to that, her last level was low at 6.5 on 06/20/2024, which was drawn a few hours after his morning dose
that day)
- Defer AEDs to neurology
Vitamin B12 WNL; RPR negative
Neurosurgery consulted - recs pending, given his Hx of LITERACY COACH shunt and possible association to his fevers and continued encephalopathy
Monitor hemoglobin
Transfuse as needed to keep Hb>7g/dL, plt>20k
Follow blood sugar with goal BG 140-180mg/dL
Insulin supplementation as needed
DVT prophylaxis- LMWH
GI prophylaxis -PPI due to septic shock; stop once off levophed
Continue tube feeds via NGT
MANAGER MEDICARE eval
Bedside range of motion
Goals of care-DNR in the past - now full code --> On 06/23/2024 I called the patient's POA, Gucci Kong, and explained the critically ill state that Rickie is in. No decisions on code status were made at that time and he wanted to continue with
full medical management. He understands the severity of the patient's illness and that he has a low likelihood of full recovery. I will call Gucci again today to discuss patient's goals of care/code status given the patient was DNR/DNI prior to
arrival.
Update (06/26/2024): I spoke with Gucci and gave him an update on patient's clinical status. Gucci spoke with palliative care, Dr. Leavitt as well today. Advanced directive was reviewed. Gucci will come to visit again tonight. I explained that if
the pt is extubated and fails, that we can either re-intubate or proceed with comfort measures. Gucci was unable to answer how to handle him failing extubation, and we agreed that we will continue with full medical management as the pt is responding
to our commands today and seems to be his 'usual self,' at least how he is responding. I answered all of Gucci's questions.
Guarded prognosis
Patient successfully weaned off of all vasopressors and is stable for downgrade out of ICU to IMU. Pulmonary service will continue to briefly follow along.
Total time spent today was 75 minutes for this encounter. Time includes reviewing laboratory test/imaging results, reviewing pertinent medical records, obtaining and reviewing medical history, performing an appropriate exam, ordering medications,
tests and procedures. Time also includes documentation of this encounter, coordinating patient care and communicating with other healthcare professionals. Total time does not include separately billed tests performed on this date of service.
Diagnostic data:
Chest x-ray 06/18/2024-NAD, ET tube 2.5 cm above toro
CXR 06/23/2024: No active cardiopulmonary disease
CXR 06/24/2024: Stable positioning of support lines and tubes; Left basilar opacities, similar to prior which may represent atelectasis, possible pneumonia.
CXR 06/25/2024: No active pulmonary process; stable support devices
CXR 06/26/2024: No active cardiopulmonary disease; The tip of the endotracheal tube is in satisfactory position 4.5 cm above the toro; Mild interstitial fibrosis.
CT abdomen and pelvis 06/18/2024-large amount of stool, chronic and incidental findings not acute
CT head 06/18/2024-no acute intracranial abnormalities
CT Head 06/23/2024: There are no acute intracranial abnormalities; stable postoperative changes; there is moderate diffuse cortical and cerebellar atrophy with mild nonspecific white matter changes
EEG (06/24/2024): Moderately abnormal study for age based on frontally predominant generalizing spike and slow-wave discharges with a generalized slow background.
Subjective Dataa
Subjective Data
Date of Service:
Date of Service: June 27, 2024
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
Subjective:
Pt seen and evaluated this AM. Extubated yesterday to nasal cannula. As of this morning, he is on room air with SpO2 96%; BP 85/61 and heart rate 98. Currently on Levophed at 3mcg/min. No acute events reported from overnight.
Review of Systems
General: Other (Unable to obtain given patient's acute clinical status)
Objective Data
Data Reviewed
Vital Signs / I&O / Oxygen:
Vital Signs
Temp Pulse Resp BP Pulse Ox
98.6 F 84 20 85/61 96
06/27/24 08:16 06/27/24 08:14 06/27/24 08:14 06/27/24 06:00 06/27/24 08:14
Intake and Output
06/26/24 06/27/24 06/28/24
06:59 06:59 06:59
Intake Total 2478.9 / 2563.3 457.2 / 612.8 236.2 / 236.2
Output Total 4131 / 4147 1023 / 1033
Balance -1652.1 / -1583.7 -565.8 / -420.2 211.2 / 211.2
SaO2 [CPAP/PSV] 98
SaO2 [A/C] 100
SaO2 96
Nasal Cannula flow liters per 4
minute
Physical Exam
General: Respiratory Distress (n), Comfortable, Chills (negative) and Sweats (negative)
HEENT: Normocephalic and Anicteric
Cardiovascular: S1-S2, Peripheral Edema (trace lower extremity edema b/l) and Other (Distant cardiac sounds)
Respiratory: Wheeze (n), Crackles (negative), Rhonchi ([place] upon expiration bilaterally), Non-Labored Respirations, Accessory Resp Muscle Use (n) and Stridor (n)
GI: Soft, Non Distended and Non Tender
Neurology: Awake, Alert, Tremors (negative) and Other (follows all commands)
Skin: Warm, Dry, Cyanosis (n), Jaundice (n) and Rash (n)
Labs/Micro/Reports
Lab Data
06/27/24 04:37
06/27/24 04:36
Laboratory Results
06/26/24
14:42
pH 7.50 H
pCO2 42
pO2 112 H
HCO3 32.8 H
O2 Delivery Level
Microbiology
06/20/24 16:18 Blood/Venous Blood Culture - Final
No Growth - Final Report
06/18/24 08:11 Blood/Venous Blood Culture - Final
Coagulase neg. staphylococcus
Additional testing on request
06/18/24 08:11 Blood/Venous Gram Stain - Final
[2024-06-27] MEDS: DUONEB 3 ML INH (08:12)
--- NOTE | 2024-06-27 09:27 | W.PN.NEURO.1 ---
Today's Communication / Plan
-
.
Neuro Assessment/Plan
Assessment
68-year-old male with history of cerebral palsy refractory epilepsy who was found unresponsive secondary to sepsis, stool impaction and possible pneumonia with hypernatremia
I. Multifactorial encephalopathy (vascular, toxic, infectious, epileptic, hypoxic), clinically worse
II. History of probable obstructive hydrocephalus
III. 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
Plan
-Avoid cerebral hypoperfusion and neurotoxic medication
-Continue Keppra to 1500 mg BID, Vimpat 150 mg BID and Phenobarbital 64.8 Mg BID
-Unable to have MRI
-Ativan 2 mg PRN for GTC lasting longer than 2 minutes.
-Please notify our Neurology service with any questions/concerns, any concern for seizure activity or change in mental status.
Subjective/Objective
Subjective Data
Date of Service: June 27, 2024
24hr events: Patient extubated, tolerating room air so far. Copious thick yellow oral secretions. Tmax 37.7 C. Remains hypotensive. He is alert, following some commands. No report of any seizure activity.
Objective Data
Vital Signs
Temp Pulse Resp BP Pulse Ox
98.6 F 84 20 85/61 96
06/27/24 08:16 06/27/24 08:14 06/27/24 08:14 06/27/24 06:00 06/27/24 08:14
Lab Results
06/27/24 04:37
06/27/24 04:36
PT 20.0 Sec (11.4-14.6) H 06/19/24 09:02
INR 1.69 06/19/24 09:02
APTT 39.0 Sec (23.4-35.0) H 06/19/24 09:02
Sodium 143 mmol/L (135-145) 06/27/24 04:36
Potassium 4.3 mmol/L (3.5-5.1) 06/27/24 04:36
BUN 34 mg/dl (9-20) H 06/27/24 04:36
Glucose 106 mg/dl (70-99) H 06/27/24 04:36
Calcium 8.0 mg/dl (8.4-10.2) L 06/27/24 04:36
Phosphorus 3.2 mg/dl (2.5-4.5) 06/26/24 04:36
Jwl-K-Qkgjosjsrep Pept 1770 pg/ml 06/26/24 04:36
Vitamin B12 991 pg/ml (239-931) H 06/24/24 03:33
Patient Allergies
No Known Allergies Allergy (Unverified 04/02/24 08:06)
Review of Systems
-
Unable to obtain full review of systems at this time due to: Aphasia
Physical Exam
-
General: Appears Chronically Ill and Restrained
Eyes: No Ptosis and PERRLA (3 round, sluggish)
HEENT: Normocephalic and Atraumatic
Neck: Unable to Assess
Respiratory: No Dyspnea
GI: Non-distended
Extremities: Edema +1
Psych: Unable to Assess
Extended Neurological Exam
Mood & Affect: Unable to Assess
Attention Span & Concentration: Awake, Alert and Interactive (follows some commands)
Memory: Unable to Assess
Tremor: Hand Tremor Absent and Head Tremor Absent
Involuntary Movement: None
Speech: Severely Reduced Output and Dysarthric
Cranial Nerve II: Left Eye: Pupillary Size Unremarkable and Unable to Assess Visual Lux; Negative Pupillary Reactivity Unremarkable (sluggish)
Cranial Nerve II: Right Eye: Pupillary Size Unremarkable and Unable to Assess Visual Lux; Negative Pupillary Reactivity Unremarkable (sluggish)
Cranial Nerves III, IV, : Extraocular Movement: Unable to Assess
Cranial Nerve V: Facial Sensation: Unable to Assess
Cranial Nerve VII: Facial Symmetry: Normal Facial Symmetry
Cranial Nerve VIII: Hearing: Unremarkable Hearing to Normal Conversational Volume
Cranial Nerves IX, X: Palate Movement: Unable to Assess
Cranial Nerve XI: Shoulder Shrug: Unable to Assess
Cranial Nerve XII: Tongue Protusion: Unable to Assess
Muscle Strength, Overall: Reduced Throughout (BUE 3, BLE 1)
Muscle Bulk & Tone: Bulk Unremarkable and Tone Unremarkable
Pronator Drift: Unable to Assess
Touch Sensation: Unable to Assess
Coordination: Unable to Assess
Babinski Sign: Absent Bilaterally
Gait & Station: Unable to Assess
Data Reviewed
-
CT Head: Report Reviewed and Image Reviewed
Labs: Report Reviewed
Reviewed with: Physician, Nurse and Patient
Medications
-
Active Medications
Generic Name Dose Route Start Last Admin
Trade Name Freq PRN Reason Stop Dose Admin
Acetaminophen 650 mg 06/18/24 21:01 06/26/24 04:39
Acetaminophen (Oral Solution) 650 Mg/20.3 Ml Cup TUBE 07/16/24 20:26 650 mg
Q6HPRN PRN Administration
mild pain and temp>100.4
Albuterol/Ipratropium 3 ml 06/26/24 20:00 06/27/24 08:12
Ipratropium 0.5/Albuterol 3 Mg (3 Ml Ampul) INH 06/29/24 08:01 3 ml
R BID HARVEY Administration
Protocol
Bisacodyl 10 mg 06/18/24 12:39
Bisacodyl 10 Mg Rectal Suppository RECTAL 07/16/24 12:38
[id number] PRN
constipation
Carboxymethylcellulose Sodium 1 drops 06/19/24 13:00 06/27/24 07:46
Carboxymethylcellulose Ophth Gel (Celluvisc) Droperette OPHTH 06/30/24 12:59 1 drops
QID HARVEY Administration
Dextrose 12.5 grams 06/20/24 10:07
Dextrose 50% (0.5 Grams/Ml) 50 Ml Syringe IV 07/18/24 10:06
[id number] PRN
hypoglycemia
Protocol
Enoxaparin Sodium 40 mg 06/19/24 18:00 06/26/24 17:24
Enoxaparin Sodium 40 Mg/0.4 Ml Syringe SC 07/17/24 17:59 40 mg
QPM HARVEY Administration
Glucagon 1 mg 06/20/24 10:07
Glucagon 1 Mg Vial IM 07/18/24 10:06
PRN PRN
hypoglycemia
Protocol
Guaifenesin 200 mg 06/19/24 13:00 06/27/24 07:46
Guaifenesin Oral Solution (200 Mg/10 Ml) Cup TUBE 07/17/24 12:59 200 mg
QID HARVEY Administration
Norepinephrine Bitartrate 8 mg 258 mls @ 0 mls/hr 06/19/24 10:45 06/26/24 06:20
/ Sodium Chloride IV 258 mls
PER PROTOCOL HARVEY Administration
Protocol
Per Protocol
Insulin Aspart 0 units 06/20/24 12:00 06/27/24 05:31
Insulin Aspart Moderate Resistance 300 Units/3 Ml Pen.Injctr SC 07/18/24 11:59 Not Given
Q6 HARVEY
Protocol
Lacosamide 150 mg 06/24/24 20:00 06/27/24 07:46
Lacosamide (Vimpat) Oral Solution 100 Mg/10 Ml Cup TUBE 07/22/24 19:59 150 mg
Q12 HARVEY Administration
Levetiracetam 1,500 mg 06/24/24 20:00 06/27/24 07:45
Levetiracetam Solution (500 Mg/5 Ml) Cup TUBE 07/22/24 19:59 1,500 mg
Q12 HARVEY Administration
Pantoprazole Sodium 40 mg 06/19/24 11:00 06/27/24 07:45
Pantoprazole Sodium 40 Mg/10 Ml Vial IV 07/17/24 10:59 40 mg
DAILY HARVEY Administration
Phenobarbital Sodium 64.8 mg 06/24/24 20:00 06/27/24 07:46
Phenobarbital 32.4 Mg Tablet TUBE 07/22/24 19:59 64.8 mg
BID HARVEY Administration
Polyethylene Glycol 17 grams 06/19/24 08:00 06/27/24 07:46
Polyethylene Glycol Powder 17 Grams Packet TUBE 07/17/24 07:59 17 grams
DAILY HARVEY Administration
Polyethylene Glycol 17 grams 06/18/24 12:39
Polyethylene Glycol Powder 17 Grams Packet PO 07/16/24 12:38
DAILYPRN PRN
constipation
Senna/Docusate Sodium 1 tablet 06/18/24 12:39
Docusate W/Senna (Jyotsna-Colace) Tablet PO 07/16/24 12:38
BIDPRN PRN
constipation
Sodium Chloride 0 flush 06/18/24 13:00 06/23/24 06:06
Sodium Chloride 0.9% (Flush) Syringe IV 07/16/24 12:59 2 flush
PER PROTOCOL HARVEY Administration
Sodium Chloride 10 ml 06/19/24 11:00 06/27/24 07:45
Sodium Chloride 0.9% (Preservative Free) 10 Ml Vial IV 07/17/24 10:59 10 ml
DAILY HARVEY Administration
Home Medications
�Medication �Instructions �Recorded
acetaminophen 325 mg tablet 650 mg PO Q6HPRN PRN mild pain 03/20/24
atorvastatin 10 mg tablet 10 mg PO HS High Cholesterol 03/20/24
phenobarbital 16.2 mg tablet 64.8 mg PO BID Seizures 03/20/24
levetiracetam 1,000 mg tablet 1,250 mg PO BID Seizures 04/02/24
Diazepam Rectal Gel 10 mg MA DAILYPRN PRN seizure 06/18/24
cholecalciferol (vitamin D3) 1,250 1,250 mcg PO MO Supplement 06/18/24
mcg (50,000 unit) tablet
cyanocobalamin (vitamin B-12) 1,000 mcg PO DAILY Supplement 06/18/24
1,000 mcg tablet
folic acid 1 mg tablet 1 mg PO DAILY Supplement 06/18/24
lacosamide 10 mg/mL oral solution 150 mg PO BID Seizures 06/18/24
(Vimpat)
phenytoin 50 mg chewable tablet 150 mg PO HS Seizures 06/18/24
(Dilantin Infatabs)
phenytoin 50 mg chewable tablet 200 mg PO DAILY Seizures 06/18/24
(Dilantin Infatabs)
[2024-06-27] MEDS: ProAmatine 10 MG TUBE ×2 (12:05→18:04)
--- NOTE | 2024-06-27 12:15 | PTCARENOTE ---
sys reviewed, assessment unchanged. Admin standing midodrine per orders- see MAR; levo gtt tapered per orders- see flow sheet. Pt. repositioned per protocol. Safe environment maintained.
[2024-06-27 12:16] LABS: Glucose - Point of Care 120 mg/dl (70-99)
--- NOTE | 2024-06-27 14:04 | W.PN.HOSP.TC ---
Today's Communication/Plan
-
wean pressors
follow ICU/Neuro recs
possible downgrade to IMU later today per ICU attending
Assessment / Plan
Assessment / Plan
Assessment:
Septic shock
- ID following
- s/p 7 day course of Ancef for UTI (Klebsiella in urine) and Pneumonia (MSSA in sputum)
- follow cultures
- wean pressors as able, currently on Levophed
Unresponsive state and VDRF
Hx of seizures with multiple AEDs (Epilepsy)
- now off sedation
- monitor mental status
- Neurology consulted as concern for possible seizure with subtherapeutic levels; EEG 06/20/2024-mild diffuse cortical dysfunction without focal abnormalities, no seizures
- continue Vimpat, phenobarbital, Keppra, phenytoin
- MRI ordered but unable to perform due to metallic cranial hardware
- EEG repeat shows: 'Intermittent frontally predominant at times independent and at others 1 HZ rhythmic generalized spike and slow-wave which was medium-high amplitude lasting up to 0.5 seconds maximum, repeating for a maximum of 3 seconds'
- Neurosurgery evaluated, no role for surgery/transfer
- extubated 06/26 to
Severe hypernatremia
Dehydration
- Nephrology signed off
- continue FWF
Constipation
- s/p disimpaction in ER
- CT abd demonstrated perirectal inflammation consistent with stercoral colitis
Hx of mental and physical disability onset in childhood
Anemia-macrocytic
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
Left upper lip Stage 3 pressure injury
DVT ppx: Lovenox
Code: Full for now. Palliative care service consulting
Total Critical Care Time 35 minutes. I was immediately available to the patient and staff. I personally examined, reviewed labs, diagnostic images/reports, interpretations, treatment plans, discussed patient care with other providers and family
or caregivers (if patient is unable to make decisions), entered orders as appropriate and documented the medical record.
Anticipated Discharge: > 48 hours
Subjective/Interval History
-
Date of Service: June 27, 2024
extubated yesterday to now on RA
remains with DHT for now
remains pressor dependant
Objective Data
-
Labs:
Laboratory Results
06/27/24 06/27/24
04:36 04:37
WBC 13.1 H
Hgb 8.4 L
Hct 25.2 L
Plt Count 369 D
Sodium 143
Potassium 4.3
Chloride 101
Carbon Dioxide 30
BUN 34 H
Creatinine 0.8
Glucose 106 H
Calcium 8.0 L
Vital Signs:
Vital Signs
Temp Pulse Resp BP Pulse Ox
98.5 F 99 20 100/75 96
06/27/24 11:13 06/27/24 12:05 06/27/24 08:14 06/27/24 12:05 06/27/24 08:14
I&O
06/26/24 06/27/24 06/28/24
06:59 06:59 06:59
Intake Total 2478.9 / 2563.3 457.2 / 612.8 683.7 / 683.7
Output Total 4131 / 4147 1023 / 1033 195 / 195
Balance -1652.1 / -1583.7 -565.8 / -420.2 488.7 / 488.7
Physical Exam
-
General: No Apparent Distress
HEENT: Normocephalic
Respiratory: Negative Wheezes
Cardiac: Regular Rhythm and S1/S2
GI: Soft
Neuro: Awake
Psych: Calm
Data Reviewed
-
Critical Care Time (in minutes): 35
Labs: Labs Reviewed by me
--- NOTE | 2024-06-27 15:28 | W.PN.PAL2 ---
Today's Communication
-
Interval Hx: Over last 24 hours he has been extubated, mentation improving, off sedation. He has poor neck control and has NG in place for nutrition. He continues to require pressor support.
Reviewed goals of care with patient and with TANYA Duckworth on phone. TANYA Duckworth will consider goals and would like to discuss with Rickie in person when he visits. At this time, continue full treatment and full code status.
Assessment / Plan
-
Assessment/Plan:
Continue current treatment plan. Discussed with TANYA Duckworth. He visited yesterday and noted that Rickie was more tired than usual, likely due to eventful day yesterday including extubation. He plans to visit again tonight and hopes to arrange video chat
with sportscaster Rickie likes.
TANYA Duckworth to review goals of care and code status. Will revisit subsequently.
Reason for Admission
Illness Course/HPI
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 history obtained from patient's medical power blade grinder, Gucci
Luann. Patient attended a specialized school in childhood, and lived semi-independently in an appartment near his mom for many years. 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 His mother was previously his medical decision maker but currently has dementia, resides in a memory care unit and on hospice herself. Many years prior to her illness that she and
rickie worked with an blade grinder to complete his medical directives and medical poa - appointed Gucci as his medical poa.
Gucci (an blade grinder out of [facility] ) is close family friends with Rickie (describes that their mothers were childhood best friends), and he has been involved in his care for many years. Rickie has no siblings, but does have a distant cousin not actively
involved in his care. Gucci has helped with his IADLs, Personal care needs, and in the past abrasive mixer helper/caregivers for Rickie. in the past three years rickie has grown weaker, had recurrent falls and due to increasing care needs was eventually placed in
[facility] about 6 months ago. At his current baseline, he is mostly bedbound, but is able to enjoy heated conversations about all of the [employer] sports teams, and feed self.
Rickie was hospitalized on 06/18 for change in mental status, intubated and transferred to ICU. He was extubated 06/26, and continues to require pressor support. He remains critically ill at this time. Palliative care was consulted for goals of care,
[facility], changed to full code on arrival to hospital.
Functional Status
He is extubated and breathing on own. Able to follow commands and engage in conversation to limited extent (nod yes, shake head no, thumbs up, smiles). NG in place.
Baseline: bedbound, able to converse, feed self.
Goals of Care Discussion
-
Individuals Present for Discussion & Relationship to Patient:
Discussion over the telephone with healthcare agent Gucci Kong.
Discussion with patient in person, though limited.
Patient able to participate in discussion at time of visit: No
Patient Goals
At this time patient does not have an end stage medical condition, and therefore current healthcare goals are treatment oriented. He is breathing spontaneously, engaging in limited conversation. He indicates (via head nods/shakes, thumbs up) that he
would not like to be intubated again, though we cannot fully assess his understanding of implications at this time. Discussed with TANAY Duckworth who would like to ask patient at his next visit. At this time, continue full treatment and full code status.
Pain & Symptom Assessment
-
Appears comfortable. He shakes his head no when asked if he is in any pain. Some throat discomfort. He is enjoying watching sports on TV.
Objective Data
-
Objective Data:
Vital Signs
Temp Pulse Resp BP Pulse Ox
98.5 F 99 20 100/75 96
06/27/24 11:13 06/27/24 12:05 06/27/24 08:14 06/27/24 12:05 06/27/24 08:14
Laboratory Results
06/27/24 04:37
06/27/24 04:36
PT 20.0 Sec (11.4-14.6) H 06/19/24 09:02
INR 1.69 06/19/24 09:02
APTT 39.0 Sec (23.4-35.0) H 06/19/24 09:02
Hemoglobin A1c 5.5 % (4.0-5.6) 06/21/24 03:22
Ammonia < 9 umol/L (9-30) L 06/23/24 17:23
Total Protein 7.4 g/dl (6.3-8.2) 06/18/24 08:44
Albumin 3.4 g/dl (3.5-5.0) L 06/18/24 08:44
Urine Color Yellow 06/18/24 08:44
Urine Clarity Very cloudy (Clear) 06/18/24 08:44
Urine pH 5.0 (5.0-9.0) 06/18/24 08:44
Ur Specific [place] 1.020 (<1.030) 06/18/24 08:44
Urine Ketones Negative (Negative) 06/18/24 08:44
Urine Bilirubin 1+ (Negative) A 06/18/24 08:44
Palliative Performance Scale
Palliative Performance Scale:
PPS Level Ambulation Activity & Evidence of Disease Self Care Intake Conscious Level
100% Full Normal Activity & Work; Full Intake Full
No Evidence of Disease
90% Full Normal Activity & Work; Full Normal Full
Some Evidence of Disease
80% Full Normal Activity with Effort Full Normal or Full
Some Evidence of Disease Reduced
70% Reduced Unable Normal Job/Work Full Normal or Full
Significant Disease Reduced
60% Reduced Unable Hobby/Housework Occasional Normal or Full or Confusion
Significant Disease Assistance Reduced
50% Mainly Sit/Lie Unable to do Any Work Considerable Normal or Full or Confusion
Extensive Disease Assistance Req'd Reduced
40% Mainly in Bed Unable to do Most Activity Mainly Assistance Normal or Full or Drowsy;
Extensive Disease Reduced +/- Confusion
30% Totally Bed Unable to do Any Activity Total Care Normal or Full or Drowsy;
Bound Extensive Disease Reduced +/- Confusion
20% Totally Bed Bound Unable to do Any Activity Total Care Minimal to Full or Drowsy;
Extensive Disease Sips +/- Confusion
10% Totally Bed Bound Unable to do Any Activity Total Care Mouth Care Drowsy or Coma;
Extensive Disease Only +/- Confusion
0%
Palliative Performance Score Response
Palliative Performance Score Response: 30%
Physical Exam
-
General: Well Developed, Comfortable and Appears Chronically Ill
HEENT: Normocephalic and Atraumatic
Respiratory: Non Labores Respirations
Neuro: Awake and Alert
Psych: Calm
Engages in limited conversation by nodding/shaking head yes/no, smiles, gives thumbs up. Speaks though difficult to understand due to quiet/hoarse voice (TANYA says at baseline, voice is clearly audible).
[2024-06-27] MEDS: LOVENOX 40 MG SC (18:03)
[2024-06-27 18:14] LABS: Glucose - Point of Care 92 mg/dl (70-99)
--- NOTE | 2024-06-27 20:00 | PTCARENOTE ---
Received patient at 1900. Pt. currently awake, in bed. Drowsy, oriented to self. Speech is weak and garbled. Pt. denies pain/discomfort. Heart rhythm sinus. Blood pressure normotensive. Currently on room air. Lungs sound coarse. Pt. is NPO. Dobhoff
tube in place with tube feeds running at goal. Pt. incontinent of stool, rectal trumpet in place. Villareal catheter in place, draining without issue. Skin as documented. Discussed plan of care with patient. Vital signs stable at this time.
[2024-06-27 21:45] LABS: Glucose - Point of Care 104 mg/dl (70-99)
[2024-06-28] VITALS (55 sets, daily range): BP systolic 81–121; BP diastolic 56–84; BMI 24.6
[2024-06-28 03:34] LABS: % Basophils 0.3 % (0-2); % Eosinophils 2.4 % (0-6); % Immature Granulocytes 1.2 % (0-0.5); % Lymphocytes 10.6 % (20.5-51.1); % Monocytes 5.6 % (1.7-9.3); % Neutrophils 79.9 % (42.2-75.2); Absolute Basophils 0.1 10^3/uL (0-0.2); Absolute Eosinophils 0.4 10^3/uL (0-0.7); Absolute Immature Granulocytes 0.2 10^3/uL (0-0.05); Absolute Lymphocytes 1.8 10^3/uL (1.2-3.4); Absolute Neutrophils 13.8 10^3/uL (1.4-6.5); Hematocrit 24.8 % (39.0-52.0); Hemoglobin 8.4 g/dL (13.0-18.0); Mean Corp Hgb Conc. 33.9 g/dL (33.0-37.0); Mean Corpuscular Hgb 30.8 pg (27.0-31.0); Mean Corpuscular Volume 90.8 fL (80.0-94.0); Mean Platelet Volume 9.9 fL (7.4-10.4); Nucleated Red Blood Cells % 0 % (-); Platelet Count 401 10^3/uL (130-400); Red Blood Cell Count 2.73 10^6/uL (4.70-6.10); Red Cell Dist. Width 15.9 % (11.5-14.5); White Blood Cell Count 17.3 10^3/uL (4.8-10.8)
[2024-06-28 03:58] LABS: ALT (SGPT) 20 U/L (0-50); AST (SGOT) 62 U/L (17-59); Albumin 2.7 g/dl (3.5-5.0); Alkaline Phosphatase 388 U/L (38-126); Blood Urea Nitrogen 30 mg/dl (9-20); Calcium 8.1 mg/dl (8.4-10.2); Carbon Dioxide 33 mmol/L (22-30); Chloride 101 mmol/L (98-107); Direct Bilirubin 0.1 mg/dl (0.0-0.4); Estimated Creatinine Clearance 89 ml/min; Glucose 106 mg/dl (70-99); Magnesium 2.2 mg/dl (1.6-2.3); Phosphorus 3.2 mg/dl (2.5-4.5); Potassium 4.5 mmol/L (3.5-5.1); Sodium 139 mmol/L (135-145); Total Bilirubin 0.2 mg/dl (0.2-1.3); Total Protein 6.1 g/dl (6.3-8.2); eGFR > 60.00
[2024-06-28] MEDS: NOVOLOG FLEXPEN-MODERATE RESISTANCE SC ×4 (05:34→23:51)
[2024-06-28] MEDS: KEPPRA 1500 MG TUBE ×2 (07:58→19:23)
[2024-06-28] MEDS: REFRESH CELLUVISC GEL 1 DROPS OPHTH ×4 (07:58→21:50)
[2024-06-28] MEDS: VITAMIN B-12 1000 MCG PO (07:59)
[2024-06-28] MEDS: MIRALAX TUBE (07:59)
[2024-06-28] MEDS: ROBITUSSIN 200 MG TUBE ×4 (07:59→21:49)
[2024-06-28] MEDS: FOLVITE 1 MG PO (07:59)
[2024-06-28] MEDS: LUMINAL 64.8 MG TUBE ×2 (07:59→19:23)
[2024-06-28] MEDS: VIMPAT 150 MG TUBE ×2 (07:59→19:23)
[2024-06-28] MEDS: ProAmatine 10 MG TUBE ×3 (07:59→17:26)
--- NOTE | 2024-06-28 08:51 | W.PN.PUL3 ---
Today's Communication / Plan
-
AEDs per neuro
Keep K>4, Mg>2
Tube feeds and SUPERVISOR ANODIZING eval --> failed today
Continue midodrine and keep MAP>65
Monitor fevers and Tx with cooling blanket and Tylenol as needed; prn Toradol but monitor sCr
Neurosurgery consulted - no indication for surgery and doubt his prior TRADE FACILITATOR shunt is the reason for acute clinical status
Guarded prognosis
Assessment
-
68-year-old male with a history of significant intellectual disability, epilepsy, hyperlipidemia who presents from [place] [facility] unresponsive and [id number] consulted for ventilator/critical care management 06/18/2024. He was
extubated on 06/26/2024 and downgraded to the IMU level of care on 06/27/2024 where he continues to be managed. Pulmonary service continues to follow for additional management/recommendations.
Impression:
Toxic-metabolic encephalopathy - improved
Severe hypernatremia-serum sodium 171-total body water deficit 8.1 L - sodium now normalized
MILY - resolved
Ventilator dependent respiratory failure with acute hypoxia
Intubated in ED on: 06/18/2024
Extubated: 06/26/2024
Aspiration pneumonia/CAP due to MSSA
Septic shock due to PNA and UTI
UTI with UCx (06/18/2024) growing Klebsiella pneumonia
Leukocytosis
Anemia
Hyperglycemia (HbA1C: 5.5 on 06/21/2024) - resolved
Conditions present prior to admission:
Intellectual disability.
TRADE FACILITATOR shunt
Hyperlipidemia.
Epilepsy.
DNR in the past
Plan
Patient was extubated on 06/26/2024 to nasal cannula and he is now on room air breathing comfortably. He has markedly improved although still remains at risk for recurrent aspiration and hypoxia
Mucolytics continue with mucinex
Aspiration precautions
Stopped DuoNebs as it is not appearing to help expectoration of his secretions.
According to RN today, not much secretions being made; we can remove nasal trumpet but do naso-tracheal suctioning one more time before removing
prn duonebs - not currently bronchospastic
Cultures reviewed
MRSA screen-negative
Sputum culture 06/18/2024-many WBCs, moderate MSSA and Keisha albicans (likely contaminant)
Influenza negative
Blood cultures / positive for coagulase-negative Staphylococcus - likely a contaminant
Repeat blood culture 06/20/2024-NGTD
Repeat sputum culture 06/20/2024-usual respiratory carina
C. difficile 06/22/2024-negative
Urine culture 06/18/20247775-kuum-[id number] bacilli-Klebsiella (resistant to ampicillin + intermediate to nitrofurantoin)
CSF culture (06/18/2024 - performed by ED physician, Dr. Johnson) - NGTD
CSF fluid 06/18/2024-clear, colorless, WBC-2, glucose 78, total protein 128
Lactate normal since 06/18/2024 � no longer need to trend
Infectious disease consultation noted-correspondence reviewed-central fever also suspected; s/p cefazolin with plans for 7 days total ABx - last day Abx on 06/25
Maintain MAP>65; wean down vasopressors as tolerated, random cortisol checked on 06/23 and was 21 --> no evidence for CIRCI and no need fro stress dose steroids at this time
Trend leukocytosis
Source for ongoing temperatures and septic picture with ongoing pressor dependent hypotension unclear-differential includes pocket of infection/abscess, medications, etc.-consider repeat CT head/neck/chest/abdomen and pelvis, WBC scan,
etc.-infectious disease following
Central fever is suspected, karin given procal is 0.7, making central fevers more likely
Keep MAP>65
Wean down levophed as tolerated; stopped vasopressin given levophed is now <5mcg/min --> start midodrine --> patient was successfully weaned off of vasopressors later in the morning hours today
Trend serum sodium
Although patient was rapidly corrected, according to nephrology there is more liberal correction methods for hypernatremia compared to hyponatremia
Nephrology involved and recommendations appreciated
Continue to maintain normal sodium level between 135�145
Replete K>4, Mg>2
TTE done on 06/23/2024 shows preserved LVEF at 55-60% with mild MR and trace AI/TR.
Neurology following-correspondence reviewed
Continue with antiepileptics per neuro � currently on Vimpat 150 mg PO q12hr, phenobarbital 64.8mg BID + Keppra 1,500 mg PO q12hr
EEG 06/20/2024-mild diffuse cortical dysfunction without focal abnormalities, no seizures recorded
Given that patient was minimally responsive, CT head checked on 06/23/2024 showed no acute intracranial abnormalities. EEG obtained on 06/24 showed frontally predominant generalized spike + slow-wave discharges with generalized slow background
TSH WNL at 2.77 (checked 06/23/2024); follow up repeat Dilantin level 8.7 from 06/23/2024 (drawn about 2 hours prior to dose being given - prior to that, her last level was low at 6.5 on 06/20/2024, which was drawn a few hours after his morning dose
that day)
- Defer AEDs to neurology
Vitamin B12 WNL; RPR negative
Neurosurgery consulted - recs pending, given his Hx of TRADE FACILITATOR shunt and possible association to his fevers and continued encephalopathy
Monitor hemoglobin
Transfuse as needed to keep Hb>7g/dL, plt>20k
Follow blood sugar with goal BG 140-180mg/dL
Insulin supplementation as needed
DVT prophylaxis- LMWH
GI prophylaxis -PPI due to septic shock; stop once off levophed
Continue tube feeds via NGT
SUPERVISOR ANODIZING eval --> failed; need to discuss this with patient's POA as if he continues to fail SUPERVISOR ANODIZING evals then he is going to need PEG tube
Bedside range of motion
Goals of care-DNR in the past - now full code --> On 06/23/2024 I called the patient's POA, Guccinguyen Kong, and explained the critically ill state that Rickie is in. No decisions on code status were made at that time and he wanted to continue with
full medical management. He understands the severity of the patient's illness and that he has a low likelihood of full recovery. I will call Gucci again today to discuss patient's goals of care/code status given the patient was DNR/DNI prior to
arrival.
Update (06/26/2024): I spoke with Gucci and gave him an update on patient's clinical status. Gucci spoke with palliative care, Dr. Leavitt as well today. Advanced directive was reviewed. Gucci will come to visit again tonight. I explained that if
the pt is extubated and fails, that we can either re-intubate or proceed with comfort measures. Gucci was unable to answer how to handle him failing extubation, and we agreed that we will continue with full medical management as the pt is responding
to our commands today and seems to be his 'usual self,' at least how he is responding. I answered all of Gucci's questions.
Guarded prognosis
Pulmonary service will continue to briefly follow along.
Total time spent today was 35 minutes for this encounter. Time includes reviewing laboratory test/imaging results, reviewing pertinent medical records, obtaining and reviewing medical history, performing an appropriate exam, ordering medications,
tests and procedures. Time also includes documentation of this encounter, coordinating patient care and communicating with other healthcare professionals. Total time does not include separately billed tests performed on this date of service.
Diagnostic data:
Chest x-ray 06/18/2024-NAD, ET tube 2.5 cm above toro
CXR 06/23/2024: No active cardiopulmonary disease
CXR 06/24/2024: Stable positioning of support lines and tubes; Left basilar opacities, similar to prior which may represent atelectasis, possible pneumonia.
CXR 06/25/2024: No active pulmonary process; stable support devices
CXR 06/26/2024: No active cardiopulmonary disease; The tip of the endotracheal tube is in satisfactory position 4.5 cm above the toro; Mild interstitial fibrosis.
CT abdomen and pelvis 06/18/2024-large amount of stool, chronic and incidental findings not acute
CT head 06/18/2024-no acute intracranial abnormalities
CT Head 06/23/2024: There are no acute intracranial abnormalities; stable postoperative changes; there is moderate diffuse cortical and cerebellar atrophy with mild nonspecific white matter changes
EEG (06/24/2024): Moderately abnormal study for age based on frontally predominant generalizing spike and slow-wave discharges with a generalized slow background.
Subjective Data
-
Date of Service:
Date of Service: June 28, 2024
Chief Complaint: Pulmonary Follow Up
Subjective:
Patient was seen and evaluated today at bedside. Heart rate 91, saturating 99% on room air and BP 121/71. He was febrile last night to 100.4 �F. He currently appears comfortable on room air, and has no complaints. It is difficult to understand
his speech as he is slurred and it sounds incomprehensible.
Review of Systems
General: Other (Unable to obtain given patient's clinical status/difficulty understanding his speech although he does nod his head appropriately)
Objective Data
Data Reviewed
Vital Signs / I&O / Oxygen:
Vital Signs
Temp Pulse Resp BP Pulse Ox
98.1 F 107 17 99/60 97
06/28/24 07:00 06/28/24 09:30 06/28/24 09:30 06/28/24 09:20 06/28/24 09:30
Intake and Output
06/27/24 06/28/24 06/29/24
06:59 06:59 06:59
Intake Total 457.2 / 612.8 1933.7 / 2007.7 225 / 225
Output Total 1023 / 1033 840 / 840
Balance -565.8 / -420.2 1093.7 / 1168.7 225 / 225
SaO2 [CPAP/PSV] 98
SaO2 [A/C] 100
SaO2 97
Nasal Cannula flow liters per 4
minute
Physical Exam
General: Respiratory Distress (negative), Comfortable, Chills (negative) and Sweats (negative)
HEENT: Normocephalic and Anicteric
Cardiovascular: S1-S2, Peripheral Edema (Trace lower extremity pitting edema bilaterally) and Other (Distant cardiac sounds)
Respiratory: Wheeze (negative), Rhonchi (negative), Non-Labored Respirations, Stridor (negative) and Other (Coarse breath sounds heard bilaterally)
GI: Soft, Non Distended, Non Tender, Normal Bowel Sounds and NG Tube
Neurology: Awake, Alert, Tremors (negative) and Other (Right hand is contracted)
Skin: Warm, Dry, Cyanosis (negative) and Jaundice (negative)
Labs/Micro/Reports
Lab Data
06/28/24 03:27
06/28/24 03:27
Microbiology
06/20/24 16:18 Blood/Venous Blood Culture - Final
No Growth - Final Report
06/18/24 08:11 Blood/Venous Blood Culture - Final
Coagulase neg. staphylococcus
Additional testing on request
06/18/24 08:11 Blood/Venous Gram Stain - Final
--- NOTE | 2024-06-28 11:13 | PTOTSP ---
Speech Pathology
Clinical Swallow Evaluation
68M with admission for hypernatremia and VDRF recently extubated 06/26 p/w clinical s/s of a severe oropharyngeal dysphagia. Aspiration risk is increased 2/2 lethargy, recent intubation >48 hours (9 days), CXR concerning for PNA, and hoarse-breathy
vocal quality likely impacting protection of airway during swallow.
Recommend:
1. NPO x NG tube feeds
2. Meds via NG tube
3. Strict reflux precautions w/ tube feeds - HOB elevated 30-45 degrees
4. Aspiration precautions
5. Oral care 3-5x day as tolerated
6. Given current concern for PNA, increased lethargy, and severe vocal hoarseness would not recommend ARHP at this time
6. SENIOR NET PROGRAMMER service to follow up to provide diagnostic PO trials, dysphagia exercises, and advance diet as able
[2024-06-28 12:26] LABS: Glucose - Point of Care 115 mg/dl (70-99)
--- NOTE | 2024-06-28 13:02 | W.PN.HOSP.TC ---
Today's Communication/Plan
-
continue ongoing attempts at ST to wean off from TFs
Assessment / Plan
Assessment / Plan
Assessment:
Septic shock
- ID following
- s/p 7 day course of Ancef for UTI (Klebsiella in urine) and Pneumonia (MSSA in sputum)
- follow cultures
- pressors weaned off
Unresponsive state and VDRF
Hx of seizures with multiple AEDs (Epilepsy)
- now off sedation
- monitor mental status
- Neurology consulted as concern for possible seizure with subtherapeutic levels; EEG 06/20/2024-mild diffuse cortical dysfunction without focal abnormalities, no seizures
- repeat EEG repeat showed: 'Intermittent frontally predominant at times independent and at others 1 HZ rhythmic generalized spike and slow-wave which was medium-high amplitude lasting up to 0.5 seconds maximum, repeating for a maximum of 3 seconds'
- continue Vimpat, phenobarbital, Keppra, phenytoin
- MRI ordered but unable to perform due to metallic cranial hardware
- Neurosurgery evaluated, no role for surgery/transfer
- extubated 06/26 to RA
- remains on TFs and failed ST eval 06/28
Severe hypernatremia
Dehydration
- Nephrology signed off
- continue FWF with TFs
Constipation
- s/p disimpaction in ER
- CT abd demonstrated perirectal inflammation consistent with stercoral colitis
Hx of mental and physical disability onset in childhood
Anemia-macrocytic
Hx of GIZZARD PULLER Shunt
Left upper lip Stage 3 pressure injury
DVT ppx: Lovenox
Code: Full for now. Palliative care service consulting. POA would ok hospice if need for trach/PEG would arise.
Anticipated Discharge: > 48 hours
Subjective/Interval History
-
Date of Service: June 28, 2024
failed speech eval
remains on TFs
Objective Data
-
Labs:
Laboratory Results
06/28/24
03:27
WBC 17.3 H
Hgb 8.4 L
Hct 24.8 L
Plt Count 401 H
Sodium 139
Potassium 4.5
Chloride 101
Carbon Dioxide 33 H
BUN 30 H
Creatinine 0.7
Glucose 106 H
Calcium 8.1 L
Total Bilirubin 0.2
AST 62 H
ALT 20
Alkaline Phosphatase 388 H
Vital Signs:
Vital Signs
Temp Pulse Resp BP Pulse Ox
99.8 F 107 17 99/60 97
06/28/24 11:00 06/28/24 09:30 06/28/24 09:30 06/28/24 09:20 06/28/24 09:30
I&O
06/27/24 06/28/24 06/29/24
06:59 06:59 06:59
Intake Total 457.2 / 612.8 1933.7 / 2008.7 300 / 300
Output Total 1023 / 1033 840 / 840
Balance -565.8 / -420.2 1093.7 / 1168.7 300 / 300
Physical Exam
-
General: No Apparent Distress
HEENT: Normocephalic and Atraumatic
Respiratory: Negative Wheezes
Cardiac: Regular Rhythm
GI: Soft
Neuro: Awake
Psych: Calm
Data Reviewed
-
Total Time Spent with Patient (in minutes): 41
Labs: Labs Reviewed by me
[2024-06-28] MEDS: TYLENOL ORAL SOLUTION 650 MG TUBE (15:10)
--- NOTE | 2024-06-28 15:43 | PTCARENOTE ---
Temp 100.8, PRN Tylenol given. Villareal dc'd, condom cath applied. Rectal trumpet leaking moderate amt, flushed and CHG bath completed. Lips and mouth dry, frequent mouth care provided.
[2024-06-28] MEDS: LOVENOX 40 MG SC (17:26)
[2024-06-28 17:44] LABS: Glucose - Point of Care 90 mg/dl (70-99)
--- NOTE | 2024-06-28 20:00 | PTCARENOTE ---
Received patient at 1900. Pt. drowsy. Oriented to self. Follows simple commands. Denies pain/discomfort. Afebrile. Heart rhythm sinus. Blood pressure normotensive. Currently on room air. Lungs sound coarse and diminished. NPO. Tube feeds running at
goal via dobhoff tube. Incontinent of bowel and bladder. Rectal trumpet in place. Condom catheter in place. Skin as documented. Discussed plan of care with patient. Vital signs stable at this time.
[2024-06-28 23:48] LABS: Glucose - Point of Care 95 mg/dl (70-99)
[2024-06-29] VITALS (12 sets, daily range): BP systolic 82–122; BP diastolic 55–74; BMI 24.9
[2024-06-29 03:59] LABS: % Basophils 0.2 % (0-2); % Eosinophils 2.7 % (0-6); % Immature Granulocytes 1.4 % (0-0.5); % Lymphocytes 13.7 % (20.5-51.1); % Monocytes 6.6 % (1.7-9.3); % Neutrophils 75.4 % (42.2-75.2); Absolute Eosinophils 0.4 10^3/uL (0-0.7); Absolute Immature Granulocytes 0.2 10^3/uL (0-0.05); Absolute Lymphocytes 2.1 10^3/uL (1.2-3.4); Absolute Neutrophils 11.7 10^3/uL (1.4-6.5); Hematocrit 24.4 % (39.0-52.0); Hemoglobin 8.2 g/dL (13.0-18.0); Mean Corp Hgb Conc. 33.6 g/dL (33.0-37.0); Mean Corpuscular Hgb 31.2 pg (27.0-31.0); Mean Corpuscular Volume 92.8 fL (80.0-94.0); Mean Platelet Volume 9.7 fL (7.4-10.4); Nucleated Red Blood Cells % 0 % (-); Platelet Count 448 10^3/uL (130-400); Red Blood Cell Count 2.63 10^6/uL (4.70-6.10); White Blood Cell Count 15.6 10^3/uL (4.8-10.8)
[2024-06-29 04:28] LABS: Blood Urea Nitrogen 28 mg/dl (9-20); Calcium 8.1 mg/dl (8.4-10.2); Carbon Dioxide 30 mmol/L (22-30); Chloride 100 mmol/L (98-107); Estimated Creatinine Clearance 89 ml/min; Glucose 103 mg/dl (70-99); Potassium 4.9 mmol/L (3.5-5.1); Sodium 139 mmol/L (135-145); eGFR > 60.00
[2024-06-29] MEDS: NOVOLOG FLEXPEN-MODERATE RESISTANCE SC ×3 (05:03→17:39)
[2024-06-29] MEDS: VITAMIN B-12 1000 MCG PO (07:27)
[2024-06-29] MEDS: ROBITUSSIN 200 MG TUBE ×4 (07:27→21:40)
[2024-06-29] MEDS: ProAmatine 10 MG TUBE ×3 (07:27→17:17)
[2024-06-29] MEDS: FOLVITE 1 MG PO (07:27)
[2024-06-29] MEDS: MIRALAX TUBE (07:27)
[2024-06-29] MEDS: VIMPAT 150 MG TUBE ×2 (07:27→20:12)
[2024-06-29] MEDS: KEPPRA 1500 MG TUBE ×2 (07:27→20:12)
[2024-06-29] MEDS: LUMINAL 64.8 MG TUBE ×2 (07:27→20:12)
[2024-06-29] MEDS: REFRESH CELLUVISC GEL 1 DROPS OPHTH ×4 (07:27→21:40)
--- NOTE | 2024-06-29 09:32 | W.PN.PUL3 ---
Today's Communication / Plan
-
AEDs per neuro
Keep K>4, Mg>2
Tube feeds and TRACTOR MECHANIC eval --> failed x 2; will need PEG tube if going to continue full medical management; this needs to be discussed with his POA; palliative care assistance also appreciated
Continue midodrine and keep MAP>65; hopefully can wean him off midodrine
Monitor fevers and Tx with cooling blanket and Tylenol as needed; prn Toradol but monitor sCr
Neurosurgery consulted - no indication for surgery and doubt his prior TELEVISION PICTURE TUBE REBUILDER shunt is the reason for acute clinical status
Guarded prognosis
No additional pulmonary recommendations at this time. Pulmonary service will now sign off. Please reconsult if there are any additional questions/concerns, or if patient's respiratory status deteriorates.
Assessment
-
68-year-old male with a history of significant intellectual disability, epilepsy, hyperlipidemia who presents from [facility] unresponsive and [id number]-[id number] consulted for ventilator/critical care management 06/18/2024. He was
extubated on 06/26/2024 and downgraded to the IMU level of care on 06/27/2024 where he continues to be managed. Pulmonary service continues to follow for additional management/recommendations.
Impression:
Toxic-metabolic encephalopathy - improved
Severe hypernatremia-serum sodium 171-total body water deficit 8.1 L - sodium now normalized
MILY - resolved
Ventilator dependent respiratory failure with acute hypoxia
Intubated in ED on: 06/18/2024
Extubated: 06/26/2024
Aspiration pneumonia/CAP due to MSSA
Septic shock due to PNA and UTI
UTI with UCx (06/18/2024) growing Klebsiella pneumonia
Leukocytosis
Anemia
Hyperglycemia (HbA1C: 5.5 on 06/21/2024) - resolved
Conditions present prior to admission:
Intellectual disability.
TELEVISION PICTURE TUBE REBUILDER shunt
Hyperlipidemia.
Epilepsy.
DNR in the past
Plan
Patient was extubated on 06/26/2024 to nasal cannula and he is now on room air breathing comfortably. He has markedly improved although still remains at risk for recurrent aspiration and hypoxia
Mucolytics continue with mucinex
Aspiration precautions
Stopped DuoNebs as it is not appearing to help expectoration of his secretions.
According to RN from yesterday, not much secretions being made; nasal trumpet removed
prn duonebs - not currently bronchospastic
Cultures reviewed
MRSA screen-negative
Sputum culture 06/18/2024-many WBCs, moderate MSSA and Keisha albicans (likely contaminant)
Influenza negative
Blood cultures 10/04 positive for coagulase-negative Staphylococcus - likely a contaminant
Repeat blood culture 06/20/2024-NGTD
Repeat sputum culture 06/20/2024-usual respiratory carina
C. difficile 06/22/2024-negative
Urine culture 06/18/[id number] bacilli-Klebsiella (resistant to ampicillin + intermediate to nitrofurantoin)
CSF culture (06/18/2024 - performed by ED physician, Dr. Johnson) - NGTD
CSF fluid 06/18/2024-clear, colorless, WBC-2, glucose 78, total protein 128
Lactate normal since 06/18/2024 � no longer need to trend
Infectious disease consultation noted-correspondence reviewed-central fever also suspected; s/p cefazolin with plans for 7 days total ABx - last day Abx on 06/25
Maintain MAP>65; wean down vasopressors as tolerated, random cortisol checked on 06/23 and was 21 --> no evidence for CIRCI and no need fro stress dose steroids at this time
Trend leukocytosis
Source for recent temperatures spikes likely central, karin given procal is 0.7, making central fevers more likely
Last fever was on 06/28/24 to 100.8 �F
Keep MAP>65
Continue midodrine with wean
Trend serum sodium
Although patient was rapidly corrected, according to nephrology there is more liberal correction methods for hypernatremia compared to hyponatremia
Nephrology involved and recommendations appreciated
Continue to maintain normal sodium level between 135�145
Replete K>4, Mg>2
TTE done on 06/23/2024 shows preserved LVEF at 55-60% with mild MR and trace AI/TR.
Neurology following-correspondence reviewed
Continue with antiepileptics per neuro � currently on Vimpat 150 mg PO q12hr, phenobarbital 64.8mg BID + Keppra 1,500 mg PO q12hr
EEG 06/20/2024-mild diffuse cortical dysfunction without focal abnormalities, no seizures recorded
Given that patient was minimally responsive, CT head checked on 06/23/2024 showed no acute intracranial abnormalities. EEG obtained on 06/24 showed frontally predominant generalized spike + slow-wave discharges with generalized slow background
TSH WNL at 2.77 (checked 06/23/2024); follow up repeat Dilantin level 8.7 from 06/23/2024 (drawn about 2 hours prior to dose being given - prior to that, her last level was low at 6.5 on 06/20/2024, which was drawn a few hours after his morning dose
that day)
- Defer AEDs to neurology
Vitamin B12 WNL; RPR negative
Neurosurgery consulted - recs appreciated, given his Hx of TELEVISION PICTURE TUBE REBUILDER shunt and possible association to his fevers and continued encephalopathy
Monitor hemoglobin
Transfuse as needed to keep Hb>7g/dL, plt>20k
Follow blood sugar with goal BG 140-180mg/dL
Insulin supplementation as needed
DVT prophylaxis- LMWH
GI prophylaxis -PPI due to septic shock; stop once off levophed
Continue tube feeds via NGT
TRACTOR MECHANIC eval --> failed x2; need to discuss this with patient's POA as if he continues to fail TRACTOR MECHANIC evals then he is going to need PEG tube
Bedside range of motion
Goals of care-DNR in the past - now full code --> On 06/23/2024 I called the patient's POA, Gucci Kong, and explained the critically ill state that Rickie is in. No decisions on code status were made at that time and he wanted to continue with
full medical management. He understands the severity of the patient's illness and that he has a low likelihood of full recovery. I will call Gucci again today to discuss patient's goals of care/code status given the patient was DNR/DNI prior to
arrival.
Update (06/26/2024): I spoke with Gucci and gave him an update on patient's clinical status. Gucci spoke with palliative care, Dr. Leavitt as well today. Advanced directive was reviewed. Gucci will come to visit again tonight. I explained that if
the pt is extubated and fails, that we can either re-intubate or proceed with comfort measures. Gucci was unable to answer how to handle him failing extubation, and we agreed that we will continue with full medical management as the pt is responding
to our commands today and seems to be his 'usual self,' at least how he is responding. I answered all of Gucci's questions.
Guarded prognosis
No additional pulmonary recommendations at this time. Pulmonary service will now sign off. Thank you for allowing us to be involved in the care of this patient. Please reconsult if there are any additional questions/concerns, or if patient's
respiratory status deteriorates.
Total time spent today was 35 minutes for this encounter. Time includes reviewing laboratory test/imaging results, reviewing pertinent medical records, obtaining and reviewing medical history, performing an appropriate exam, ordering medications,
tests and procedures. Time also includes documentation of this encounter, coordinating patient care and communicating with other healthcare professionals. Total time does not include separately billed tests performed on this date of service.
Diagnostic data:
Chest x-ray 06/18/2024-NAD, ET tube 2.5 cm above toro
CXR 06/23/2024: No active cardiopulmonary disease
CXR 06/24/2024: Stable positioning of support lines and tubes; Left basilar opacities, similar to prior which may represent atelectasis, possible pneumonia.
CXR 06/25/2024: No active pulmonary process; stable support devices
CXR 06/26/2024: No active cardiopulmonary disease; The tip of the endotracheal tube is in satisfactory position 4.5 cm above the toro; Mild interstitial fibrosis.
CT abdomen and pelvis 06/18/2024-large amount of stool, chronic and incidental findings not acute
CT head 06/18/2024-no acute intracranial abnormalities
CT Head 06/23/2024: There are no acute intracranial abnormalities; stable postoperative changes; there is moderate diffuse cortical and cerebellar atrophy with mild nonspecific white matter changes
EEG (06/24/2024): Moderately abnormal study for age based on frontally predominant generalizing spike and slow-wave discharges with a generalized slow background.
Subjective Data
-
Date of Service:
Date of Service: June 29, 2024
Chief Complaint: Pulmonary Follow Up
Subjective:
Patient was seen and evaluated today at bedside. Heart rate 88, BP 95/63, afebrile to 98.7 �F and saturating 98% on room air. He appears comfortable, and is nodding his head no that he is not having chest pain and is not short of breath.
Review of Systems
General: Other (Unable to obtain given patient's clinical status)
Objective Data
Data Reviewed
Vital Signs / I&O / Oxygen:
Vital Signs
Temp Pulse Resp BP Pulse Ox
98.7 F 83 18 99/66 98
06/29/24 08:25 06/29/24 10:00 06/29/24 10:00 06/29/24 10:00 06/29/24 10:00
Intake and Output
06/28/24 06/29/24 06/30/24
06:59 06:59 06:59
Intake Total 1933.7 / 2007.7 1800 / 1875 300 / 300
Output Total 840 / 880 770 / 770
Balance 1093.7 / 1128.7 1030 / 1105 300 / 300
SaO2 [CPAP/PSV] 98
SaO2 [A/C] 100
SaO2 98
Nasal Cannula flow liters per 4
minute
Physical Exam
General: Respiratory Distress (negative), Comfortable, Chills (negative) and Sweats (negative)
HEENT: Normocephalic and Anicteric
Cardiovascular: S1-S2, Peripheral Edema (Trace lower extremity pitting edema bilaterally) and Other (Distant cardiac sounds)
Respiratory: Wheeze (negative), Rhonchi (negative), Non-Labored Respirations, Stridor (negative) and Other (Coarse breath sounds heard bilaterally)
GI: Soft, Non Distended, Non Tender, Normal Bowel Sounds and NG Tube
Neurology: Awake, Alert, Tremors (negative) and Other (Right hand is contracted)
Skin: Warm, Dry, Cyanosis (negative) and Jaundice (negative)
Labs/Micro/Reports
Lab Data
06/29/24 03:49
06/29/24 03:49
[2024-06-29 11:41] LABS: Glucose - Point of Care 108 mg/dl (70-99)
--- NOTE | 2024-06-29 12:59 | PTOTSP ---
ST Follow-Up
Pt continues to present with clinical signs of severe oropharyngeal dysphagia at bedside.
Recommendations:
- Continue STRICT NPO with all nutrition, hydration, and medications via entec or IV.
- Aspiration precautions: HOB upright as often as possible; oral care QID with suctioning PRN; turn off TF when lying pt laterally.
- INSTRUCTIONAL DEVELOPER to re-assess at a high frequency to determine pt's readiness/candidacy for an instrumental swallow study. Of note, pt's baseline diet is pureed solids and mildly thick liquids, per records.
--- NOTE | 2024-06-29 14:50 | PTCARENOTE ---
Speech in to assess pt this afternoon, to remains NPO status with tube feeding. Pt more interactive today, speech garbled and difficult to understand at times.
--- NOTE | 2024-06-29 16:16 | W.PN.HOSP.TC ---
Today's Communication/Plan
-
reinitiate GOC with POA and palliative care service to determine if pursuing PEG vs hospice; patient continues to fail speech evals.
Assessment / Plan
Assessment / Plan
Assessment:
Septic shock
- ID following
- s/p 7 day course of Ancef for UTI (Klebsiella in urine) and Pneumonia (MSSA in sputum)
- follow cultures
- pressors weaned off
Unresponsive state and VDRF
Hx of seizures with multiple AEDs (Epilepsy)
- now off sedation
- monitor mental status
- Neurology consulted as concern for possible seizure with subtherapeutic levels; EEG 06/20/2024-mild diffuse cortical dysfunction without focal abnormalities, no seizures
- repeat EEG repeat showed: 'Intermittent frontally predominant at times independent and at others 1 HZ rhythmic generalized spike and slow-wave which was medium-high amplitude lasting up to 0.5 seconds maximum, repeating for a maximum of 3 seconds'
- continue Vimpat, phenobarbital, Keppra, phenytoin
- MRI ordered but unable to perform due to metallic cranial hardware
- Neurosurgery evaluated, no role for surgery/transfer
- extubated 06/26 to RA
- remains on TFs and failed ST eval 06/28; palliative care following to facilitate goals of care discussions regarding PEG vs possible hospice.
Severe hypernatremia
Dehydration
- Nephrology signed off
- continue FWF with TFs
Constipation
- s/p disimpaction in ER
- CT abd demonstrated perirectal inflammation consistent with stercoral colitis
Hx of mental and physical disability onset in childhood
Anemia-macrocytic
Hx of YAM CURER Shunt
Left upper lip Stage 3 pressure injury
DVT ppx: Lovenox
Code: Full for now. Palliative care service consulting.
Anticipated Discharge: > 48 hours
Subjective/Interval History
-
Date of Service: June 29, 2024
alert, continues to fail speech evaluations
Objective Data
-
Labs:
Laboratory Results
06/29/24
03:49
Sodium 139
Potassium 4.9
Chloride 100
Carbon Dioxide 30
BUN 28 H
Creatinine 0.7
Glucose 103 H
Calcium 8.1 L
Vital Signs:
Vital Signs
Temp Pulse Resp BP Pulse Ox
99.3 F 85 18 102/64 99
06/29/24 15:32 06/29/24 15:30 06/29/24 15:30 06/29/24 14:00 06/29/24 15:30
I&O
06/28/24 06/29/24 06/30/24
06:59 06:59 06:59
Intake Total 1933.7 / 2007.7 1800 / 1875 675 / 675
Output Total 840 / 880 770 / 770
Balance 1093.7 / 1128.7 1030 / 1105 675 / 675
Physical Exam
-
General: No Apparent Distress and Appears Chronically Ill
HEENT: Normocephalic, Atraumatic and Other (+DHT)
Respiratory: Negative Wheezes
Cardiac: Regular Rhythm
GI: Soft and Nontender
Genito-urinary: No Costovertebral Tender
Musculoskeletal: No Edema
Neuro: AO x 3
Hematologic / Lymphatic: No Lymphadenopathy
Psych: Calm
Data Reviewed
-
Total Time Spent with Patient (in minutes): 42
Labs: Labs Reviewed by me
[2024-06-29] MEDS: LOVENOX 40 MG SC (17:17)
[2024-06-29 17:47] LABS: Glucose - Point of Care 112 mg/dl (70-99)
--- NOTE | 2024-06-29 20:02 | PTCARENOTE ---
Received patient in bed, AAOx1, garbled voice, difficult to understand. Following commands, denying pain. Mouth care done. Right arm contracted, b/l foot drop. Normal sinus, 90s. Normothermic, BP stable.. +1 generalized anasarca, weak pedal pulses
bilaterally. 92% on room air, lung sounds diminished throughout. Right nare DHT @65 cm, jevity 1.5 at goal with 25 ml flush. Rectal trumpet and probe intact. Stage 2 on upper lip scabbing over. Right DL PICC patent, WNL. Hourly rounding and patient
safety checks ongoing.
[2024-06-29 23:42] LABS: Glucose - Point of Care 110 mg/dl (70-99)
[2024-06-30] VITALS (14 sets, daily range): BP systolic 97–139; BP diastolic 63–88; BMI 24.6
[2024-06-30] MEDS: NOVOLOG FLEXPEN-MODERATE RESISTANCE SC ×4 (00:02→17:37)
[2024-06-30 05:28] LABS: % Basophils 0.3 % (0-2); % Eosinophils 2.4 % (0-6); % Immature Granulocytes 1.7 % (0-0.5); % Lymphocytes 11.8 % (20.5-51.1); % Monocytes 6.1 % (1.7-9.3); % Neutrophils 77.7 % (42.2-75.2); Absolute Basophils 0.1 10^3/uL (0-0.2); Absolute Eosinophils 0.4 10^3/uL (0-0.7); Absolute Immature Granulocytes 0.3 10^3/uL (0-0.05); Absolute Lymphocytes 1.9 10^3/uL (1.2-3.4); Absolute Neutrophils 12.4 10^3/uL (1.4-6.5); Hematocrit 24.6 % (39.0-52.0); Hemoglobin 8.3 g/dL (13.0-18.0); Mean Corp Hgb Conc. 33.7 g/dL (33.0-37.0); Mean Corpuscular Hgb 31.4 pg (27.0-31.0); Mean Corpuscular Volume 93.2 fL (80.0-94.0); Mean Platelet Volume 9.9 fL (7.4-10.4); Nucleated Red Blood Cells % 0 % (-); Platelet Count 498 10^3/uL (130-400); Red Blood Cell Count 2.64 10^6/uL (4.70-6.10); Red Cell Dist. Width 16.7 % (11.5-14.5); White Blood Cell Count 15.9 10^3/uL (4.8-10.8)
--- NOTE | 2024-06-30 05:49 | PTCARENOTE ---
Rectal trumpet leaking, flushed. CHG bath done, sheets changed, labs sent.
[2024-06-30 06:01] LABS: Blood Urea Nitrogen 28 mg/dl (9-20); Calcium 8.4 mg/dl (8.4-10.2); Carbon Dioxide 28 mmol/L (22-30); Chloride 99 mmol/L (98-107); Estimated Creatinine Clearance 89 ml/min; Glucose 111 mg/dl (70-99); Magnesium 2.1 mg/dl (1.6-2.3); Phosphorus 4.3 mg/dl (2.5-4.5); Potassium 4.7 mmol/L (3.5-5.1); Sodium 135 mmol/L (135-145); eGFR > 60.00
--- NOTE | 2024-06-30 07:00 | PTCARENOTE ---
pt received at change of shift from previous RN. Pt arouses easily to voice. voice is garbled, difficult to understand. disoriented to time/place. right arm contracted. generalized weakness. weak cough. SR on telemetry heart rate in 90s. pulses
weakly palpable. +1 generalized edema. pt on room air, sat 95%. lung sounds diminished. active bowel sounds. right nare boff with jevity 1.5 @ 50 ml/hr with 25 ml water flushes. incontinent of loose stool. incontinent of urine. see worklist for
full nursing assessment
[2024-06-30] MEDS: MIRALAX TUBE (07:40)
[2024-06-30] MEDS: VIMPAT 150 MG TUBE ×2 (07:47→21:06)
[2024-06-30] MEDS: KEPPRA 1500 MG TUBE ×2 (07:47→21:05)
[2024-06-30] MEDS: REFRESH CELLUVISC GEL 1 DROPS OPHTH (07:47)
[2024-06-30] MEDS: FOLVITE 1 MG PO (07:48)
[2024-06-30] MEDS: LUMINAL 64.8 MG TUBE ×2 (07:48→21:06)
[2024-06-30] MEDS: VITAMIN B-12 1000 MCG PO (07:48)
[2024-06-30] MEDS: ProAmatine 10 MG TUBE ×2 (07:49→17:38)
[2024-06-30] MEDS: ROBITUSSIN 200 MG TUBE ×3 (07:49→21:07)
--- NOTE | 2024-06-30 10:00 | PTCARENOTE ---
pt found to have pulled out ivy riky. Hospitalist notified. pt went for video swallow.
--- NOTE | 2024-06-30 12:00 | W.PN.HOSP.TC ---
Today's Communication/Plan
-
check procalcitonin
Dubhoff removed for VSE - if PoA will confirm continued mgmt - will plan to reinsert
Assessment / Plan
Assessment / Plan
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 Extubated on 06/27/24, however remained
high risk for aspiration. VSE on 06/30/24 showed deep penetration with thin and moderately thick liquids and reflux with most consistencies, so POLICE LIEUTENANT recommended to keep NPO and cont alternative means of feeding. Palliative involved into decision
making.
A/P:
#Septic skock with toxic metabolic encephalopathy on admission 2/2 aspiration penumonia due to dysphagia
#Concern for UTI
#Stercoral colitis on admission
Ucx with K.pneumonia
Sputum Cx - MSSA
Weaned off pressors to Midodrine
COmpleted Cefazoline 7 days as per ID
Bcx with 1 set of CoNS - contaminnat as per ID
LP on admission without concern for meningitis/encephalitis
Toll Service Observer followed
#Hypernatremia
2/2 poor oral intake
Nephrology followed
Resolved
#persistent leukocytosis
ID followed - no additional recommendations
Follow Procalcitonin - if elevated will cosider further w/u - repeat Bcx, CT C/A/P, Ucx
#Hx of epilepsy
#CELLULOSE INSULATION HELPER shunt
Neurology and neuroSx evaluated. No role in surgical intervention
COnt AED
EEG done - neuro followed
MRI cannot be performed 2/2 cranial metallic hardware
#Stool impaction
disimpacted in ED
#Dysphagia- GOC discussion
Palliative involved
DVT ppx lovenox
Full code (as reversed from DNR/DNI by PoA)
I have spent at least 78min reviewing chart, test results, communication with consultants and direct patient care
Anticipated Discharge: > 48 hours
Subjective/Interval History
-
Date of Service: June 30, 2024
Objective Data
-
Labs:
Laboratory Results
06/30/24
05:19
WBC 15.9 H
Hgb 8.3 L
Hct 24.6 L
Plt Count 498 H
Sodium 135
Potassium 4.7
Chloride 99
Carbon Dioxide 28
BUN 28 H
Creatinine 0.7
Glucose 111 H
Calcium 8.4
Vital Signs:
Vital Signs
Temp Pulse Resp BP Pulse Ox
98.5 F 95 55 106/69 97
06/30/24 07:40 06/30/24 07:49 06/30/24 06:00 06/30/24 07:49 06/30/24 06:00
I&O
06/29/24 06/30/24 07/01/24
06:59 06:59 06:59
Intake Total 1800 / 1875 900 / 900
Output Total 770 / 770 0 / 0
Balance 1030 / 1105 900 / 900
Review of Systems
-
Unable to obtain full review of systems at this time due to: Patient Non-verbal
History Source: Patient
Physical Exam
-
General: No Apparent Distress
HEENT: Moist Mucous Membranes
Respiratory: Clear to Auscultation
Cardiac: Regular Rhythm
GI: Soft, Nontender and Nondistended
Musculoskeletal: No Clubbing, No Cyanosis and No Edema
Neuro: Awake and Alert
Psych: Calm
--- NOTE | 2024-06-30 12:04 | W.PN.PAL2 ---
Today's Communication
-
Continues to fail speech evaluations. Previously on puree/thickened liquids prior to intubation.
Speech rec NPO - video swallow today confirmed aspiration with thin, nectar and honey thickened liquids
May need PEG tube. Spoke with TANYA Duckworth
Assessment / Plan
-
Assessment/Plan:
68 year old with CP, intellectual disability admitted with respiratory distress s/p intubation on pressors now extubated on RA, off pressors.
Continues to fail speech and swallow, recommended NPO. COnsideration of PEG. ARAMMinna is friend/senior trial attorney Gucci.
At bedside today, patient awake and alert. Voice remains hoarse but able to understand him although having difficulty with word finding. States Gucci was in yesterday, couldnt articulate what they talked about. Discussed possible need for a feeding
tube due to swallowing difficulties to which he stated he would not want. Explained risk of aspiration/ without this at this time and that it could be temporary, still declined and said he would not want this. Also again discussed CPR and
intubation if needed again which he vocalized he would not want again.
Spoke with TANYA Duckworth via phone. Updated him on video swallow results and possible need for PEG. Discussed baseline swallowing not great so unclear if he will regain function but would likely need PEG in order to continue speech therapy to see if this
can happen down the line. Gucci feels like Rickie is at his baseline mental status and cannot make a decision to stop nutrition for him at this time so would pursue PEG if team felt this was needed. Also discussed code status again - he was able to
speak with Rickie over the weekend and is still deciding about his code status. He plans to continue talking with him to make sure he fully understands what he is being asked before making any decision on this so continues to be full code for now.
Will follow
Reason for Admission
Illness Course/HPI
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 history obtained from patient's medical power senior trial attorney, Gucci Kong.
Patient attended a specialized school in childhood, and lived semi-independently in an appartment near his mom for many years. 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
drove, and required assistance with major decisions. His mother was previously his medical decision maker but currently has dementia, resides in a memory care unit and on hospice herself. Many years prior to her illness that she and rickie worked
with an senior trial attorney to complete his medical directives and medical poa - appointed Gucci as his medical poa.
Gucci (an senior trial attorney out of [facility] ) is close family friends with Rickie (describes that their mothers were childhood best friends), and he has been involved in his care for many years. Rickie has no siblings, but does have a distant cousin not actively
involved in his care. Gucci has helped with his IADLs, Personal care needs, and in the past bias cutter helper/caregivers for Rickie. in the past three years rickie has grown weaker, had recurrent falls and due to increasing care needs was eventually placed in
[facility] about 6 months ago. At his current baseline, he is mostly bedbound, but is able to enjoy heated conversations about all of the [employer] sports teams, and feed self.
Rickie was hospitalized on 06/18 for change in mental status, intubated and transferred to ICU. He was extubated 06/26, weaned off pressors and remains on room air. Palliative care was consulted for goals of care, patient was DNR on retirement
records, changed to full code on arrival to hospital.
Pain & Symptom Assessment
[place] Symptom Scale 0=none, 10=worst
Pain: 0
Tired: 0
Nausea: 0
Shortness of Breath: 0
Objective Data
-
Objective Data:
Vital Signs
Temp Pulse Resp BP Pulse Ox
98.5 F 95 55 106/69 97
06/30/24 07:40 06/30/24 07:49 06/30/24 06:00 06/30/24 07:49 06/30/24 06:00
Laboratory Results
06/30/24 05:19
06/30/24 05:19
PT 20.0 Sec (11.4-14.6) H 06/19/24 09:02
INR 1.69 06/19/24 09:02
APTT 39.0 Sec (23.4-35.0) H 06/19/24 09:02
Hemoglobin A1c 5.5 % (4.0-5.6) 06/21/24 03:22
Ammonia < 9 umol/L (9-30) L 06/23/24 17:23
Total Protein 6.1 g/dl (6.3-8.2) L 06/28/24 03:27
Albumin 2.7 g/dl (3.5-5.0) L 06/28/24 03:27
Urine Color Yellow 06/18/24 08:44
Urine Clarity Very cloudy (Clear) 06/18/24 08:44
Urine pH 5.0 (5.0-9.0) 06/18/24 08:44
Ur Specific [place] 1.020 (<1.030) 06/18/24 08:44
Urine Ketones Negative (Negative) 06/18/24 08:44
Urine Bilirubin 1+ (Negative) A 06/18/24 08:44
Palliative Performance Scale
Palliative Performance Scale:
PPS Level Ambulation Activity & Evidence of Disease Self Care Intake Conscious Level
100% Full Normal Activity & Work; Full Intake Full
No Evidence of Disease
90% Full Normal Activity & Work; Full Normal Full
Some Evidence of Disease
80% Full Normal Activity with Effort Full Normal or Full
Some Evidence of Disease Reduced
70% Reduced Unable Normal Job/Work Full Normal or Full
Significant Disease Reduced
60% Reduced Unable Hobby/Housework Occasional Normal or Full or Confusion
Significant Disease Assistance Reduced
50% Mainly Sit/Lie Unable to do Any Work Considerable Normal or Full or Confusion
Extensive Disease Assistance Req'd Reduced
40% Mainly in Bed Unable to do Most Activity Mainly Assistance Normal or Full or Drowsy;
Extensive Disease Reduced +/- Confusion
30% Totally Bed Unable to do Any Activity Total Care Normal or Full or Drowsy;
Bound Extensive Disease Reduced +/- Confusion
20% Totally Bed Bound Unable to do Any Activity Total Care Minimal to Full or Drowsy;
Extensive Disease Sips +/- Confusion
10% Totally Bed Bound Unable to do Any Activity Total Care Mouth Care Drowsy or Coma;
Extensive Disease Only +/- Confusion
0%
PPS Score Level:
Palliative Performance Scale:
PPS Level Ambulation Activity & Evidence of Disease Self Care Intake Conscious Level
100% Full Normal Activity & Work; Full Intake Full
No Evidence of Disease
90% Full Normal Activity & Work; Full Normal Full
Some Evidence of Disease
80% Full Normal Activity with Effort Full Normal or Full
Some Evidence of Disease Reduced
70% Reduced Unable Normal Job/Work Full Normal or Full
Significant Disease Reduced
60% Reduced Unable Hobby/Housework Occasional Normal or Full or Confusion
Significant Disease Assistance Reduced
50% Mainly Sit/Lie Unable to do Any Work Considerable Normal or Full or Confusion
Extensive Disease Assistance Req'd Reduced
40% Mainly in Bed Unable to do Most Activity Mainly Assistance Normal or Full or Drowsy;
Extensive Disease Reduced +/- Confusion
30% Totally Bed Unable to do Any Activity Total Care Normal or Full or Drowsy;
Bound Extensive Disease Reduced +/- Confusion
20% Totally Bed Bound Unable to do Any Activity Total Care Minimal to Full or Drowsy;
Extensive Disease Sips +/- Confusion
10% Totally Bed Bound Unable to do Any Activity Total Care Mouth Care Drowsy or Coma;
Extensive Disease Only +/- Confusion
0%
Physical Exam
-
General: No Apparent Distress and Appears Chronically Ill
HEENT: Normocephalic
Respiratory: Rhonchi
Cardiac: Regular Rhythm
Peripheral Vascular: No Edema
GI: Soft and Nontender
Rectal: Brown
Skin: Warm
Neuro: Awake and Alert
Psych: Calm
Care Reviewed
Data Reviewed
EKG Tracings: Tracing Reviewed
Medical Tests: I reviewed
--- NOTE | 2024-06-30 12:06 | PTOTSP ---
Video Swallow Examination
Summary: Patient with at least moderate-severe acute on chronic oral/pharyngeal dysphagia with episodes of deep laryngeal penetration and aspiration with liquids. Esophageal dysphagia also suspected. Patient with top down and bottom up aspiration
risks. Please see patient care note for details of penetration/aspiration and swallowing physiology. Consider continued NPO and non-oral means vs PO diet for pleasure understanding risks/complications.
Recommend:
1. NPO - consider replacing temporary non-oral means pending goals of care
2. Medications via non-oral means
3. Oral care 3x daily
4. Hold aspiration risk hydration protocol given oral stage deficits
5. Dysphagia therapy at the acute care level pending patient/POA goals of care.
[2024-06-30 13:14] LABS: Glucose - Point of Care 98 mg/dl (70-99)
[2024-06-30 13:44] LABS: Procalcitonin 0.28 ng/ml (0.0-0.25)
--- NOTE | 2024-06-30 14:00 | PTCARENOTE ---
Two RNs attempted to place riky and were unable to place. Hospitalist notified, order for GI consult received.
--- NOTE | 2024-06-30 14:44 | W.PN.UPDATE ---
Update Note
Progress Note Update
Pt with DHT pulled out and asked to replace. Placed in right nare without difficulty at 65cm. Confirmed to air insufflation. Pt for CT now will confirm placement prior to use.
--- NOTE | 2024-06-30 15:00 | PTCARENOTE ---
GI doctor placed right nare riky. pt taken to CT scan, went with pt to ensure pt didn't pull out riky. order received for left wrist restraint
[2024-06-30 15:20] LABS: COVID-19 Antigen Negative (Negative)
--- NOTE | 2024-06-30 15:58 | CON.GI ---
Addendum entered and electronically signed by Barb Obrien MD 06/30/24 18:07:
I saw and examined the patient.
The MACROECONOMICS PROFESSOR's note was reviewed and I agree with the note.
Comment: This is a 68-year-old male with history of intellectual disability, hyperlipidemia, epilepsy and rest as below who initially presented to the hospital on 06/18/2024 from [place] with unresponsiveness and was found to have significant
hypernatremia ( Na 171) with leukocytosis, fever with sepsis with UTI (Klebsiella)and pneumonia and was treated with antibiotics he was also intubated and then extubated on 06/27 and had failed swallow evaluations and has a Dobbhoff tube placed for
tube feeds and he had pulled that out today which was replaced by our MACROECONOMICS PROFESSOR Christina Greene and CT later today confirmed adequate placement and was cleared for use and we were consulted for placement of a PEG tube since he has failed swallow evaluation
again with aspiration risk and his POA who is a close family friend and an environmental engineer scientist was agreeable to proceed with the PEG tube. Palliative care input also noted. He also has been on MiraLAX and had stercoral colitis with fecal impaction was
disimpacted ER which seems to have resolved now and actually has increased output in the rectal bag and the CT from today shows possible colitis his C. difficile is negative today and also negative from 06/22. He also had a LP on admission and was
negative for meningitis and his sodium improved with hydration.
Assessment and plan 1. oropharyngeal dysphagia with aspiration risk failed swallow evaluation currently on Dobbhoff tube feeds and consulted for PEG placement and the primary team and palliative care have discussed with his POA Gucci and he is
agreeable to proceed with PEG tube. He completed antibiotics for UTI and pneumonia will give him a dose of antibiotic prior to PEG placement he is INR also was elevated ? from malnutrition will repeat
2. Possible colitis noted on the CT C. difficile is negative but he was actually constipated with fecal impaction/stercoral colotis and was disimpacted in ER 06/18 and was receiving MiraLAX if having diarrhea and increased rectal output in the bag
would hold MiraLAX for now. Doubt colitis stool is nonbloody. He also recently was treated with extensive course of antibiotics. Could be antibiotic associated diarrhea will add probiotics
06/30/24 Ct abdomen and pelvis
IMPRESSION:Mild airspace disease in left lower lobe concerning for pneumonia. Improved
Findings suggesting moderate colitis. New
Mild bladder wall thickening concerning for cystitis versus bladder outlet obstruction. Improved
Mild prostate hypertrophy. Stable
Diverticulosis. Stable
Simple left renal cyst. Stable
Addendum entered and electronically signed by ADDY King 06/30/24 17:12:
DHT with tip of tube in gastric antrum per CT ok to use also noted new colitis will review with Dr. Obrien restarting abx
Addendum entered and electronically signed by ADDY King 06/30/24 16:47:
added for tentative peg in AM pending POA review and review of CT. repeat INR in AM as elevated to 1.69 on 06/19
Original Note:
Consultation
-
Date/Time Consultation Requested: 06/30/24 1545
Date/Time Consultation Performed: 06/30/24 1600
Requesting Provider: Valentin Park MD
Performing Provider: ADDY Mcdonald, Barb Obrien MD
Reason for Consultation: nutritional evaluation
Medical History
Chief Complaint / HPI
Chief Complaint: dysphagia
History of Present Illness:
Pt is a 68yo with hx intellectual disability, hyperlipidemia, epilepsy noted with concern for sepsis/ fever with PNA requiring intubation, UTI with klebsiella, stercoral colitis with rectal thickening and impaction on CT on admission. Asked
initially for DHT placement now asked eval for peg. In reviewing with patient and nursing staff noted with diarrhea and VSE with at least moderate-severe acute on chronic oral/pharyngeal dysphagia with episodes of deep laryngeal penetration and
aspiration with liquids. Esophageal dysphagia also suspected. Patient with top down and bottom up aspiration risks.
He denies abdominal pain, constipation, or rectal bleeding.
Past Medical History
Past Medical History: Hypercholesterolemia and Other (epilepsy, intellectual disability )
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
Social History
Tobacco: Non-Smoker
Alcohol: None
Drug: None
Living: Custodial
Employment: Disabled
Family History
Family History: Reviewed & Not Pertinent
Allergies / Home Medications
Allergy/AdvReac Type Severity Reaction Status Date / Time
No Known Allergies Allergy Unverified 04/02/24 08:06
�Medication �Instructions �Recorded
acetaminophen 325 mg tablet 650 mg PO Q6HPRN PRN mild pain 03/20/24
atorvastatin 10 mg tablet 10 mg PO HS High Cholesterol 03/20/24
phenobarbital 16.2 mg tablet 64.8 mg PO BID Seizures 03/20/24
levetiracetam 1,000 mg tablet 1,250 mg PO BID Seizures 04/02/24
Diazepam Rectal Gel 10 mg RI DAILYPRN PRN seizure 06/18/24
cholecalciferol (vitamin D3) 1,250 1,250 mcg PO MO Supplement 06/18/24
mcg (50,000 unit) tablet
cyanocobalamin (vitamin B-12) 1,000 mcg PO DAILY Supplement 06/18/24
1,000 mcg tablet
folic acid 1 mg tablet 1 mg PO DAILY Supplement 06/18/24
lacosamide 10 mg/mL oral solution 150 mg PO BID Seizures 06/18/24
(Vimpat)
phenytoin 50 mg chewable tablet 150 mg PO HS Seizures 06/18/24
(Dilantin Infatabs)
phenytoin 50 mg chewable tablet 200 mg PO DAILY Seizures 06/18/24
(Dilantin Infatabs)
Review of Systems
-
Unable to obtain full review of systems at this time due to: Other (intellectual disability but answers most questions)
History Source: Patient
Constitutional: Reports No Symptoms
EENT: Reports No Symptoms
Respiratory: Reports No Symptoms
Cardiac: Reports No Symptoms
Abdomen/GI: Reports Diarrhea
: Reports Other (ext cath )
Musculoskeletal: Reports No Symptoms
Skin: Reports No Symptoms
Neurological: Reports Weakness
Endocrine: Reports No Symptoms
Hematologic/Lymphatic: Reports No Symptoms
Vital Signs
Temp Pulse Resp BP Pulse Ox
99.2 F 95 55 106/69 97
06/30/24 12:00 06/30/24 07:49 06/30/24 06:00 06/30/24 07:49 06/30/24 06:00
Physical Exam
Exam
General: Well Developed, Well Nourished and No Apparent Distress
HEENT: Normocephalic and Anicteric
Respiratory: Clear
Cardiac: Regular Rhythm
GI: Soft, Non Tender and Non Distended
Rectal: Brown and Other (loose stool)
Musculoskeletal: No Clubbing and No Cyanosis
Skin: Warm and Dry
Neuro: Awake, Alert and AO x 3
Psych: Calm
Results
WBC 15.9 10^3/uL (4.8-10.8) H 06/30/24 05:19
Hgb 8.3 g/dL (13.0-18.0) L 06/30/24 05:19
Hct 24.6 % (39.0-52.0) L 06/30/24 05:19
MCV 93.2 fL (80.0-94.0) 06/30/24 05:19
Plt Count 498 10^3/uL (130-400) H 06/30/24 05:19
Absolute Neuts (auto) 12.4 10^3/uL (1.4-6.5) H 06/30/24 05:19
PT 20.0 Sec (11.4-14.6) H 06/19/24 09:02
INR 1.69 06/19/24 09:02
APTT 39.0 Sec (23.4-35.0) H 06/19/24 09:02
Sodium 135 mmol/L (135-145) 06/30/24 05:19
Potassium 4.7 mmol/L (3.5-5.1) 06/30/24 05:19
Chloride 99 mmol/L (98-107) 06/30/24 05:19
Carbon Dioxide 28 mmol/L (22-30) 06/30/24 05:19
BUN 28 mg/dl (9-20) H 06/30/24 05:19
Creatinine 0.7 mg/dL (0.7-1.3) 06/30/24 05:19
Calcium 8.4 mg/dl (8.4-10.2) 06/30/24 05:19
Total Bilirubin 0.2 mg/dl (0.2-1.3) 06/28/24 03:27
AST 62 U/L (17-59) H 06/28/24 03:27
ALT 20 U/L (0-50) 06/28/24 03:27
Alkaline Phosphatase 388 U/L (38-126) H 06/28/24 03:27
Diagnostic Image Results:
06/18 CT
Large amount of stool in the rectum with rectal wall thickening and perirectal inflammation compatible with fecal impaction and stercoral colitis.
chronic/incidental findings as detailed in the body of the report.
06/25/24 obstruction series
1. No radiographic evidence for bowel obstruction or pneumoperitoneum.
2. Interval decrease in the volume of fecal material in the colon and rectum since 06/18/2024.
3. Endotracheal tube, right upper extremity PICC line, nasogastric feeding tube, and ventriculoperitoneal shunt catheter in place.
4. Mild left lower lobe opacity suspicious for pneumonia.
5. Osteoporosis.
06/30 CT chest/ab/pelvis pending
Prior GI Procedures:
EGD: unknown
Colonoscopy: unknown
Assessment / Plan
-
Pt is a 68yo with hx intellectual disability, hyperlipidemia, epilepsy noted with concern for sepsis/ fever with PNA requiring intubation, UTI with klebsiella, stercoral colitis with rectal thickening and impaction on CT on admission. Asked
initially for DHT placement now asked eval for peg. In reviewing with patient and nursing staff noted with diarrhea and VSE with at least moderate-severe acute on chronic oral/pharyngeal dysphagia with episodes of deep laryngeal penetration and
aspiration with liquids. Esophageal dysphagia also suspected. Patient with top down and bottom up aspiration risks.
-failed VSE
-fever/sepsis on admission
-s/p PNA with intubation
-UTI
-stercoral colitis
-persistent leukocytosis
-anemia
-seizures disorder
-intellectual disability
-hyperlipidemia
PLAN:
s/p DHT placement awaiting cT for placement
asked to see to discuss peg-- pt is agreeable but will need to review with POA
VSE as noted with continued oral pharygeal dysphagia and likely also esophageal dysphagia
current off abx since 06/24
if peg placed also EGD for anemia hbg remains 8 range cont to trend
still with some diarrhea -- etiology unclear - has been off antibiotics since 06/24- may be related to recent stercoral colitis
c-diff neg 06/22 and 06/[address] to assess improved stercoral colitis and stool burden - may need to d/c miralax vs if persistent colitis consider flex
-
-
Thank you for consultation and allowing me to participate in the patient's care. Please call the digital operations analyst GI physician during the after hours with any questions or concerns.
[2024-06-30] MEDS: ROBITUSSIN TUBE (16:03)
[2024-06-30] MEDS: ProAmatine TUBE (16:03)
[2024-06-30 16:51] LABS: Urine Albumin Trace (Neg - Trace); Urine Bilirubin Negative (Negative); Urine Character Clear (Clear); Urine Color Yellow; Urine Glucose Negative (Negative); Urine Ketone Negative (Negative); Urine Leukocyte Trace (Negative); Urine Nitrite Negative (Negative); Urine Occult Blood Negative (Negative); Urine Urobilinogen Negative (Neg - 1+)
[2024-06-30 16:58] LABS: Urine Bacteria Few (Negative); Urine Red Blood Cell 0-2 /HPF (0-2)
[2024-06-30] MEDS: LOVENOX 40 MG SC (17:38)
[2024-06-30 17:49] LABS: Glucose - Point of Care 85 mg/dl (70-99)
--- NOTE | 2024-06-30 20:30 | PTCARENOTE ---
Received pt at shift change; AAOx3, tube feeding infusing per order without issues through [facility]. LUE restraint in place secondary to pt's hx of self extricating NG tube; restraint education provided. Remainder of assessment as
documented, pt denies pain. Pt asking for something to eat, updated on POC and pt plans for OR tomorrow for PEG tube placement. PM hygiene performed. Pt resting comfortably in bed watching TV.
--- NOTE | 2024-06-30 20:30 | PTCARENOTE ---
Received pt at shift change; AAOx1, tube feeding infusing per order without issues through Ally [facility]. LUE restraint in place secondary to pt's hx of self extricating NG tube; restraint education provided. Remainder of assessment as
documented, pt denies pain. Pt asking for something to eat, updated on POC and pt plans for OR tomorrow for PEG tube placement. PM hygiene performed. Pt resting comfortably in bed watching TV.
[2024-07-01] VITALS (21 sets, daily range): BP systolic 99–147; BP diastolic 51–102
[2024-07-01 00:08] LABS: Glucose - Point of Care 94 mg/dl (70-99)
[2024-07-01] MEDS: NOVOLOG FLEXPEN-MODERATE RESISTANCE SC ×5 (00:16→23:28)
[2024-07-01 04:20] LABS: % Basophils 0.4 % (0-2); % Eosinophils 3.6 % (0-6); % Immature Granulocytes 1.5 % (0-0.5); % Lymphocytes 13.1 % (20.5-51.1); % Monocytes 7.2 % (1.7-9.3); % Neutrophils 74.2 % (42.2-75.2); Absolute Basophils 0.1 10^3/uL (0-0.2); Absolute Eosinophils 0.5 10^3/uL (0-0.7); Absolute Immature Granulocytes 0.2 10^3/uL (0-0.05); Absolute Lymphocytes 1.9 10^3/uL (1.2-3.4); Absolute Neutrophils 10.6 10^3/uL (1.4-6.5); Hematocrit 24.9 % (39.0-52.0); Hemoglobin 8.5 g/dL (13.0-18.0); Mean Corp Hgb Conc. 34.1 g/dL (33.0-37.0); Mean Corpuscular Hgb 32.7 pg (27.0-31.0); Mean Corpuscular Volume 95.8 fL (80.0-94.0); Mean Platelet Volume 9.8 fL (7.4-10.4); Nucleated Red Blood Cells % 0 % (-); Platelet Count 530 10^3/uL (130-400); Red Cell Dist. Width 17.1 % (11.5-14.5); White Blood Cell Count 14.3 10^3/uL (4.8-10.8)
[2024-07-01 04:33] LABS: INR 1.15; PT 14.5 Sec (11.4-14.6)
[2024-07-01 04:59] LABS: ALT (SGPT) 58 U/L (0-50); AST (SGOT) 111 U/L (17-59); Albumin 2.8 g/dl (3.5-5.0); Alkaline Phosphatase 409 U/L (38-126); Blood Urea Nitrogen 24 mg/dl (9-20); Calcium 8.5 mg/dl (8.4-10.2); Carbon Dioxide 27 mmol/L (22-30); Chloride 100 mmol/L (98-107); Estimated Creatinine Clearance 89 ml/min; Glucose 89 mg/dl (70-99); Sodium 134 mmol/L (135-145); Total Bilirubin 0.4 mg/dl (0.2-1.3); Total Protein 6.3 g/dl (6.3-8.2); eGFR > 60.00
[2024-07-01 06:15] LABS: Glucose - Point of Care 103 mg/dl (70-99)
--- NOTE | 2024-07-01 07:00 | PTCARENOTE ---
report received from previous RN at change of shift. Pt awakens to voice. follows commands. garbled speech, difficult to understand at times. pt disoriented to time/place. generalized weakness. right arm contracted chronically. NSR on telemetry
heart rate in 70s. pulses weakly palpable. +1 generalized edema. pt on room air, sat 95%. lung sounds diminished. moist nonproductive cough. active bowel sounds. right nare riky in place. incontinent of bowel and bladder. see worklist for full
nursing assessment and interventions. pt updated on plan of care- plan for peg tube placement today.
[2024-07-01] MEDS: MIRALAX TUBE (07:19)
[2024-07-01] MEDS: ROBITUSSIN 200 MG TUBE ×4 (07:44→22:00)
[2024-07-01] MEDS: VITAMIN B-12 1000 MCG PO (07:44)
[2024-07-01] MEDS: KEPPRA 1500 MG TUBE ×2 (07:44→19:41)
[2024-07-01] MEDS: ProAmatine 10 MG TUBE ×2 (07:44→12:05)
[2024-07-01] MEDS: FOLVITE 1 MG PO (07:44)
[2024-07-01] MEDS: LUMINAL 64.8 MG TUBE ×2 (07:44→19:40)
[2024-07-01] MEDS: VIMPAT 150 MG TUBE ×2 (07:44→19:41)
[2024-07-01] MEDS: VITAMIN D3 (cholecalciferol) 125 MCG PO (07:44)
--- NOTE | 2024-07-01 09:07 | CM ---
CM reviewed chart- ADC > 48 hours
Pt is a LTC resident from [facility] with TANYA/Gucci as decision maker currently
Pt remains in the ICU- extubated 06/27, palliative care following
Restraints ordered as pt pulled DHT, plan for peg tube placement and continued tube feeds
Updated clinicals sent via [facility] ti [facility]
Discharge Disposition- return to [facility] for LTC
--- NOTE | 2024-07-01 09:41 | W.PN.ID1 ---
Date of Service
Date of Service: July 01, 2024
Today's Communication
recommend against oral vancomycin - c difficile is ruled out
doubt colitis, abdomen soft, nontender and stool nonbloody
would not recommend restarting antibiotics at this time
Assessment / Plan
# Nosocomial diarrhea - possibly related to tube feeds, recent cathartics and also recent antibiotics
# Leukocytosis - persistent
# Thrombocytosis
- recent cathartics and antibiotics noted; stool intermittently loose/liquid/soft - nonbloody and abdomen nontender
- agree with concern for possible AAD, tube feeds can also lead to loose stool; last dose of miralax appears to have been given 06/27, agree with holding at this time
- C diff negative for antigen and toxin both today and 06/30
- advise against oral vancomycin with negative c diff antigen and toxin x2 - oral vancomycin does kill some normal carina in the intestine and is not a completely benign therapy. C difficile has been ruled out at this time.
- persistent leukocytosis though L shift may be resolving
- 06/30 UA no pyuria, urine culture in progress
- blood cultures x2 were sent
- mild transaminitis noted however CT 06/30 unremarkable gallbladder, no lymphadenopathy
- procalcitonin is minimally elevated 0.03 above normal would not use to make decisions unless there was a clear condition which has been well validated for procalcitonin such as a new pneumonia or shock
- covid ag negative 06/30
would not recommend restarting antibiotics at this time
# Resolved MSSA Pneumonia
- Admission sputum MSSA 06/18
- 06/23 Repeat CXR - no active parenchymal opacities
- s/p 7d cefazolin, dc'd 06/25.
- Aspiration precaution
# Resolved UTI due to Klebsiella
# CoNS bacteremia (1 of 2 sets)= contaminant
# Change in mental status- improved off sedation
# Seizure disorder on phenytoin, Keppra, Vimpat, phenobarbital
# LAWN CARETAKER shunt
# Conditions prior to admission
Intellectual disability
Epilepsy on phenytoin, Keppra, Vimpat
Dyslipidemia
LAWN CARETAKER shunt
SNF resident ([facility])
Chief Complaint
-: Other (diarrhea)
Subjective / Review of Systems
afebrile
bp stable
day 13 of hospital course
continues to fail swallow evaluations, patient indicating he doesnt want PEG, POA not in agreement and not certian that patient at his baseline mental status
course complicated by stercoral colitis and fecal impaction - disimpacted i nthe ER and now with increased output in the rectal bag. CT with possible colitis.
C diff negative 06/30 and also negative 06/22
LP on admission not consistent with shunt infection or meningitis
Possible colitis noted on CT, has been on miralax which was just held. stool is nonbloody. had recent course of antibiotics and probiotics were just added
Patient was on cefepime 06/18-06/19, single dose of vanc 06/19, switched to meropenem 06/20-06/21, 06/22 switched to ancef which has been continued for 3 days
Vital Signs / Physical Exam
Vital Signs
Vital Signs
Temp Pulse Resp BP Pulse Ox
98.4 F 86 24 109/76 96
07/01/24 07:34 07/01/24 08:00 07/01/24 08:00 07/01/24 08:00 07/01/24 08:00
Physical Exam
Constitutional: No Acute Distress
Cardiovascular: Regular Rate and S1/S2; Negative Murmur or Rub
Pulmonary: Clear and Symmetric; Negative Wheezes or Rales
Gastrointestinal: Soft, Non Tender, Non Distended and Normal Bowel Sounds
Skin: Warm and Dry; Negative Rash or Jaundice
Objective Data
Lab Data
Lab Results
07/01/24 04:11
07/01/24 04:11
PT 14.5 Sec (11.4-14.6) 07/01/24 04:11
INR 1.15 07/01/24 04:11
APTT 39.0 Sec (23.4-35.0) H 06/19/24 09:02
Estimated Creat Clear 89 ml/min 07/01/24 04:11
Lactic Acid 1.5 mmol/L (0.7-2.0) 06/18/24 21:33
Total Bilirubin 0.4 mg/dl (0.2-1.3) 07/01/24 04:11
AST 111 U/L (17-59) H 07/01/24 04:11
ALT 58 U/L (0-50) H 07/01/24 04:11
Alkaline Phosphatase 409 U/L (38-126) H 07/01/24 04:11
Most recent labs reviewed.
Micro Results:
06/30/24 18:46 Blood Culture - Pending
Blood/Venous
06/30/24 16:40 Urine Culture - Pending
Urine
06/30/24 15:51 Blood Culture - Pending
Blood/Venous
06/30/24 14:31 C. difficile GDH Antigen & Toxins - Final
Feces/Stool Negative for toxigenic C.difficile
06/20/24 16:18 Blood Culture - Final
Blood/Venous No Growth - Final Report
06/18/24 08:11 Blood Culture - Final
Blood/Venous Coagulase neg. staphylococcus
Additional testing on request
Gram Stain - Final
06/18/24 10:05 CSF Culture - Final
Csf No Growth After 5 Days - Final Report
Gram Stain - Final
06/18/24 08:11 Blood Culture - Final
Blood/Venous No Growth - Final Report
06/22/24 09:57 C. difficile GDH Antigen & Toxins - Final
Feces/Stool Negative for toxigenic C.difficile
06/20/24 16:18 Respiratory Culture - Final
Endotracheal Usual Respiratory Carina
Gram Stain - Final
06/18/24 15:28 Respiratory Culture - Final
Tracheal Aspirate S aureus-Methicillin Sensitive
Keisha albicans
Gram Stain - Final
06/18/24 08:44 Urine Culture - Final
Urine Klebsiella pneumoniae
06/19/24 09:02 Nasal Screen MRSA (PCR) - Final
Nose MRSA not detected - performed by PCR methodology.
06/18/24 08:11 Influenza Types A & B (FLAVIO) - Final
Nasal Swab Negative for Influenza A & B, NAAT
Negative results must be combined with clinical observations
and patient history.
Nucleic Acid Amplification test (NAAT)performed on the
[employer] platform.
06/18/24 CT a/p: Large amount of stool in the rectum with rectal wall thickening and perirectal inflammation compatible with fecal impaction and stercoral colitis.
06/20/24 CXR: Bilateral parenchymal opacities, increasing, most likely pneumonia. No evidence for associated pleural effusion.
--- NOTE | 2024-07-01 10:29 | W.PN.UPDATE ---
Update Note
Progress Note Update
S/P PEG placement, OK to use PEG for meds today and start tube feeds tomorrow as per digital media buyer reccs and advance as tolerated
--- NOTE | 2024-07-01 11:00 | PTCARENOTE ---
pt received back from peg placement. drowsy, arouses to voice. NSR on telemetry heart rate 80-90s. pt on 2L nasal cannula, sat 97%. right upper adbomen peg CDI. abdominal binder in place. new rectal trumpet placed. no further changes in assessment
[2024-07-01] MEDS: ANCEF 10 IV (11:03)
--- NOTE | 2024-07-01 11:29 | W.IMMPOSTOP ---
Addendum entered and electronically signed by Db Granados MD 07/01/24 11:36:
[facility]#[id number]
Original Note:
Surgical Immed Post Op Note
-
Primary Surgeon: Darwin
Assisting Surgeon: None
Pre-op Diagnosis: Dysphagia
Post-op Diagnosis: Dyaphagia
Procedure Performed: Percutaneous endoscopic gastrostomy (PEG) tube placement
Anesthesia Type: MAC local
Specimen / Cultures: None
Estimated Blood Loss: < 1 cc
Complications: None
Operative Findings:
1. EGD largely unremarkable, see separate GI note for details
2. 20 Mosotho PEG tube inserted using standard pull technique along the greater curvature of the stomach
3. Transillumination, one-to-one palpation, positive bubble study
4. Secured at 4 cm at the skin
--- NOTE | 2024-07-01 11:59 | W.PN.HOSP.TC ---
Today's Communication/Plan
-
ID for colitis mgmt assistance
Start feeding in AM
Assessment / Plan
Assessment / Plan
68yo M resident of [facility], with PMHX of INJECTION MOLDING MACHINE OPERATOR shunt, intellectual disability, epilepsy, HLD was brought to the hospital with worsening responsiveness, intubated in ED and managed for septic shock 2/2 CAP with MSSA. Extubated on 06/27/24, however remained
high risk for aspiration. VSE on 06/30/24 showed deep penetration with thin and moderately thick liquids and reflux with most consistencies, so STRIKE OUT MACHINE OPERATOR recommended to keep NPO and cont alternative means of feeding, so PEG placed on 07/01/24
A/P:
#Septic skock with toxic metabolic encephalopathy on admission 2/2 aspiration pneumonia due to dysphagia
#Concern for UTI
#Stercoral colitis on admission
Ucx with K.pneumonia
Sputum Cx - MSSA
Weaned off pressors to Midodrine
Completed Cefazoline 7 days as per ID
Bcx with 1 set of CoNS - contaminant as per ID
LP on admission without concern for meningitis/encephalitis
Greens Laborer followed
#Hypernatremia
2/2 poor oral intake
Nephrology followed
Resolved
#persistent leukocytosis with ascending colitis
on CT on 06/30/24 - recall ID
ID followed - no additional recommendations
C.diff PCR repeated - neg. Stool WBC and Cx pending
Bcx repeated
UA neg for infection
#Hx of epilepsy
#INJECTION MOLDING MACHINE OPERATOR shunt
Neurology and neuroSx evaluated. No role in surgical intervention
COnt AED
EEG done - neuro followed
MRI cannot be performed 2/2 cranial metallic hardware
#Stool impaction
disimpacted in ED
#Dysphagia, unspecified
s/p PEG on 07/01/24
DVT ppx lovenox
Full code (as reversed from DNR/DNI by PoA)
I have spent at least 78min reviewing chart, test results, communication with consultants and direct patient care
Anticipated Discharge: 24 - 48 hours
Subjective/Interval History
-
Date of Service: July 01, 2024
Objective Data
-
Labs:
Laboratory Results
07/01/24
04:11
WBC 14.3 H
Hgb 8.5 L
Hct 24.9 L
Plt Count 530 H
PT 14.5
INR 1.15
Sodium 134 L
Potassium 5.0
Chloride 100
Carbon Dioxide 27
BUN 24 H
Creatinine 0.7
Glucose 89
Calcium 8.5
Total Bilirubin 0.4
AST 111 H
ALT 58 H
Alkaline Phosphatase 409 H
Vital Signs:
Vital Signs
Temp Pulse Resp BP Pulse Ox
96.7 F L 85 14 109/74 99
07/01/24 11:05 07/01/24 11:45 07/01/24 11:45 07/01/24 11:45 07/01/24 11:45
I&O
06/30/24 07/01/24 07/02/24
06:59 06:59 06:59
Intake Total 900 / 900 660 / 660
Output Total 0 / 0
Balance 900 / 900 660 / 660
Physical Exam
-
General: No Apparent Distress
Respiratory: Clear to Auscultation
Cardiac: Regular Rhythm
Musculoskeletal: No Clubbing, No Cyanosis and No Edema
Neuro: Awake, Alert and Oriented
Psych: Calm
[2024-07-01] MEDS: D5/0.9% SODIUM CHLORIDE 1000 IV (12:29)
[2024-07-01] MEDS: DESENEX/MITRAZOL/ZEASORB 1 APPLIC TOPICAL (12:36)
[2024-07-01 12:41] LABS: Glucose - Point of Care 109 mg/dl (70-99)
[2024-07-01 17:22] LABS: Glucose - Point of Care 111 mg/dl (70-99)
[2024-07-01] MEDS: ProAmatine TUBE (17:24)
[2024-07-01] MEDS: LOVENOX 40 MG SC (17:24)
[2024-07-01 23:37] LABS: Glucose - Point of Care 100 mg/dl (70-99)
[2024-07-02] VITALS (12 sets, daily range): BP systolic 87–128; BP diastolic 56–91; BMI 24.2
[2024-07-02] MEDS: D5/0.9% SODIUM CHLORIDE 1000 IV (04:41)
[2024-07-02 04:57] LABS: % Basophils 0.4 % (0-2); % Eosinophils 4.8 % (0-6); % Immature Granulocytes 1.1 % (0-0.5); % Lymphocytes 10.2 % (20.5-51.1); % Neutrophils 76.5 % (42.2-75.2); Absolute Basophils 0.1 10^3/uL (0-0.2); Absolute Eosinophils 0.7 10^3/uL (0-0.7); Absolute Immature Granulocytes 0.2 10^3/uL (0-0.05); Absolute Lymphocytes 1.4 10^3/uL (1.2-3.4); Absolute Neutrophils 10.8 10^3/uL (1.4-6.5); Hematocrit 24.5 % (39.0-52.0); Hemoglobin 8.3 g/dL (13.0-18.0); Mean Corp Hgb Conc. 33.9 g/dL (33.0-37.0); Mean Corpuscular Hgb 31.6 pg (27.0-31.0); Mean Corpuscular Volume 93.2 fL (80.0-94.0); Mean Platelet Volume 9.6 fL (7.4-10.4); Nucleated Red Blood Cells % 0 % (-); Platelet Count 587 10^3/uL (130-400); Red Blood Cell Count 2.63 10^6/uL (4.70-6.10); Red Cell Dist. Width 17.8 % (11.5-14.5)
[2024-07-02 05:17] LABS: ALT (SGPT) 39 U/L (0-50); AST (SGOT) 64 U/L (17-59); Albumin 2.8 g/dl (3.5-5.0); Alkaline Phosphatase 377 U/L (38-126); Blood Urea Nitrogen 16 mg/dl (9-20); Calcium 8.4 mg/dl (8.4-10.2); Carbon Dioxide 23 mmol/L (22-30); Chloride 104 mmol/L (98-107); Estimated Creatinine Clearance 89 ml/min; Glucose 93 mg/dl (70-99); Potassium 4.6 mmol/L (3.5-5.1); Sodium 136 mmol/L (135-145); Total Bilirubin 0.4 mg/dl (0.2-1.3); Total Protein 6.5 g/dl (6.3-8.2); eGFR > 60.00
[2024-07-02] MEDS: NOVOLOG FLEXPEN-MODERATE RESISTANCE SC ×4 (05:47→23:39)
--- NOTE | 2024-07-02 06:09 | PTCARENOTE ---
Pt found during night with EKG leads off, abdominal binder undone. Order for bilat mitts obtained and placed on pt to prevent pt from pulling at peg tube. Assessment otherwise unchanged.
[2024-07-02] MEDS: KEPPRA 1500 MG TUBE ×2 (09:20→20:07)
[2024-07-02] MEDS: VITAMIN B-12 1000 MCG PO (09:21)
[2024-07-02] MEDS: FOLVITE 1 MG PO (09:21)
[2024-07-02] MEDS: VITAMIN D3 (cholecalciferol) 125 MCG PO (09:21)
[2024-07-02] MEDS: LUMINAL 64.8 MG TUBE ×2 (09:21→20:09)
[2024-07-02] MEDS: ROBITUSSIN 200 MG TUBE ×4 (09:21→21:37)
[2024-07-02] MEDS: VIMPAT 150 MG TUBE ×2 (09:22→20:04)
[2024-07-02] MEDS: MIRALAX TUBE (09:22)
[2024-07-02] MEDS: ProAmatine TUBE ×2 (09:27→13:13)
--- NOTE | 2024-07-02 09:30 | PTCARENOTE ---
Rec'd care of patient at 0700. Patient alert. Oriented to only self. Confused/forgetful. Contracted on right wrist/hand. B/l foot drop. NSR on tele monitor. +1 anasarca. Pulses palpable. Lung sounds coarse throughout. Moist harsh cough present.
Nonproductive. Pulse ox 95% on RA. +BS. Abdominal binder on. PEG site assessed. TFs due to be restarted at 1000. Rectal trumpet in place for loose stools. Incontinent of urine. Jyotsna care as needed. Calazime applied to MASD on buttocks. IVFs infusing
through right dual lumen PICC.
--- NOTE | 2024-07-02 09:58 | W.PN.ID1 ---
Date of Service
Date of Service: July 02, 2024
Today's Communication
- s/p PEG tube placement for known dysphagia 07/01
- tube feeds can also lead to loose stool and indeed while they were held yesterday and today stool output tapered off - minimal amount in the bag today
would not recommend restarting antibiotics at this time
Assessment / Plan
# Nosocomial diarrhea - possibly related to tube feeds, recent cathartics and also recent antibiotics
# Leukocytosis - persistent
# Thrombocytosis
- recent cathartics and antibiotics noted; stool intermittently loose/liquid/soft - nonbloody and abdomen nontender
- agree with concern for possible AAD, tube feeds can also lead to loose stool and indeed while they were held yesterday and today stool output tapered off - minimal amount in the bag today; last dose of miralax appears to have been given 06/27,
agree with holding at this time
- C diff negative for antigen and toxin both 06/22 and 06/30
- persistent leukocytosis though L shift may be resolving
- 06/30 UA no pyuria, urine culture in progress
- blood cultures x2 were sent - no growth to date
- mild transaminitis continues to resolve, CT 06/30 unremarkable gallbladder, no lymphadenopathy
- procalcitonin is minimally elevated 0.03 above normal would not use to make decisions unless there was a clear condition which has been well validated for procalcitonin such as a new pneumonia or shock. I suspect the resolving infiltrates
represent the continued resolution of the previous known pneumonia
- COMPUTER SYSTEMS SECURITY ANALYST shunt already tapped this admission and no evidence of infection
- s/p PEG tube placement for known dysphagia 07/01
- petechial rash on the L and right arm - its chronic per RN been present at least a week, chart reviewed; I see petechial rash recorded under nursing notes starting 06/23
- covid ag negative 06/30
would not recommend restarting antibiotics at this time
# Resolved MSSA Pneumonia
- Admission sputum MSSA 9/18
- 06/23 Repeat CXR - no active parenchymal opacities
- s/p 7d cefazolin, dc'd 06/25.
- Aspiration precaution
# Resolved UTI due to Klebsiella
# CoNS bacteremia (1 of 2 sets)= contaminant
# Change in mental status- improved off sedation
# Seizure disorder on phenytoin, Keppra, Vimpat, phenobarbital
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
# Conditions prior to admission
Intellectual disability
Epilepsy on phenytoin, Keppra, Vimpat
Dyslipidemia
COMPUTER SYSTEMS SECURITY ANALYST shunt
SNF resident ([facility])
Chief Complaint
-: Other (diarrhea)
Subjective / Review of Systems
remains afebrile
bp stable
no complaints
petechial rash on the L arm - its chronic per RN been present at least a week, chart reviewed; I see petechial rash recorded under nursing notes starting 06/23 though I do not see comments in MD notes that day or the next day
Vital Signs / Physical Exam
Vital Signs
Vital Signs
Temp Pulse Resp BP Pulse Ox
97.5 F 92 28 121/76 95
07/02/24 08:10 07/02/24 09:22 07/02/24 09:22 07/02/24 09:27 07/02/24 09:22
Physical Exam
Constitutional: No Acute Distress and Chronically Ill
Cardiovascular: Regular Rate and S1/S2; Negative Murmur or Rub
Pulmonary: Clear and Symmetric; Negative Wheezes or Rales
Gastrointestinal: Soft, Non Tender, Non Distended and Normal Bowel Sounds
Skin: Warm, Dry and Rash (petechial - stable); Negative Jaundice
Objective Data
Lab Data
Lab Results
07/02/24 04:38
07/02/24 04:38
PT 14.5 Sec (11.4-14.6) 07/01/24 04:11
INR 1.15 07/01/24 04:11
APTT 39.0 Sec (23.4-35.0) H 06/19/24 09:02
Estimated Creat Clear 89 ml/min 07/02/24 04:38
Lactic Acid 1.5 mmol/L (0.7-2.0) 06/18/24 21:33
Total Bilirubin 0.4 mg/dl (0.2-1.3) 07/02/24 04:38
AST 64 U/L (17-59) H 07/02/24 04:38
ALT 39 U/L (0-50) 07/02/24 04:38
Alkaline Phosphatase 377 U/L (38-126) H 07/02/24 04:38
Most recent labs reviewed.
Micro Results:
07/01/24 10:31 Salmonella/Shigella Culture - Preliminary
Feces/Stool Culture in Progress
Campylobacter Culture - Preliminary
Culture in Progress
Shiga Toxin Test - Pending
06/30/24 18:46 Blood Culture - Preliminary
Blood/Venous No Growth in 24 hours- Final report to follow
06/30/24 15:51 Blood Culture - Preliminary
Blood/Venous No Growth in 24 hours- Final report to follow
07/01/24 10:31 Stool Leukocytes - Final
Feces/Stool
06/30/24 16:40 Urine Culture - Final
Urine NO GROWTH
06/30/24 14:31 C. difficile GDH Antigen & Toxins - Final
Feces/Stool Negative for toxigenic C.difficile
06/20/24 16:18 Blood Culture - Final
Blood/Venous No Growth - Final Report
06/18/24 08:11 Blood Culture - Final
Blood/Venous Coagulase neg. staphylococcus
Additional testing on request
Gram Stain - Final
06/18/24 10:05 CSF Culture - Final
Csf No Growth After 5 Days - Final Report
Gram Stain - Final
06/18/24 08:11 Blood Culture - Final
Blood/Venous No Growth - Final Report
06/22/24 09:57 C. difficile GDH Antigen & Toxins - Final
Feces/Stool Negative for toxigenic C.difficile
06/20/24 16:18 Respiratory Culture - Final
Endotracheal Usual Respiratory Kalpana
Gram Stain - Final
06/18/24 15:28 Respiratory Culture - Final
Tracheal Aspirate S aureus-Methicillin Sensitive
Keisha albicans
Gram Stain - Final
06/18/24 08:44 Urine Culture - Final
Urine Klebsiella pneumoniae
06/19/24 09:02 Nasal Screen MRSA (PCR) - Final
Nose MRSA not detected - performed by PCR methodology.
06/18/24 08:11 Influenza Types A & B (FLAVIO) - Final
Nasal Swab Negative for Influenza A & B, NAAT
Negative results must be combined with clinical observations
and patient history.
Nucleic Acid Amplification test (NAAT)performed on the
[employer] platform.
--- NOTE | 2024-07-02 10:39 | W.PN.GI.CBS2 ---
Today's Communication / Plan
-
s/p peg and EGD for anemia with no finding for anemia-- doing well post procedure
to restart tube feeds
peg pulled back to 5.5 skin and 6.5 at end of bumper no bleeding or pain
cont to trend hbg-- remains stable during admission
left contact information for any issues with peg and consider follow up to review for colonoscopy for screening and anemia when improved from current sepsis/PNA
current off abx since 06/24 -- Ct with mild colitis but no abdominal pain on exam or fever and improved WBC trend
monitor diarrhea only one stool over last day but tube feeds held
will change Miralax to only PRN
will sign off call with questions
Assessment / Plan
-
Pt is a 68yo with hx intellectual disability, hyperlipidemia, epilepsy noted with concern for sepsis/ fever with PNA requiring intubation, UTI with klebsiella, stercoral colitis with rectal thickening and impaction on CT on admission. Asked
initially for DHT placement now asked eval for peg. In reviewing with patient and nursing staff noted with diarrhea and VSE with at least moderate-severe acute on chronic oral/pharyngeal dysphagia with episodes of deep laryngeal penetration and
aspiration with liquids. Esophageal dysphagia also suspected. Patient with top down and bottom up aspiration risks.
07/01 EGD - Normal esophagus.
- Small hiatal hernia.
- Two gastric polyps.
- Normal examined duodenum.
- A PEG placement was successfully completed.
- No specimens collected.
06/[address]
Mild airspace disease in left lower lobe concerning for pneumonia. Improved
Findings suggesting moderate colitis. New
Mild bladder wall thickening concerning for cystitis versus bladder outlet obstruction. Improved
Mild prostate hypertrophy. Stable
Diverticulosis. Stable
Simple left renal cyst. Stable
-failed VSE/dysphagia
-fever/sepsis on admission
-s/p PNA with intubation
-UTI
-stercoral colitis on admission and moderate colitis on follow up imaging without pain on exam
-persistent leukocytosis
-anemia
-seizures disorder
-intellectual disability
-hyperlipidemia
PLAN:
s/p peg and EGD for anemia with no finding for anemia-- doing well post procedure
to restart tube feeds
peg pulled back to 5.5 skin and 6.5 at end of bumper no bleeding or pain
cont to trend hbg-- remains stable during admission
left contact information for any issues with peg and consider follow up to review for colonoscopy for screening and anemia when improved from current sepsis/PNA
current off abx since 06/24 -- Ct with mild colitis but no abdominal pain on exam or fever and improved WBC trend
monitor diarrhea only one stool over last day but tube feeds held
will change Miralax to only PRN
will sign off call with questions
Subjective
Subjective
Date of Service: July 02, 2024
s/p peg doing well, 07/01 bron stool just resuming tube feeds
Objective
Data Reviewed
Laboratory Data:
Laboratory Results
07/02/24 04:38
07/02/24 04:38
Laboratory Results
PT 14.5 Sec (11.4-14.6) 07/01/24 04:11
INR 1.15 07/01/24 04:11
APTT 39.0 Sec (23.4-35.0) H 06/19/24 09:02
Phosphorus 4.3 mg/dl (2.5-4.5) 06/30/24 05:19
Magnesium 2.1 mg/dl (1.6-2.3) 06/30/24 05:19
Total Bilirubin 0.4 mg/dl (0.2-1.3) 07/02/24 04:38
AST 64 U/L (17-59) H 07/02/24 04:38
ALT 39 U/L (0-50) 07/02/24 04:38
Alkaline Phosphatase 377 U/L (38-126) H 07/02/24 04:38
Vital Signs and I&O:
Vital Signs
Temp Pulse Resp BP Pulse Ox
97.5 F 92 28 121/76 95
07/02/24 08:10 07/02/24 09:22 07/02/24 09:22 07/02/24 09:27 07/02/24 09:22
I&O
07/01/24 07/02/24 07/03/24
06:59 06:59 06:59
Intake Total 660 / 660 625 / 625
Balance 660 / 660 625 / 625
Physical Exam
Physical Exam
HEENT: Anicteric and Moist mucous membranes
Cardiology: Normal Sinus Rhythm
Pulmonary: Clear
GI: Soft, Non Distended, Non Tender and Other (peg intact no bleeding, bumper pulled back to 5.5 at skin and 6.5 at end of bumper )
Extremities: No Edema
Neuro: Other (awake and alert answering most questions)
--- NOTE | 2024-07-02 11:00 | W.PN.HOSP.TC ---
Today's Communication/Plan
-
labs in AM
start tube feeds
Assessment / Plan
Assessment / Plan
68yo M resident of , with PMHX of SAND SLINGER shunt, intellectual disability, epilepsy, HLD was brought to the hospital with worsening responsiveness, intubated in ED and managed for septic shock 2/2 CAP with MSSA. Extubated on 06/27/24, however remained
high risk for aspiration. VSE on 06/30/24 showed deep penetration with thin and moderately thick liquids and reflux with most consistencies, so ROCKET ENGINE TESTER recommended to keep NPO and cont alternative means of feeding, so PEG placed on 07/01/24
A/P:
#Septic shock with toxic metabolic encephalopathy on admission 2/2 aspiration pneumonia due to dysphagia
#Concern for UTI
#Stercoral colitis on admission
Ucx with K.pneumonia
Sputum Cx - MSSA
Weaned off pressors to Midodrine
Completed Cefazoline 7 days as per ID
Bcx with 1 set of CoNS - contaminant as per ID
LP on admission without concern for meningitis/encephalitis
Tabulating Clerk followed
#Hypernatremia
2/2 poor oral intake
Nephrology followed
Resolved
#persistent leukocytosis with ascending colitis
on CT on 06/30/24
ID followed - no additional recommendations
C.diff PCR repeated - neg. Stool WBC and Cx pending
Bcx NTD
UA neg for infection
#Diarrhea
C.diff neg
rectal tube in place
#Hx of epilepsy
#SAND SLINGER shunt
Neurology and neuroSx evaluated. No role in surgical intervention
COnt AED
EEG done - neuro followed
MRI cannot be performed 2/2 cranial metallic hardware
#Stool impaction
disimpacted in ED
#Dysphagia, unspecified
s/p PEG on 07/01/24
start tube feeds
DVT ppx lovenox
Full code (as reversed from DNR/DNI by PoA)
I have spent at least 58min reviewing chart, test results, communication with consultants and direct patient care
Anticipated Discharge: Within 24 hours
Subjective/Interval History
-
Date of Service: July 02, 2024
Objective Data
-
Labs:
Laboratory Results
07/02/24
04:38
WBC 14.0 H
Hgb 8.3 L
Hct 24.5 L
Plt Count 587 H
Sodium 136
Potassium 4.6
Chloride 104
Carbon Dioxide 23
BUN 16
Creatinine 0.7
Glucose 93
Calcium 8.4
Total Bilirubin 0.4
AST 64 H
ALT 39
Alkaline Phosphatase 377 H
Vital Signs:
Vital Signs
Temp Pulse Resp BP Pulse Ox
97.5 F 94 17 117/69 94
07/02/24 08:10 07/02/24 10:00 07/02/24 10:00 07/02/24 10:00 07/02/24 10:00
I&O
07/01/24 07/02/24 07/03/24
06:59 06:59 06:59
Intake Total 660 / 660 625 / 625
Balance 660 / 660 625 / 625
Review of Systems
-
History Source: Patient
All other systems: Reviewed and negative
Physical Exam
-
General: No Apparent Distress
Respiratory: Clear to Auscultation
Cardiac: Regular Rhythm
Musculoskeletal: No Clubbing, No Cyanosis and No Edema
Neuro: Awake and Alert
--- NOTE | 2024-07-02 11:03 | PTCARENOTE ---
Patient downgraded to telemetry level.
--- NOTE | 2024-07-02 11:10 | CM ---
CM following re: discharge planning.
Discussed in Rounds, reviewed pt's chart, met with pt and spoke to pt's POA Gucci to update on discharge plan progress.
Per Rounds meeting, peg tube placed yesterday, continue supportive care. Per RN, pt's POA does not want pt returns back to [facility] and he requested a new SNF for a LTC.
CM spoke to pt's POA Gucci and he stated he toured [facility] with the pt 5 months ago, pt is on a waiting last at [facility] and pt's POA requested to send a referral to [facility] for a review.
CM spoke to [facility] summer school coordinator Eris and she stated she is deeply aware of the pt and pt's clinical is requested.
A referral to [facility] made. Awaiting for determination.
D/C plan: [facility] of pt is accepted. Plan B: return back to [facility] with further plan to transfer to [facility] when a bed is available.
CM will follow with discharge plan updates as hospitalization progresses
[2024-07-02 12:01] LABS: Glucose - Point of Care 106 mg/dl (70-99)
--- NOTE | 2024-07-02 13:12 | PTOTSP ---
Dysphagia Therapy
Patient begin aspiration risk hydration protocol to allow unlimited ice chips with direct supervision, after oral care. Discontinue if decline in respiratory status observed.
Recommend:
1. NPO - continue non-oral means
2. Medications via non-oral means
3. Oral care 3x daily
4. Aspiration risk hydration protocol - unlimited ice chips with direct supervision
5. Dysphagia therapy at the acute care level.
--- NOTE | 2024-07-02 15:05 | PTCARENOTE ---
Report given to SACHA Spencer. Patient transferred with belongings to .
[2024-07-02 16:57] LABS: Glucose - Point of Care 98 mg/dl (70-99)
[2024-07-02] MEDS: ProAmatine 10 MG TUBE (17:16)
[2024-07-02] MEDS: LOVENOX 40 MG SC (17:16)
[2024-07-02 22:12] LABS: Glucose - Point of Care 99 mg/dl (70-99)
[2024-07-03 03:59] VITALS: BP 109/78
[2024-07-03 05:12] LABS: Glucose - Point of Care 101 mg/dl (70-99)
[2024-07-03] MEDS: NOVOLOG FLEXPEN-MODERATE RESISTANCE SC ×3 (05:21→18:43)
[2024-07-03 07:30] VITALS: BP 100/68
[2024-07-03 08:24] LABS: % Basophils 0.3 % (0-2); % Eosinophils 5.5 % (0-6); % Immature Granulocytes 0.9 % (0-0.5); % Lymphocytes 8.5 % (20.5-51.1); % Monocytes 6.8 % (1.7-9.3); Absolute Eosinophils 0.8 10^3/uL (0-0.7); Absolute Immature Granulocytes 0.1 10^3/uL (0-0.05); Absolute Lymphocytes 1.2 10^3/uL (1.2-3.4); Absolute Neutrophils 11.1 10^3/uL (1.4-6.5); Hematocrit 24.7 % (39.0-52.0); Hemoglobin 8.2 g/dL (13.0-18.0); Mean Corp Hgb Conc. 33.2 g/dL (33.0-37.0); Mean Corpuscular Hgb 31.4 pg (27.0-31.0); Mean Corpuscular Volume 94.6 fL (80.0-94.0); Mean Platelet Volume 9.6 fL (7.4-10.4); Nucleated Red Blood Cells % 0 % (-); Platelet Count 625 10^3/uL (130-400); Red Blood Cell Count 2.61 10^6/uL (4.70-6.10); Red Cell Dist. Width 18.1 % (11.5-14.5); White Blood Cell Count 14.2 10^3/uL (4.8-10.8)
[2024-07-03 08:41] LABS: ALT (SGPT) 34 U/L (0-50); AST (SGOT) 50 U/L (17-59); Albumin 2.9 g/dl (3.5-5.0); Alkaline Phosphatase 371 U/L (38-126); Blood Urea Nitrogen 15 mg/dl (9-20); Calcium 8.6 mg/dl (8.4-10.2); Carbon Dioxide 22 mmol/L (22-30); Chloride 102 mmol/L (98-107); Estimated Creatinine Clearance 89 ml/min; Glucose 105 mg/dl (70-99); Potassium 4.9 mmol/L (3.5-5.1); Sodium 136 mmol/L (135-145); Total Bilirubin 0.3 mg/dl (0.2-1.3); Total Protein 6.5 g/dl (6.3-8.2); eGFR > 60.00
--- NOTE | 2024-07-03 10:13 | W.PN.HOSP.TC ---
Today's Communication/Plan
-
Tolerating tube feeding well - cont
HIDA scan, since perisstent leukocytosis with worsening reactive thrombocytosis, but also can be 2/2 recent PEG placement
CBC in AM
Assessment / Plan
Assessment / Plan
68yo M resident of [facility], with PMHX of TRAIN CALLER shunt, intellectual disability, epilepsy, HLD was brought to the hospital with worsening responsiveness, intubated in ED and managed for septic shock 2/2 CAP with MSSA. Extubated on 06/27/24, however remained
high risk for aspiration. VSE on 06/30/24 showed deep penetration with thin and moderately thick liquids and reflux with most consistencies, so JEWEL HOLE FINISH OPENER recommended to keep NPO and cont alternative means of feeding, so PEG placed on 07/01/24. Persistent
leukocytosis with reactive thrombocytosis
A/P:
#Septic shock with toxic metabolic encephalopathy on admission 2/2 aspiration pneumonia due to dysphagia
#Concern for UTI
#Stercoral colitis on admission
Ucx with K.pneumonia
Sputum Cx - MSSA
Weaned off pressors to Midodrine
Completed Cefazoline 7 days as per ID
Bcx with 1 set of CoNS - contaminant as per ID
LP on admission without concern for meningitis/encephalitis
Sheriff'S Detective followed
#Hypernatremia
2/2 poor oral intake
Nephrology followed
Resolved
#persistent leukocytosis
#Reactive thrombocytosis
#Elevated Alk.phos
on CT on 06/30/24 - peristent colitis, no biliary pathology
HIDA
ID followed - advised to monitor off Abx since C.diff PCR repeated - neg. Stool WBC and Cx
Bcx NTD
UA neg for infection
#Diarrhea
C.diff neg
rectal tube in place
#Hx of epilepsy
#TRAIN CALLER shunt
Neurology and neuroSx evaluated. No role in surgical intervention
COnt AED
EEG done - neuro followed
MRI cannot be performed 2/2 cranial metallic hardware
#Stool impaction
disimpacted in ED
#Dysphagia, unspecified
s/p PEG on 07/01/24
start tube feeds
DVT ppx lovenox
Full code (as reversed from DNR/DNI by PoA)
I have spent at least 58min reviewing chart, test results, communication with consultants and direct patient care
Anticipated Discharge: 24 - 48 hours
Subjective/Interval History
-
Date of Service: July 03, 2024
Objective Data
-
Labs:
Laboratory Results
07/03/24 07/03/24
07:56 07:57
WBC 14.2 H
Hgb 8.2 L
Hct 24.7 L
Plt Count 625 H
Sodium 136
Potassium 4.9
Chloride 102
Carbon Dioxide 22
BUN 15
Creatinine 0.7
Glucose 105 H
Calcium 8.6
Total Bilirubin 0.3
AST 50
ALT 34
Alkaline Phosphatase 371 H
Vital Signs:
Vital Signs
Temp Pulse Resp BP Pulse Ox
98.2 F 90 18 100/68 96
07/03/24 07:30 07/03/24 07:30 07/03/24 07:30 07/03/24 07:30 07/03/24 07:30
I&O
07/02/24 07/03/24 07/04/24
06:59 06:59 06:59
Intake Total 625 / 700 1200 / 1200
Output Total 150 / 150
Balance 625 / 700 1050 / 1050
Physical Exam
-
General: No Apparent Distress
Respiratory: Clear to Auscultation
Cardiac: Regular Rhythm
GI: Soft and Peg Tube
Musculoskeletal: No Clubbing, No Cyanosis and No Edema
Neuro: Awake and Alert
Psych: Calm
[2024-07-03] MEDS: KEPPRA 1500 MG TUBE ×2 (10:48→20:55)
[2024-07-03] MEDS: VIMPAT 150 MG TUBE ×2 (10:49→21:01)
[2024-07-03] MEDS: ProAmatine 10 MG TUBE ×3 (10:50→18:44)
[2024-07-03] MEDS: VITAMIN B-12 1000 MCG PO (10:51)
[2024-07-03] MEDS: FOLVITE 1 MG PO (10:51)
[2024-07-03] MEDS: VITAMIN D3 (cholecalciferol) 125 MCG PO (10:58)
[2024-07-03] MEDS: ROBITUSSIN 200 MG TUBE ×4 (10:58→21:06)
[2024-07-03] MEDS: LUMINAL 64.8 MG TUBE ×2 (10:58→21:05)
[2024-07-03 11:00] VITALS: BP 101/71
[2024-07-03 13:18] LABS: Glucose - Point of Care 100 mg/dl (70-99)
--- NOTE | 2024-07-03 13:48 | CM ---
insurance risk manager reviewed patient's chart and met with patient this am, patient was admitted from [facility] where patient has lived for 6 months, patient with new peg placement, mitt on left hand, patient with intellectual disability,
and per previous notes TANYA Duckworth is looking for another facility, hopefully [facility], referral sent to [facility] and therapeutic case manager spoke with Dorothea in admissions. Message left for TANYA Duckworth requesting a call back.
Plan; Skilled placement return to [facility] or skilled placement at [facility].
[2024-07-03 15:30] VITALS: BP 103/71
--- NOTE | 2024-07-03 15:57 | W.PN.ID1 ---
Date of Service
Date of Service: July 03, 2024
Today's Communication
ID will sign off.
Assessment / Plan
# Diarrhea - possibly related to tube feeds, recent cathartics
- CT with new mild colitis
- C. diff x 2 neg.
- Stool cx neg
- No need for abx.
# Persistent leukocytosis- trending down
-No infectious etiology identified
- 06/30 UA no pyuria, urine culture in progress
- blood cultures x2 were sent - no growth to date
- mild transaminitis continues to resolve, CT 06/30 unremarkable gallbladder, no lymphadenopathy
- FORENSIC EXAMINER shunt already tapped this admission and no evidence of infection
- s/p PEG tube placement for known dysphagia 07/01
-Observe off abx.
# Resolved MSSA Pneumonia
- Admission sputum MSSA 06/18
- 06/23 Repeat CXR - no active parenchymal opacities
- s/p 7d cefazolin, dc'd 06/25.
- Aspiration precaution
# Resolved UTI due to Klebsiella
# CoNS bacteremia (1 of 2 sets)= contaminant
# Change in mental status- improved off sedation
# Seizure disorder on phenytoin, Keppra, Vimpat, phenobarbital
# FORENSIC EXAMINER shunt
ID will sign off.
# Conditions prior to admission
Intellectual disability
Epilepsy on phenytoin, Keppra, Vimpat
Dyslipidemia
FORENSIC EXAMINER shunt
[facility] resident ([facility])
Chief Complaint
-: Other (diarrhea)
Vital Signs / Physical Exam
Vital Signs
Vital Signs
Temp Pulse Resp BP Pulse Ox
98.1 F 86 26 103/71 96
07/03/24 15:30 07/03/24 15:30 07/03/24 15:30 07/03/24 15:30 07/03/24 15:30
Physical Exam
Constitutional: No Acute Distress and Chronically Ill
Cardiovascular: Regular Rate and S1/S2
Pulmonary: Clear (anteriorly)
Gastrointestinal: Soft, Non Tender, Non Distended, Normal Bowel Sounds and Other (FMS: light brown liquid stool)
Objective Data
Lab Data
Lab Results
07/03/24 07:56
07/03/24 07:57
PT 14.5 Sec (11.4-14.6) 07/01/24 04:11
INR 1.15 07/01/24 04:11
APTT 39.0 Sec (23.4-35.0) H 06/19/24 09:02
Estimated Creat Clear 89 ml/min 07/03/24 07:57
Lactic Acid 1.5 mmol/L (0.7-2.0) 06/18/24 21:33
Total Bilirubin 0.3 mg/dl (0.2-1.3) 07/03/24 07:57
AST 50 U/L (17-59) 07/03/24 07:57
ALT 34 U/L (0-50) 07/03/24 07:57
Alkaline Phosphatase 371 U/L (38-126) H 07/03/24 07:57
Most recent labs reviewed.
Micro Results:
07/01/24 10:31 Salmonella/Shigella Culture - Final
Feces/Stool No Salmonella, Shigella, Aeromonas or Plesiomonas species
isolated.
Campylobacter Culture - Final
No Campylobacter species isolated.
Shiga Toxin Test - Final
No E. coli Shiga Toxin 1 or 2 detected.
06/30/24 18:46 Blood Culture - Preliminary
Blood/Venous No Growth in 48 hours- Final report to follow
06/30/24 15:51 Blood Culture - Preliminary
Blood/Venous No Growth in 48 hours- Final report to follow
07/01/24 10:31 Stool Leukocytes - Final
Feces/Stool
06/30/24 16:40 Urine Culture - Final
Urine NO GROWTH
06/30/24 14:31 C. difficile GDH Antigen & Toxins - Final
Feces/Stool Negative for toxigenic C.difficile
06/20/24 16:18 Blood Culture - Final
Blood/Venous No Growth - Final Report
06/18/24 08:11 Blood Culture - Final
Blood/Venous Coagulase neg. staphylococcus
Additional testing on request
Gram Stain - Final
06/18/24 10:05 CSF Culture - Final
Csf No Growth After 5 Days - Final Report
Gram Stain - Final
06/18/24 08:11 Blood Culture - Final
Blood/Venous No Growth - Final Report
06/22/24 09:57 C. difficile GDH Antigen & Toxins - Final
Feces/Stool Negative for toxigenic C.difficile
06/20/24 16:18 Respiratory Culture - Final
Endotracheal Usual Respiratory Kalpana
Gram Stain - Final
06/18/24 15:28 Respiratory Culture - Final
Tracheal Aspirate S aureus-Methicillin Sensitive
Keisha albicans
Gram Stain - Final
06/18/24 08:44 Urine Culture - Final
Urine Klebsiella pneumoniae
06/19/24 09:02 Nasal Screen MRSA (PCR) - Final
Nose MRSA not detected - performed by PCR methodology.
06/18/24 08:11 Influenza Types A & B (FLAVIO) - Final
Nasal Swab Negative for Influenza A & B, NAAT
Negative results must be combined with clinical observations
and patient history.
Nucleic Acid Amplification test (NAAT)performed on the
[employer] platform.
[2024-07-03 17:33] LABS: Glucose - Point of Care 99 mg/dl (70-99)
[2024-07-03] MEDS: LOVENOX 40 MG SC (18:44)
[2024-07-03 19:30] VITALS: BP 104/71
[2024-07-03 23:42] VITALS: BP 113/77
[2024-07-04 00:15] LABS: Glucose - Point of Care 115 mg/dl (70-99)
[2024-07-04] MEDS: NOVOLOG FLEXPEN-MODERATE RESISTANCE SC ×4 (00:47→17:57)
[2024-07-04 03:26] VITALS: BP 116/75
[2024-07-04 06:02] LABS: Glucose - Point of Care 104 mg/dl (70-99)
[2024-07-04 07:33] LABS: % Basophils 0.5 % (0-2); % Eosinophils 5.6 % (0-6); % Immature Granulocytes 1.1 % (0-0.5); % Lymphocytes 9.8 % (20.5-51.1); % Monocytes 6.9 % (1.7-9.3); % Neutrophils 76.1 % (42.2-75.2); Absolute Basophils 0.1 10^3/uL (0-0.2); Absolute Eosinophils 0.7 10^3/uL (0-0.7); Absolute Immature Granulocytes 0.1 10^3/uL (0-0.05); Absolute Lymphocytes 1.3 10^3/uL (1.2-3.4); Absolute Monocytes 0.9 10^3/uL (0.1-0.6); Hematocrit 27.2 % (39.0-52.0); Hemoglobin 9.1 g/dL (13.0-18.0); Mean Corp Hgb Conc. 33.5 g/dL (33.0-37.0); Mean Corpuscular Hgb 31.7 pg (27.0-31.0); Mean Corpuscular Volume 94.8 fL (80.0-94.0); Mean Platelet Volume 9.6 fL (7.4-10.4); Nucleated Red Blood Cells % 0 % (-); Platelet Count 657 10^3/uL (130-400); Red Blood Cell Count 2.87 10^6/uL (4.70-6.10); Red Cell Dist. Width 18.6 % (11.5-14.5); White Blood Cell Count 13.1 10^3/uL (4.8-10.8)
[2024-07-04 07:52] VITALS: BP 111/69
[2024-07-04 07:55] LABS: ALT (SGPT) 37 U/L (0-50); AST (SGOT) 55 U/L (17-59); Albumin 3.1 g/dl (3.5-5.0); Alkaline Phosphatase 392 U/L (38-126); Blood Urea Nitrogen 19 mg/dl (9-20); Calcium 8.9 mg/dl (8.4-10.2); Carbon Dioxide 23 mmol/L (22-30); Chloride 100 mmol/L (98-107); Estimated Creatinine Clearance 89 ml/min; Glucose 91 mg/dl (70-99); Potassium 5.2 mmol/L (3.5-5.1); Sodium 135 mmol/L (135-145); Total Bilirubin 0.3 mg/dl (0.2-1.3); Total Protein 6.8 g/dl (6.3-8.2); eGFR > 60.00
[2024-07-04] MEDS: KEPPRA 1500 MG TUBE ×2 (08:05→19:43)
[2024-07-04] MEDS: VIMPAT 150 MG TUBE ×2 (08:07→19:43)
[2024-07-04] MEDS: ROBITUSSIN 200 MG TUBE ×3 (08:08→17:21)
[2024-07-04] MEDS: LUMINAL 64.8 MG TUBE ×2 (08:08→19:43)
[2024-07-04] MEDS: FOLVITE 1 MG PO (08:08)
[2024-07-04] MEDS: VITAMIN D3 (cholecalciferol) 125 MCG PO (08:08)
[2024-07-04] MEDS: ProAmatine 10 MG TUBE ×2 (08:08→13:20)
[2024-07-04] MEDS: VITAMIN B-12 1000 MCG PO (08:08)
--- NOTE | 2024-07-04 09:02 | CM ---
Addendum entered by Marisol Florentino 07/04/24 16:47:
Patient does not require mitt, new peg with tube feeds, message left for POA for patient Gucci Kong [phone], informing him that [facility] will not accept patient, however there was no answer, message left but no return call.
Original Note:
senior product manager reviewed patient's chart and patient was admitted from [facility], where patient has lived for 6 months, patient's POA was trying to get patient into [facility] while he was at [facility], disability case manager spoke
with admissions at [facility] and faxed updated clinical notes however patient with new feeding tube and has a mitt in place. Per admissions at [facility] they cannot accept patient at this time. senior product manager will notify Gucci Kong [phone]
[phone], POA/Rose Grader for patient that [facility] will not accept patient.
Plan; Skilled placement.
[2024-07-04 11:36] VITALS: BP 127/72
--- NOTE | 2024-07-04 11:42 | W.PN.HOSP.TC ---
Addendum entered and electronically signed by Valentin Park MD 07/04/24 14:47:
#Mild hyperkalemia
without MILY
most likely 2/2 feeding
Lokelma and follow BMP
Original Note:
Today's Communication/Plan
-
for HIDA
Assessment / Plan
Assessment / Plan
68yo M resident of [facility], with PMHX of NETBACKUP ENGINEER shunt, intellectual disability, epilepsy, HLD was brought to the hospital with worsening responsiveness, intubated in ED and managed for septic shock 2/2 CAP with MSSA. Extubated on 06/27/24, however remained
high risk for aspiration. VSE on 06/30/24 showed deep penetration with thin and moderately thick liquids and reflux with most consistencies, so MEDIA PROMOTER recommended to keep NPO and cont alternative means of feeding, so PEG placed on 07/01/24. Persistent
leukocytosis with reactive thrombocytosis
A/P:
#Septic shock with toxic metabolic encephalopathy on admission 2/2 aspiration pneumonia due to dysphagia
#Concern for UTI
#Stercoral colitis on admission
Ucx with K.pneumonia
Sputum Cx - MSSA
Weaned off pressors to Midodrine
Completed Cefazoline 7 days as per ID
Bcx with 1 set of CoNS - contaminant as per ID
LP on admission without concern for meningitis/encephalitis
Community Health Coordinator followed
#Hypernatremia
2/2 poor oral intake
Nephrology followed
Resolved
#persistent leukocytosis
#Reactive thrombocytosis
#Elevated Alk.phos
Leukocytosis improving off Abx
on CT on 06/30/24 - persistent colitis, no biliary pathology
HIDA
ID followed - advised to monitor off Abx since C.diff PCR repeated - neg. Stool WBC and Cx
Bcx NTD
UA neg for infection
#Diarrhea
C.diff neg
rectal tube in place
#Hx of epilepsy
#NETBACKUP ENGINEER shunt
Neurology and neuroSx evaluated. No role in surgical intervention
COnt AED
EEG done - neuro followed
MRI cannot be performed 2/2 cranial metallic hardware
#Stool impaction
disimpacted in ED
#Dysphagia, unspecified
s/p PEG on 07/01/24
start tube feeds
DVT ppx lovenox
Full code (as reversed from DNR/DNI by PoA)
I have spent at least 58min reviewing chart, test results, communication with consultants and direct patient care
Anticipated Discharge: Within 24 hours
Subjective/Interval History
-
Date of Service: July 04, 2024
Objective Data
-
Labs:
Laboratory Results
07/04/24 07/04/24
06:50 12:00
WBC 13.1 H
Hgb 9.1 L
Hct 27.2 L
Plt Count 657 H
Sodium 135
Potassium 5.2 H Pending
Chloride 100
Carbon Dioxide 23
BUN 19
Creatinine 0.7
Glucose 91
Calcium 8.9
Total Bilirubin 0.3
AST 55
ALT 37
Alkaline Phosphatase 392 H
Vital Signs:
Vital Signs
Temp Pulse Resp BP Pulse Ox
97.5 F 75 18 127/72 99
07/04/24 11:36 07/04/24 11:36 07/04/24 11:36 07/04/24 11:36 07/04/24 11:36
I&O
07/03/24 07/04/24 07/05/24
06:59 06:59 06:59
Intake Total 1200 / 1200 1814
Output Total 150 / 150
Balance 1050 / 1050 1814
Review of Systems
-
Unable to obtain full review of systems at this time due to: Other (minimally verbal but answering questions yes/no)
History Source: Patient
All other systems: Reviewed and negative
Physical Exam
-
General: No Apparent Distress
HEENT: Normocephalic
Respiratory: Clear to Auscultation
Cardiac: Regular Rhythm
GI: Soft, Nontender, Nondistended and Peg Tube
Musculoskeletal: No Clubbing, No Cyanosis and No Edema
Skin: Warm; Negative Dry
Neuro: Awake and Alert
Psych: Calm
[2024-07-04 13:25] LABS: Glucose - Point of Care 90 mg/dl (70-99)
[2024-07-04 14:42] LABS: Phosphorus 4.7 mg/dl (2.5-4.5); Potassium 5.6 mmol/L (3.5-5.1)
[2024-07-04] MEDS: LOKELMA 5 GRAM PO (15:05)
[2024-07-04] MEDS: NSS 1000 IV (15:06)
[2024-07-04 15:27] VITALS: BP 119/74
[2024-07-04] MEDS: LOVENOX 40 MG SC (17:21)
[2024-07-04] MEDS: ProAmatine TUBE (17:22)
[2024-07-04 17:32] LABS: Creatine Phosphokinase 22 U/L (55-170)
[2024-07-04 17:41] LABS: Glucose - Point of Care 87 mg/dl (70-99)
[2024-07-04 18:10] LABS: Blood Urea Nitrogen 20 mg/dl (9-20); Calcium 9.8 mg/dl (8.4-10.2); Carbon Dioxide 17 mmol/L (22-30); Chloride 102 mmol/L (98-107); Estimated Creatinine Clearance 89 ml/min; Sodium 136 mmol/L (135-145)
[2024-07-04 19:37] VITALS: BP 114/62
[2024-07-04 23:03] VITALS: BP 120/73
[2024-07-05 00:17] LABS: Glucose - Point of Care 93 mg/dl (70-99)
--- NOTE | 2024-07-05 03:20 | W.PN.UPDATE ---
Update Note
Progress Note Update
fall - Per nursing, patient found on the floor with right arm stuck to the railing of the bed. Upon assessment patient's right wrist/forearm reddened but blanchable, VSS. Patient denies pain, ROM baseline. Of note, patient's right upper arm also
noted to be reddened and warm to touch - PICC line removed today. Patient appears comfortable at this time. Nursing to continue to monitor.
[2024-07-05 03:26] VITALS: BP 91/57
[2024-07-05 06:08] LABS: Glucose - Point of Care 98 mg/dl (70-99)
--- NOTE | 2024-07-05 06:34 | PTCARENOTE ---
RN and PCT entered pt room as pt telemetry was off. Pt found on the floor in a sitting position with right arm hooked into the side rail of the bed. Pt was lifted back into bed by staff. When asked what happened the pt stated 'I rolled over.' STEAM ENGINEER
called to bedside to assess pt. No injury present on pt.
[2024-07-05 07:09] LABS: % Basophils 0.3 % (0-2); % Eosinophils 1.9 % (0-6); % Lymphocytes 7.5 % (20.5-51.1); % Monocytes 6.7 % (1.7-9.3); % Neutrophils 82.6 % (42.2-75.2); Absolute Basophils 0.1 10^3/uL (0-0.2); Absolute Eosinophils 0.3 10^3/uL (0-0.7); Absolute Immature Granulocytes 0.2 10^3/uL (0-0.05); Absolute Lymphocytes 1.2 10^3/uL (1.2-3.4); Absolute Neutrophils 12.8 10^3/uL (1.4-6.5); Hematocrit 27.6 % (39.0-52.0); Hemoglobin 9.6 g/dL (13.0-18.0); Mean Corp Hgb Conc. 34.8 g/dL (33.0-37.0); Mean Corpuscular Hgb 33.2 pg (27.0-31.0); Mean Corpuscular Volume 95.5 fL (80.0-94.0); Mean Platelet Volume 9.5 fL (7.4-10.4); Nucleated Red Blood Cells % 0 % (-); Platelet Count 610 10^3/uL (130-400); Red Blood Cell Count 2.89 10^6/uL (4.70-6.10); Red Cell Dist. Width 18.2 % (11.5-14.5); White Blood Cell Count 15.5 10^3/uL (4.8-10.8)
[2024-07-05 07:10] LABS: Lactic Acid 1.1 mmol/L (0.7-2.0)
[2024-07-05 07:29] VITALS: BP 101/65
[2024-07-05 07:32] LABS: ALT (SGPT) 33 U/L (0-50); AST (SGOT) 44 U/L (17-59); Albumin 3.1 g/dl (3.5-5.0); Alkaline Phosphatase 378 U/L (38-126); Blood Urea Nitrogen 17 mg/dl (9-20); Calcium 8.8 mg/dl (8.4-10.2); Carbon Dioxide 20 mmol/L (22-30); Chloride 103 mmol/L (98-107); Estimated Creatinine Clearance 89 ml/min; Glucose 94 mg/dl (70-99); Potassium 4.8 mmol/L (3.5-5.1); Sodium 135 mmol/L (135-145); Total Bilirubin 0.5 mg/dl (0.2-1.3); Total Protein 6.6 g/dl (6.3-8.2); eGFR > 60.00
[2024-07-05] MEDS: ProAmatine 5 MG TUBE ×3 (08:58→17:16)
[2024-07-05] MEDS: VIMPAT 150 MG TUBE ×2 (08:58→21:09)
[2024-07-05] MEDS: FOLVITE 1 MG PO (08:58)
[2024-07-05] MEDS: KEPPRA 1500 MG TUBE ×2 (08:58→21:10)
[2024-07-05] MEDS: VITAMIN B-12 1000 MCG PO (08:59)
[2024-07-05] MEDS: VITAMIN D3 (cholecalciferol) 125 MCG PO (08:59)
[2024-07-05] MEDS: LUMINAL 64.8 MG TUBE ×2 (08:59→21:09)
--- NOTE | 2024-07-05 11:34 | W.PN.HOSP.TC ---
Today's Communication/Plan
-
medically stable for d/c - CM aware, unclear if SNF will have a bed
Assessment / Plan
Assessment / Plan
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 Extubated on 06/27/24, however remained
high risk for aspiration. VSE on 06/30/24 showed deep penetration with thin and moderately thick liquids and reflux with most consistencies, so EP TECH recommended to keep NPO and cont alternative means of feeding, so PEG placed on 07/01/24. Persistent
leukocytosis with reactive thrombocytosis
A/P:
#Septic shock with toxic metabolic encephalopathy on admission 2/2 aspiration pneumonia due to dysphagia
#Concern for UTI
#Stercoral colitis on admission
Ucx with K.pneumonia
Sputum Cx - MSSA
Weaned off pressors to Midodrine
Completed Cefazoline 7 days as per ID
Bcx with 1 set of CoNS - contaminant as per ID
LP on admission without concern for meningitis/encephalitis
Activated Sludge Operator followed
#Hypernatremia
2/2 poor oral intake
Nephrology followed
Resolved
#persistent leukocytosis with negative infection w/u
#Reactive thrombocytosis
#Elevated Alk.phos
Leukocytosis improving off Abx
on CT on 06/30/24 - persistent colitis, no biliary pathology. Might need outpatient GI for colonoscopy, currently GI signed off, contributing colitis to recent Abx
HIDA neg for cholecystitis
ID followed - advised to monitor off Abx since C.diff PCR repeated - neg. Stool WBC and Cx
Bcx NTD
UA neg for infection
ID recommended to follow off Abx and signed off
#Diarrhea
resolved
C.diff neg
rectal tube removed
#Hyperkalemia
unclear source
resolved
#Hx of epilepsy
#SENIOR INFORMATION SECURITY CONSULTANT shunt
Neurology and neuroSx evaluated. No role in surgical intervention
COnt AED
EEG done - neuro followed
MRI cannot be performed 2/2 cranial metallic hardware
#Stool impaction
disimpacted in ED
#Dysphagia, unspecified
s/p PEG on 07/01/24
start tube feeds
DVT ppx lovenox
Full code (as reversed from DNR/DNI by PoA)
I have spent at least 58min reviewing chart, test results, communication with consultants and direct patient care
Anticipated Discharge: Within 24 hours
Subjective/Interval History
-
Date of Service: July 05, 2024
Objective Data
-
Labs:
Laboratory Results
07/05/24 07/05/24
00:15 06:46
WBC 15.5 H
Hgb 9.6 L
Hct 27.6 L
Plt Count 610 H
Sodium Cancelled 135
Potassium Cancelled 4.8
Chloride Cancelled 103
Carbon Dioxide Cancelled 20 L
BUN Cancelled 17
Creatinine Cancelled 0.7
Glucose Cancelled 94
Calcium Cancelled 8.8
Total Bilirubin 0.5
AST 44
ALT 33
Alkaline Phosphatase 378 H
Vital Signs:
Vital Signs
Temp Pulse Resp BP Pulse Ox
98.1 F 80 20 101/65 94
07/05/24 07:29 07/05/24 07:29 07/05/24 07:29 07/05/24 07:29 07/05/24 07:29
I&O
07/04/24 07/05/24 07/06/24
06:59 06:59 06:59
Intake Total 1814 / 1815 450 / 450
Balance 1815 / 181 450 / 450
Review of Systems
-
History Source: Patient
All other systems: Reviewed and negative
Physical Exam
-
General: No Apparent Distress
Respiratory: Clear to Auscultation
GI: Soft, Nontender and Nondistended
Skin: Warm
Neuro: Awake, Alert, Slurred Speech and Other (chronic hemiparesis)
Psych: Calm
[2024-07-05 11:47] LABS: Glucose - Point of Care 107 mg/dl (70-99)
[2024-07-05 11:54] VITALS: BP 104/54
--- NOTE | 2024-07-05 13:43 | W.DCSUMMARY ---
Discharge Summary
Discharge Data
Date of Admission: 06/18/24
Date of Discharge: 07/07/24
-
Pending Results: No
Hospital Course
68yo M resident of SNF, with PMHX of HACKLER DOLL WIGS shunt, intellectual disability, epilepsy, HLD was brought to the hospital with worsening responsiveness, intubated in ED and managed for septic shock 2/2 CAP with MSSA and UTI. Extubated on 06/27/24, however
remained high risk for aspiration. VSE on 06/30/24 showed deep penetration with thin and moderately thick liquids and reflux with most consistencies, so HOSE MAKER recommended to keep NPO and cont alternative means of feeding, so PEG placed on 07/01/24.
Persistent leukocytosis with reactive thrombocytosis - ID recommended to follow off Abx as repeated infectious w/u was negative. Mild colitis peristent on CT - outpatient GI advised, infectious colitis w/u neg. Medically stable for d/c.
I have spent at least 38min discharging the patient
A/P:
#Septic shock with toxic metabolic encephalopathy on admission 2/2 aspiration pneumonia due to dysphagia
#Concern for UTI
#Stercoral colitis on admission
#Hypernatremia
#persistent leukocytosis with negative infection w/u
#Reactive thrombocytosis
#Elevated Alk.phos
#Diarrhea
#Hyperkalemia
#Hx of epilepsy
#HACKLER DOLL WIGS shunt
#Stool impaction
#Dysphagia, unspecified
Discharge Plan
-
Patient Disposition: Skilled Nursing/SNF
Discharge Diagnosis/Procedures: dysphagia, pneumonia
Diet: Tube feeding
Activity: As tolerated
Driving Restrictions: As prior to admission
Activity Restrictions/Additional Instructions:
Wound Care Instructions
L upper lip: clean with water, apply water soluble gel twice a day until healed.
Referrals:
Dipesh Moser MD [Family Provider] -
Barb Obrien MD [Active] - (OP follow up for any peg issues. Call to scheduled follow up if patient/POA would like to proceed with colonoscopy for colon cancer screening. )
Prescriptions:
New
polyethylene glycol 3350 [HealthyLax] 17 gram Powder In Packet
17 g PO DAILYPRN PRN (Reason: constipation) Qty: 30 0RF
midodrine 5 mg Tablet
5 mg feeding tube TID@0800,1300,1800 Qty: 30 0RF
bisacodyl 10 mg Suppository
10 mg DE [id number] PRN (Reason: constipation) Qty: 30 0RF
levetiracetam 500 mg/5 mL (5 mL) Solution
1,500 mg feeding tube Q12 Qty: 100 0RF
acetaminophen 650 mg/20.3 mL Solution
650 mg feeding tube Q6HPRN PRN (Reason: mild pain and temp>100.4) Qty: 30 0RF
Continued
phenobarbital 16.2 mg Tablet
64.8 mg PO BID
atorvastatin 10 mg Tablet
10 mg PO HS
cyanocobalamin (vitamin B-12) 1,000 mcg Tablet
1,000 mcg PO DAILY
phenytoin [Dilantin Infatabs] 50 mg Tablet,Chewable
150 mg PO HS
phenytoin [Dilantin Infatabs] 50 mg Tablet,Chewable
200 mg PO DAILY
folic acid 1 mg Tablet
1 mg PO DAILY
lacosamide [Vimpat] 10 mg/mL Solution
150 mg PO BID
cholecalciferol (vitamin D3) 1,250 mcg (50,000 unit) Tablet
1,250 mcg PO MO
Diazepam Rectal Gel 10 mg gel
10 mg DE DAILYPRN PRN (Reason: seizure)
Discontinued
acetaminophen 325 mg Tablet
650 mg PO Q6HPRN MDD 3000 mg PRN (Reason: mild pain)
levetiracetam 1,000 mg Tablet
1,250 mg PO BID
Discharge Orders:
Discharge Patient (As Directed); Ordered 07/07/24
Ordered By: Valentin Park
Discharge Date and Time
Print Language: SLOVAK
--- NOTE | 2024-07-05 13:52 | CM ---
Pt is ready for dc.
TRICIA spoke with Marisol from [facility] who is looking into supply of Jevity 1.5
TRICIA spoke with Gucci MARTÍNEZ, and he would like PT/OT to evaluate for therapy tolerance.
TRICIA educated on the Medicare benefit options for therapy and returning to [place]. Presentation of pt and medical documentation does not support that therapy would be appropriate, but will be consulted.
Gucci mentioned a facility in [place] he is possibly interested in, but does have to work on transfer of his Medicaid. Gucci comments that [place] is not his preferred dc plan, but understands there may not be another option in the immediate time
frame.
TRICIA will follow up with Gucci once PT/OT evals have been completed and [facility] is able to respond with availability of tube feeding.
[2024-07-05 15:28] VITALS: BP 100/79
[2024-07-05] MEDS: LOVENOX 40 MG SC (17:15)
[2024-07-05 18:11] LABS: Glucose - Point of Care 102 mg/dl (70-99)
[2024-07-05 19:20] VITALS: BP 112/73
[2024-07-05] MEDS: NSS IV (22:29)
[2024-07-05 23:17] VITALS: BP 97/63
[2024-07-06] VITALS (8 sets, daily range): BP systolic 95–121; BP diastolic 63–79; PULSE 85; O2SAT 98
[2024-07-06 00:17] LABS: Glucose - Point of Care 118 mg/dl (70-99)
[2024-07-06 06:05] LABS: Glucose - Point of Care 142 mg/dl (70-99)
[2024-07-06 08:26] LABS: ALT (SGPT) 33 U/L (0-50); AST (SGOT) 47 U/L (17-59); Albumin 3.2 g/dl (3.5-5.0); Alkaline Phosphatase 360 U/L (38-126); Blood Urea Nitrogen 18 mg/dl (9-20); Calcium 8.9 mg/dl (8.4-10.2); Carbon Dioxide 22 mmol/L (22-30); Chloride 101 mmol/L (98-107); Estimated Creatinine Clearance 78 ml/min; Glucose 113 mg/dl (70-99); Potassium 4.7 mmol/L (3.5-5.1); Sodium 136 mmol/L (135-145); Total Bilirubin < 0.1 mg/dl (0.2-1.3); Total Protein 6.8 g/dl (6.3-8.2); eGFR > 60.00
[2024-07-06] MEDS: LUMINAL 64.8 MG TUBE ×2 (08:56→20:14)
[2024-07-06] MEDS: FOLVITE 1 MG PO (09:07)
[2024-07-06] MEDS: ProAmatine 5 MG TUBE ×3 (09:07→17:49)
[2024-07-06] MEDS: KEPPRA 1500 MG TUBE ×2 (09:07→20:16)
[2024-07-06] MEDS: VITAMIN B-12 1000 MCG PO (09:07)
[2024-07-06] MEDS: VIMPAT 150 MG TUBE ×2 (09:08→20:14)
[2024-07-06] MEDS: VITAMIN D3 (cholecalciferol) 125 MCG PO (09:08)
[2024-07-06 10:37] LABS: % Basophils 0.5 % (0-2); % Eosinophils 7.8 % (0-6); % Immature Granulocytes 0.8 % (0-0.5); % Lymphocytes 12.5 % (20.5-51.1); % Monocytes 8.3 % (1.7-9.3); % Neutrophils 70.1 % (42.2-75.2); Absolute Basophils 0.1 10^3/uL (0-0.2); Absolute Eosinophils 0.8 10^3/uL (0-0.7); Absolute Immature Granulocytes 0.1 10^3/uL (0-0.05); Absolute Lymphocytes 1.3 10^3/uL (1.2-3.4); Absolute Monocytes 0.9 10^3/uL (0.1-0.6); Absolute Neutrophils 7.2 10^3/uL (1.4-6.5); Hematocrit 26.7 % (39.0-52.0); Hemoglobin 8.9 g/dL (13.0-18.0); Mean Corp Hgb Conc. 33.3 g/dL (33.0-37.0); Mean Corpuscular Hgb 32.6 pg (27.0-31.0); Mean Corpuscular Volume 97.8 fL (80.0-94.0); Mean Platelet Volume 9.9 fL (7.4-10.4); Nucleated Red Blood Cells % 0 % (-); Platelet Count 642 10^3/uL (130-400); Red Blood Cell Count 2.73 10^6/uL (4.70-6.10); Red Cell Dist. Width 18.3 % (11.5-14.5); White Blood Cell Count 10.2 10^3/uL (4.8-10.8)
--- NOTE | 2024-07-06 12:08 | W.PN.HOSP.TC ---
Today's Communication/Plan
-
pending PT/OT eval, SNF confirming tube feeding formula and d/c - PoA informed. VM left
Assessment / Plan
Assessment / Plan
68yo M resident of [facility], with PMHX of PATIENT SAFETY COORDINATOR shunt, intellectual disability, epilepsy, HLD was brought to the hospital with worsening responsiveness, intubated in ED and managed for septic shock 2/2 CAP with MSSA. Extubated on 06/27/24, however remained
high risk for aspiration. VSE on 06/30/24 showed deep penetration with thin and moderately thick liquids and reflux with most consistencies, so RESOURCE DEVELOPMENT MANAGER recommended to keep NPO and cont alternative means of feeding, so PEG placed on 07/01/24. Persistent
leukocytosis with reactive thrombocytosis
A/P:
#Septic shock with toxic metabolic encephalopathy on admission 2/2 aspiration pneumonia due to dysphagia
#Concern for UTI
#Stercoral colitis on admission
Ucx with K.pneumonia
Sputum Cx - MSSA
Weaned off pressors to Midodrine
Completed Cefazoline 7 days as per ID
Bcx with 1 set of CoNS - contaminant as per ID
LP on admission without concern for meningitis/encephalitis
Technical System Analyst followed
#Hypernatremia
2/2 poor oral intake
Nephrology followed
Resolved
#persistent leukocytosis with negative infection w/u - resolved
#Reactive thrombocytosis
#Elevated Alk.phos
Leukocytosis improving off Abx
on CT on 06/30/24 - persistent colitis, no biliary pathology. Might need outpatient GI for colonoscopy, currently GI signed off, contributing colitis to recent Abx
HIDA neg for cholecystitis
ID followed - advised to monitor off Abx since C.diff PCR repeated - neg. Stool WBC and Cx
Bcx NTD
UA neg for infection
ID recommended to follow off Abx and signed off
#Diarrhea
resolved
C.diff neg
rectal tube removed
#Hyperkalemia
unclear source
resolved
#Hx of epilepsy
#PATIENT SAFETY COORDINATOR shunt
Neurology and neuroSx evaluated. No role in surgical intervention
COnt AED
EEG done - neuro followed
MRI cannot be performed 2/2 cranial metallic hardware
#Stool impaction
disimpacted in ED
#Dysphagia, unspecified
s/p PEG on 07/01/24
start tube feeds
DVT ppx lovenox
Full code (as reversed from DNR/DNI by PoA)
I have spent at least 58min reviewing chart, test results, communication with consultants and direct patient care
Anticipated Discharge: Within 24 hours
Subjective/Interval History
-
Date of Service: July 06, 2024
Objective Data
-
Labs:
Laboratory Results
07/06/24
07:32
WBC 10.2
Hgb 8.9 L
Hct 26.7 L
Plt Count 642 H
Sodium 136
Potassium 4.7
Chloride 101
Carbon Dioxide 22
BUN 18
Creatinine 0.8
Glucose 113 H
Calcium 8.9
Total Bilirubin < 0.1 L
AST 47
ALT 33
Alkaline Phosphatase 360 H
Vital Signs:
Vital Signs
Temp Pulse Resp BP Pulse Ox
98.7 F 88 16 99/64 98
07/06/24 11:00 07/06/24 11:00 07/06/24 11:00 07/06/24 11:00 07/06/24 11:00
I&O
07/05/24 07/06/24 07/07/24
06:59 06:59 06:59
Intake Total 450 / 450 1979
Balance 450 / 450 1979
Review of Systems
-
History Source: Patient
All other systems: Reviewed and negative
Physical Exam
-
General: No Apparent Distress
HEENT: Normocephalic
Cardiac: Regular Rhythm
GI: Soft, Nontender and Nondistended
Musculoskeletal: No Clubbing, No Cyanosis and No Edema
Skin: Warm
Psych: Calm
[2024-07-06 12:11] LABS: Glucose - Point of Care 111 mg/dl (70-99)
[2024-07-06 17:33] LABS: Glucose - Point of Care 102 mg/dl (70-99)
[2024-07-06] MEDS: LOVENOX 40 MG SC (17:49)
[2024-07-06 23:55] LABS: Glucose - Point of Care 116 mg/dl (70-99)
[2024-07-07 03:27] VITALS: BP 90/61
[2024-07-07 06:09] LABS: Glucose - Point of Care 102 mg/dl (70-99)
[2024-07-07] MEDS: VIMPAT 150 MG TUBE (07:48)
[2024-07-07] MEDS: KEPPRA 1500 MG TUBE (07:48)
[2024-07-07] MEDS: VITAMIN B-12 1000 MCG PO (07:49)
[2024-07-07] MEDS: ProAmatine 5 MG TUBE ×2 (07:49→13:59)
[2024-07-07] MEDS: LUMINAL 64.8 MG TUBE (07:49)
[2024-07-07] MEDS: VITAMIN D3 (cholecalciferol) 125 MCG PO (07:49)
[2024-07-07] MEDS: FOLVITE 1 MG PO (07:49)
[2024-07-07 07:50] VITALS: BP 109/69
--- NOTE | 2024-07-07 09:59 | CM ---
watershed manager reviewed patient's chart and reached out to patient's physician and patient will be cleared for discharge today, case consultant spoke with admissions at [facility], and they have tube feeds in place. Message left for POA for patient,
Gucci Kong regarding transfer back to [facility] today.
Plan; Skilled placement at [facility].
[facility]
Report [phone]
--- NOTE | 2024-07-07 10:17 | W.PN.HOSP.TC ---
Today's Communication/Plan
-
medically stable for D/C - CM working on getting in touch with POA
Assessment / Plan
Assessment / Plan
68yo M resident of [facility], with PMHX of ROOM CLEANER shunt, intellectual disability, quadriplegic, epilepsy, HLD was brought to the hospital with worsening responsiveness, intubated in ED and managed for septic shock 2/2 CAP with MSSA. Extubated on 06/27/24,
however remained high risk for aspiration. VSE on 06/30/24 showed deep penetration with thin and moderately thick liquids and reflux with most consistencies, so SATELLITE TELEVISION INSTALLER recommended to keep NPO and cont alternative means of feeding, so PEG placed on
07/01/24. Persistent leukocytosis with reactive thrombocytosis
A/P:
#Septic shock with toxic metabolic encephalopathy on admission 2/2 aspiration pneumonia due to dysphagia
#Concern for UTI
#Stercoral colitis on admission
Ucx with K.pneumonia
Sputum Cx - MSSA
Weaned off pressors to Midodrine
Completed Cefazoline 7 days as per ID
Bcx with 1 set of CoNS - contaminant as per ID
LP on admission without concern for meningitis/encephalitis
Pens And Pencils Repairer followed
#Hypernatremia
2/2 poor oral intake
Nephrology followed
Resolved
#persistent leukocytosis with negative infection w/u - resolved
#Reactive thrombocytosis
#Elevated Alk.phos
Leukocytosis improving off Abx
on CT on 06/30/24 - persistent colitis, no biliary pathology. Might need outpatient GI for colonoscopy, currently GI signed off, contributing colitis to recent Abx
HIDA neg for cholecystitis
ID followed - advised to monitor off Abx since C.diff PCR repeated - neg. Stool WBC and Cx
Bcx NTD
UA neg for infection
ID recommended to follow off Abx and signed off
#Diarrhea
resolved
C.diff neg
rectal tube removed
#Hyperkalemia
unclear source
resolved
#Hx of epilepsy
#ROOM CLEANER shunt
Neurology and neuroSx evaluated. No role in surgical intervention
COnt AED
EEG done - neuro followed
MRI cannot be performed 2/2 cranial metallic hardware
#Stool impaction
disimpacted in ED
#Dysphagia, unspecified
s/p PEG on 07/01/24
start tube feeds
DVT ppx lovenox
Full code (as reversed from DNR/DNI by PoA)
I have spent at least 58min reviewing chart, test results, communication with consultants and direct patient care
Anticipated Discharge: Today
Subjective/Interval History
-
Date of Service: July 07, 2024
Objective Data
-
Vital Signs:
Vital Signs
Temp Pulse Resp BP Pulse Ox
98.3 F 91 17 109/69 97
07/07/24 07:50 07/07/24 07:50 07/07/24 07:50 07/07/24 07:50 07/07/24 07:50
I&O
07/06/24 07/07/24 07/08/24
06:59 06:59 06:59
Intake Total 1979
Output Total 100 / 100
Balance 1979 / 1969
Review of Systems
-
History Source: Patient
All other systems: Reviewed and negative
Physical Exam
-
General: No Apparent Distress
HEENT: Normocephalic and Atraumatic
GI: Soft, Nontender, Nondistended and Peg Tube (intact, no redness surrounding)
Neuro: Awake, Alert and Other (quadrooplegic)
Psych: Calm
[2024-07-07 12:10] VITALS: BP 98/68
[2024-07-07 14:10] LABS: Glucose - Point of Care 137 mg/dl (70-99)
--- NOTE | 2024-07-07 16:25 | CM ---
IMM emailed to TANYA Kong @
== END 2024-07-07 16:41 | DRG 870 ==
LOC: 4 WEST ACU 11:13
PROVIDERS: Internal Medicine; Internal Medicine Critical Care Medicine; Nurse Practitioner Adult Health; Nurse Practitioner Family; Nurse Practitioner Primary Care; Radiology Diagnostic Radiology; Specialist; Surgery; ADMITTING PHYSICIAN Internal Medicine; ATTENDING PHYSICIAN Internal Medicine; CONSULT PHYSICIAN Internal Medicine; CONSULT PHYSICIAN Internal Medicine Critical Care Medicine; CONSULT PHYSICIAN Internal Medicine Gastroenterology; CONSULT PHYSICIAN Internal Medicine Hospice and Palliative Medicine; CONSULT PHYSICIAN Internal Medicine Infectious Disease; CONSULT PHYSICIAN Psychiatry & Neurology Neurology; EMERGENCY PHYSICIAN Emergency Medicine; FAMILY PHYSICIAN Internal Medicine; OTHER PHYSICIAN Neurological Surgery; OTHER PHYSICIAN Psychiatry & Neurology Neurology
PROC: 0DH673Z Insertion of Infusion Device into Stomach, Via Natural or Artificial Opening (ICD-10-PCS; 2024-06-18)
PROC: 5A1955Z Respiratory Ventilation, Greater than 96 Consecutive Hours (ICD-10-PCS; 2024-06-18)
PROC: 0BH17EZ Insertion of Endotracheal Airway into Trachea, Via Natural or Artificial Opening (ICD-10-PCS; 2024-06-18)
PROC: 02HV33Z Insertion of Infusion Device into Superior Vena Cava, Percutaneous Approach (ICD-10-PCS; 2024-06-18)
PROC: 009U3ZX Drainage of Spinal Canal, Percutaneous Approach, Diagnostic (ICD-10-PCS; 2024-06-18)
PROC: 0D20XUZ Change Feeding Device in Upper Intestinal Tract, External Approach (ICD-10-PCS; 2024-06-26)
PROC: 0BP1XDZ Removal of Intraluminal Device from Trachea, External Approach (ICD-10-PCS; 2024-06-26)
PROC: 0DJ08ZZ Inspection of Upper Intestinal Tract, Via Natural or Artificial Opening Endoscopic (ICD-10-PCS; 2024-07-01)
PROC: 0DH63UZ Insertion of Feeding Device into Stomach, Percutaneous Approach (ICD-10-PCS; 2024-07-01)
PROC: 3E0G76Z Introduction of Nutritional Substance into Upper GI, Via Natural or Artificial Opening (ICD-10-PCS; 2024-07-01)
DX: A41.9 Sepsis, unspecified organism (principal); L89.813 Pressure ulcer of head, stage 3; J69.0 Pneumonitis due to inhalation of food and vomit; R65.21 Severe sepsis with septic shock; G92.8 Other toxic encephalopathy; J96.01 Acute respiratory failure with hypoxia; J18.9 Pneumonia, unspecified organism; E87.0 Hyperosmolality and hypernatremia; N17.9 Acute kidney failure, unspecified; J98.11 Atelectasis; Z99.11 Dependence on respirator [ventilator] status; G91.1 Obstructive hydrocephalus; N39.0 Urinary tract infection, site not specified; T17.890A Other foreign object in other parts of respiratory tract causing asphyxiation, initial encounter; Z43.1 Encounter for attention to gastrostomy; E46 Unspecified protein-calorie malnutrition; K56.41 Fecal impaction; R31.29 Other microscopic hematuria; G40.901 Epilepsy, unspecified, not intractable, with status epilepticus; F79 Unspecified intellectual disabilities; D72.829 Elevated white blood cell count, unspecified; E83.42 Hypomagnesemia; J84.10 Pulmonary fibrosis, unspecified; B95.61 Methicillin susceptible Staphylococcus aureus infection as the cause of diseases classified elsewhere; D64.9 Anemia, unspecified; R73.9 Hyperglycemia, unspecified; K44.9 Diaphragmatic hernia without obstruction or gangrene; K31.7 Polyp of stomach and duodenum; R13.12 Dysphagia, oropharyngeal phase; R63.30 Feeding difficulties, unspecified; R29.6 Repeated falls; N28.1 Cyst of kidney, acquired; K52.89 Other specified noninfective gastroenteritis and colitis; E86.0 Dehydration; B96.1 Klebsiella pneumoniae [K. pneumoniae] as the cause of diseases classified elsewhere; N40.0 Benign prostatic hyperplasia without lower urinary tract symptoms; D75.838 Other thrombocytosis; E87.5 Hyperkalemia; R74.8 Abnormal levels of other serum enzymes; K57.30 Diverticulosis of large intestine without perforation or abscess without bleeding; E78.00 Pure hypercholesterolemia, unspecified; M81.0 Age-related osteoporosis without current pathological fracture; W06.XXXA Fall from bed, initial encounter; Y93.89 Activity, other specified; Y92.230 Patient room in hospital as the place of occurrence of the external cause; Z66 Do not resuscitate; Z11.52 Encounter for screening for COVID-19; Z98.2 Presence of cerebrospinal fluid drainage device; Z74.01 Bed confinement status; Z68.24 Body mass index [BMI] 24.0-24.9, adult
CPT/HCPCS: 31500; 36600; 51701; 51798; 62270; 70450; 71045; 71260; 74018; 74022; 74176; 74177; 74230; 78226; 80048; 80053; 80184; 80185; 81003; 81015; 82140; 82248; 82310; 82330; 82374; 82435; 82533; 82550; 82565; 82570; 82607; 82805; 82945; 82962; 83036; 83605; 83735; 83880; 83935; 84100; 84132; 84145; 84157; 84295; 84300; 84302; 84443; 84478; 84484; 84520; 85014; 85018; 85025; 85027; 85610; 85730; 86592; 86780; 87015; 87040; 87045; 87046; 87070; 87077; 87086; 87147; 87150; 87186; 87205; 87324; 87327; 87427; 87449; 87502; 87641; 87811; 89051; 89055; 92526; 92610; 92611; 93005; 93306; 94002; 94003; 94640; 95816; 96361; 96365; 96366; 96375; 97163; 97167; 99152; 99291; A9537; C9254; Q9967

== ENCOUNTER 2024-07-23 16:32 | Inpatient (IN) | payer MEDICARE, OTHER, SELFPAY ==
[2024-07-23] VITALS (21 sets, daily range): BP systolic 96–126; BP diastolic 72–89; BMI 22.8; BMI 22.7
[2024-07-23] MEDS: TYLENOL/FEVERALL 650 MG RECTAL (12:49)
--- NOTE | 2024-07-23 12:51 | ED.GENMED ---
History of Present Illness
General
Chief Complaint: Abnormal Lab Value
Source: patient
Exam Limitations: none
Time Seen by Provider: 07/23/24 12:35
History of Present Illness
History of Present Illness:
68-year-old male with history of epilepsy intellectual disability right sided hemiplegia presents from retirement via EMS with abnormal labs as an outpatient. He was noted to have an elevated white blood cell count as an outpatient. Patient is a
difficult historian. He denies pain. He states he has been coughing. Review of his chart demonstrates a prolonged admission from June until July for septic shock secondary to aspiration pneumonia. He was intubated at that time. He was
discharged eventually to retirement. He has a history of dysphagia. No other complaints at this time
Past History
Past History
ED Past Medical History: Seizures and Other (Intellectual disability)
ED Past Surgical History: None
Social History
Tobacco: Non-smoker
Alcohol: None
Drug: None
Personal: Single
Living: retirement
Employment: Disabled
Phy Exam
Physical Exam
Physical Exam:
General: Chronically ill-appearing male no acute respiratory distress
HEENT: Normocephalic mucosa dry neck is supple
Heart: Tachycardic but regular
Lungs: Clear throughout
Abdomen is soft nontender
Extremities: No cyanosis
Neurologic alert conversing able to answer questions chronic right-sided hemiparesis.
Course
Orders/Labs/Results
Orders:
Orders
07/23/24 12:44
Acetaminophen [Tylenol/Feverall] 650 mg .ROUTE .STK-MED ONE
07/23/24 12:45
CR Chest - 2 Views Urgent
Comment:
Reason For Exam: fever
07/23/24 12:49
Acetaminophen [Tylenol/Feverall] 650 mg RECTAL NOW STA
07/23/24 12:51
0.9% Sodium Chloride 1000 ml [Nss] 1,000 ml IV BOLUS
07/23/24 12:59
COVID-19 Antigen Urgent
Source: Nasal Swab
Complete Blood Count/With Diff Urgent
Comprehensive Metabolic Panel Urgent
Lactic Acid Q4H
Comment: CANCEL 2nd LACTIC ACID IF 1st LACTIC ACID IS LESS THAN 2
Blood Culture Urgent
PEPE Source: Blood/Venous
Specimen Description:
Influenza A+B Rapid Molecular Urgent
PEPE Source: Nasal Swab
Specimen Description:
07/23/24 14:03
Blood Culture Urgent
PEPE Source: Blood/Venous
Specimen Description:
07/23/24 14:51
Urinalysis Reflex To Culture Urgent
Date Specimen was Collected: 07/23/24
Time Specimen was Collected: 13:19
Urine Microscopic Reflex Cult Urgent
07/23/24 15:13
0.9% Sodium Chloride 1000 ml [Nss] 1,000 ml IV BOLUS
07/23/24 15:20
Zosyn 3.375 grams IVPB NOW Piperacillin/Tazo 3.375 Gram [Zosyn] 3.375 gram in 50 ml IV NOW
07/23/24 16:00
*Vancomycin IV Pharmacy to Dose VANCOMYCIN Pharmacy to Dose [VANCOCIN Pharmacy to Dose] 1 each Pharmacy To Prepare [Call Pharmacy To Prepare] 0 ml IV PER PROTOCOL
07/23/24 16:45
Lactic Acid Q4H
Comment: CANCEL 2nd LACTIC ACID IF 1st LACTIC ACID IS LESS THAN 2
Abnormal Lab Results
07/23/24 07/23/24
12:59 14:51
WBC 20.6 H 10^3/uL
(4.8-10.8)
RBC 3.16 L 10^6/uL
(4.70-6.10)
Hgb 9.9 L g/dL
(13.0-18.0)
Hct 30.2 L %
(39.0-52.0)
MCV 95.6 H fL
(80.0-94.0)
MCH 31.3 H pg
(27.0-31.0)
MCHC 32.8 L g/dL
(33.0-37.0)
RDW 16.4 H %
(11.5-14.5)
Plt Count 699 H 10^3/uL
(130-400)
Abs Immat Gran (auto) 0.9 H 10^3/uL
(0-0.05)
Absolute Neuts (auto) 16.1 H 10^3/uL
(1.4-6.5)
Absolute Monos (auto) 1.1 H 10^3/uL
(0.1-0.6)
Immature Gran % 4.5 H %
(0-0.5)
Neutrophils % 78.1 H %
(42.2-75.2)
Lymphocytes % 8.8 L %
(20.5-51.1)
Sodium 150 H mmol/L
(135-145)
Chloride 109 H mmol/L
(98-107)
BUN 55 H mg/dl
(9-20)
Glucose 151 H mg/dl
(70-99)
AST 84 H U/L
(17-59)
ALT 54 H U/L
(0-50)
Alkaline Phosphatase 469 H U/L
(38-126)
Total Protein 8.4 H g/dl
(6.3-8.2)
Ur Occult Blood Reflex 1+ A
(Negative)
Leukocyte Esterase Rfl Trace A
(Negative)
Urine Albumin (Reflex) 2+ A
(Neg - Trace)
07/23/24 12:59
07/23/24 12:59
Vital Signs
Initial and Last Documented VS:
Initial Vital Signs
Temp Pulse Resp BP Pulse Ox
100.2 F 115 18 114/82 97
07/23/24 12:40 07/23/24 12:40 07/23/24 12:40 07/23/24 12:40 07/23/24 12:40
Last Documented Vital Signs
Temp Pulse Resp BP Pulse Ox
102.0 F H 100 14 113/83 98
07/23/24 12:48 07/23/24 15:00 07/23/24 15:00 07/23/24 15:00 07/23/24 15:00
MDM/Problems Addressed
Differential Diagnosis Includes:
Patient sent in from retirement with elevated white blood cell count. Patient is febrile upon triage and tachycardic. Will initiate septic workup with blood cultures labs urinalysis chest x-ray COVID and flu. Fluids ordered. I reviewed his
prior hospital records.
Chronic conditions affecting care:
Hemiplegia, epilepsy, dysphagia
*Critical Care Note
Total Time (30-74mins, 75-104mins- exclusive of procedures): Not Applicable
Update Note
Update Note:
Chest x-ray shows no acute finding. White blood cell count is 20.6. Temperature found to be 102. He was given Tylenol suppository. Lactic acid was 2.0 initially. Abdomen exam benign. Urinalysis without obvious signs of infection but blood
cultures and urine cultures are pending. Concern for sepsis given tachycardia fever leukocytosis. Blood pressure is stable. 2 L of fluid ordered vancomycin and Zosyn ordered for coverage and will make hospital
ED Attending Note
-
Portions of this chart may have been created with voice recognition software.� Occasional wrong word or��sound alike� substitutions may have occurred due to the inherent limitations of voice recognition software.
Discharge Plan
Departure
Patient Disposition: Admit
Date of Disposition: 07/23/24
Time of Disposition: 15:22
Admit to: Telemetry
Presentation/result/management discussed w/ accepting MD/DO: Hospitalist
Discharge Problem:
Fever
Prescriptions:
No Action
atorvastatin 10 mg Tablet
10 mg feeding tube HS
cyanocobalamin (vitamin B-12) 1,000 mcg Tablet
1,000 mcg feeding tube DAILY
phenytoin [Dilantin Infatabs] 50 mg Tablet,Chewable
150 mg G-tube HS
phenytoin [Dilantin Infatabs] 50 mg Tablet,Chewable
200 mg G-tube DAILY
folic acid 1 mg Tablet
1 mg feeding tube DAILY
lacosamide [Vimpat] 10 mg/mL Solution
150 mg feeding tube BID
cholecalciferol (vitamin D3) 1,250 mcg (50,000 unit) Tablet
1,250 mcg feeding tube MO
Diazepam Rectal Gel 10 mg gel
10 mg KS DAILYPRN PRN (Reason: seizure)
levetiracetam 500 mg/5 mL (5 mL) Solution
1,500 mg feeding tube Q12 Qty: 100 0RF
acetaminophen 650 mg/20.3 mL Solution
650 mg feeding tube Q6HPRN MDD 3000 mg PRN (Reason: mild pain and temp>100.4) Qty: 30 0RF
phenobarbital 64.8 mg Tablet
64.8 mg feeding tube BID
polyethylene glycol 3350 [HealthyLax] 17 gram powder in packet
17 g feeding tube DAILYPRN PRN (Reason: constipation)
midodrine 5 mg tablet
5 mg feeding tube TID
bisacodyl 10 mg suppository
10 mg KS DAILYPRN PRN (Reason: constipation)
Referrals:
Dipesh Moser MD [Family Provider] -
Interventions
Interventions:
*Risk Screen - Suicide Last Done: 07/23/24 14:59
*General Assessment Last Done: 07/23/24 15:00
*Neglect/Abuse Screening Last Done: 07/23/24 14:59
ED- Fall Risk Assessment Last Done: 07/23/24 15:08
*ED COVID-19 Vaccine History Last Done: 07/23/24 13:21
Discharge Date and Time
Print Language: CITIZEN OF [place]
[2024-07-23 13:24] LABS: COVID-19 Antigen Negative (Negative)
[2024-07-23 13:35] LABS: ALT (SGPT) 54 U/L (0-50); AST (SGOT) 84 U/L (17-59); Albumin 3.7 g/dl (3.5-5.0); Alkaline Phosphatase 469 U/L (38-126); Blood Urea Nitrogen 55 mg/dl (9-20); Calcium 10.1 mg/dl (8.4-10.2); Carbon Dioxide 26 mmol/L (22-30); Chloride 109 mmol/L (98-107); Estimated Creatinine Clearance 74 ml/min; Glucose 151 mg/dl (70-99); Potassium 4.7 mmol/L (3.5-5.1); Sodium 150 mmol/L (135-145); Total Bilirubin 0.4 mg/dl (0.2-1.3); Total Protein 8.4 g/dl (6.3-8.2); eGFR > 60.00
[2024-07-23 13:57] LABS: % Basophils 0.4 % (0-2); % Eosinophils 2.8 % (0-6); % Immature Granulocytes 4.5 % (0-0.5); % Lymphocytes 8.8 % (20.5-51.1); % Monocytes 5.4 % (1.7-9.3); % Neutrophils 78.1 % (42.2-75.2); Absolute Basophils 0.1 10^3/uL (0-0.2); Absolute Eosinophils 0.6 10^3/uL (0-0.7); Absolute Immature Granulocytes 0.9 10^3/uL (0-0.05); Absolute Lymphocytes 1.8 10^3/uL (1.2-3.4); Absolute Monocytes 1.1 10^3/uL (0.1-0.6); Absolute Neutrophils 16.1 10^3/uL (1.4-6.5); Hematocrit 30.2 % (39.0-52.0); Hemoglobin 9.9 g/dL (13.0-18.0); Mean Corp Hgb Conc. 32.8 g/dL (33.0-37.0); Mean Corpuscular Hgb 31.3 pg (27.0-31.0); Mean Corpuscular Volume 95.6 fL (80.0-94.0); Mean Platelet Volume 10.1 fL (7.4-10.4); Nucleated Red Blood Cells % 0 % (-); Platelet Count 699 10^3/uL (130-400); Red Blood Cell Count 3.16 10^6/uL (4.70-6.10); Red Cell Dist. Width 16.4 % (11.5-14.5); White Blood Cell Count 20.6 10^3/uL (4.8-10.8)
[2024-07-23] MEDS: NSS 1000 IV ×3 (14:10→19:25)
[2024-07-23 15:03] LABS: Urine Albumin 2+ (Neg - Trace); Urine Bilirubin Negative (Negative); Urine Character Slightly Cloudy (Clear); Urine Color Yellow; Urine Glucose Negative (Negative); Urine Ketone Negative (Negative); Urine Leukocyte Trace (Negative); Urine Nitrite Negative (Negative); Urine Occult Blood 1+ (Negative); Urine Specific Gravity 1.015 (<1.030); Urine Urobilinogen Negative (Neg - 1+)
[2024-07-23 15:17] LABS: Urine Mucus Few
[2024-07-23 15:18] LABS: Urine Amorphous Seen
[2024-07-23 15:19] LABS: Urine Red Blood Cell 0-2 /HPF (0-2); Urine White Cell 0-2 /HPF (0-5)
[2024-07-23] MEDS: ZOSYN 50 IV ×2 (15:25→21:04)
--- NOTE | 2024-07-23 15:40 | HPS.HSE ---
Family Physician
-
Family Physician: Dipesh Moser
Chief Complaint
-
Abnormal lab values
History of Present Illness
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 Patient resides in SNF who sent patient for evaluation following elevated WBC on outpatient labs. Patient is alert and oriented to self and time, unable to
state where he is. Patient poor historian. He states he occasionally has SOB and cough, denies chest pain, nausea, vomiting, constipation, and diarrhea. He has recent prolonged hospitalization for septic shock from mid-June to early July. At
previous discharge patient returned to SNF and was NPO with PEG tube related to aspiration.
Medical History
Past Medical History
Past Medical History: Reports Other
Additional Past Medical History:
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
intellectual disability
epilepsy
HLD
dysphagia
Past Surgical History: Reports None
Social History
Tobacco: Non-smoker
Alcohol: None
Drug: None
Personal: Single
Living: Group Home
Employment: Disabled
Family History
Family History: Unable to Obtain
Allergies / Home Medications
Allergies reflects when Allergies were last updated in [facility].
Home Medications with original date entered in [facility]
Allergy/Medication List:
Allergies
Allergy/AdvReac Type Severity Reaction Status Date / Time
No Known Allergies Allergy Unverified 04/02/24 08:06
atorvastatin 10 mg tablet 10 mg feeding tube HS High Cholesterol 03/20/24
Diazepam Rectal Gel 10 mg DC DAILYPRN PRN seizure 06/18/24
cholecalciferol (vitamin D3) 1,250 mcg (50,000 unit) tablet 1,250 mcg feeding tube MO Supplement 06/18/24
cyanocobalamin (vitamin B-12) 1,000 mcg tablet 1,000 mcg feeding tube DAILY Supplement 06/18/24
folic acid 1 mg tablet 1 mg feeding tube DAILY Supplement 06/18/24
lacosamide 10 mg/mL oral solution (Vimpat) 150 mg feeding tube BID Seizures 06/18/24
phenytoin 50 mg chewable tablet (Dilantin Infatabs) 150 mg G-tube HS Seizures 06/18/24
phenytoin 50 mg chewable tablet (Dilantin Infatabs) 200 mg G-tube DAILY Seizures 06/18/24
acetaminophen 650 mg/20.3 mL oral solution 650 mg (20.3 mL) feeding tube Q6HPRN PRN mild pain and temp>100.4 #30 mL 07/05/24
bisacodyl 10 mg rectal suppository 10 mg DC DAILYPRN PRN constipation 07/23/24
levetiracetam 500 mg/5 mL (5 mL) oral solution 1,500 mg feeding tube Q12 Seizures 07/23/24
midodrine 5 mg tablet 5 mg feeding tube TID Blood Pressure 07/23/24
phenobarbital 64.8 mg tablet 64.8 mg feeding tube BID Seizures 07/23/24
polyethylene glycol 3350 17 gram oral powder packet (HealthyLax) 17 g feeding tube DAILYPRN PRN constipation 07/23/24
Review of Systems
-
Constitutional: Reports Fever
EENT: Reports No Symptoms
Respiratory: Reports No Symptoms
Cardiac: Reports No Symptoms
Abdomen/GI: Reports No Symptoms
: Reports No Symptoms
Musculoskeletal: Reports No Symptoms
Skin: Reports No Symptoms
Neurological: Reports No Symptoms
Endocrine: Reports No Symptoms
Hematologic/Lymphatic: Reports No Symptoms
Psych: Reports No Symptoms
Physical Exam
Vital Signs
Vital Signs
Temp Pulse Resp BP Pulse Ox
102.0 F H 99 0 103/73 98
07/23/24 12:48 07/23/24 15:30 07/23/24 15:30 07/23/24 15:30 07/23/24 15:30
Physical Exam
General: Well Developed, Well Nourished, No Apparent Distress, Comfortable, Conversant and Fever
HEENT: NormoCephalic, Moist mucous membranes, Atraumatic, PERRLA, [place] Conjunctivae, Nose Appears Normal and Ears Appear Normal
Respiratory: Clear, Non Labored Respirations and Decreased Breath Sounds; No Wheezes, Rales, Rhonchi or Crackles
Cardiac: S1/S2 and Regular Rhythm; No Murmur, Rub or Gallop
Breast: Deferred by me
GI: Soft, Non Tender, Non Distended, Normal Bowel Sounds and Peg Tube; No Organomegaly
Rectal: Deferred by Provider
Genito-urinary: Deferred by me
Musculoskeletal: No Clubbing, No Cyanosis and No Edema
Skin: Warm, Dry and IV/Catheter Site; No Rash
Neuro: Awake, Alert and Nonfocal/grossly intact
Hematologic/Lymphatic: No Lymphadenopathy
Psych: Calm
Laboratory Results
-
07/23/24 12:59
07/23/24 12:59
Laboratory Results
Lactic Acid 2.0 mmol/L (0.7-2.0) 07/23/24 12:59
Total Bilirubin 0.4 mg/dl (0.2-1.3) 07/23/24 12:59
AST 84 U/L (17-59) H 07/23/24 12:59
ALT 54 U/L (0-50) H 07/23/24 12:59
Alkaline Phosphatase 469 U/L (38-126) H 07/23/24 12:59
Data Reviewed
-
Diagnostic Radiology: Report Reviewed by me (CXR: Extremely low lung volumes. Patient's chin partially obscures the left apex. Mild left basilar opacity most likely representing scarring, unchanged.)
Lab Data: Labs Reviewed by me (WBC 20.6, Neut 78.1)
Old Records: Reviewed
Impression/Plan
-
IMPRESSION/PLAN:
#SIRS/Aspiration PNA vs UTI vs other infectious process?
- sent from SNf with out patient lab results luecocytosis
- WBC
- Start Vanco and Zosyn
- NSS 100cc/hr
- Consult ID
- consult PT/OT
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
- continue lacosamide, levetiracetam, phenobarbital, phenytoin
#HLD
- hold statin
#Dysphagia
- consult dietary
Full Code
DVT Px: SQ Heparin
[2024-07-23] MEDS: VANCOCIN 535 MG IV (16:12)
--- NOTE | 2024-07-23 16:53 | W.PN.UPDATE ---
Update Note
Progress Note Update
This is an addendum to the H&P written by Kimberly Shaikh. Patient seen and examined independently with TRIM LINE WORKER.��
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
vomiting or diarrhea or urinary symptoms or abdominal pain.
He was recently admitted for septic shock secondary to MSSA aspiration pneumonia secondary to dysphagia/UTI/stroke lower colitis.� He had LP of the SURVEILLANCE SENSOR OFFICER shunt which was unremarkable.� He had blood culture positive for MSSA. He was treated with
antibiotics.� He had PEG tube placed at that time.
At this time he is clinically septic with fever up to 102, tachycardia, leukocytosis.� Chest x-ray unremarkable apart from mild left basilar opacity likely scarring.� SIRS with unclear source possibly aspiration.� Labs show hypernatremia,
transaminitis.� Urinalysis unremarkable.� COVID and flu are negative.
IV fluids with normal saline for now.� Check blood cultures.� Vancomycin/Zosyn.� NPO.� ID consulted.� Dietitian consulted to resume tube feeds.
--- NOTE | 2024-07-23 18:00 | PTCARENOTE ---
Received pt from ER.Pt oriented to self with garbled/slurred speech. Pt was able to tell me his birthday. Pt has right hemiplegia, bedbound vanessa lift at KS per nursing central office supervisor. Pt has peg tube currently NPO, till nutrition consult for Tube
feeds. Pt VSS 98% on RA. Pt settled in room, repositioned in bed. HOB elevated. Left room to get supplies pt pulled out his IV. Pt had IVF infusing along with antibiotic. IVT in room, new IV in place, New bag of IVF hung antibiotic infusing. Pt
oriented to room, call nichols within reach, will place bed alarm for safety, plan of care continues.
[2024-07-23] MEDS: ProAmatine TUBE (18:13)
--- NOTE | 2024-07-23 18:55 | PHA.VAN.IN ---
Assessment
- Assessment
Renal Function: Appears similar to baseline (07/05/24 BASELINE SCR: 0.7)
Concomitant Antimicrobials: ZOSYN
- Previous Dosing Experience
Previous Regimen: DOSING BY RANDOM LEVEL
Date of Regimen: 06/18/24 - DC'D 06/19/24
Provided Trough of: UNKNOWN
Provided AUC of: UNKNOWN
Patient's SCR is: Decreased compared to previous dosing experience (06/18/24 SCR = 1.7)
Patient's weight is: Elevated compared to previous dosing experience (06/18/24 WT = 62.4 KG)
AUC Dosing Plan
- Dosing Variables
Dosing Weight (kg): 65.6
Dosing CrCl (ml/min): 74
Vd coefficient (L/kg): 0.7
- Empiric Dosing
Initial / Loading Dose: 1750MG
Maintenance Regimen: 750MG IV Q12H
Estimated AUC (mcg*h/mL): 513
Estimated Peak (mcg*h/mL): 29.9
Estimated Trough (mcg/ml): 14.5
Estimated Half Life (H): 10.5
Pharmacokinetics Vancomycin I
- -
Patient Age: 68
Patient Sex: Male
Vancomycin Day #: 1
Indication: Pulmonary/Respiratory (SEPSIS)
Requesting Provider: CARYN
Height / Weight:
Height 5 ft 7 in
Actual Weight 65.589 kg
Pertinent Past Medical History: 06/24 ADMIT FOR SEPTIC SHOCK
- Vital Signs / Lab Results
Temp Pulse Resp BP Pulse Ox
97.7 F 90 20 125/79 98
07/23/24 17:39 07/23/24 17:39 07/23/24 17:39 07/23/24 18:13 07/23/24 17:39
Lab Results - Hematology
07/23/24
12:59
WBC 20.6 H
Lab Results - Chemistry
07/23/24
12:59
BUN 55 H
Creatinine 0.9
Estimated Creat Clear 74
Albumin 3.7
07/23/24 07/23/24
12:59 16:45
Lactic Acid 2.0 Cancelled
Lab Results - Urine
07/23/24
14:51
Urine Nitrite (Reflex) Negative
Leukocyte Esterase Rfl Trace A
Urine WBC (Reflex) 0-2
Ur Squamous Epith Cells 6-10
Microbiology Results
07/23/24 12:59 Influenza Types A & B (FLAVIO) - Final
Nasal Swab Negative for Influenza A & B, NAAT
Negative results must be combined with clinical observations
and patient history.
Nucleic Acid Amplification test (NAAT)performed on the
[employer] platform.
[2024-07-23] MEDS: HEPARIN 5000 UNITS SC (21:01)
[2024-07-23] MEDS: LUMINAL 64.8 MG TUBE (21:02)
[2024-07-23] MEDS: KEPPRA 1500 MG TUBE (21:02)
[2024-07-23] MEDS: DILANTIN 150 MG TUBE (21:03)
[2024-07-23] MEDS: VIMPAT 150 MG TUBE (21:09)
[2024-07-24] MEDS: ZOSYN 50 IV ×2 (04:55→10:08)
[2024-07-24] MEDS: NSS 1000 IV (04:55)
[2024-07-24] MEDS: VANCOCIN 150 IV (04:56)
[2024-07-24 07:56] VITALS: BP 101/67
[2024-07-24 07:57] LABS: Blood Urea Nitrogen 45 mg/dl (9-20); Calcium 9.2 mg/dl (8.4-10.2); Carbon Dioxide 23 mmol/L (22-30); Chloride 113 mmol/L (98-107); Estimated Creatinine Clearance 83 ml/min; Glucose 108 mg/dl (70-99); Potassium 4.6 mmol/L (3.5-5.1); Sodium 149 mmol/L (135-145); eGFR > 60.00
[2024-07-24] MEDS: DILANTIN 200 MG TUBE (08:39)
[2024-07-24] MEDS: FOLVITE 1 MG TUBE (08:39)
[2024-07-24] MEDS: HEPARIN 5000 UNITS SC (08:40)
[2024-07-24] MEDS: LUMINAL 64.8 MG TUBE ×2 (08:40→19:28)
[2024-07-24] MEDS: KEPPRA 1500 MG TUBE ×2 (08:41→19:27)
[2024-07-24] MEDS: ProAmatine 5 MG TUBE ×3 (08:41→16:56)
[2024-07-24] MEDS: VIMPAT 150 MG TUBE ×2 (08:42→19:28)
[2024-07-24] MEDS: VITAMIN B-12 1000 MCG TUBE (08:43)
[2024-07-24 08:56] LABS: Hematocrit 26.4 % (39.0-52.0); Hemoglobin 8.6 g/dL (13.0-18.0); Mean Corp Hgb Conc. 32.6 g/dL (33.0-37.0); Mean Corpuscular Hgb 31.3 pg (27.0-31.0); Red Blood Cell Count 2.75 10^6/uL (4.70-6.10); Red Cell Dist. Width 16.3 % (11.5-14.5); White Blood Cell Count 12.9 10^3/uL (4.8-10.8)
[2024-07-24 08:57] LABS: Absolute Neutrophils -Man Diff 10.5 10^3/uL (1.4-6.5); Band Neutrophils 1 % (0-3); Eosinophils 7 % (0-6); Lymphocytes 6 % (20-51); Metamyelocytes 2 % (-); Monocytes 1 % (2-9); Platelets Checked Yes; Segmented Neutrophils 81 % (42-75)
[2024-07-24 08:58] LABS: Normal RBC Morphology Yes; Total Cells Counted 100
--- NOTE | 2024-07-24 10:17 | PHA.VAN.FU ---
Vancomycin Assessment / Plan
- Assessment
Renal Function: Stable (BUN elevated but trending down 55-->45)
WBC's are: Trending Down
Concomitant Antimicrobials: piperacillin/tazobactam
- Dosing Plan
Continue: Vanc 750mg Q12H
- Monitoring Plan
Trough Level: 07/25 05:30 (pre-steady state to assess clearance with elevated BUN)
- Follow Up
Pharmacy will continue to follow.
Vancomycin Follow UP
- -
Patient Age: 68
Patient Sex: Male
Vancomycin Day #: 2
Indication: Pulmonary/Respiratory
Requesting Provider: Danya Shaikh
Pertinent Antimicrobial Allergies:
NKDA
Height / Weight:
Height 5 ft 7 in
Actual Weight 65.589 kg
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
- Vital Signs / Lab Results
Temp Pulse Resp BP Pulse Ox
98.9 F 77 18 101/67 99
07/24/24 07:56 07/24/24 08:41 07/24/24 07:56 07/24/24 08:41 07/24/24 07:56
Lab Results - Hematology
07/23/24 07/24/24
12:59 06:49
WBC 20.6 H 12.9 H
Band Neutrophils 1
Lab Results - Chemistry
07/23/24 07/24/24
12:59 06:49
BUN 55 H 45 H
Creatinine 0.9 0.8
Estimated Creat Clear 74 83
Albumin 3.7
07/23/24 07/23/24
12:59 16:45
Lactic Acid 2.0 Cancelled
Lab Results - Urine
07/23/24
14:51
Urine Nitrite (Reflex) Negative
Leukocyte Esterase Rfl Trace A
Ur Squamous Epith Cells 6-10
Microbiology Results
07/23/24 21:41 Nasal Screen MRSA (PCR) - Final
Nose Staph aureus MRSA
07/23/24 12:59 Influenza Types A & B (FLAVIO) - Final
Nasal Swab Negative for Influenza A & B, NAAT
Negative results must be combined with clinical observations
and patient history.
Nucleic Acid Amplification test (NAAT)performed on the
[employer] platform.
--- NOTE | 2024-07-24 10:20 | PTOTSP ---
chart reviewed, spoke with RN. noted pt is total care at baseline, vanessa lift OGAYLE, has PEG tube. no acute OT needs identified, will sign off.
--- NOTE | 2024-07-24 10:22 | PTOTSP ---
CHART REVIEWED. PER INFORMATION IN CHART WHICH RN DOCUMENTED AFTER A CALL WITH STAFF AT [facility], PATIENT BRADLEY LIFT DEPENDENT FOR MOBILITY AND IS NOT APPROPRIATE FOR SKILLED THERAPY AT THIS TIME. WILL DISCHARGE FROM ACUTE CARE SKILLED P.T.
SERVICES.
--- NOTE | 2024-07-24 11:28 | CON.ID ---
Consultation
-
Date/Time Consultation Requested: July 23, 2024 1725
Date/Time Consultation Performed: July 24, 2024 1130
Requesting Provider: Dr. Padmini Matta
Performing Provider: Dr. Candice Jose
Reason for Consultation: Leukocytosis
Chief Complaint / Past History
Chief Complaint
High white count
History of Present Illness
68 year old male with intellectual disability, TIMBER RIDER shunt, seizure disorder on multiple anti-seizure meds who presented to ED 07/23 from [facility] due to elevated WBC. He recently had prolonged hospital stay from June 18 to July 07
with change in mental status, fecal impaction, aspiration pneumonia, dysphagia s/p PEG . He eventually improved with mental status back to baseline. Rcent routine outside labwork showed leukocytosis and therefore sent to ED. WBC 20.6. Tmax 102.9
(rectally). Today, pt denies any complaints except that he wants to eat. No COHEN/sinus congestion/sore throat. + intermittent hiccups and cough. No SOB. No N/V/D. No dysuria/flank pain. No chills.
Past History
Additional Past Medical History:
Intellectual disability
Epilepsy on phenytoin, Keppra, Vimpat, phenobarb
Dyslipidemia
TIMBER RIDER shunt
Dysphagia s/p PEG (07/2024)
Additional Past Surgical History:
Left shoulder surgery
Left ankle surgery
Allergy History:
No Known Allergies Allergy (Unverified 04/02/24 08:06)
Medications Reviewed: Yes
Current Antibiotics:
Vancomycin
Zosyn
Social History
Tobacco: Non-Smoker
Alcohol: None
Drug: None
Living: Detention ([facility])
Family History
Family History: Not Pertinent
Review of Systems
Review of Systems
General: Negative Chills or Change in Appetite
HEENT: Negative Sinus Problems, Headache or Pharyngitis
Cardiovascular: Negative Chest Pain or Dyspnea
Respiratory: Negative Dyspnea or Sputum Production
Gasteroenterology: Negative Nausea, Vomiting or Diarrhea
Genital / Urological: Negative Dysuria or Flank Pain
Endocrine: Negative Weakness
Skin / Hair / Nails: Negative Rash
Neurological: Negative Headache or Dizziness
All systems: All other systems were reviewed and were negative
Vital Signs
Temp Pulse Resp BP Pulse Ox
98.9 F 77 18 101/67 99
07/24/24 07:56 07/24/24 08:41 07/24/24 07:56 07/24/24 08:41 07/24/24 07:56
Physical Exam
Physical Exam
Constitutional: No Acute Distress and Comfortable
Head: Other (No frontal or maxillary sinus tenderness)
Eyes: No Conjunctival Hemorrhage and Sclera Anicteric
Cardiovascular: Regular Rate and S1/S2
Pulmonary: Other (Decreased BS)
Gastrointestinal: Soft, Non Tender, Non Distended and Normal Bowel Sounds
Genito-Urinary: Negative CVA Tenderness
Extremities: Negative Edema
Musculoskeletal: Negative Joint Swelling or Joint Effusion
Neurological: Awake and Alert; Negative Meningeal Signs
Psychological: Calm
Lab / Diagnostic Study Results
07/24/24 06:49
07/24/24 06:49
Abs Immat Gran (auto) 0.9 10^3/uL (0-0.05) H 07/23/24 12:59
Absolute Neuts (auto) 16.1 10^3/uL (1.4-6.5) H 07/23/24 12:59
Absolute Lymphs (auto) 1.8 10^3/uL (1.2-3.4) 07/23/24 12:59
Absolute Monos (auto) 1.1 10^3/uL (0.1-0.6) H 07/23/24 12:59
Absolute Basos (auto) 0.1 10^3/uL (0-0.2) 07/23/24 12:59
Total Counted 100 07/24/24 06:49
Immature Gran % 4.5 % (0-0.5) H 07/23/24 12:59
Neutrophils % 78.1 % (42.2-75.2) H 07/23/24 12:59
Lymphocytes % 8.8 % (20.5-51.1) L 07/23/24 12:59
Monocytes % 5.4 % (1.7-9.3) 07/23/24 12:59
Eosinophils % 2.8 % (0-6) 07/23/24 12:59
Basophils % 0.4 % (0-2) 07/23/24 12:59
Abs Neuts (Manual) 10.5 10^3/uL (1.4-6.5) H 07/24/24 06:49
Segmented Neutrophils 81 % (42-75) H 07/24/24 06:49
Band Neutrophils 1 % (0-3) 07/24/24 06:49
Lymphocytes (Manual) 6 % (20-51) L 07/24/24 06:49
Eosinophils (Manual) 7 % (0-6) H 07/24/24 06:49
Basophils (Manual) 2 % 07/24/24 06:49
Lactic Acid Cancelled 07/23/24 16:45
Ur Squamous Epith Cells 6-10 /LPF (Few) 07/23/24 14:51
Microbiology Results
Micro:
07/23/24 21:41 Nasal Screen MRSA (PCR) - Final
Nose Staph aureus MRSA
07/23/24 14:03 Blood Culture - Pending
Blood/Venous
07/23/24 12:59 Blood Culture - Pending
Blood/Venous
07/23/24 12:59 Influenza Types A & B (FLAVIO) - Final
Nasal Swab Negative for Influenza A & B, NAAT
Negative results must be combined with clinical observations
and patient history.
Nucleic Acid Amplification test (NAAT)performed on the
[employer] platform.
07/23/24 CXR: Extremely low lung volumes. Patient's chin partially obscures the left apex. Mild left basilar opacity most likely representing scarring, unchanged.
Assessment / Plan
# Leukocytosis -trending down
# Fever (102.9 rectally x 1)
- no infectious etiology identified thus far. UA neg, CXR no acute change, COVID/flu neg
pt without focal sxs and non-toxic appearing.
-DC Vanco/Zosyn and observe for now.
- Follow pending blood cx
-Trend wbc.
# Conditions prior to admission
Intellectual disability
Epilepsy on phenytoin, Keppra, Vimpat, Phenpbarbital
Dyslipidemia
TIMBER RIDER shunt
[facility] resident ([facility])
[2024-07-24 15:00] VITALS: BP 111/71
--- NOTE | 2024-07-24 16:16 | W.PN.HOSP.TC ---
Today's Communication/Plan
-
see bold
Assessment / Plan
Assessment / Plan
HPI: 68-year-old male past medical history of epilepsy, intellectual disability, quadriplegia, dysphagia with PEG tube, GEOCHEMICAL MANAGER shunt, hyperlipidemia presenting with leukocytosis on outpatient labs.� He has chronic cough and hiccups at this time.� Denies
any vomiting or diarrhea or urinary symptoms or abdominal pain. He was recently admitted for septic shock secondary to MSSA aspiration pneumonia secondary to dysphagia/UTI/stroke lower colitis.� He had LP of the GEOCHEMICAL MANAGER shunt which was unremarkable.� He
had blood culture positive for MSSA. He was treated with antibiotics.� He had PEG tube placed at that time.
#Systemic inflammatory response syndrome
Chest x-ray shows mild left basilar opacity, likely scarring
UA unremarkable, COVID/flu negative
Continue vancomycin/Zosyn, follow-up blood cultures, ID consult pending
Check procalcitonin, trend fever and white count
#Hypernatremia
Sodium 149 today, was 150 upon admission
Stop normal saline
Give D5W 50 cc/h for 1 L, increase free water flushes
Trend sodium
#Recent MSSA bacteremia
Discharged from [facility] 07/07/2024
Follow-up on repeat blood cultures
#Mild transaminitis with elevated alk phos
Recent HIDA negative, trend
#Chronic anemia
Check iron studies, B12, folic acid
#Hx of epilepsy
#GEOCHEMICAL MANAGER shunt
Continue seizure medications
#Dysphagia, unspecified
S/p PEG on 07/01/24
Resume tube feeds
#Intellectual disability
#Cerebral palsy
Resides at [facility]
DVT prophylaxis�subcu Lovenox
DNR
Total time spent to see the patient on the floor, examine the patient, review data and lab results, discuss treatment plan with patient, nursing staff around 55 minutes.
Physical Exam
General: Appears debilitated, no acute distress
HEENT: Normocephalic, Atraumatic, EOMI, MMM
Respiratory: Clear to Auscultation bilaterally
Cardiac: Normal S1/S2, Regular Rate and Rhythm
GI: Soft, Nontender, Nondistended, Normal Bowel Sounds
+PEG
Extremities: No Clubbing, Cyanosis, or Edema
Neuro: Dysarthric, slow speech, intellectual disability noted
Psych: Calm, Cooperative
Anticipated Discharge: > 48 hours
Subjective/Interval History
-
Date of Service: July 24, 2024
Patient reports feeling nauseous. He denies pain. No vomiting. No shortness of breath. Fever improved.
Objective Data
-
Labs:
Laboratory Results
07/24/24
06:49
WBC 12.9 H
Hgb 8.6 L
Hct 26.4 L
Plt Count
Sodium 149 H
Potassium 4.6
Chloride 113 H
Carbon Dioxide 23
BUN 45 H
Creatinine 0.8
Glucose 108 H
Calcium 9.2
Vital Signs:
Vital Signs
Temp Pulse Resp BP Pulse Ox
98.7 F 72 18 111/71 98
07/24/24 15:00 07/24/24 15:00 07/24/24 15:00 07/24/24 15:00 07/24/24 15:00
I&O
07/23/24 07/24/24 07/25/24
06:59 06:59 06:59
Intake Total 0 / 0 200 / 200
Balance 0 / 0 200 / 200
[2024-07-24] MEDS: NSS IV (16:28)
[2024-07-24] MEDS: ZOSYN IV (16:28)
[2024-07-24] MEDS: D5W 1000 IV (16:39)
--- NOTE | 2024-07-24 16:41 | CM ---
site manager reviewed patient's chart and met with patient, patient was sitting in bed alert. Patient was recently discharge from [facility] after a peg tube placement, patient returned to [facility]. Patient was OOB transfers to /,
patient has family friend and POA Gucci Kong [phone].
[facility]
Report [phone]

PCP: Dr. Moser
[facility]
Plan; Back to [facility] will need to confirm with POA.
[2024-07-24] MEDS: LOVENOX 40 MG SC (16:45)
--- NOTE | 2024-07-24 17:30 | PTCARENOTE ---
07/24- Patient transferred and oriented to unit without issue. AAOX1; hunched stature; garbled speech but coherent; PEG CDI in abdomen, site CDI with Jevity feeding currently running at 30cc/hr with a goal of 55cc/hr and automatic flushes of 30cc.
Lungs CTA BL. Patient denies any current needs or pain.
[2024-07-24] MEDS: DILANTIN 150 MG TUBE (21:28)
[2024-07-24 23:05] VITALS: BP 123/74
[2024-07-25 07:00] VITALS: BP 100/63
[2024-07-25 07:48] LABS: Hematocrit 21.8 % (39.0-52.0); Hemoglobin 7.2 g/dL (13.0-18.0); Mean Corpuscular Hgb 32.4 pg (27.0-31.0); Mean Corpuscular Volume 98.2 fL (80.0-94.0); Red Blood Cell Count 2.22 10^6/uL (4.70-6.10); Red Cell Dist. Width 15.4 % (11.5-14.5); White Blood Cell Count 13.4 10^3/uL (4.8-10.8)
[2024-07-25 07:57] LABS: Blood Urea Nitrogen 34 mg/dl (9-20); Calcium 8.7 mg/dl (8.4-10.2); Carbon Dioxide 24 mmol/L (22-30); Chloride 108 mmol/L (98-107); Estimated Creatinine Clearance 95 ml/min; Glucose 101 mg/dl (70-99); Iron 51 ug/dl (49-181); Potassium 4.1 mmol/L (3.5-5.1); Sodium 144 mmol/L (135-145); eGFR > 60.00
[2024-07-25 08:06] LABS: Percent Saturation 24 % (20-50); Total Iron Binding Capacity 212 ug/dl (261-462)
[2024-07-25] MEDS: KEPPRA 1500 MG TUBE ×2 (08:45→20:10)
[2024-07-25] MEDS: DILANTIN 200 MG TUBE (08:46)
[2024-07-25] MEDS: VIMPAT 150 MG TUBE ×2 (08:49→20:10)
[2024-07-25] MEDS: ProAmatine 5 MG TUBE (08:50)
[2024-07-25] MEDS: VITAMIN B-12 1000 MCG TUBE (08:50)
[2024-07-25] MEDS: FOLVITE 1 MG TUBE (08:50)
[2024-07-25] MEDS: LUMINAL 64.8 MG TUBE ×2 (08:52→20:10)
[2024-07-25 09:02] LABS: Folate > 20.0 ng/ml (2.76-20); Vitamin B12 485 pg/ml (239-931)
--- NOTE | 2024-07-25 09:33 | W.PN.ID1 ---
Date of Service
Date of Service: July 25, 2024
Today's Communication
-Ordered BLE periph venous US to r/o DVT as source of elev wbc.
-Observing off abx.
Assessment / Plan
# Leukocytosis - unclear source
# Temp 102.0 (rectally) x 1
- no infectious etiology identified thus far. UA neg, CXR no acute change, COVID/flu neg, bcx's neg x 2
no diarrhea
pt without focal sxs and non-toxic appearing.
-Ordered BLE periph venous US to r/o DVT as source
-Observing off abx.
-Trend wbc.
# Conditions prior to admission
Intellectual disability
Dysphagia s/p recent PEG
Epilepsy on phenytoin, Keppra, Vimpat, Phenpbarbital
Dyslipidemia
TERRY CLOTH CUTTER HAND shunt
[facility] resident ([facility])
Chief Complaint
-: Leukocytosis
Subjective / Review of Systems
Continues to feel well without specific complaints.
Review of Systems: No Chills, No Headache, No Pharyngitis, No Stiff Neck, Cough (intermittent and chronic), No Sputum Production, No Chest Pain, No Abdominal Pain, No Nausea, No Vomiting, No Diarrhea and No Dysuria
Vital Signs / Physical Exam
Vital Signs
Vital Signs
Temp Pulse Resp BP Pulse Ox
97.8 F 79 16 100/63 97
07/25/24 07:00 07/25/24 08:50 07/25/24 07:00 07/25/24 08:50 07/25/24 09:15
Physical Exam
Constitutional: No Acute Distress, Comfortable and Chronically Ill
Eyes: No Conjunctival Hemorrhage and Sclera Anicteric
Cardiovascular: Regular Rate and S1/S2
Pulmonary: Other (Decreased BS)
Gastrointestinal: Soft, Non Tender, Non Distended and Other (PEG site unremarkable)
Genito-Urinary: Negative CVA Tenderness
Extremities: Negative Edema
Neurological: Awake and Alert; Negative Meningeal Signs
Objective Data
Lab Data
Lab Results
07/25/24 06:31
07/25/24 06:31
Estimated Creat Clear 95 ml/min 07/25/24 06:31
Lactic Acid Cancelled 07/23/24 16:45
Total Bilirubin 0.4 mg/dl (0.2-1.3) 07/23/24 12:59
AST 84 U/L (17-59) H 07/23/24 12:59
ALT 54 U/L (0-50) H 07/23/24 12:59
Alkaline Phosphatase 469 U/L (38-126) H 07/23/24 12:59
Most recent labs reviewed.
Micro Results:
07/23/24 14:03 Blood Culture - Preliminary
Blood/Venous No Growth in 24 hours- Final report to follow
07/23/24 12:59 Blood Culture - Preliminary
Blood/Venous No Growth in 24 hours- Final report to follow
07/23/24 21:41 Nasal Screen MRSA (PCR) - Final
Nose Staph aureus MRSA
07/23/24 12:59 Influenza Types A & B (FLAVIO) - Final
Nasal Swab Negative for Influenza A & B, NAAT
Negative results must be combined with clinical observations
and patient history.
Nucleic Acid Amplification test (NAAT)performed on the
[employer] platform.
07/23/24 CXR: Extremely low lung volumes. Patient's chin partially obscures the left apex. Mild left basilar opacity most likely representing scarring, unchanged.
--- NOTE | 2024-07-25 09:40 | W.PN.HOSP.TC ---
Today's Communication/Plan
-
see bold
Assessment / Plan
Assessment / Plan
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
any vomiting or diarrhea or urinary symptoms or abdominal pain. He was recently admitted for septic shock secondary to MSSA aspiration pneumonia secondary to dysphagia/UTI/stroke lower colitis.� He had LP of the HOUSING MANAGEMENT REPRESENTATIVE shunt which was unremarkable.� He
had blood culture positive for MSSA. He was treated with antibiotics.� He had PEG tube placed at that time.
#Systemic inflammatory response syndrome
Chest x-ray shows mild left basilar opacity, likely scarring
UA unremarkable, COVID/flu negative, blood cultures x 2 negative
Appreciate ID input, no infectious etiology identified
Monitor off antibiotics
#Hypernatremia
Sodium 144 today, was 149, was 150 upon admission
Resolved status post D5W
Trend sodium
#Recent MSSA bacteremia
Discharged from [facility] 07/07/2024
Follow-up on repeat blood cultures
#Mild transaminitis with elevated alk phos
Recent HIDA negative, trend
#Chronic anemia
Iron levels adequate, B12/folic acid normal
Continue to trend, transfuse for hemoglobin less than 7.0
#Hx of epilepsy
#HOUSING MANAGEMENT REPRESENTATIVE shunt
Continue seizure medications
#Dysphagia, unspecified
S/p PEG on 07/01/24
Resumed tube feeds -patient is tolerating
#Intellectual disability
#Cerebral palsy
Resides at [facility]
DVT prophylaxis�subcu Lovenox
DNR
Total time spent to see the patient on the floor, examine the patient, review data and lab results, discuss treatment plan with patient, nursing staff around 51 minutes.
Physical Exam
General: Appears debilitated, no acute distress
HEENT: Normocephalic, Atraumatic, EOMI, MMM
Respiratory: Clear to Auscultation bilaterally
Cardiac: Normal S1/S2, Regular Rate and Rhythm
GI: Soft, Nontender, Nondistended, Normal Bowel Sounds
+PEG
Extremities: No Clubbing, Cyanosis, or Edema
Neuro: Dysarthric, slow speech, intellectual disability noted
Psych: Calm, Cooperative
Anticipated Discharge: 24 - 48 hours
Subjective/Interval History
-
Date of Service: July 25, 2024
Patient denies pain. No black or bloody stools. No chest pain, no shortness of breath. No fever, no vomiting.
Objective Data
-
Labs:
Laboratory Results
07/25/24
06:31
WBC 13.4 H
Hgb 7.2 L
Hct 21.8 L
Plt Count
Sodium 144
Potassium 4.1
Chloride 108 H
Carbon Dioxide 24
BUN 34 H
Creatinine 0.7
Glucose 101 H
Calcium 8.7
Vital Signs:
Vital Signs
Temp Pulse Resp BP Pulse Ox
97.8 F 79 16 100/63 97
07/25/24 07:00 07/25/24 08:50 07/25/24 07:00 07/25/24 08:50 07/25/24 09:15
I&O
07/24/24 07/25/24 07/26/24
06:59 06:59 06:59
Intake Total 0 / 0 200 / 200
Balance 0 / 0 200 / 200
--- NOTE | 2024-07-25 10:25 | PN.CDI ---
CDI
- -
CDI:
Physician Documentation Request
Admit Date: 07/23/24 16:32
Dear Doctor Do,
Please review the following and provide your response in the progress notes.
Clinical Indicators:
- 07/23 ER Physician 'chronic right-sided hemiparesis'
- 07/24 PN 'quadriplegia'
- 07/23 RN note 'right hemiplegia'
- Complete care for all activities, hygiene, turning, feeding
Please provide further specificity as noted below:
Right sided hemiparesis with functional quadriplegia, quadriplegia ruled out
Right sided hemiparesis, quadriplegia ruled out
Other (please specify)
Use of terms such as suspected, likely, concern for, or probable (associated with a specific diagnosis that is being evaluated, monitored, or treated as if it exists) are acceptable and can be coded in the inpatient setting, when documented at the
time of discharge.
Thank you,
Corinna Guillory RN
CDI Specialist
Please use your independent medical judgment in providing your response.
[2024-07-25 10:45] VITALS: BMI 22.7
[2024-07-25] MEDS: ProAmatine TUBE ×2 (11:52→16:35)
[2024-07-25 15:00] VITALS: BP 126/78
[2024-07-25] MEDS: LOVENOX 40 MG SC (17:07)
[2024-07-25] MEDS: DILANTIN 150 MG TUBE (21:09)
[2024-07-25 23:00] VITALS: BP 97/61
[2024-07-26 03:30] VITALS: BP 100/68
[2024-07-26 07:00] VITALS: BP 113/68
[2024-07-26] MEDS: FOLVITE 1 MG TUBE (07:34)
[2024-07-26] MEDS: VITAMIN B-12 1000 MCG TUBE (07:34)
[2024-07-26] MEDS: KEPPRA 1500 MG TUBE ×2 (07:34→20:31)
[2024-07-26] MEDS: VIMPAT 150 MG TUBE ×2 (07:35→20:30)
[2024-07-26] MEDS: DILANTIN 200 MG TUBE (07:35)
[2024-07-26] MEDS: LUMINAL 64.8 MG TUBE ×2 (07:35→20:31)
[2024-07-26] MEDS: ProAmatine 5 MG TUBE ×2 (07:35→16:18)
--- NOTE | 2024-07-26 09:49 | W.PN.HOSP.TC ---
Today's Communication/Plan
-
see bold
Assessment / Plan
Assessment / Plan
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
any vomiting or diarrhea or urinary symptoms or abdominal pain. He was recently admitted for septic shock secondary to MSSA aspiration pneumonia secondary to dysphagia/UTI/stroke lower colitis.� He had LP of the DIMENSION SPECIFICATION INSPECTOR shunt which was unremarkable.� He
had blood culture positive for MSSA. He was treated with antibiotics.� He had PEG tube placed at that time.
#Systemic inflammatory response syndrome
Chest x-ray shows mild left basilar opacity, likely scarring
UA unremarkable, COVID/flu negative, blood cultures x 2 negative
Appreciate ID input, no infectious etiology identified
Monitor off antibiotics
#Hypernatremia
Sodium 140 today, was 144, was 149, was 150 upon admission
Resolved status post D5W
Trend sodium
#Recent MSSA bacteremia
Discharged from [facility] 07/07/2024
Repeat blood cultures negative to date
#Mild transaminitis with elevated alk phos
Recent HIDA negative, trend
#Chronic anemia
Iron levels adequate, B12/folic acid normal
Continue to trend, transfuse for hemoglobin less than 7.0
#Hx of epilepsy
#DIMENSION SPECIFICATION INSPECTOR shunt
Continue seizure medications
#Dysphagia, unspecified
S/p PEG on 07/01/24
Resumed tube feeds -patient is tolerating
#Intellectual disability
#Cerebral palsy
Resides at [facility]
DVT prophylaxis�subcu Lovenox
DNR
Total time spent to see the patient on the floor, examine the patient, review data and lab results, discuss treatment plan with patient, nursing staff around 41 minutes.
Physical Exam
General: Appears debilitated, no acute distress
HEENT: Normocephalic, Atraumatic, EOMI, MMM
Respiratory: Clear to Auscultation bilaterally
Cardiac: Normal S1/S2, Regular Rate and Rhythm
GI: Soft, Nontender, Nondistended, Normal Bowel Sounds
+PEG
Extremities: No Clubbing, Cyanosis, or Edema
Neuro: Dysarthric, slow speech, intellectual disability noted
Psych: Calm, Cooperative
Anticipated Discharge: Within 24 hours
Subjective/Interval History
-
Date of Service: July 26, 2024
No chest pain, shortness of breath, or palpitations. No fever, vomiting, or diarrhea.
Objective Data
-
Labs:
Laboratory Results
07/26/24
06:00
WBC Pending
Hgb Pending
Hct Pending
Plt Count Pending
Sodium Pending
Potassium Pending
Chloride Pending
Carbon Dioxide Pending
BUN Pending
Creatinine Pending
Glucose Pending
Calcium Pending
Vital Signs:
Vital Signs
Temp Pulse Resp BP Pulse Ox
98.1 F 78 16 113/68 99
07/26/24 07:00 07/26/24 07:00 07/26/24 07:00 07/26/24 07:00 07/26/24 07:00
I&O
07/25/24 07/26/24 07/27/24
06:59 06:59 06:59
Intake Total 200 / 200 1260 / 1260
Balance 200 / 200 1260 / 1260
[2024-07-26] MEDS: ProAmatine TUBE (12:26)
[2024-07-26 12:41] LABS: Blood Urea Nitrogen 28 mg/dl (9-20); Calcium 8.6 mg/dl (8.4-10.2); Carbon Dioxide 25 mmol/L (22-30); Chloride 103 mmol/L (98-107); Estimated Creatinine Clearance 111 ml/min; Glucose 90 mg/dl (70-99); Magnesium 1.9 mg/dl (1.6-2.3); Sodium 140 mmol/L (135-145); eGFR > 60.00
[2024-07-26 12:59] LABS: Hemoglobin 8.2 g/dL (13.0-18.0); Mean Corp Hgb Conc. 34.2 g/dL (33.0-37.0); Mean Corpuscular Hgb 31.9 pg (27.0-31.0); Mean Corpuscular Volume 93.4 fL (80.0-94.0); Mean Platelet Volume 9.5 fL (7.4-10.4); Platelet Count 538 10^3/uL (130-400); Red Blood Cell Count 2.57 10^6/uL (4.70-6.10); Red Cell Dist. Width 15.3 % (11.5-14.5); White Blood Cell Count 11.1 10^3/uL (4.8-10.8)
[2024-07-26 15:00] VITALS: BP 109/76
--- NOTE | 2024-07-26 15:44 | CM ---
CM reviewed chart, patient seen bedside. CM placed call to patients friend/POA, Gucci, discussed possible discharge tomorrow. Patient LTC resident at [facility], referral sent in [facility]. Patient will require ambulance transport, forms placed on
chart. CM will continue to follow for all discharge planning needs.
Plan; return to [facility] LT
[facility]
Report [phone]
--- NOTE | 2024-07-26 16:10 | PTCARENOTE ---
07/26- Patient's Kangaroo pump repeatedly alarms for occlusion. Manually flushed PEG tube without issue at 1200 (See interventions). Currently obtained 80cc residual. Patient denies pain, nausea, indigestion etc. but he is observed still burping.
Abdomen is Soft/NT but mildly distended. +BSX4. Notified Physician.
[2024-07-26] MEDS: LOVENOX 40 MG SC (16:14)
[2024-07-26] MEDS: 0.45%NACL 1000 IV (16:22)
[2024-07-26] MEDS: DILANTIN 150 MG TUBE (21:54)
[2024-07-26 23:00] VITALS: BP 103/61
[2024-07-27 07:22] LABS: Hematocrit 24.1 % (39.0-52.0); Hemoglobin 8.2 g/dL (13.0-18.0); Mean Corpuscular Hgb 32.2 pg (27.0-31.0); Mean Corpuscular Volume 94.5 fL (80.0-94.0); Mean Platelet Volume 9.9 fL (7.4-10.4); Platelet Count 536 10^3/uL (130-400); Red Blood Cell Count 2.55 10^6/uL (4.70-6.10); Red Cell Dist. Width 15.1 % (11.5-14.5); White Blood Cell Count 9.7 10^3/uL (4.8-10.8)
[2024-07-27] MEDS: KEPPRA 1500 MG TUBE (07:28)
[2024-07-27] MEDS: ProAmatine 5 MG TUBE (07:29)
[2024-07-27] MEDS: LUMINAL 64.8 MG TUBE (07:29)
[2024-07-27] MEDS: FOLVITE 1 MG TUBE (07:29)
[2024-07-27] MEDS: VITAMIN B-12 1000 MCG TUBE (07:29)
[2024-07-27 07:30] VITALS: BP 110/76
[2024-07-27] MEDS: DILANTIN 200 MG TUBE (07:30)
[2024-07-27] MEDS: VIMPAT 150 MG TUBE (07:32)
[2024-07-27 07:43] LABS: Blood Urea Nitrogen 24 mg/dl (9-20); Calcium 8.4 mg/dl (8.4-10.2); Carbon Dioxide 25 mmol/L (22-30); Chloride 101 mmol/L (98-107); Estimated Creatinine Clearance 111 ml/min; Glucose 102 mg/dl (70-99); Potassium 4.4 mmol/L (3.5-5.1); Sodium 135 mmol/L (135-145); eGFR > 60.00
--- NOTE | 2024-07-27 08:11 | W.PN.HOSP.TC ---
Addendum entered and electronically signed by Vinay Matta MD 08/04/24 12:25:
Patient has right sided hemiparesis with functional quadriplegia, quadriplegia ruled out.
Original Note:
Today's Communication/Plan
-
Discharge back to [facility] today
Assessment / Plan
Assessment / Plan
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
any vomiting or diarrhea or urinary symptoms or abdominal pain. He was recently admitted for septic shock secondary to MSSA aspiration pneumonia secondary to dysphagia/UTI/stroke lower colitis.� He had LP of the VOIP NETWORK TECHNICIAN shunt which was unremarkable.� He
had blood culture positive for MSSA. He was treated with antibiotics.� He had PEG tube placed at that time.
#Systemic inflammatory response syndrome
Chest x-ray shows mild left basilar opacity, likely scarring
UA unremarkable, COVID/flu negative, blood cultures x 2 negative
Appreciate ID input, no infectious etiology identified
Fever and leukocytosis resolved, medically stable for discharge back to [facility] today
#Hypernatremia
Sodium 135 today was 140, was 144, was 149, was 150 upon admission
Resolved status post D5W
Trend sodium
#Recent MSSA bacteremia
Discharged from [facility] 07/07/2024
Repeat blood cultures negative to date
#Mild transaminitis with elevated alk phos
Recent HIDA negative, trend
#Chronic anemia
Iron levels adequate, B12/folic acid normal
Continue to trend, transfuse for hemoglobin less than 7.0
#Hx of epilepsy
#VOIP NETWORK TECHNICIAN shunt
Continue seizure medications
#Dysphagia, unspecified
S/p PEG on 07/01/24
Resumed tube feeds -patient is tolerating
#Intellectual disability
#Cerebral palsy
Resides at [facility]
DVT prophylaxis�subcu Lovenox
DNR
Physical Exam
General: Appears debilitated, no acute distress
HEENT: Normocephalic, Atraumatic, EOMI, MMM
Respiratory: Clear to Auscultation bilaterally
Cardiac: Normal S1/S2, Regular Rate and Rhythm
GI: Soft, Nontender, Nondistended, Normal Bowel Sounds
+PEG
Extremities: No Clubbing, Cyanosis, or Edema
Neuro: Dysarthric, slow speech, intellectual disability noted
Psych: Calm, Cooperative
Anticipated Discharge: Today
Subjective/Interval History
-
Date of Service: July 27, 2024
No acute events. Patient denies chest pain, coughing, shortness of breath, or vomiting. No fever.
Objective Data
-
Labs:
Laboratory Results
07/27/24
06:19
WBC 9.7
Hgb 8.2 L
Hct 24.1 L
Plt Count 536 H
Sodium 135
Potassium 4.4
Chloride 101
Carbon Dioxide 25
BUN 24 H
Creatinine 0.6 L
Glucose 102 H
Calcium 8.4
Vital Signs:
Vital Signs
Temp Pulse Resp BP Pulse Ox
97.8 F 81 16 103/61 96
07/26/24 23:00 07/26/24 23:00 07/26/24 23:00 07/26/24 23:00 07/26/24 23:00
I&O
07/26/24 07/27/24 07/28/24
06:59 06:59 06:59
Intake Total 1260 / 1260 1260 / 1260
Balance 1260 / 1260 1260 / 1260
--- NOTE | 2024-07-27 10:13 | CM ---
Addendum entered by Rosalind Sim 07/27/24 10:33:
Transport time scheduled for 1:30 p.m. [facility] updated.
Original Note:
CM reviewed chart, per Hospitalist, patient clear for discharge back to [facility]. Marisol in Admissions updated with patient discharge. Patient will require ambulance transport. VM left for patients friend/POA, Gucci, to discuss IMM and
discharge. CM will continue to follow for all discharge planning needs.
Plan; [facility], ambulance transport
Report: [phone]
--- NOTE | 2024-07-27 10:13 | W.DCSUMMARY ---
Addendum entered and electronically signed by Vinay Matta MD 08/04/24 12:26:
Patient has right sided hemiparesis with functional quadriplegia, quadriplegia ruled out.
Original Note:
Discharge Summary
Discharge Data
Date of Admission: 07/23/24
Date of Discharge: 07/27/24
-
Pending Results: No
Hospital Course
Discharge diagnosis:
Systemic inflammatory response syndrome with fever and leukocytosis
Hypernatremia
Recent methicillin sensitive Staph aureus bacteremia
Mild transaminitis
Chronic anemia
History of epilepsy
Ventriculoperitoneal shunt
Dysphagia on tube feeds
Intellectual disability
Cerebral palsy
Consults: ID
Hospital course:
68 year old male with intellectual disability, CAR PILOT shunt, seizure disorder on multiple anti-seizure meds who presented to ED 07/23/24 from [facility] due to elevated WBC. He recently had prolonged hospital stay from June 18 to July 07
with change in mental status, fecal impaction, aspiration pneumonia, dysphagia s/p PEG . He eventually improved with mental status back to baseline. Recent routine outside blood work showed leukocytosis and therefore sent to ED. WBC 20.6. Tmax
102.9 (rectally).
Patient was initially treated with IV antibiotics. He was seen in conjunction with ID. No infectious etiology was identified. His UA, chest x-ray were all negative. He was influenza/COVID-negative. Blood cultures x 2 were negative. ID
recommended discontinuing antibiotics and observing.
Patient was monitored for several days off of antibiotics. He did not have any recurrence of fever. His leukocytosis resolved. He continued to be nontoxic-appearing. He tolerated his tube feeds.
Patient had hypernatremia. This resolved with D5W.
He is medically stable for discharge back to [facility]. He needs to follow-up with his primary care doctor in 1 week.
Disposition: Back to [facility]
Discharge planning: Required 39 minutes
Discharge Plan
-
Patient Disposition: Residential/SNF
Discharge Diagnosis/Procedures: Systemic inflammatory response syndrome, infection ruled out, hypernatremia, transaminitis, dysphagia on tube feeds
Condition: Good
Diet: Tube feeding
Additional Diets: Jevity 1.5 at 55 cc/h, water flush 30 cc/h
Activity: As tolerated
Blood Work: CMP, CBC on 07/30/24
Referrals:
Dipesh Moser MD [Family Provider] - in one week
Prescriptions:
Continued
atorvastatin 10 mg Tablet
10 mg feeding tube HS
cyanocobalamin (vitamin B-12) 1,000 mcg Tablet
1,000 mcg feeding tube DAILY
phenytoin [Dilantin Infatabs] 50 mg Tablet,Chewable
150 mg G-tube HS
phenytoin [Dilantin Infatabs] 50 mg Tablet,Chewable
200 mg G-tube DAILY
folic acid 1 mg Tablet
1 mg feeding tube DAILY
lacosamide [Vimpat] 10 mg/mL Solution
150 mg feeding tube BID
cholecalciferol (vitamin D3) 1,250 mcg (50,000 unit) Tablet
1,250 mcg feeding tube MO
Diazepam Rectal Gel 10 mg gel
10 mg VT DAILYPRN PRN (Reason: seizure)
acetaminophen 650 mg/20.3 mL Solution
650 mg feeding tube Q6HPRN MDD 3000 mg PRN (Reason: mild pain and temp>100.4) Qty: 30 0RF
phenobarbital 64.8 mg Tablet
64.8 mg feeding tube BID
polyethylene glycol 3350 [HealthyLax] 17 gram powder in packet
17 g feeding tube DAILYPRN PRN (Reason: constipation)
midodrine 5 mg tablet
5 mg feeding tube TID
bisacodyl 10 mg suppository
10 mg VT DAILYPRN PRN (Reason: constipation)
levetiracetam 500 mg/5 mL (5 mL) solution
1,500 mg feeding tube Q12
Discharge Orders:
Discharge Patient (As Directed); Ordered 07/27/24
Ordered By: Vinay Matta
Discharge Date and Time
Discharge Date/Time: 07/27/24 15:52
Print Language: UPPER SORBIAN
[2024-07-27] MEDS: ProAmatine TUBE ×2 (10:49→11:11)
[2024-07-27 11:30] VITALS: BP 97/64
== END 2024-07-27 15:52 | DRG 640 ==
LOC: 4 WEST ACU 16:32
PROVIDERS: Nurse Practitioner Family; Physician Assistant; ADMITTING PHYSICIAN Hospitalist; ATTENDING PHYSICIAN Family Medicine; EMERGENCY PHYSICIAN Emergency Medicine; FAMILY PHYSICIAN Internal Medicine; OTHER PHYSICIAN Internal Medicine Infectious Disease
DX: E87.0 Hyperosmolality and hypernatremia (principal); R53.2 Functional quadriplegia; R65.10 Systemic inflammatory response syndrome (SIRS) of non-infectious origin without acute organ dysfunction; D64.9 Anemia, unspecified; F79 Unspecified intellectual disabilities; G80.9 Cerebral palsy, unspecified; Z98.2 Presence of cerebrospinal fluid drainage device; Z11.52 Encounter for screening for COVID-19
CPT/HCPCS: 51701; 71046; 80048; 80053; 81003; 81015; 82607; 82728; 82746; 83540; 83550; 83605; 83735; 84100; 85025; 85027; 86850; 86900; 86901; 87040; 87070; 87502; 87641; 87811; 93970; 96361; 96365; 96366; 96367; 99285

== ENCOUNTER 2024-09-06 05:59 | Emergency (ER) | payer MEDICARE, OTHER, SELFPAY ==
[2024-09-06] VITALS (7 sets, daily range): BP systolic 94–121; BP diastolic 66–79; BMI 25.3
--- NOTE | 2024-09-06 07:08 | ED.GENMED ---
History of Present Illness
<Sanjuanita Alvarado PA-C - Last Filed: 09/06/24 11:41>
General
Chief Complaint: Fall
Source: patient and ambulance crew
Exam Limitations: developmental stage
Time Seen by Provider: 09/06/24 06:34
History of Present Illness
History of Present Illness:
68yoM with a history of epilepsy, BRUSH FINISHER shunt placement, right sided hemiparesis, intellectual disability, dysphagia with PEG tube in place, and hyperlipidemia presenting via EMS for evaluation after a fall. Patient is at [facility]. Staff heard
a loud noise from his room this morning and found him on the ground. He apparently likes to play with the controls on the hospital bed and the bed was at the highest position. Unknown head strike. There was no obvious injuries although staff sent
him to the ED for evaluation. Patient has no complaints at this time and denies any pain. He is at baseline mental status per [facility] staff. He is not on any anticoagulation.
Past History
<Sanjuanita Alvarado PA-C - Last Filed: 09/06/24 11:41>
Past History
ED Past Medical History: Seizures and Other (Intellectual disability)
ED Past Surgical History: None
Social History
Tobacco: Non-smoker
Alcohol: None
Drug: None
Personal: Single
Living: [facility]
Employment: Disabled
Phy Exam
<Sanjuanita Alvarado PA-C - Last Filed: 09/06/24 11:41>
General Physical Exam
General Presentation: no apparent distress
General age: appears stated age
General Skin: warm and dry
General Mental: alert
ENT Exam
ENT Exam: other (No external signs of head trauma. No cervical spine tenderness.)
Eye Exam
Eye Exam: PERRL
Pulmonary Exam
Pulmonary Exam: lungs clear, no respiratory distress, no rales, chest non tender, no crackles and no rhonchi
Gastrointestinal Exam
Gastrointestinal Exam: non tender, soft and non distended
Neurological Exam
Neurological Exam: alert and other (Baseline R sided hemiparesis)
Musculoskeletal Exam
Musculoskeletal Exam: other (No C/T/L spine tenderness. Pelvis stable. No hip tenderness with internal/external rotation. )
Skin Exam
Skin Exam: normal color and warm/dry
Course
<Sanjuanita Alvarado PA-C - Last Filed: 09/06/24 11:41>
Orders/Labs/Results
Orders:
Orders
09/06/24 06:42
CT Head W/o Iv Contrast Urgent
Comment:
Reason For Exam: fall
09/06/24 07:06
CT Cervical Spine W/o Iv Contr Urgent
Comment:
Reason For Exam: unwitnessed fall
Vital Signs
Initial and Last Documented VS:
Initial Vital Signs
Temp Pulse Resp BP Pulse Ox
98.5 F 80 16 121/79 99
09/06/24 06:01 09/06/24 06:01 09/06/24 06:01 09/06/24 06:01 09/06/24 06:01
Last Documented Vital Signs
Temp Pulse Resp BP Pulse Ox
98.5 F 80 16 94/66 97
09/06/24 06:01 09/06/24 06:01 09/06/24 06:01 09/06/24 10:00 09/06/24 08:56
<Tree Santana DO - Last Filed: 09/06/24 08:32>
Orders/Labs/Results
Orders:
Orders
09/06/24 06:42
CT Head W/o Iv Contrast Urgent
Comment:
Reason For Exam: fall
09/06/24 07:06
CT Cervical Spine W/o Iv Contr Urgent
Comment:
Reason For Exam: unwitnessed fall
Vital Signs
Initial and Last Documented VS:
Initial Vital Signs
Temp Pulse Resp BP Pulse Ox
98.5 F 80 16 121/79 99
09/06/24 06:01 09/06/24 06:01 09/06/24 06:01 09/06/24 06:01 09/06/24 06:01
Last Documented Vital Signs
Temp Pulse Resp BP Pulse Ox
98.5 F 80 16 94/66 97
09/06/24 06:01 09/06/24 06:01 09/06/24 06:01 09/06/24 10:00 09/06/24 08:56
<Sanjuanita Alvarado PA-C - Last Filed: 09/06/24 11:41>
MDM/Problems Addressed
Differential Diagnosis Includes:
68yoM here after an unwitnessed fall at his [facility] his morning. Hx of seizures, BRUSH FINISHER shunt, and R sided hemiparesis. Patient at baseline mental status. No complaints at this time. VSS. He is awake and alert. No external signs of trauma on exam.
No C/T/L spine tenderness noted. Differential diagnosis includes but is not limited to: mechanical fall, closed head injury, intracranial hemorrhage, fracture
Initial ED plan: Check CT head and CT cervical spine.
<Sanjuanita Alvarado PA-C - Last Filed: 09/06/24 11:41>
*Critical Care Note
Total Time (30-74mins, 75-104mins- exclusive of procedures): Not Applicable
<Sanjuanita Alvarado PA-C - Last Filed: 09/06/24 11:41>
Update Note
Update Note:
Preliminary [facility] radiology report is negative for traumatic injuries. Patient is stable for discharge back to nursing facility.
ED Attending Note
<Sanjuanita Alvarado PA-C - Last Filed: 09/06/24 11:41>
-
Portions of this chart may have been created with voice recognition software.� Occasional wrong word or��sound alike� substitutions may have occurred due to the inherent limitations of voice recognition software.
<Tree Santana, DO - Last Filed: 09/06/24 08:32>
ED Attending Note
Patient seen and examined by attending physician: Yes
I performed the substantive portion of visit, reviewed & personally made and approve the management plan that is documented in note by myself or ZOYA.: Yes
ED Attending Note:
Unwitnessed fall. No baseline mentation. Imaging negative.
Discharge Plan
Departure
Patient Disposition: Home (Routine Discharge)
Date of Disposition: 09/06/24
Time of Disposition: 08:09
Patient with high blood pressure during this ER visit?: No
Discharge Problem:
Unwitnessed fall
Instructions: Preventing falls in adults
Prescriptions:
No Action
atorvastatin 10 mg Tablet
10 mg feeding tube HS
cyanocobalamin (vitamin B-12) 1,000 mcg Tablet
1,000 mcg feeding tube DAILY
phenytoin [Dilantin Infatabs] 50 mg Tablet,Chewable
150 mg G-tube HS
phenytoin [Dilantin Infatabs] 50 mg Tablet,Chewable
200 mg G-tube DAILY
folic acid 1 mg Tablet
1 mg feeding tube DAILY
lacosamide [Vimpat] 10 mg/mL Solution
150 mg feeding tube BID
cholecalciferol (vitamin D3) 1,250 mcg (50,000 unit) Tablet
1,250 mcg feeding tube MO
Diazepam Rectal Gel 10 mg gel
10 mg AR DAILYPRN PRN (Reason: seizure)
acetaminophen 650 mg/20.3 mL Solution
650 mg feeding tube Q6HPRN MDD 3000 mg PRN (Reason: mild pain and temp>100.4) Qty: 30 0RF
phenobarbital 64.8 mg Tablet
64.8 mg feeding tube BID
polyethylene glycol 3350 [HealthyLax] 17 gram powder in packet
17 g feeding tube DAILYPRN PRN (Reason: constipation)
midodrine 5 mg tablet
5 mg feeding tube TID
bisacodyl 10 mg suppository
10 mg AR DAILYPRN PRN (Reason: constipation)
levetiracetam 500 mg/5 mL (5 mL) solution
1,500 mg feeding tube Q12
levetiracetam [Keppra] 100 mg/mL Solution
1,500 mg feeding tube Q12H
Referrals:
Dipesh Moser MD [Family Provider] -
Activity Restrictions/Additional Instructions:
CT head and cervical spine negative for traumatic injuries.
Interventions
Interventions:
*Risk Screen - Suicide Last Done: 09/06/24 06:01
*General Assessment Last Done: 09/06/24 06:01
*Neglect/Abuse Screening Last Done: 09/06/24 06:01
ED- Fall Risk Assessment Last Done: 09/06/24 10:47
*ED COVID-19 Vaccine History Last Done: 09/06/24 06:01
ED-Musculoskeletal Assessment Last Done: 09/06/24 06:12
ED- Neurological Assessment Last Done: 09/06/24 06:12
ED-Skin Assessment Last Done: 09/06/24 06:12
Discharge Date and Time
Print Language: SINHALA
--- NOTE | 2024-09-06 08:55 | EDRN ---
Report given to Mallory arita at [facility]
== END 2024-09-06 11:30 | disposition home or self-care (01) ==
LOC: EMR 05:59
PROVIDERS: EMERGENCY PHYSICIAN Emergency Medicine; FAMILY PHYSICIAN Internal Medicine
DX: Z04.3 Encounter for examination and observation following other accident (principal); E78.5 Hyperlipidemia, unspecified; F79 Unspecified intellectual disabilities; G40.909 Epilepsy, unspecified, not intractable, without status epilepticus; Z93.1 Gastrostomy status; Z98.2 Presence of cerebrospinal fluid drainage device; G81.91 Hemiplegia, unspecified affecting right dominant side
CPT/HCPCS: 99284; 70450; 72125